=== PATIENT | male | born 1945 | race Caucasian/White ===

== ENCOUNTER 2018-04-09 15:47 | Inpatient (IN) | payer BC, MEDICARE ==
[2018-04-09] MEDS ORDERED: ADENOSINE 3 MG/ML 2 ML VIAL IVP STA ×2 (16:09→16:13)
[2018-04-09] MEDS ORDERED: METOPROLOL TARTRATE 5 MG/5 ML VIAL IVP STA ×2 (16:16→16:24)
[2018-04-09 16:26] LABS: Basophils % (A) 0 %; Eosinophils # (A) 0.1 k/uL (0-0.7); Eosinophils % (A) 1 %; HCT 47.5 % (39.0-53.0); HGB 15.7 gm/dL (13.0-17.5); Lymphocytes % (A) 21 %; MCH 32.1 pg (25.0-35.0); MCHC 33.1 g/dL (31.0-37.0); MCV 96.9 fL (80.0-100.0); Mean Platelet Volume 6.8; Monocytes # (A) 1.2 k/uL (0-1.0); Monocytes % (A) 9 %; Neutrophils # (A) 9.5 k/uL (1.3-7.7); Neutrophils % (A) 68 %; Platelet Count 210 k/uL (150-450); RDW 13.3 % (11.5-15.5); WBC 13.9 k/uL (3.8-10.6)
[2018-04-09 16:38] LABS: ALT 69 U/L (21-72); AST 43 U/L (17-59); Albumin 3.4 g/dL (3.5-5.0); Alkaline Phosphatase 59 U/L (38-126); Anion Gap 9 mmol/L; Blood Urea Nitrogen 21 mg/dL (9-20); Calcium 8.7 mg/dL (8.4-10.2); Carbon Dioxide 26 mmol/L (22-30); Chloride 101 mmol/L (98-107); Glucose 93 mg/dL (74-99); INR 1.2 (<1.2); Magnesium 1.8 mg/dL (1.6-2.3); Potassium 3.2 mmol/L (3.5-5.1); Prothrombin Time 11.2 sec (9.0-12.0); Sodium 136 mmol/L (137-145); Total Bilirubin 0.7 mg/dL (0.2-1.3); Total Protein 6.3 g/dL (6.3-8.2)
[2018-04-09] MEDS ORDERED: MIDAZOLAM 1 MG/ML 5 ML VIAL IV STA (16:39)
--- NOTE | 2018-04-09 16:43 | ED ---
General Adult HPI - General Chief complaint: Chest Pain Stated complaint: chest pain Time Seen by Provider: 04/09/18 15:48 Source: patient, RN notes reviewed, old records reviewed Mode of arrival: wheelchair Limitations: no limitations - History of Present Illness Initial comments: 82-year-old male presenting with chest pain and palpitations. Patient has history of coronary artery disease, history of atrial fibrillation, he has had pacemaker defibrillator which has been changed within the past one year. He has a reduced EF and cardiomyopathy. Patient presenting with substernal chest pain which began 30 minutes prior to arrival. This was exertional. He also reports some dyspnea. Patient is currently on anticoagulation for history of atrial fibrillation. He is on Coreg and digoxin. - Related Data Home Medications Medication Instructions Recorded Confirmed Apixaban [Eliquis] 5 mg PO BID 04/09/18 04/09/18 Aspirin EC [Ecotrin Low Dose] 81 mg PO DAILY 04/09/18 04/09/18 Atorvastatin [Lipitor] 40 mg PO HS 04/09/18 04/09/18 Carvedilol [Coreg] 25 mg PO BID 04/09/18 04/09/18 Digoxin [Lanoxin] 125 mcg PO DAILY 04/09/18 04/09/18 Furosemide [Lasix] 80 mg PO DAILY 04/09/18 04/09/18 Levothyroxine Sodium [Synthroid] 75 mcg PO DAILY 04/09/18 04/09/18 Multivitamins, Thera [Multivitamin 1 tab PO HS 04/09/18 04/09/18 (formulary)] Potassium Chloride ER [K-Dur 20] 40 meq PO DAILY 04/09/18 04/09/18 Ramipril [Altace] 5 mg PO DAILY 04/09/18 04/09/18 Spironolactone [Aldactone] 12.5 mg PO DAILY 04/09/18 04/09/18 Tamsulosin [Flomax] 0.4 mg PO HS 04/09/18 04/09/18 Turmeric Root Extract [Turmeric] 500 mg PO DAILY 04/09/18 04/09/18 Allergies Allergy/AdvReac Type Severity Reaction Status Date / Time Penicillins Allergy Rash/Hives Verified 04/09/18 16:49 Sulfa (Sulfonamide Allergy Rash/Hives Verified 04/09/18 16:49 Antibiotics) Review of Systems ROS Statement: Those systems with pertinent positive or pertinent negative responses have been documented in the HPI. ROS Other: All systems not noted in ROS Statement are negative. Past Medical History Past Medical History: Hypertension, Myocardial Infarction (PR), Pneumonia History of Any Multi-Drug Resistant Organisms: None Reported Past Surgical History: AICD, Coronary Bypass/CABG, Heart Catheterization With Stent, Hernia Repair, Orthopedic Surgery, Pacemaker Additional Past Surgical History / Comment(s): thyroid Past Psychological History: No Psychological Hx Reported Smoking Status: Never smoker Past Alcohol Use History: Occasional Past Drug Use History: None Reported General Exam Limitations: no limitations General appearance: alert, in no apparent distress Head exam: Present: atraumatic, normocephalic Eye exam: Present: normal appearance, PERRL Neck exam: Present: normal inspection. Absent: tenderness, meningismus Respiratory exam: Present: normal lung sounds bilaterally. Absent: respiratory distress, wheezes, rales Cardiovascular Exam: Present: normal rhythm, tachycardia GI/Abdominal exam: Present: soft. Absent: distended, tenderness, guarding Extremities exam: Present: normal inspection, normal capillary refill. Absent: pedal edema Neurological exam: Present: alert, oriented X3 Psychiatric exam: Present: normal affect, normal mood Skin exam: Present: warm, intact, diaphoretic Course Vital Signs 04/09/18 04/09/18 04/09/18 15:48 16:10 16:13 Temperature 97.9 F Pulse Rate 131 H 153 H 162 H Respiratory 18 20 20 Rate Blood Pressure 105/79 127/92 118/81 O2 Sat by Pulse 97 98 98 Oximetry 04/09/18 04/09/18 04/09/18 16:32 16:33 16:34 Temperature Pulse Rate 159 H 159 H 110 H Respiratory 20 16 16 Rate Blood Pressure 110/86 114/84 114/84 O2 Sat by Pulse 99 99 99 Oximetry - Reevaluation(s) Reevaluation #1: 04/09/18 [address] Arguelles given the wide-complex tachycardia. Recommend adenosine and possible cardioversion. EKG Findings - EKG Comments: EKG Findings:: EKG obtained at 1555, white complex tachycardia, right bundle branch block, rate of 164, QRS duration 166, QTC 488, this is likely SVT with aberrant conduction. Repeat EKG after cardioversion, ventricular paced rhythm, rate of 116, QRS duration 198, QTC 594 Medical Decision Making - Medical Decision Making 72-year-old male presenting with chest pain, presenting in wide-complex tachycardia, initial rhythm appears regular, may be SVT with aberrancy. Initial blood pressure is stable. He is given adenosine 6 Followed by 12 mg. There is a small pause but patient remains in wide-complex regular tachycardia. Blood pressure does begin to drop, patient becomes mildly diaphoretic. It is decided that cardioversion is the best course. He receives 50 J cardioversion after 2 mg of Versed in the emergency department. He does convert to paced rhythm status post cardioversion. Patient has no chest pain after cardioversion. He is asymptomatic. EKG does show paced rhythm. Laboratory studies reveal mildly elevated white blood cell count 13.9, hemoglobin 15.7, electrolytes are significant for mild hyponatremia 136, potassium is low at 3.2 this is replaced both with oral potassium and IV potassium. Magnesium 1.8. Troponin is 0.033 this will be trended. Patient is anticoagulated with Eliquis. Patient will be admitted to telemetry, cardiology on consult. - Lab Data Result diagrams: 04/09/18 16:00 04/09/18 16:00 Lab Results 04/09/18 04/09/18 04/09/18 Range/Units 16:00 16:00 16:00 WBC 13.9 H (3.8-10.6) k/uL RBC 4.90 (4.30-5.90) m/uL Hgb 15.7 (13.0-17.5) gm/dL Hct 47.5 (39.0-53.0) % MCV 96.9 (80.0-100.0) fL MCH 32.1 (25.0-35.0) pg MCHC 33.1 (31.0-37.0) g/dL RDW 13.3 (11.5-15.5) % Plt Count 210 (150-450) k/uL Neutrophils % 68 % Lymphocytes % 21 % Monocytes % 9 % Eosinophils % 1 % Basophils % 0 % Neutrophils # 9.5 H (1.3-7.7) k/uL Lymphocytes # 3.0 (1.0-4.8) k/uL Monocytes # 1.2 H (0-1.0) k/uL Eosinophils # 0.1 (0-0.7) k/uL Basophils # 0.0 (0-0.2) k/uL PT (9.0-12.0) sec INR (<1.2) APTT (22.0-30.0) sec Sodium 136 L (137-145) mmol/L Potassium 3.2 L (3.5-5.1) mmol/L Chloride 101 (98-107) mmol/L Carbon Dioxide 26 (22-30) mmol/L Anion Gap 9 mmol/L BUN 21 H (9-20) mg/dL Creatinine 0.88 (0.66-1.25) mg/dL Est GFR (CKD-EPI)AfAm >90 (>60 ml/min/1.73 sqM) Est GFR (CKD-EPI)NonAf 87 (>60 ml/min/1.73 sqM) Glucose 93 (74-99) mg/dL Calcium 8.7 (8.4-10.2) mg/dL Magnesium 1.8 (1.6-2.3) mg/dL Total Bilirubin 0.7 (0.2-1.3) mg/dL AST 43 (17-59) U/L ALT 69 (21-72) U/L Alkaline Phosphatase 59 (38-126) U/L Total Creatine Kinase 30 L (55-170) U/L CK-MB (CK-2) 1.6 (0.0-2.4) ng/mL CK-MB (CK-2) Rel Index 5.3 Troponin I 0.033 (0.000-0.034) ng/mL Total Protein 6.3 (6.3-8.2) g/dL Albumin 3.4 L (3.5-5.0) g/dL Digoxin ng/mL 04/09/18 04/09/18 Range/Units 16:00 16:00 WBC (3.8-10.6) k/uL RBC (4.30-5.90) m/uL Hgb (13.0-17.5) gm/dL Hct (39.0-53.0) % MCV (80.0-100.0) fL MCH (25.0-35.0) pg MCHC (31.0-37.0) g/dL RDW (11.5-15.5) % Plt Count (150-450) k/uL Neutrophils % % Lymphocytes % % Monocytes % % Eosinophils % % Basophils % % Neutrophils # (1.3-7.7) k/uL Lymphocytes # (1.0-4.8) k/uL Monocytes # (0-1.0) k/uL Eosinophils # (0-0.7) k/uL Basophils # (0-0.2) k/uL PT 11.2 (9.0-12.0) sec INR 1.2 H (<1.2) APTT 25.0 (22.0-30.0) sec Sodium (137-145) mmol/L Potassium (3.5-5.1) mmol/L Chloride (98-107) mmol/L Carbon Dioxide (22-30) mmol/L Anion Gap mmol/L BUN (9-20) mg/dL Creatinine (0.66-1.25) mg/dL Est GFR (CKD-EPI)AfAm (>60 ml/min/1.73 sqM) Est GFR (CKD-EPI)NonAf (>60 ml/min/1.73 sqM) Glucose (74-99) mg/dL Calcium (8.4-10.2) mg/dL Magnesium (1.6-2.3) mg/dL Total Bilirubin (0.2-1.3) mg/dL AST (17-59) U/L ALT (21-72) U/L Alkaline Phosphatase (38-126) U/L Total Creatine Kinase (55-170) U/L CK-MB (CK-2) (0.0-2.4) ng/mL CK-MB (CK-2) Rel Index Troponin I (0.000-0.034) ng/mL Total Protein (6.3-8.2) g/dL Albumin (3.5-5.0) g/dL Digoxin <0.4 ng/mL Critical Care Time Critical Care Time: Yes Total Critical Care Time: 35 Disposition Clinical Impression: Chest pain, Cardiomyopathy, SVT (supraventricular tachycardia) Disposition: ADMITTED IP TO THIS [facility] Condition: Stable Is patient prescribed a controlled substance at d/c from ED?: No Referrals: Raúl Martinez MD [Primary Care Provider] - 1-2 days Decision to Admit Reason: Admit from EC Decision Date: 04/09/18 Decision Time: 17:52
[2018-04-09 16:57] LABS: Creatine Kinase MB 1.6 ng/mL (0.0-2.4); Troponin I 0.033 ng/mL (0.000-0.034)
--- NOTE | 2018-04-09 17:18 | XR ---
EXAMINATION: XR chest 1V portable DATE AND TIME: 04/09/2018 5:02 PM CLINICAL INDICATION: Pain TECHNIQUE: AP upright portable COMPARISON: None. FINDINGS: The lungs are clear, other than a few scattered linear shadows consistent with subsegmental atelectas is and/or scarring. No acute pulmonary process. The pleural spaces are negative. Cardiac pacemaker sternal sutures and mediastinal clips are noted, with EKG leads. The cardiac silhou ette is moderately enlarged. The skeletal structures and soft tissues are negative for acute findings. IMPRESSION: NO ACUTE PROCESS.
[2018-04-09] MEDS ORDERED: POTASSIUM CHLORIDE ER 20 MEQ TAB.ER PO STA (17:35)
[2018-04-09] MEDS ORDERED: ACETAMINOPHEN TAB 325 MG TAB PO PRN (17:43)
[2018-04-09] MEDS ORDERED: NALOXONE 0.4 MG/ML 1 ML VIAL IV PRN (17:43)
[2018-04-09] MEDS: POTASSIUM CHLORIDE 20 MEQ in WATER FOR INJECTION 1 100ML.BAG IVPB SCH ×2 (18:23→20:55)
[2018-04-09] MEDS ORDERED: METOPROLOL TARTRATE 25 MG TAB PO STA (19:11)
[2018-04-09] MEDS: CARVEDILOL 12.5 MG TAB PO SCH (19:35)
[2018-04-09] MEDS: APIXABAN 5 MG TAB PO SCH (21:54)
[2018-04-09] MEDS: LEVOTHYROXINE 75 MCG TAB PO SCH (21:54)
[2018-04-09] MEDS: ATORVASTATIN 40 MG TAB PO SCH (21:55)
[2018-04-09 23:32] LABS: Creatine Kinase MB 3.8 ng/mL (0.0-2.4)
[2018-04-09 23:34] LABS: Troponin I 0.833 ng/mL (0.000-0.034)
[2018-04-10 05:17] LABS: Basophils # (A) 0.1 k/uL (0-0.2); Basophils % (A) 1 %; Eosinophils # (A) 0.2 k/uL (0-0.7); Eosinophils % (A) 1 %; HCT 42.1 % (39.0-53.0); HGB 13.6 gm/dL (13.0-17.5); Lymphocytes # (A) 3.2 k/uL (1.0-4.8); Lymphocytes % (A) 28 %; MCH 31.8 pg (25.0-35.0); MCHC 32.2 g/dL (31.0-37.0); MCV 98.8 fL (80.0-100.0); Mean Platelet Volume 6.7; Monocytes # (A) 1.1 k/uL (0-1.0); Monocytes % (A) 9 %; Neutrophils # (A) 6.7 k/uL (1.3-7.7); Neutrophils % (A) 59 %; Platelet Count 175 k/uL (150-450); RBC 4.27 m/uL (4.30-5.90); RDW 13.3 % (11.5-15.5); WBC 11.4 k/uL (3.8-10.6)
[2018-04-10 05:29] LABS: Albumin 2.7 g/dL (3.5-5.0); Calcium 9.1 mg/dL (8.4-10.2); Potassium 3.9 mmol/L (3.5-5.1); Total Bilirubin 0.5 mg/dL (0.2-1.3); Total Protein 5.1 g/dL (6.3-8.2)
[2018-04-10 05:43] LABS: Creatine Kinase MB 3.4 ng/mL (0.0-2.4)
[2018-04-10 05:51] LABS: Troponin I 0.584 ng/mL (0.000-0.034)
[2018-04-10] MEDS: CARVEDILOL 12.5 MG TAB PO SCH ×2 (06:17→17:02)
[2018-04-10] MEDS: APIXABAN 5 MG TAB PO SCH ×2 (08:11→20:42)
[2018-04-10] MEDS: LISINOPRIL 20 MG TAB PO SCH (08:11)
[2018-04-10] MEDS: ASPIRIN 81 MG PO SCH (08:11)
[2018-04-10] MEDS ORDERED: DIGOXIN 125 MCG TAB PO SCH (09:00)
[2018-04-10] MEDS ORDERED: POTASSIUM CHLORIDE ER 20 MEQ TAB.ER PO SCH (09:00)
[2018-04-10] MEDS ORDERED: DEXTROSE 5% IN WATER 100 ML with AMIODARONE 150 MG IV ONE (10:30)
[2018-04-10] MEDS: SPIRONOLACTONE 25 MG TAB PO SCH (11:16)
[2018-04-10] MEDS: AMIODARONE 450 MG in DEXTROSE 5% IN WATER 250 ML IV SCH ×4 (11:16→20:42)
[2018-04-10] MEDS ORDERED: guaiFENesin 600 MG TABLET.ER PO PRN (11:44)
[2018-04-10] MEDS ORDERED: ALBUTEROL NEBULIZED 2.5 MG/3 ML INHALATION PRN (11:47)
--- NOTE | 2018-04-10 12:22 | CONS ---
CONSULTATION This is a 72-year-old gentleman who has moved newly to this area. Apparently he has history of ischemic cardiomyopathy with ejection fraction in the 20% to 25% range. He has undergone 2 aortocoronary bypass surgeries, one in the s and other one in early 1999s. He has had a AICD for some time and about a year ago this AICD was replaced somewhere on the [facility]. He also has other issues with the form of paroxysmal atrial fibrillation in addition to ischemic cardiomyopathy, hypertension, and hyperlipidemia. He came into the hospital with complaints of having discomfort in the chest. He had a 30 incidence of chest discomfort and palpitations and after arrival he was found to be in a wide QRS tachycardia at about 150 beats per minute. The emergency room physician talked to me and initially gave him a trial with adenosine and subsequently a 50 joule shock in a synchronized fashion and he converted to a ventricular paced rhythm. At the time of my evaluation, he is in a paced rhythm, resting comfortably. Denies any chest discomfort. He is more comfortable at this time. His symptoms of chest pressure which brought him to the hospital have resolved. His functional capacity is about class 2 to class 3. However, he has seen Dr. Muro in the [place] area but wishes to follow up here in [facility] since he lives in [place]. He denies any chest pain or shortness of breath at rest while he is talking to me. He has been ambulating in the room without symptoms. PAST MEDICAL HISTORY: 1. History of multiple myocardial infarctions, 2 bypass surgeries and known CAD with ischemic cardiomyopathy and a ICD. The details of ICD are not available. 2. History of paroxysmal/persistent atrial fibrillation. 3. History of benign prostatic hypertrophy. 4. He also has a history of previous orthopedic surgery and some hernia repair. He does have an umbilical hernia as well. MEDICATIONS: Medications at home include Eliquis 5 mg b.i.d., aspirin 81 mg daily, Lipitor 40 mg daily, Coreg 25 mg b.i.d., digoxin 125 mcg daily, Lasix 80 mg daily, levothyroxine 75 mcg daily, potassium supplement, Altace 5 mg daily, Aldactone 12.5 mg daily. ALLERGIES: PENICILLIN and SULFA. REVIEW OF SYSTEMS: Remarkable for exertional shortness of breath, fatigue. He has no hematemesis, melena, genitourinary symptoms, fever with chills or cough with expectoration. PHYSICAL EXAMINATION: On examination, blood pressure today is 100/60, pulse rate is 80 per minute regular. HEENT: Unremarkable. Fundus was not examined by me. Neck is supple. There is JVD of 1 cm. No carotid bruit. Heart exam reveals S1, S2 with a short systolic murmur. Lungs revealed fine rales over both bases. Abdomen is soft. There is evidence of an umbilical hernia. Lower extremities reveal diminished pulses. Central nervous system grossly within normal limits. EKG initially revealed a wide QRS tachycardia of a right bundle branch block type pattern. Chest x-ray on arrival did not reveal any evidence of heart failure. LABORATORY DATA: Suggests that his potassium was low at 3.2 on arrival this morning is 3.9 and he also has a magnesium that is 2.0. Troponin is elevated from 0.03 to 0.58. IMPRESSION: 1. Wide QRS tachycardia, status post DC cardioversion. 2. Ischemic cardiomyopathy with ICD. 3. History of paroxysmal atrial fibrillation. 4. Evidence of previous orthopedic surgery. RECOMMENDATIONS: I am recommending that we discontinue digoxin, initiate him on amiodarone IV drip as per protocol and then eventually oral medication. We will keep him another 24 hours. We will resume Aldactone 25 mg daily and also his beta shabbir will be resumed with carvedilol 25 mg b.i.d. I will resume his Lasix as well and check labs in the form of magnesium and BMP in the morning. We will also have his device checked and check an echocardiogram. I discussed my thoughts in detail with the patient. Thank you very much for the consult. MMODL / IJN: [id number] /
--- NOTE | 2018-04-10 14:25 | ECHOF ---
Referral Reason:SVT/Wide complex tachycardia MEASUREMENTS -------- HEIGHT: 175.3 cm WEIGHT: 80.3 kg BP: 98/67 RVIDd: 4.1 cm (< 3.3) IVSd: 1.1 cm (0.6 - 1.1) LVIDd: 7.0 cm (3.9 - 5.3) LVPWd: 1.3 cm (0.6 - 1.1) IVSs: 1.3 cm LVIDs: 5.7 cm LVPWs: 1.4 cm LAESV Index (A-L): 43.86 ml/m Ao Diam: 3.8 cm (2.0 - 3.7) AV Cusp: 1.7 cm (1.5 - 2.6) LA Diam: 4.9 cm (2.7 - 3.8) MV EXCURSION: 17.985 mm (> 18.000) MV EF SLOPE: 93 mm/s (70 - 150) EPSS: 2.0 cm MV E Blayne: 1.14 m/s MV DecT: 198 ms MV A Blayne: 0.31 m/s MV E/A Ratio: 3.72 AR PHT: 398 ms RAP: 5.00 mmHg RVSP: 49.71 mmHg FINDINGS -------- Paced rhythm. This was a techncally difficult study with suboptimal views, , Lumason utilized for enhancement of im ages. The left ventricle is severely dilated. There is severe global hypokinesis of LV . Overall left v entricular systolic function is severely impaired with, an EF < 20%. Mitral Doppler inflow pattern suggests diastolic filling abnormality 21.92. The right ventricle is moderate to severely enlarged. The left atrium is markedly dilated. LA is severely dilated >40 ml/m2 The right atrial size is normal. 5.0mg OF Lumason UTLIZED: 2 OR MORE WALL SEGMENTS NOT VISUALIZED. There is mild aortic valve sclerosis. There is mild aortic regurgitation. Mild mitral annular calcification present. Mild mitral regurgitation is present. Moderate to severe tricuspid regurgitation present. There is moderate pulmonary hypertension. The right ventricular systolic pressure, as measured by Doppler, is 49.71mmHg. The pulmonic valve was not well visualized. The aortic root size is normal. There is no pericardial effusion. CONCLUSIONS -------- 1. This was a techncally difficult study with suboptimal views, , Lumason utilized for enhancement of images. 2. The left ventricle is severely dilated. 3. There is severe global hypokinesis of LV . 4. Overall left ventricular systolic function is severely impaired with, an EF < 20%. 5. Mitral Doppler inflow pattern suggest diastolic filling abnormality 21.92. 6. The right ventricle is moderate to severely enlarged. 7. The left atrium is markedly dilated. 8. LA is severely dilated >40 ml/m2 9. The right atrial size is normal. 10. 5.0mg OF Lumason UTLIZED: 2 OR MORE WALL SEGMENTS NOT VISUALIZED. 11. There is mild aortic valve sclerosis. 12. There is mild aortic regurgitation. 13. Mild mitral annular calcification present. 14. Mild mitral regurgitation is present. 15. Moderate to severe tricuspid regurgitation present. 16. There is moderate pulmonary hypertension. 17. The right ventricular systolic pressure, as measured by Doppler, is 49.71mmHg. 18. The pulmonic valve was not well visualized. 19. The aortic root size is normal. 20. There is no pericardial effusion. STAFF COMMAND AND CONTROL OFFICER: Radha Leblanc RDCS
[2018-04-10] MEDS: IPRATROPIUM-ALBUTEROL 3 ML NEB INHALATION SCH ×2 (16:40→20:18)
--- NOTE | 2018-04-10 18:55 | HP ---
HISTORY AND PHYSICAL DATE OF ADMISSION: 04/09/18 DATE OF SERVICE: 04/10/18 PRESENT COMPLAINT: Chest pressure. HISTORY OF PRESENTING COMPLAINT: This is a very pleasant 72-year-old patient follows Dr. Martinez. The patient's chronic stable medical conditions include atrial fibrillation, hyperlipidemia, osteoarthritis, prostate disorder, obstructive sleep apnea, hypothyroid, ischemic cardiomyopathy, ejection fraction 20%, and history of non-small cell lung cancer right upper lobe. The patient also got AICD in place. The patient also had a coronary bypass. The patient around 3:00 p.m. after finishing his friends noticed a dull ache in the left part of the chest. The patient at baseline has got short of breath. There is no dizziness. No lightheadedness. The symptoms lasted for a good half an hour. There is no obvious radiation. Took some nitroglycerin with some relief. Decided to come in for unstable angina. The patient found to have wide-complex tachycardia and was put on IV amiodarone. Also had a troponin leak. The patient has also some shortness of breath and wheezing, slight cough. The patient did have a cardioversion done in the ER for the rapid ventricular rate and then went to a paced rhythm. REVIEW OF SYSTEMS: CONSTITUTIONAL: Weak and tired. HEENT: None. RESPIRATORY: As above. CARDIOVASCULAR: As above. GASTROINTESTINAL: None. GENITOURINARY: None. MUSCULOSKELETAL: Arthritic pain in joints. DERMATOLOGICAL, HEMATOLOGIC, LYMPHATIC: None. PSYCHIATRY: None. NEUROLOGICAL: None. PAST MEDICAL HISTORY: Atrial fibrillation, coronary artery disease, hyperlipidemia, osteoarthritis, pneumonia, prostate disorder, sleep apnea, hypothyroid, cardiomyopathy, ejection fraction 20% in 2016, non-small cell lung cancer right upper lobe. PAST SURGICAL HISTORY: AICD, coronary bypass, hernia repair, pacemaker, tonsillectomy, partial thyroidectomy, 2 bypass surgeries one was 5 vessels and the other one was 2 vessels, right inguinal hernia repair, right knee arthroscopy, pacemaker, AICD. Patient states he has had 4 times changed since August 2017, permanent pacemaker, AICD. SOCIAL HISTORY: The patient smoked about a pack and a half for 43 years. Stopped in 2006. The patient drinks about 2 bourbons at night. 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 . Lives with his . FAMILY HISTORY: Coronary artery disease. HOME MEDICATIONS: 1. Turmeric 5 mg p.o. daily. 2. Flomax 0.4 mg p.o. q.h.s. 3. Aldactone 12.5 p.o. daily. 4. Altace 5 mg p.o. daily. 5. Potassium 40 mEq p.o. daily. 6. Multivitamin 1 tablet p.o. q.h.s. 7. Synthroid 75 mcg p.o. daily. 8. Lasix 80 mg p.o. daily. 9. Digoxin 125 mcg p.o. daily. 10.Coreg 25 mg p.o. b.i.d. 11.Lipitor 40 mg q.h.s. 12.Aspirin 81 mg p.o. daily. 13.Eliquis 5 mg b.i.d. ALLERGY: To PENICILLIN, SULFUR. PHYSICAL EXAMINATION: Temperature 97.9, pulse 150, respiration 20, blood pressure 127/92, pulse ox 97 percent on room air. GENERAL APPEARANCE: Average build, lying in bed, tired. EYES: Pupils equal. Conjunctivae normal. HEENT: External appearance of nose and ears normal. Oral cavity normal. NECK: JVD not raised. Mass not palpable. RESPIRATORY: Effort increased. LUNGS: Diminished breath sounds, prolonged expiration and wheezing. CARDIOVASCULAR: Heart sounds irregular. No edema. ABDOMEN: Distended, soft. Ventral hernia, reducible. Liver and spleen not palpable. LYMPHATIC: No lymph node palpable in neck or axillae. PSYCHIATRY: Alert and oriented x3. Mood and affect normal. NEUROLOGICAL: Pupils equal. Cranial nerves grossly intact. Power grossly intact. INVESTIGATIONS: White count 13.9, potassium 3.2, BUN 21, creatinine 0.88. Troponin 0.033, 0.833, 0.584. Chest x-ray film interpreted by me shows what looks like a pacemaker, some cardiomegaly. EKG tracing interpreted by me shows a ventricular paced rhythm and prior to that had a wide-complex tachycardia. ASSESSMENT: 1. Episode of wide-complex tachycardia, symptomatic. 2. Paroxysmal atrial fibrillation currently in sinus rhythm. 3. Coronary artery disease with prior history of coronary artery bypass. 4. Hyperlipidemia. 5. Primary osteoarthritis. 6. Obstructive sleep apnea uses CPAP. 7. Hypothyroid. 8. Ischemic cardiomyopathy, ejection fraction 20%. 9. History of small cell lung cancer right upper lobe, received radiation treatment. 10.Abdominal wall ventral hernia, reducible, asymptomatic. 11.Acute chronic obstructive pulmonary disease exacerbation in an ex-smoker. PLAN: Home medications are resumed. Cardiology was consulted. The patient is put on IV amiodarone. The patient was cardioverted in the ER. The patient will be also put on nebulized bronchodilators, inhaled steroids. Care was discussed in detail. Await further input from Cardiology. MMODL / IJN: [id number] /
[2018-04-10] MEDS: BUDESONIDE 1 MG/2 ML NEBU INHALATION SCH (20:18)
[2018-04-10] MEDS: ATORVASTATIN 40 MG TAB PO SCH (20:42)
[2018-04-10] MEDS ORDERED: TAMSULOSIN 0.4 MG CAP.ER.24H PO SCH (21:00)
[2018-04-10 21:52] VITALS: RESP 16
[2018-04-11] MEDS: AMIODARONE 450 MG in DEXTROSE 5% IN WATER 250 ML IV SCH ×4 (03:23→11:21)
[2018-04-11 05:33] LABS: Anion Gap 5 mmol/L; Blood Urea Nitrogen 16 mg/dL (9-20); Calcium 8.5 mg/dL (8.4-10.2); Carbon Dioxide 24 mmol/L (22-30); Chloride 104 mmol/L (98-107); Glucose 89 mg/dL (74-99); Magnesium 1.9 mg/dL (1.6-2.3); Potassium 3.6 mmol/L (3.5-5.1); Sodium 133 mmol/L (137-145)
[2018-04-11] MEDS: CARVEDILOL 12.5 MG TAB PO SCH (07:09)
[2018-04-11] MEDS: BUDESONIDE 1 MG/2 ML NEBU INHALATION SCH (08:34)
[2018-04-11] MEDS: IPRATROPIUM-ALBUTEROL 3 ML NEB INHALATION SCH ×2 (08:34→12:40)
[2018-04-11] MEDS: SPIRONOLACTONE 25 MG TAB PO SCH (08:40)
[2018-04-11] MEDS: APIXABAN 5 MG TAB PO SCH (08:40)
[2018-04-11] MEDS: LISINOPRIL 20 MG TAB PO SCH (08:40)
[2018-04-11] MEDS: ASPIRIN 81 MG PO SCH (08:40)
[2018-04-11] MEDS: LEVOTHYROXINE 75 MCG TAB PO SCH (08:40)
[2018-04-11] MEDS ORDERED: MAGNESIUM SULFATE-D5W PMX 1 GM in DEXTROSE/WATER 1 100ML.BAG IVPB ONE (10:00)
[2018-04-11] MEDS: POTASSIUM CHLORIDE ER 20 MEQ TAB.ER PO SCH ×3 (11:24→13:42)
[2018-04-11 11:28] VITALS: BP 100/67; TEMP 97.4
[2018-04-11 12:44] VITALS: PULSE 80
--- NOTE | 2018-04-11 18:41 | PN ---
PROGRESS NOTE This is a 72-year-old gentleman with ischemic cardiomyopathy. Echocardiogram revealed ejection fraction of less than 20%. He is in an atrial-sensed ventricular-paced rhythm. He is doing better. We have given him IV amiodarone. We will interrogate his device, continue IV amiodarone, switch it to oral and recheck his magnesium and potassium levels and then discharge him today with the understanding I will see him in the office in one week for an office visit. Vitals are stable. JVD of 1 cm. No carotid bruit. S1, S2 with a short systolic murmur is audible. Lungs are clear. Abdomen and lower extremity exam unchanged. MMODL / IJN: [id number] /
[2018-04-11] MEDS ORDERED: AMIODARONE 200 MG TAB PO SCH (21:00)
--- NOTE | 2018-04-12 00:20 | DS ---
DISCHARGE SUMMARY DATE OF ADMISSION: 04/09/2018. DATE OF DISCHARGE: 04/11/2018. FINAL DIAGNOSES: 1. Wide-complex tachycardia, symptomatic, present on admission. 2. Paroxysmal atrial fibrillation, converted to sinus rhythm. 3. Coronary artery disease, prior history of coronary bypass. 4. Ischemic cardiomyopathy, ejection fraction 20% to 25%, from underlying coronary artery disease. 5. Hyperlipidemia. 6. Primary osteoarthritis. 7. Obstructive sleep apnea, uses CPAP. 8. Hypothyroid. 9. History of small cell lung cancer right upper lobe, received radiation treatment. 10.Abdominal wall ventral hernia, reducible asymptomatic. 11.Acute chronic obstructive pulmonary disease exacerbation in an ex-smoker. 12.Moderate pulmonary hypertension secondary to ischemic cardiomyopathy and chronic obstructive pulmonary disease. 13.Moderate to severe tricuspid regurgitation, non-rheumatic. HOSPITAL COURSE: This is a very pleasant patient with the above problems. Has an AICD in place. Also history of coronary bypass. Presence of a dull ache on the left side. The patient is found to have a wide-complex tachycardia, put on amiodarone. Seen by Dr. Jamal Arguelles from Cardiology. A 2D echo showed an EF of 20% to 25%. The patient also had COPD exacerbation, responded well to bronchodilators. Doing much better today. Up and about. I discussed with Dr. Jamal Arguelles. The patient can be discharged. PHYSICAL EXAMINATION: Temperature 97.4, pulse 54, respirations 16, blood pressure 100/67, pulse ox 98 percent on room air. LUNGS: Minimal wheezing. CARDIOVASCULAR: 1st and 2nd sounds normal. Patient's 2D echocardiogram showed EF 20% and global hypokinesia and moderate to severe tricuspid regurgitation, moderate pulmonary hypertension. DISCHARGE MEDICATIONS: 1. Eliquis 5 mg b.i.d. 2. Aspirin 81 mg a day. 3. Lipitor 40 mg at bedtime. 4. Lasix 80 mg p.o. daily. 5. Synthroid 75 mcg a day. 6. Multivitamin 1 tablet p.o. at bedtime. 7. Potassium 20 mEq p.o. daily. 8. Flomax 0.4 mg at bedtime. 9. Turmeric 5 mg p.o. daily. 10.Ventolin HFA 1 to 2 puffs every 6 hours p.r.n. 11.Cordarone 200 mg p.o. b.i.d. 12.Coreg 25 mg b.i.d. 13.Atrovent 2 puffs q.i.d. 14.Zestril 20 mg p.o. daily. 15.Aldactone 12.5 p.o. daily. FOLLOWUP: 1. Follow up with Dr. Jamal Arguelles in [address] Martinez on 04/18/2018. 3. BMP in 3 days. DISCUSSION AND DISCHARGE PLANNING: More than 35 minutes. MMODL / IJN: [id number] /
== END 2018-04-11 16:27 | disposition home or self-care (01) | DRG 309 ==
LOC: EC 15:47 → 6SEL 17:45
PROVIDERS: ADMIT Hospitalist; ATTEND Hospitalist
PROC: 5A2204Z Restoration of Cardiac Rhythm, Single (ICD-10-PCS; principal; 2018-04-09)
DX: I47.1 Supraventricular tachycardia (principal); E87.1 Hypo-osmolality and hyponatremia; I25.110 Atherosclerotic heart disease of native coronary artery with unstable angina pectoris; J44.1 Chronic obstructive pulmonary disease with (acute) exacerbation; I27.20 Pulmonary hypertension, unspecified; I48.0 Paroxysmal atrial fibrillation; I25.5 Ischemic cardiomyopathy; I36.1 Nonrheumatic tricuspid (valve) insufficiency; I45.10 Unspecified right bundle-branch block; I25.2 Old myocardial infarction; I10 Essential (primary) hypertension; E78.5 Hyperlipidemia, unspecified; G47.33 Obstructive sleep apnea (adult) (pediatric); E89.0 Postprocedural hypothyroidism; K43.9 Ventral hernia without obstruction or gangrene; M19.91 Primary osteoarthritis, unspecified site; N40.0 Benign prostatic hyperplasia without lower urinary tract symptoms; Z79.01 Long term (current) use of anticoagulants; Z79.82 Long term (current) use of aspirin; Z79.890 Hormone replacement therapy; Z79.899 Other long term (current) drug therapy; Z95.1 Presence of aortocoronary bypass graft; Z87.01 Personal history of pneumonia (recurrent); Z95.5 Presence of coronary angioplasty implant and graft; Z85.118 Personal history of other malignant neoplasm of bronchus and lung; Z92.3 Personal history of irradiation; Z95.810 Presence of automatic (implantable) cardiac defibrillator; Z87.891 Personal history of nicotine dependence; Z88.0 Allergy status to penicillin; Z88.2 Allergy status to sulfonamides; Z82.49 Family history of ischemic heart disease and other diseases of the circulatory system
CPT/HCPCS: 36415; 71045; 80048; 80053; 80162; 82550; 82553; 83735; 84484; 85025; 85610; 85730; 93005; 93306; 94640; 96365; 96366; 96375; 99291

== ENCOUNTER → 2018-04-17 | Outpatient (CLI) | payer MEDICARE ==
[2018-04-17 07:33] LABS: Blood Urea Nitrogen 24 mg/dL (9-20)
--- NOTE | 2018-04-17 09:35 | CT ---
EXAMINATION TYPE: CT chest wo/w con DATE OF EXAM: 04/17/2018 COMPARISON: Outside chest CT September 12, 2017 and older outside studies. Outside PET/CT May 15, 2016. Outside reports are not available for correlation. HISTORY: Malignant neoplasm of upper lobe CT DLP: 1074 mGycm. Automated Exposure Control for Dose Reduction was Utilized. TECHNIQUE: CT scan of the thorax is performed following without and with IV Contrast, patient inject ed with 100 ml mL of Isovue 300. FINDINGS: LUNGS: There is persistent mild to moderate biapical pleural/parenchymal scarring. There is persisten t focal linear scarring in the right upper lobe axial image 14 redemonstrated. No new suspicious pare nchymal nodule or mass is present bilaterally. There is patchy bibasilar linear scarring and/or atele ctasis redemonstrated. No pleural effusion or pneumothorax is seen. Tracheobronchial tree is patent. MEDIASTINUM: There are no new greater than 1 cm hilar or mediastinal lymph nodes. No pericardial ef fusion is seen. Post CABG changes with mediastinal clips and sternal wires is redemonstrated. Heart size is stable and mildly enlarged. Surgical clips at level of thyroid gland with nonvisualized thyro id is redemonstrated. No suspicious enhancement is seen. There is mild to moderate plaque in the aort a extending into branch vessels. Ascending aorta measures up to 3.8 cm in diameter on axial image 44. There is stable left-sided pacemaker. OTHER: Bilateral gynecomastia is redemonstrated. Numerous small dependent gallstones are again seen i n gallbladder lumen. No surrounding inflammatory changes present. Decompressed stomach is noted on cu rrent study. There is partial visualization of ventral wall hernia containing fat and tiny mesenteric vessels axial image 107 in the upper abdomen redemonstrated. IMPRESSION: Chronic changes without suspicious new mass or adenopathy. Outside CT and PET CT reports are not available for direct comparison making evaluation slightly suboptimal
== END | disposition home or self-care (01) ==
LOC: RADCTMAIN 06:53
PROVIDERS: ATTEND Radiology Radiation Oncology
DX: C34.11 Malignant neoplasm of upper lobe, right bronchus or lung (principal); R91.8 Other nonspecific abnormal finding of lung field
CPT/HCPCS: 82565; 84520; 71270; 36415; Q9967

== ENCOUNTER → 2018-09-09 | Outpatient (CLI) | payer BC ==
--- NOTE | 2018-09-09 13:53 | US ---
EXAMINATION TYPE: US scrotum with doppler. Grayscale and color Doppler Duplex imaging performed of adrienne case scrotum. DATE OF EXAM: 09/09/2018 COMPARISON: NONE CLINICAL HISTORY: N50.89 TESTICULAR MASS. EXAM MEASUREMENTS: TESTICLES: Right Testicle: 4.2 x 2.3 x 2.9 cm Left Testicle: 3.7 x 1.8 x 2.8 cm EPIDIDYMIS HEAD: Right Epididymis: 1.1 cm Left Epididymis: 0.9 cm Doppler performed to assess for testicular vascularity; good bilateral color flow and waveforms are s een. There is no evidence of testicular torsion. Presence of hydroceles: No Presence of varicoceles: Non-compressible area visualized adjacent to right testicle with no color f low visualized, ? thrombosed varicocele vs other Non-compressible area visualized adjacent to right testicle with no color flow visualized, ? thrombos ed varicocele vs other. Cystic area visualized within the left testicle measuring 0.3 x 0.3 x 0.5 cm . Probable left epididymal cyst measuring 3.3 x 2.3 x 3.3 cm IMPRESSION: 1. Large epididymal cyst left side 2. There may be some thrombosed varicocele present on the right
== END ==
LOC: RADUSWWP 12:37
PROVIDERS: ATTEND Family Medicine
DX: N50.3 Cyst of epididymis (principal)
CPT/HCPCS: 76870; 93975

== ENCOUNTER → 2018-10-09 | Outpatient (CLI) | payer BC ==
[2018-10-09 14:04] LABS: Blood Urea Nitrogen 7 mg/dL (9-20)
--- NOTE | 2018-10-09 15:06 | CT ---
EXAMINATION TYPE: CT chest wo/w con DATE OF EXAM: 10/09/2018 COMPARISON: Prior CT April 17, 2018 and older outside CTs. Outside PET/CT May 15, 2016 HISTORY: Lung cancer follow up. CT DLP: 806.1 mGycm. Automated Exposure Control for Dose Reduction was Utilized. TECHNIQUE: CT scan of the thorax is performed following without and with IV Contrast, patient inject ed with 100 mL of Isovue M300. FINDINGS: LUNGS: There is stable mild biapical pleural/parenchymal scarring. There is persistent right apical s carlike opacity measuring roughly 2.6 x 2.3 cm current study image 11 with slightly more prominent so ft tissue fullness possibly enhancing at this level versus last 2 CTs seen axial image 15 series 7 so ft tissue window and coronal series 14 image 54. Recurrent neoplasm at this level needs to BE conside red. No new nodules or masses are clearly present. No pleural effusion or pneumothorax is noted. MEDIASTINUM: There are no greater than 1 cm hilar or mediastinal lymph nodes. No cardiomegaly or pe ricardial effusion is seen. Post CABG changes with mediastinal clips and sternal wires is redemonstr ated. Multilead pacemaker/AICD is again seen. Ascending aorta measures up to 3.9 cm in diameter on ax ial image 25 series 3. Mild plaque of thoracic aorta is redemonstrated. 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 OTHER: Diverticula in the sigmoid colon near splenic flexure are seen. Bilateral gynecomastia is rede monstrated. Dependent gallstones are again seen. There is ventral wall hernia containing fat attendin g mesenteric vessels axial image 69 redemonstrated. IMPRESSION: Increasing soft tissue nodularity at level of treated neoplasm right upper lung worrisome for local recurrence. Repeat PET CT should be considered.
== END | disposition home or self-care (01) ==
LOC: RADCTMAIN 13:14
PROVIDERS: ATTEND Radiology Radiation Oncology
DX: R91.1 Solitary pulmonary nodule (principal); C34.11 Malignant neoplasm of upper lobe, right bronchus or lung
CPT/HCPCS: 82565; 84520; 71270; 36415; Q9967

== ENCOUNTER → 2018-10-26 | Outpatient (CLI) | payer BC ==
--- NOTE | 2018-10-28 06:19 | PE ---
EXAMINATION TYPE: PET CT fusion skull to thigh DATE OF EXAM: 10/26/2018 COMPARISON: Outside PET/CT May 15, 2016. Most recent chest CT October 09, 2018 and older CTs includ ing outside CTs from March 17, 2016 HISTORY: Right-sided lung cancer diagnosed 2016 with radiation treatment progress study, recent abnor mal CT. TECHNIQUE: Following the intravenous administration of 11.797 mCi of F-18 FDG, whole body images are performed from the skull base to the midthigh. Images are reviewed on the computer in the coronal, axial, and sagittal planes. Reconstructed rotating images are created on independent workstation and reviewed on the computer. A noncontrast CT is performed in conjunction with the PET scan. SCAN: Subsequent Scan FINDINGS: SKULL BASE AND NECK: No suspicious hypermetabolic uptake is present. CHEST, MEDIASTINUM, AND HILAR REGION: There is background mild to moderate underlying emphysematous c hange. There is persistent biapical mild scarring. There is persistent masslike consolidation right u pper lobe axial image 80 measuring 2.5 x 2.4 cm, this area is ametabolic. No areas of suspicious hype rmetabolic uptake identified in the thorax. ABDOMEN AND PELVIS: No suspicious hypermetabolic uptake. No adrenal masses are evident. OSSEOUS STRUCTURES: No suspicious hypermetabolic uptake is seen. OTHER CT: Mild to moderate calcified plaque bilateral carotid bulb level is present. Post CABG changes with mediastinal clips and sternal wires is noted. Bilateral subareolar gynecomasti a is seen. There is cardiomegaly with multi lead pacemaker. Dependent small gallstones are seen in gallbladder. Diverticula in the left and sigmoid colon are pre sent. Moderate calcified plaque of aorta extends into branch vessels. Surgical clips left groin regio n are seen. Facet arthropathy lower lumbar spine is present. Multilevel spurring in the thoracolumbar spine is se en. IMPRESSION: Area of concern increasing soft tissue in scarlike opacity right upper lobe is ametabolic . No areas of hypermetabolic uptake are identified to suggest active recurrent neoplasm.
== END | disposition home or self-care (01) ==
LOC: RADPETMAIN 08:35
PROVIDERS: ATTEND Radiology Radiation Oncology
DX: C34.11 Malignant neoplasm of upper lobe, right bronchus or lung (principal); Z87.891 Personal history of nicotine dependence
CPT/HCPCS: 78815; A9552

== ENCOUNTER → 2019-03-07 | Outpatient (CLI) | payer MEDICARE ==
[2019-03-07 14:08] LABS: African American GFR (CKD) >90 (>60 ml/min/1.73 sqM); Blood Urea Nitrogen 10 mg/dL (9-20)
--- NOTE | 2019-03-07 14:51 | CT ---
EXAMINATION TYPE: CT chest w con DATE OF EXAM: 03/07/2019 COMPARISON: Chest CT October 09, 2018 and older [address]s. PET CT October 26, 2018. HISTORY: f/u lung ca diagnosed and treated 2016. Prior abnormal CT. CT DLP: 336.7 mGycm. Automated Exposure Control for Dose Reduction was Utilized. TECHNIQUE: CT scan of the thorax is performed following with IV Contrast, patient injected with 100 mL of Isovue 370. FINDINGS: LUNGS: Stable right upper lung parenchymal scarring with slight thickening axial image 14 unchanged f rom most recent CT and PET/CT studies. No new nodules or masses. No pleural effusion or pneumothorax. No new infiltrate. MEDIASTINUM: Overlying sternal wires and mediastinal clips are redemonstrated. There is persistent mi ld cardiomegaly with multilead pacemaker/AICD. No pericardial effusion is seen. No new greater than 1 cm adenopathy. OTHER: Bilateral gynecomastia is redemonstrated. Dependent hyperdense small gallstones redemonstrated persistent but wall hernia upper abdomen containing fat axial image 67 and tiny mesenteric vessels. IMPRESSION: Overall stable findings, stable right upper lung scarring without hypermetabolic uptake i n recent PET CT. No new nodules or adenopathy identified.
== END | disposition home or self-care (01) ==
LOC: RADCTMAIN 13:24
PROVIDERS: ATTEND Internal Medicine Critical Care Medicine
DX: Z08 Encounter for follow-up examination after completed treatment for malignant neoplasm (principal); J98.4 Other disorders of lung; Z88.0 Allergy status to penicillin; Z88.2 Allergy status to sulfonamides; Z85.118 Personal history of other malignant neoplasm of bronchus and lung
CPT/HCPCS: 82565; 84520; 71260; 36415; Q9967

== ENCOUNTER 2019-05-22 15:55 | Inpatient (IN) | payer BC, MEDICARE ==
[2019-05-22] MEDS ORDERED: ASPIRIN 81 MG PO STA (16:18)
[2019-05-22] MEDS ORDERED: SODIUM CHLORIDE 0.9% 500 ML 500 ML IV STA (16:18)
--- NOTE | 2019-05-22 16:28 | ED ---
General Adult HPI - General Stated complaint: Chest tightness Time Seen by Provider: 05/22/19 16:09 - History of Present Illness Initial comments: Dictation was produced using [email or web address] software. please excuse any grammatical, word or spelling errors. Chief Complaint: 74-year-old male presents with chief complaint of chest discomfort. History of Present Illness: 74-year-old male who has past medical history of isc hemic cardiomyopathy, pacemaker, atrial fibrillation presents with chief complaint of chest pressure. States the chest pressure substernal. He initially thought was indigestion and tried taking just medications. He also tried taking nitroglycerin. Symptoms did not improve. Denies any radiation of symptoms. No psoas of diaphoresis. He is a patient of Dr. Cortes. Patient had cardiac history for the last several years. Initially his cardiac disease was initially discovered while he was a resident in [place]. Patient moved to the area couple years ago. Patient states he's been having chest discomfort for the last 3-4 hours. Patient also has sensation of palpitations. Patient is similar episode to this approximately 1 year ago. Patient states he has tachycardia dysrhythmia in the past. Chart review shows that 1 year ago patient had a similar issue. At that time he was cardioverted back to paced rhythm. Patient is on anechoic admission therapy. Patient currently takes amiodarone, apixaban, Aldactone, Lasix and beta shabbir. The ROS documented in this emergency department record has been reviewed and confirmed by me. Those systems with pertinent positive or negative responses have been documented in the HPI. All other systems are other negative and/or noncontributory. PHYSICAL EXAM: General Impression: Alert and oriented x3, not in acute distress HEENT: Normocephalic atraumatic, extra-ocular movements intact, pupils equal and reactive to light bilaterally, mucous membranes moist. Cardiovascular: Tachycardic Chest: Lungs clear to auscultation bilaterally, no rhonchi, no wheeze, no rales Abdomen: Bowel sounds present, abdomen soft, non-tender, non-distended, no organomegaly Musculoskeletal: Pulses present and equal in all extremities, no peripheral edema Motor: no focal deficits noted Neurological: CN II-XII grossly intact, no focal motor or sensory deficits noted Skin: Intact with no visualized rashes Psych: Normal affect and mood ED course: 74-year-old male presents with chief complaint of chest discomfort. Onset upon arrival shows tachycardia. Monitor shows wide complex tachycardia dysrhythmia. Blood pressure is stable. Clinical presentation consistent with stable wide-complex tachycardia dysrhythmia. Differential includes ventricular tachycardia versus tachycardia with abberancy. Patient started on amiodarone. He is given 150 mg bolus with plans for amiodarone infusion. Discussed patient case with Dr. Jesus who recommends cardioversion. While we were getting prepared to perform cardioversion patient converted to a paced rhythm. He reports improvement of symptoms. Repeat EKG shows 94 with electronic ventricular paced rhythm, QS 176, QTC 522. We discussed patient case with Dr. Jesus who requests patient be given metoprolol and to check a TSH level. Dr. Jesus was also told that he does have some ST depressions in V1 and V2 concerning for Sgarbossa criteria. He believes that this is from rate dependent ischemia. He reports no immediate cardiac cath indicated at this time. He reports immediate improvement of his chest symptoms. Discussed patient case with Dr. Warner's point except patient's care. Discussed patient case with Dr. Logan who is willing to accept patient care in the intensive care unit.To evaluation obtained. Mild leukocytosis of 12.31 secondary to stress. Coag panel unremarkable. Metabolic panel is grossly unremarkable. Patient's troponin 0.015. Patient understandable agreeable to disposition. Cardiology consulted as well. EKG interpretation: Ventricular rate 150, white QRS tachycardia, Q church 170, QTC 580. - Related Data Home Medications Medication Instructions Recorded Confirmed Apixaban [Eliquis] 5 mg PO BID 04/09/18 04/09/18 Aspirin EC [Ecotrin Low Dose] 81 mg PO DAILY 04/09/18 04/09/18 Atorvastatin [Lipitor] 40 mg PO HS 04/09/18 04/09/18 Furosemide [Lasix] 80 mg PO DAILY 04/09/18 04/09/18 Levothyroxine Sodium [Synthroid] 75 mcg PO DAILY 04/09/18 04/09/18 Multivitamins, Thera [Multivitamin 1 tab PO HS 04/09/18 04/09/18 (formulary)] Potassium Chloride ER [K-Dur 20] 40 meq PO DAILY 04/09/18 04/09/18 Tamsulosin [Flomax] 0.4 mg PO HS 04/09/18 04/09/18 Turmeric Root Extract [Turmeric] 500 mg PO DAILY 04/09/18 04/09/18 Previous Rx's Medication Instructions Recorded Albuterol Inhaler [Ventolin Hfa 1 - 2 puff INHALATION RT-Q6H PRN 04/11/18 Inhaler] #1 inhaler Amiodarone [Cordarone] 200 mg PO BID #60 tab 04/11/18 Carvedilol [Coreg*] 25 mg PO BID-W/MEALS #60 tab 04/11/18 Ipratropium [place] [Atrovent Hfa] 2 puff INHALATION QID #1 inhaler 04/11/18 Lisinopril [Zestril] 20 mg PO DAILY #30 tab 04/11/18 Spironolactone [Aldactone] 12.5 mg PO DAILY #30 tablet 04/11/18 Allergies Allergy/AdvReac Type Severity Reaction Status Date / Time Penicillins Allergy Rash/Hives Verified 05/22/19 16:56 Sulfa (Sulfonamide Allergy Rash/Hives Verified 05/22/19 16:56 Antibiotics) Review of Systems ROS Statement: Those systems with pertinent positive or pertinent negative responses have been documented in the HPI. ROS Other: All systems not noted in ROS Statement are negative. Past Medical History Past Medical History: Atrial Fibrillation, Coronary Artery Disease (CAD), Hyperlipidemia, Myocardial Infarction (SC), Osteoarthritis (OA), Pneumonia, Prostate Disorder, Sleep Apnea/CPAP/BIPAP, Thyroid Disorder Additional Past Medical History / Comment(s): cardiomyopathy. 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 pacemaker/aicd pt stated has had x4 last changed Additional Past Anesthesia/Blood Transfusion Reaction / Comment(s): has had blood transfusion in past-no reaction. Type of Cardiac Device: Permanent Pacemaker, AICD Device Placement Date:: changed last 2-2018 Smoking Status: Former smoker - Past Family History Mother Family Medical History: Chest Pain / Angina, Coronary Artery Disease (CAD) Additional Family Medical History / Comment(s): at age 92 from lung infection Father History Unknown: Yes Course Vital Signs 05/22/19 05/22/19 05/22/19 16:11 16:15 16:30 Temperature Pulse Rate 158 H 158 H 160 H Respiratory 18 18 17 Rate Blood Pressure 118/92 108/87 O2 Sat by Pulse 99 98 99 Oximetry 05/22/19 05/22/19 16:38 16:45 Temperature 97.7 F Pulse Rate 93 89 Respiratory 18 21 Rate Blood Pressure 100/72 104/81 O2 Sat by Pulse 99 99 Oximetry Medical Decision Making - Lab Data Result diagrams: 05/22/19 16:17 05/22/19 16:17 Lab Results 05/22/19 05/22/19 05/22/19 Range/Units 16:17 16:17 16:17 WBC 12.3 H (3.8-10.6) k/uL RBC 4.59 (4.30-5.90) m/uL Hgb 15.8 (13.0-17.5) gm/dL Hct 45.9 (39.0-53.0) % MCV 100.1 H (80.0-100.0) fL MCH 34.5 (25.0-35.0) pg MCHC 34.5 (31.0-37.0) g/dL RDW 12.7 (11.5-15.5) % Plt Count 217 (150-450) k/uL Neutrophils % 55 % Lymphocytes % 31 % Monocytes % 5 % Eosinophils % 4 % Basophils % 2 % Neutrophils # 6.8 (1.3-7.7) k/uL Lymphocytes # 3.8 (1.0-4.8) k/uL Monocytes # 0.6 (0-1.0) k/uL Eosinophils # 0.4 (0-0.7) k/uL Basophils # 0.2 (0-0.2) k/uL PT 10.2 (9.0-12.0) sec INR 0.9 (<1.2) APTT 27.0 (22.0-30.0) sec Sodium 137 (137-145) mmol/L Potassium 4.0 (3.5-5.1) mmol/L Chloride 99 (98-107) mmol/L Carbon Dioxide 30 (22-30) mmol/L Anion Gap 8 mmol/L BUN 13 (9-20) mg/dL Creatinine 0.77 (0.66-1.25) mg/dL Est GFR (CKD-EPI)AfAm >90 (>60 ml/min/1.73 sqM) Est GFR (CKD-EPI)NonAf >90 (>60 ml/min/1.73 sqM) Glucose 117 H (74-99) mg/dL Calcium 8.9 (8.4-10.2) mg/dL Magnesium 1.7 (1.6-2.3) mg/dL Total Bilirubin 1.1 (0.2-1.3) mg/dL AST 28 (17-59) U/L ALT 32 (21-72) U/L Alkaline Phosphatase 70 (38-126) U/L Troponin I (0.000-0.034) ng/mL Total Protein 7.0 (6.3-8.2) g/dL Albumin 3.9 (3.5-5.0) g/dL 05/22/19 Range/Units 16:17 WBC (3.8-10.6) k/uL RBC (4.30-5.90) m/uL Hgb (13.0-17.5) gm/dL Hct (39.0-53.0) % MCV (80.0-100.0) fL MCH (25.0-35.0) pg MCHC (31.0-37.0) g/dL RDW (11.5-15.5) % Plt Count (150-450) k/uL Neutrophils % % Lymphocytes % % Monocytes % % Eosinophils % % Basophils % % Neutrophils # (1.3-7.7) k/uL Lymphocytes # (1.0-4.8) k/uL Monocytes # (0-1.0) k/uL Eosinophils # (0-0.7) k/uL Basophils # (0-0.2) k/uL PT (9.0-12.0) sec INR (<1.2) APTT (22.0-30.0) sec Sodium (137-145) mmol/L Potassium (3.5-5.1) mmol/L Chloride (98-107) mmol/L Carbon Dioxide (22-30) mmol/L Anion Gap mmol/L BUN (9-20) mg/dL Creatinine (0.66-1.25) mg/dL Est GFR (CKD-EPI)AfAm (>60 ml/min/1.73 sqM) Est GFR (CKD-EPI)NonAf (>60 ml/min/1.73 sqM) Glucose (74-99) mg/dL Calcium (8.4-10.2) mg/dL Magnesium (1.6-2.3) mg/dL Total Bilirubin (0.2-1.3) mg/dL AST (17-59) U/L ALT (21-72) U/L Alkaline Phosphatase (38-126) U/L Troponin I 0.015 (0.000-0.034) ng/mL Total Protein (6.3-8.2) g/dL Albumin (3.5-5.0) g/dL Disposition Clinical Impression: Tachyarrhythmia Disposition: ADMITTED IP TO THIS [facility] Condition: Critical Referrals: Raúl Martinez MD [Primary Care Provider] - 1-2 days Decision Time: 17:07
[2019-05-22] MEDS ORDERED: DEXTROSE 5% IN WATER 100 ML with AMIODARONE 150 MG IV ONE (16:30)
[2019-05-22 16:31] LABS: Basophils # (A) 0.2 k/uL (0-0.2); Basophils % (A) 2 %; Eosinophils # (A) 0.4 k/uL (0-0.7); Eosinophils % (A) 4 %; HCT 45.9 % (39.0-53.0); HGB 15.8 gm/dL (13.0-17.5); Lymphocytes # (A) 3.8 k/uL (1.0-4.8); Lymphocytes % (A) 31 %; MCH 34.5 pg (25.0-35.0); MCHC 34.5 g/dL (31.0-37.0); MCV 100.1 fL (80.0-100.0); Mean Platelet Volume 6.1; Monocytes # (A) 0.6 k/uL (0-1.0); Monocytes % (A) 5 %; Neutrophils # (A) 6.8 k/uL (1.3-7.7); Neutrophils % (A) 55 %; Platelet Count 217 k/uL (150-450); RBC 4.59 m/uL (4.30-5.90); RDW 12.7 % (11.5-15.5); WBC 12.3 k/uL (3.8-10.6)
--- NOTE | 2019-05-22 16:35 | XR ---
EXAMINATION TYPE: XR chest 1V portable DATE OF EXAM: 05/22/2019 COMPARISON: Prior chest x-ray dated 04/09/2018 HISTORY: Arrhythmia TECHNIQUE: Single frontal view of the chest is obtained. FINDINGS: There is no focal air space opacity, pleural effusion, or pneumothorax seen. The cardiac silhouette size is enlarged, stable. Intracardiac defibrillator leads are unchanged. Patient is post median sternotomy. There are overlying cardiac leads. Probable scarring at the superolateral right u pper lobe is stable. The osseous structures are intact. IMPRESSION: No acute process.
[2019-05-22 16:36] LABS: ALT 32 U/L (21-72); AST 28 U/L (17-59); African American GFR (CKD) >90 (>60 ml/min/1.73 sqM); Albumin 3.9 g/dL (3.5-5.0); Alkaline Phosphatase 70 U/L (38-126); Anion Gap 8 mmol/L; Blood Urea Nitrogen 13 mg/dL (9-20); Calcium 8.9 mg/dL (8.4-10.2); Carbon Dioxide 30 mmol/L (22-30); Chloride 99 mmol/L (98-107); Glucose 117 mg/dL (74-99); Magnesium 1.7 mg/dL (1.6-2.3); Sodium 137 mmol/L (137-145); Total Bilirubin 1.1 mg/dL (0.2-1.3)
[2019-05-22] MEDS ORDERED: ETOMIDATE 2 MG/ML 10 ML VIAL IVP STA (16:36)
[2019-05-22] MEDS ORDERED: AMIODARONE 360 MG in DEXTROSE 5% IN WATER 200 ML IV ONE ×2 (16:40)
[2019-05-22 16:45] LABS: INR 0.9 (<1.2); Prothrombin Time 10.2 sec (9.0-12.0)
[2019-05-22] MEDS ORDERED: METOPROLOL TARTRATE 25 MG TAB PO STA (16:52)
[2019-05-22] MEDS ORDERED: NALOXONE 0.4 MG/ML 1 ML VIAL IV PRN (17:07)
[2019-05-22] MEDS ORDERED: Magnesium Replacement Protocol 1 EACH MISC MISCELLANE PRN (19:18)
[2019-05-22 19:23] LABS: Glucose,Whole Blood 114 mg/dL (75-99)
[2019-05-22] MEDS: MAGNESIUM SULFATE-D5W PMX 1 GM in DEXTROSE/WATER 1 100ML.BAG IVPB SCH ×2 (20:14→20:59)
[2019-05-22] MEDS: APIXABAN 5 MG TAB PO SCH (20:59)
[2019-05-22] MEDS: ATORVASTATIN 40 MG TAB PO SCH (20:59)
[2019-05-22 21:41] VITALS: BMI 26.6
[2019-05-22] MEDS: AMIODARONE 300 MG in DEXTROSE 5% IN WATER 250 ML IV SCH ×2 (23:40)
[2019-05-23 05:16] LABS: Basophils # (A) 0.1 k/uL (0-0.2); Basophils % (A) 1 %; Eosinophils # (A) 0.5 k/uL (0-0.7); Eosinophils % (A) 4 %; HCT 39.5 % (39.0-53.0); HGB 13.6 gm/dL (13.0-17.5); Lymphocytes % (A) 25 %; MCH 34.7 pg (25.0-35.0); MCHC 34.4 g/dL (31.0-37.0); Mean Platelet Volume 6.3; Monocytes # (A) 0.8 k/uL (0-1.0); Monocytes % (A) 7 %; Neutrophils # (A) 7.1 k/uL (1.3-7.7); Neutrophils % (A) 60 %; Platelet Count 189 k/uL (150-450); RBC 3.91 m/uL (4.30-5.90); RDW 12.8 % (11.5-15.5); WBC 11.8 k/uL (3.8-10.6)
[2019-05-23 05:27] LABS: African American GFR (CKD) >90 (>60 ml/min/1.73 sqM); Anion Gap 5 mmol/L; Blood Urea Nitrogen 11 mg/dL (9-20); Calcium 8.5 mg/dL (8.4-10.2); Carbon Dioxide 29 mmol/L (22-30); Chloride 101 mmol/L (98-107); Digoxin 0.5 ng/mL; Glucose 96 mg/dL (74-99); Sodium 135 mmol/L (137-145)
[2019-05-23] MEDS: LEVOTHYROXINE 75 MCG TAB PO SCH (06:51)
--- NOTE | 2019-05-23 07:17 | XR ---
EXAMINATION TYPE: XR chest 1V DATE OF EXAM: 05/23/2019 CLINICAL HISTORY: Dysrhythmia. TECHNIQUE: Single AP portable upright view of the chest is obtained. COMPARISON: Chest x-ray from one day earlier and older studies. FINDINGS: There is cardiomegaly with multilead pacemaker/AICD. Overlying sternal wires and mediastin al clips are present. There is chronic parenchymal change bilaterally without suspicious focal airspa ce opacity, pleural effusion, or pneumothorax identified. Patchy bibasilar scarring and/or atelectasi s. Osseous structures are intact. IMPRESSION: Overall stable findings, cardiomegaly and chronic parenchymal changes without acute pul monary process
[2019-05-23] MEDS ORDERED: CARVEDILOL 12.5 MG TAB PO SCH (07:30)
[2019-05-23] MEDS: POTASSIUM CHLORIDE ER 20 MEQ TAB.ER PO SCH (08:43)
[2019-05-23] MEDS: ASPIRIN 81 MG PO SCH (08:43)
[2019-05-23] MEDS: MULTIVITAMINS, THERA 1 EACH TAB PO SCH (08:43)
[2019-05-23] MEDS: FUROSEMIDE 80 MG TAB PO SCH (08:43)
[2019-05-23] MEDS: APIXABAN 5 MG TAB PO SCH ×2 (08:43→20:39)
[2019-05-23] MEDS ORDERED: LISINOPRIL 20 MG TAB PO SCH (09:00)
[2019-05-23] MEDS ORDERED: DIGOXIN 125 MCG TAB PO SCH (09:00)
[2019-05-23] MEDS ORDERED: IPRATROPIUM-ALBUTEROL 3 ML NEB INHALATION PRN (09:43)
[2019-05-23] MEDS: IPRATROPIUM-ALBUTEROL 3 ML NEB INHALATION SCH ×3 (09:47→19:23)
[2019-05-23] MEDS: SPIRONOLACTONE 25 MG TAB PO SCH (10:04)
--- NOTE | 2019-05-23 10:34 | P.CNPUL ---
History of Present Illness Consult date: 05/23/19 Requesting physician: Jefe Warner Reason for consult: other Chief complaint: Chest tightness, wide-complex tachycardia History of present illness: This 74-year-old white male patient with history of ischemic cardiomyopathy, with baseline EF of less than 20%, with history of AICD implantation, coronary artery disease with previous bypass grafting in 1995, and then again in 2005, atrial fibrillation on Eliquis, non-small cell lung cancer in the right lung was diagnosed in [place] in 2015, and treated with radiation, and patient had no evidence of distant metastasis. He has been receiving surveillance CAT scans, he follows with Dr. Balderrama in the pulmonary clinic and Dr. Anish Warren from radiation oncology, most recent PET scan from 10/28/2018 showed an area of increasing soft tissue in scarlike opacity in the right upper lobe which did not show hypermetabolic uptake suggesting recurrent neoplasm. Patient has a history of COPD, and outpatient FEV1 was in order of 58% of predicted consistent with moderately severe COPD and patient is maintained on a combination of Spiriva and albuterol nebulized treatments, he is not oxygen dependent. Also has history of obstructive sleep apnea syndrome diagnosed many years back and patient was unable to tolerate the treatment. On 05/02/2019 patient presented to the emergency department with complaints of chest tightness that felt like severe indigestion lasting 3 or 4 hours. Patient tried taking his nitroglycerin with no improvement in symptoms, denied any radiation of his symptoms, no palpitations, no lightheadedness or dizziness, no shortness of breath. In the emergency department he was placed on the monitor and was found to be in wide complex tachycardia, with a stable blood pressure. He was given amiodarone 150 mg bolus followed by drip per standard protocol. Cardiology has been consulted and recommended synchronize cardioversion however patient had converted to a paced rhythm just prior to cardioversion. Immed iately reported improvement in his symptoms. Repeat EKG showed ventricular paced rhythm at a rate of 94 BPM. X-ray was completed showing no acute process. Lab work showed a white blood cell count of 12.3, hemoglobin 15.8, correlation profile was within normal limits, BMP was normal, troponin was negative, TSH was within normal limits, digoxin level was 0.5. She admitted to the intensive care unit for closer monitoring, he is awake and alert, he remains in place rhythm with occasional PVCs, remains on amiodarone drip this morning, hemodynamically stable, denies any specific complaints, no shortness of breath or chest pain. Review of Systems All systems: negative Constitutional: Denies chills, Denies fever Eyes: denies blurred vision, denies pain Ears, nose, mouth and throat: Denies headache, Denies sore throat Cardiovascular: Reports chest pain, Denies shortness of breath Respiratory: Denies cough Gastrointestinal: Denies abdominal pain, Denies diarrhea, Denies nausea, Denies vomiting Musculoskeletal: Denies myalgias Integumentary: Denies pruritus, Denies rash Neurological: Denies numbness, Denies weakness Psychiatric: Denies anxiety, Denies depression Endocrine: Denies fatigue, Denies weight change Past Medical History Past Medical History: Atrial Fibrillation, Coronary Artery Disease (CAD), Hyperlipidemia, Myocardial Infarction ([place]), Osteoarthritis (OA), Pneumonia, Prostate Disorder, Sleep Apnea/CPAP/BIPAP, Thyroid Disorder Additional Past Medical History / Comment(s): cardiomyopathy. dx in 2015 w/non small cell lung cancer rt upper lobe-received radiation tx Last Myocardial Infarction Date:: 1996 History of Any Multi-Drug Resistant Organisms: None Reported Past Surgical History: AICD, Coronary Bypass/CABG, Heart Catheterization, Hernia Repair, Orthopedic Surgery, Pacemaker, Tonsillectomy Additional Past Surgical History / Comment(s): partial thyroidectomy, x2 cabg sx first one 5 vessels done and 2nd one 2 vessles done, rt inguinal hernia repair, rt knee arthroscopy and 2nd sx on the ligaments, colonoscopy-neg. pacemaker/aicd pt stated has had x4 last changed Additional Past Anesthesia/Blood Transfusion Reaction / Comment(s): has had blood transfusion in past-no reaction. Type of Cardiac Device: Permanent Pacemaker, AICD Device Placement Date:: changed last Past Psychological History: No Psychological Hx Reported Additional Psychological History / Comment(s): lives w/. is independant. drives. has a nebulizer Smoking Status: Former smoker Past Alcohol Use History: Daily Additional Past Alcohol Use History / Comment(s): started smoking at age 18(1963 ) and quit age 62(2006). smoked 1.5 ppd. has 2 drinks per day(bourbon). Past Drug Use History: None Reported - Past Family History Mother Family Medical History: Chest Pain / Angina, Coronary Artery Disease (CAD) Additional Family Medical History / Comment(s): at age 92 from lung infection Father History Unknown: Yes Medications and Allergies Home Medications Medication Instructions Recorded Confirmed Type Apixaban [Eliquis] 5 mg PO BID 04/09/18 05/22/19 History Aspirin EC [Ecotrin Low Dose] 81 mg PO DAILY 04/09/18 05/22/19 History Atorvastatin [Lipitor] 40 mg PO HS 04/09/18 05/22/19 History Furosemide [Lasix] 80 mg PO DAILY 04/09/18 05/22/19 History Levothyroxine Sodium [Synthroid] 75 mcg PO DAILY 04/09/18 05/22/19 History Multivitamins, Thera [Multivitamin 1 tab PO HS 04/09/18 05/22/19 History (formulary)] Potassium Chloride ER [K-Dur 20] 40 meq PO DAILY 04/09/18 05/22/19 History Tamsulosin [Flomax] 0.4 mg PO HS 04/09/18 05/22/19 History Turmeric Root Extract [Turmeric] 500 mg PO DAILY 04/09/18 05/22/19 History Lisinopril [Zestril] 20 mg PO DAILY #30 tab 04/11/18 05/22/19 Rx Spironolactone [Aldactone] 12.5 mg PO DAILY #30 tablet 04/11/18 05/22/19 Rx Aclidinium [place] [Tudorza 1 puff INHALATION RT-BID PRN 05/22/19 05/22/19 History Pressair] Albuterol Nebulized [Ventolin 2.5 mg INHALATION RT-DAILY 05/22/19 05/22/19 History Nebulized] Carvedilol [Coreg*] 25 mg PO AC-BID 05/22/19 05/22/19 History Digoxin [Lanoxin] 125 mcg PO DAILY 05/22/19 05/22/19 History Levofloxacin [Levaquin] 500 mg PO DAILY 05/22/19 05/22/19 History Promethazine/Dextromethorphan 5 ml PO Q4H PRN 05/22/19 05/22/19 History [Promethazine-Dm Syrup] Ramipril [Altace] 5 mg PO DAILY 05/22/19 05/22/19 History Allergies Allergy/AdvReac Type Severity Reaction Status Date / Time Penicillins Allergy Rash/Hives Verified 05/22/19 16:56 Sulfa (Sulfonamide Allergy Rash/Hives Verified 05/22/19 16:56 Antibiotics) Physical Exam Vitals: Vital Signs Temp Pulse Resp BP Pulse Ox 05/23/19 10:02 78 05/23/19 09:50 75 05/23/19 09:00 75 16 102/65 96 05/23/19 08:00 98.2 F 70 4 L 103/62 92 L 05/23/19 07:00 78 18 108/73 97 05/23/19 06:00 75 15 127/102 93 L 05/23/19 05:00 85 20 109/77 95 05/23/19 04:00 98 F 77 19 96 05/23/19 03:00 74 19 95/71 94 L 05/23/19 02:00 75 11 L 99/71 92 L 05/23/19 01:00 77 14 95 05/23/19 00:00 98.3 F 76 20 101/81 96 05/22/19 23:00 75 16 120/77 95 05/22/19 22:00 71 12 121/95 97 05/22/19 21:00 81 14 115/84 96 05/22/19 20:00 97.6 F 79 17 109/71 97 05/22/19 19:30 97.6 F 98 26 H 109/71 96 05/22/19 19:09 97.9 F 92 18 97/79 96 05/22/19 16:45 89 21 104/81 99 05/22/19 16:38 97.7 F 93 18 100/72 99 05/22/19 16:30 160 H 17 108/87 99 05/22/19 16:15 158 H 18 118/92 98 05/22/19 16:11 158 H 18 99 Intake and Output 05/22/19 05/23/19 05/23/19 22:59 06:59 14:59 Intake Total 230 380 30 Output Total 200 550 Balance 30 -170 30 Intake: IV 230 80 30 0.9 NS 30 80 30 Magnesium Sulfate-D5w Pmx 200 1 gm In Dextrose/Water 1 100ml.bag @ 100 mls/hr IVPB Q1H [facility] Rx#: [id number] Oral 300 Output: Urine 200 550 Other: Voiding Method Urinal Urinal Weight 79.379 kg 81.1 kg GENERAL EXAM: Alert, pleasant, 74-year-old white male, on room air comfortable in no apparent distress. HEAD: Normocephalic/atraumatic. EYES: Normal reaction of pupils, equal size. Conjunctiva pink, sclera white. NOSE: Clear with pink turbinates. THROAT: No erythema or exudates. NECK: No masses, no JVD, no thyroid enlargement, no adenopathy. CHEST: No chest wall deformity. Symmetrical expansion. LUNGS: Equal air entry with no crackles, wheeze, rhonchi or dullness. CVS: Regular rate and rhythm, normal S1 and S2, no gallops, no murmurs, no rubs ABDOMEN: Soft, nontender. No hepatosplenomegaly, normal bowel sounds, no guarding or rigidity. EXTREMITIES: No clubbing, no edema, no cyanosis, 2+ pulses and upper and lower extremities. MUSCULOSKELETAL: Muscle strength and tone normal. SPINE: No scoliosis or deformity SKIN: No rashes CENTRAL NERVOUS SYSTEM: Alert and oriented -3. No focal deficits, tone is normal in all 4 extremities. PSYCHIATRIC: Alert and oriented -3. Appropriate affect. Intact judgment and insight. Results - Laboratory Findings CBC and BMP: 05/23/19 04:53 05/23/19 04:53 PT/INR, D-dimer PT 10.2 sec (9.0-12.0) 05/22/19 16:17 INR 0.9 (<1.2) 05/22/19 16:17 Abnormal lab findings: Abnormal Labs 05/22/19 05/22/19 05/22/19 16:17 16:17 19:22 WBC 12.3 H RBC MCV 100.1 H Sodium Glucose 117 H POC Glucose (mg/dL) 114 H 05/23/19 05/23/19 04:53 04:53 WBC 11.8 H RBC 3.91 L MCV 101.0 H Sodium 135 L Glucose POC Glucose (mg/dL) - Diagnostic Findings Chest x-ray: report reviewed, image reviewed Additional studies: EKG reviewed Assessment and Plan Plan: Assessment: #1. Wide-complex tachycardia and chest discomfort, converted with amiodarone, patient had negative troponins, chest discomfort has improved with conversion of the white count was tachycardia and rate control #2. Ischemic cardiac myopathy, with EF of less than 20% status post AICD placement #3. Chronic atrial fibrillation on Eliquis #4. Coronary artery disease, with previous history of bypass grafting in 1995 and 2005 #5. 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 She was diagnosed and treated in [place], most recent PET scan in October 2018 showed no metabolic activity, and showed benign scar in the right upper lobe #6. Moderately severe COPD with FEV1 of 50% of predicted, not oxygen dependent at baseline, on a combination of Spiriva and nebulized albuterol #7. Obstructive sleep apnea, intolerant to treatment #8. History of chronic systolic heart failure #9. Hypothyroidism #10. Osteoarthritis #11. Hyperlipidemia #12. Hernia of abdominal wall Plan: Continue current medical treatment, patient is on amiodarone drip per protocol, he has converted on amiodarone 2 paced rhythm with controlled rate, he currently denies any chest discomfort, no shortness of breath, has some mild wheezing on physical exam, but no significant broncho-spasticity or congestion. Cardiology is following, will await their further recommendations, TSH was within normal li mits. Chest x-ray was negative for any acute pulmonary process. Labs have been reviewed, we'll continue close hemodynamic monitoring. Home meds have been reordered. Hemodynamic was stable. I performed a history & physical examination of the patient and discussed their management with my nurse practitioner, Shayy Whyte. I reviewed the nurse practitioner's note and agree with the documented findings and plan of care. Lung sounds are positive for few scattered wheezes. The findings and the impression was discussed with the patient. I attest to the documentation by the nurse practitioner. Time with Patient: Greater than 30
[2019-05-23] MEDS: AMIODARONE 300 MG in DEXTROSE 5% IN WATER 250 ML IV SCH ×2 (10:39)
--- NOTE | 2019-05-23 11:55 | P.CRDCN ---
History of Present Illness History of present illness: This is Emani Montgomery PA-C dictating a consult on this patient The patient was interviewed and examined by me as well as by Dr. Gates Case discussed with Dr. Gates and he agrees with the plan of care IMPRESSION / ASSESSMENT: Symptomatic wide complex tachycardia with right bundle branch block morphology, most likely atrial tachycardia with aberrancy, breaking through on digoxin and high dose beta blockers, converted IV amiodarone Ischemic cardiomyopathy status post ICD implantation, previous echo showing EF less than 20% CAD status post CABG Paroxysmal atrial fibrillation, anticoagulated with eliquis Hypertension Dyslipidemia History of lung cancer PLAN: Stop amiodarone drip Continue home carvedilol, digoxin, and eliquis Lisinopril at noon to avoid hypotension Continue Home doses of Lasix and spironolactone Interrogate and reprogram device Obtain records of A. fib ablation in [place] Consider ablation for atrial tachycardia versus AV node modification HPI Patient is a 74-year-old male with a past medical history of ischemic cardiomyopathy with EF less than 20% status post ICD implantation, CAD status post CABG, paroxysmal atrial fibrillation anticoagulated with eliquis, hypertension, and dyslipidemia and lung cancer who presented with complaints of chest tightness. He is a patient of Dr. Cortes. Patient states he was at home when he experienced a sudden onset of chest tightness in the center of his chest and what he thought was indigestion. Did not radiate to his neck, shoulders, arms, back. No associated palpitations, dizziness or shortness of breath. He states this happened to him last March. He also states that he has been notified by the office that he has had more frequent episodes of atrial fibrillation. he sometimes feels fatigued but denies any palpitations, dizziness, chest tightness or worsening shortness of breath over the last few weeks. he has had an ablation in [place] for atrial fibrillation several years back. Upon presentation EKG revealed a wide complex tachycardia with a right bundle branch block morphology, rate 158 bpm, most likely an atrial tachycardia with aberrancy. He converted on IV amiodarone and his symptoms resolved. He has been on IV amiodarone drip and has been going in and out of atrial fibrillation with bi-ventricular pacing. Patient seen and examined resting in bed. Bedside telemetry reveals biventricular pacing with a right bundle branch block. Denies any chest pressure, chest pain, shortness of breath, palpitations, or dizziness. ROS: No fevers, chills or rigors, Positive for cough, no nausea, vomiting or diarrhea, no hematuria, dysuria, no musculoskeletal complaints, no strokes or seizures, no skin lesions. EXAMINATION: Patient is afebrile, pulse 71, respirations 11, blood pressure 108/75, oxygen saturation 95% on room air Patient seen and examined resting comfortably in bed, in no acute distress Heart is regular, normal S1-S2, no murmurs rubs or gallops noted Lungs are clear to auscultation bilaterally No elevated JVD or lower extremity edema Abdomen soft REVIEW OF LABS, ECG & MEDICAL DATA Previous echo in 2018 showed EF less than 20% WBC 11.8, hemoglobin 13.6, platelets 189, potassium 4.0, BUN 11, creatinine 0.69, magnesium 2.0 Troponin negative 1 TSH within normal limits at 2.78 Digoxin 0.5 Past Medical History Past Medical History: Atrial Fibrillation, Coronary Artery Disease (CAD), Hyperlipidemia, Myocardial Infarction ([place]), Osteoarthritis (OA), Pneumonia, Prostate Disorder, Sleep Apnea/CPAP/BIPAP, Thyroid Disorder Additional Past Medical History / Comment(s): cardiomyopathy. 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 pacemaker/aicd pt stated has had x4 last changed Additional Past Anesthesia/Blood Transfusion Reaction / Comment(s): has had blood transfusion in past-no reaction. Type of Cardiac Device: Permanent Pacemaker, AICD Device Placement Date:: changed last Past Psychological History: No Psychological Hx Reported Additional Psychological History / Comment(s): lives w/. is independant. drives. has a nebulizer Smoking Status: Former smoker Past Alcohol Use History: Daily Additional Past Alcohol Use History / Comment(s): started smoking at age 18(1963) and quit age 62(2006). smoked 1.5 ppd. has 2 drinks per day(bourbon). Past Drug Use History: None Reported - Past Family History Mother Family Medical History: Chest Pain / Angina, Coronary Artery Disease (CAD) Additional Family Medical History / Comment(s): at age 92 from lung infection Father History Unknown: Yes Medications and Allergies Home Medications Medication Instructions Recorded Confirmed Type Apixaban [Eliquis] 5 mg PO BID 04/09/18 05/22/19 History Aspirin EC [Ecotrin Low Dose] 81 mg PO DAILY 04/09/18 05/22/19 History Atorvastatin [Lipitor] 40 mg PO HS 04/09/18 05/22/19 History Furosemide [Lasix] 80 mg PO DAILY 04/09/18 05/22/19 History Levothyroxine Sodium [Synthroid] 75 mcg PO DAILY 04/09/18 05/22/19 History Multivitamins, Thera [Multivitamin 1 tab PO HS 04/09/18 05/22/19 History (formulary)] Potassium Chloride ER [K-Dur 20] 40 meq PO DAILY 04/09/18 05/22/19 History Tamsulosin [Flomax] 0.4 mg PO HS 04/09/18 05/22/19 History Turmeric Root Extract [Turmeric] 500 mg PO DAILY 04/09/18 05/22/19 History Lisinopril [Zestril] 20 mg PO DAILY #30 tab 04/11/18 05/22/19 Rx Spironolactone [Aldactone] 12.5 mg PO DAILY #30 tablet 04/11/18 05/22/19 Rx Aclidinium [place] [Tudorza 1 puff INHALATION RT-BID PRN 05/22/19 05/22/19 History Pressair] Albuterol Nebulized [Ventolin 2.5 mg INHALATION RT-DAILY 05/22/19 05/22/19 History Nebulized] Carvedilol [Coreg*] 25 mg PO AC-BID 05/22/19 05/22/19 History Digoxin [Lanoxin] 125 mcg PO DAILY 05/22/19 05/22/19 History Levofloxacin [Levaquin] 500 mg PO DAILY 05/22/19 05/22/19 History Promethazine/Dextromethorphan 5 ml PO Q4H PRN 05/22/19 05/22/19 History [Promethazine-Dm Syrup] Ramipril [Altace] 5 mg PO DAILY 05/22/19 05/22/19 History Allergies Allergy/AdvReac Type Severity Reaction Status Date / Time Penicillins Allergy Rash/Hives Verified 05/22/19 16:56 Sulfa (Sulfonamide Allergy Rash/Hives Verified 05/22/19 16:56 Antibiotics) Physical Exam Vitals: Vital Signs Temp Pulse Resp BP Pulse Ox 05/23/19 11:00 71 11 L 108/75 95 05/23/19 10:02 78 05/23/19 10:00 70 20 102/65 100 05/23/19 09:50 75 05/23/19 09:00 75 16 102/65 96 05/23/19 08:00 98.2 F 70 4 L 103/62 92 L 05/23/19 07:00 78 18 108/73 97 05/23/19 06:00 75 15 127/102 93 L 05/23/19 05:00 85 20 109/77 95 05/23/19 04:00 98 F 77 19 96 05/23/19 03:00 74 19 95/71 94 L 05/23/19 02:00 75 11 L 99/71 92 L 05/23/19 01:00 77 14 95 05/23/19 00:00 98.3 F 76 20 101/81 96 05/22/19 23:00 75 16 120/77 95 05/22/19 22:00 71 12 121/95 97 05/22/19 21:00 81 14 115/84 96 05/22/19 20:00 97.6 F 79 17 109/71 97 05/22/19 19:30 97.6 F 98 26 H 109/71 96 05/22/19 19:09 97.9 F 92 18 97/79 96 05/22/19 16:45 89 21 104/81 99 05/22/19 16:38 97.7 F 93 18 100/72 99 05/22/19 16:30 160 H 17 108/87 99 05/22/19 16:15 158 H 18 118/92 98 05/22/19 16:11 158 H 18 99 Intake and Output 05/22/19 05/23/19 05/23/19 22:59 06:59 14:59 Intake Total 230 380 300 Output Total 200 550 500 Balance 30 -170 -200 Intake: IV 230 80 50 0.9 NS 30 80 50 Magnesium Sulfate-D5w Pmx 200 1 gm In Dextrose/Water 1 100ml.bag @ 100 mls/hr IVPB Q1H [facility] Rx#: [id number] Intake, IV Titration 250 Amount Amiodarone 300 mg In 250 Dextrose 5% in Water 250 ml @ 0.5 MG/MIN 25 mls/hr IV .Q10H [facility] Rx#: [id number] Oral 300 Output: Urine 200 550 500 Other: Voiding Method Urinal Urinal Weight 79.379 kg 81.1 kg Results 05/23/19 04:53 05/23/19 04:53 Cardiac Enzymes 05/22/19 05/22/19 Range/Units 16:17 16:17 AST 28 (17-59) U/L Troponin I 0.015 (0.000-0.034) ng/mL Coagulation 05/22/19 Range/Units 16:17 PT 10.2 (9.0-12.0) sec APTT 27.0 (22.0-30.0) sec CBC 05/22/19 05/23/19 Range/Units 16:17 04:53 WBC 12.3 H 11.8 H (3.8-10.6) k/uL RBC 4.59 3.91 L (4.30-5.90) m/uL Hgb 15.8 13.6 (13.0-17.5) gm/dL Hct 45.9 39.5 (39.0-53.0) % Plt Count 217 189 (150-450) k/uL Comprehensive Metabolic Panel 05/22/19 05/23/19 Range/Units 16:17 04:53 Sodium 137 135 L (137-145) mmol/L Potassium 4.0 4.0 (3.5-5.1) mmol/L Chloride 99 101 (98-107) mmol/L Carbon Dioxide 30 29 (22-30) mmol/L BUN 13 11 (9-20) mg/dL Creatinine 0.77 0.69 (0.66-1.25) mg/dL Glucose 117 H 96 (74-99) mg/dL Calcium 8.9 8.5 (8.4-10.2) mg/dL AST 28 (17-59) U/L ALT 32 (21-72) U/L Alkaline Phosphatase 70 (38-126) U/L Total Protein 7.0 (6.3-8.2) g/dL Albumin 3.9 (3.5-5.0) g/dL Current Medications Generic Name Dose Route Start Last Admin Trade Name Freq PRN Reason Stop Dose Admin Albuterol/Ipratropium 3 ml 05/23/19 12:00 05/23/19 09:47 Duoneb 0.5 Mg-3 Mg/3 Ml Soln INHALATION 3 ml RT-QID [facility] Administration Albuterol/Ipratropium 3 ml 05/23/19 09:43 Duoneb 0.5 Mg-3 Mg/3 Ml Soln INHALATION RT-Q1H PRN Shortness Of Breath Or Wheezing Apixaban 5 mg 05/22/19 21:00 05/23/19 08:43 Eliquis PO 5 mg BID [facility] Administration Aspirin 81 mg 05/23/19 09:00 05/23/19 08:43 Aspirin PO 81 mg DAILY [facility] Administration Atorvastatin Calcium 40 mg 05/22/19 21:00 05/22/19 20:59 Lipitor PO 40 mg HS [facility] Administration Digoxin 125 mcg 05/24/19 09:00 Lanoxin PO DAILY [facility] Furosemide 80 mg 05/23/19 09:00 05/23/19 08:43 Lasix PO 80 mg DAILY [facility] Administration Levothyroxine Sodium 75 mcg 05/23/19 06:30 05/23/19 06:51 Synthroid PO 75 mcg DAILY@0630 [facility] Administration Lisinopril 20 mg 05/24/19 09:00 Zestril PO DAILY [facility] Miscellaneous Information 1 each 05/22/19 19:18 Magnesium Per Protocol MISCELLANE DAILY PRN Per Protocol Protocol Multivitamins 1 each 05/23/19 09:00 05/23/19 08:43 Theragran PO 1 each DAILY [facility] Administration Naloxone HCl 0.2 mg 05/22/19 17:07 Narcan IV Q2M PRN Opioid Reversal Potassium Chloride 40 meq 05/23/19 09:00 05/23/19 08:43 K-Dur 20 PO 40 meq DAILY [facility] Administration Spironolactone 12.5 mg 05/23/19 09:00 05/23/19 10:04 Aldactone PO 12.5 mg DAILY [facility] Administration Tamsulosin HCl 0.4 mg 05/23/19 21:00 Flomax PO HS [facility] Intake and Output 05/22/19 05/23/19 05/23/19 22:59 06:59 14:59 Intake Total 230 380 300 Output Total 200 550 500 Balance 30 -170 -200 Intake: IV 230 80 50 0.9 NS 30 80 50 Magnesium Sulfate-D5w Pmx 200 1 gm In Dextrose/Water 1 100ml.bag @ 100 mls/hr IVPB Q1H [facility] Rx#: [id number] Intake, IV Titration 250 Amount Amiodarone 300 mg In 250 Dextrose 5% in Water 250 ml @ 0.5 MG/MIN 25 mls/hr IV .Q10H [facility] Rx#: [id number] Oral 300 Output: Urine 200 550 500 Other: Voiding Method Urinal Urinal Weight 79.379 kg 81.1 kg 05/23/19 04:53 05/23/19 04:53
[2019-05-23] MEDS ORDERED: DICLOFENAC SODIUM GEL 100 GM TUBE TOPICAL PRN ×2 (14:51)
--- NOTE | 2019-05-23 15:42 | P.HPIM ---
History of Present Illness H&P Date: 05/23/19 Chief Complaint: Chest pressure History of presenting complaint: This is a 74-year-old patient of Dr. Raúl Martinez. 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 Cortes. Patient presented with 3-4 hours of chest pressure or heart racing. Minimal shortness of breath. No dizziness no lightheadedness. No fever no chills. Patient ER was found to have a arrhythmia with a rapid ventricular rate. It was later determined to be atrial flutter with a rate about 170. Patient was given amiodarone bolus and patient reverted to sinus rhythm. Please had a prior ablation of atrial flutter ablation 2011. Patient has underlying coronary artery disease. Patient also has a pacemaker and AICD. Both environmental studies program director and cardiology was consulted. Review of systems: GEN.: Tired EYES: None HEENT: None NECK: None RESPIRATORY: As above CARDIOVASCULAR: As above GASTROINTESTINAL: None GENITOURINARY: None MUSCULOSKELETAL: Joint pains LYMPHATICS: None HEMATOLOGICAL: None PSYCHIATRY: None NEUROLOGICAL: None Social history: Patient smoked for 44 years stopped in 2006. Smoked pack and half a day. Normally has 2 drinks on bourbon per day. 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 Physical examination: VITAL SIGNS: 97.7, 158, 18, 100/72, [place] percent on 2 L-up on presentation GENERAL: BMI 28, sitting up in bed not in distress. EYES: Pupils equal. Conjunctiva normal. HEENT: External appearance of nose and ears normal, oral cavity grossly normal. NECK: JVD not raised; masses not palpable. HEART: First and second heart sounds are normal; no edema. LUNGS: Respiratory rate normal; decreased breath sounds. ABDOMEN: Soft, nontender, liver spleen not palpable, no masses palpable. PSYCH: Alert and oriented x3; mood and affect normal. NEUROLOGICAL: Cranial nerves grossly intact; no facial asymmetry, power and sensation grossly intact. LYMPHATICS: No lymph nodes palpable in the axilla and neck MUSCULOSKELETAL-evidence of OA in the hands INVESTIGATIONS, reviewed in the clinical context: White count 12.3 hemoglobin 15.8 platelets 217 potassium 4.0 crit 0.77 TSH 2.7 digoxin 2.5 EKG tracing personally reviewed by me-paced rhythm. Wide complex tachycardia Chest x-ray film personally reviewed by me-some cardiomegaly with fullness off the left border Assessment: -Persistent atrial flutter with a rapid ventricular rate, symptomatic. She has a prior history of atrial fibrillation with ablation. Patient's was put on amiodarone drip in the ER and patient reverted to sinus rhythm. -Coronary artery disease prior history of bypass -Hyperlipidemia -Primary osteoarthritis -Hypothyroid -Obstructive sleep apnea uses machine -Chronic congestive heart failure from systolic dysfunction EF less than 20%- (Pacemaker/AICD - Plan: -Patient was initially put on amiodarone drip. Been discontinued. Seen by cardiology. Patient to remain on digoxin. Other home medications are reviewed. Care was discussed with the patient. Patient is also on Coreg and eliquis. Patient is also on diuretics. Patient is being considered for ablation down the road per Dr. Santiago Gates.. Past Medical History Past Medical History: Atrial Fibrillation, Coronary Artery Disease (CAD), Hyperlipidemia, Myocardial Infarction (CT), Osteoarthritis (OA), Pneumonia, Prostate Disorder, Sleep Apnea/CPAP/BIPAP, Thyroid Disorder Additional Past Medical History / Comment(s): cardiomyopathy. dx in 2015 w/non small cell lung cancer rt upper lobe-received radiation tx Last Myocardial Infarction Date:: 1996 History of Any Multi-Drug Resistant Organisms: None Reported Past Surgical History: AICD, Coronary Bypass/CABG, Heart Catheterization, Hernia Repair, Orthopedic Surgery, Pacemaker, Tonsillectomy Additional Past Surgical History / Comment(s): partial thyroidectomy, x2 cabg sx first one 5 vessels done and 2nd one 2 vessles done, rt inguinal hernia repair, rt knee arthroscopy and 2nd sx on the ligaments, colonoscopy-neg. pacemaker/aicd pt stated has had x4 last changed Additional Past Anesthesia/Blood Transfusion Reaction / Comment(s): has had blood transfusion in past-no reaction. Type of Cardiac Device: Permanent Pacemaker, AICD Device Placement Date:: changed last Past Psychological History: No Psychological Hx Reported Additional Psychological History / Comment(s): lives w/. is independant. drives. has a nebulizer Smoking Status: Former smoker Past Alcohol Use History: Daily Additional Past Alcohol Use History / Comment(s): started smoking at age 18(1963) and quit age 62(2006). smoked 1.5 ppd. has 2 drinks per day(bourbon). Past Drug Use History: None Reported - Past Family History Mother Family Medical History: Chest Pain / Angina, Coronary Artery Disease (CAD) Additional Family Medical History / Comment(s): at age 92 from lung infection Father History Unknown: Yes Medications and Allergies Home Medications Medication Instructions Recorded Confirmed Type Apixaban [Eliquis] 5 mg PO BID 04/09/18 05/22/19 History Aspirin EC [Ecotrin Low Dose] 81 mg PO DAILY 04/09/18 05/22/19 History Atorvastatin [Lipitor] 40 mg PO HS 04/09/18 05/22/19 History Furosemide [Lasix] 80 mg PO DAILY 04/09/18 05/22/19 History Levothyroxine Sodium [Synthroid] 75 mcg PO DAILY 04/09/18 05/22/19 History Multivitamins, Thera [Multivitamin 1 tab PO HS 04/09/18 05/22/19 History (formulary)] Potassium Chloride ER [K-Dur 20] 40 meq PO DAILY 04/09/18 05/22/19 History Tamsulosin [Flomax] 0.4 mg PO HS 04/09/18 05/22/19 History Turmeric Root Extract [Turmeric] 500 mg PO DAILY 04/09/18 05/22/19 History Lisinopril [Zestril] 20 mg PO DAILY #30 tab 04/11/18 05/22/19 Rx Spironolactone [Aldactone] 12.5 mg PO DAILY #30 tablet 04/11/18 05/22/19 Rx Aclidinium Luther [Tudorza 1 puff INHALATION RT-BID PRN 05/22/19 05/22/19 History Pressair] Albuterol Nebulized [Ventolin 2.5 mg INHALATION RT-DAILY 05/22/19 05/22/19 History Nebulized] Carvedilol [Coreg*] 25 mg PO AC-BID 05/22/19 05/22/19 History Digoxin [Lanoxin] 125 mcg PO DAILY 05/22/19 05/22/19 History Levofloxacin [Levaquin] 500 mg PO DAILY 05/22/19 05/22/19 History Promethazine/Dextromethorphan 5 ml PO Q4H PRN 05/22/19 05/22/19 History [Promethazine-Dm Syrup] Ramipril [Altace] 5 mg PO DAILY 05/22/19 05/22/19 History Allergies Allergy/AdvReac Type Severity Reaction Status Date / Time Penicillins Allergy Rash/Hives Verified 05/22/19 16:56 Sulfa (Sulfonamide Allergy Rash/Hives Verified 05/22/19 16:56 Antibiotics) Physical Exam Vitals: Vital Signs Temp Pulse Resp BP Pulse Ox 05/23/19 09:00 75 16 102/65 96 05/23/19 08:00 98.2 F 70 4 L 103/62 92 L 05/23/19 07:00 78 18 108/73 97 05/23/19 06:00 75 15 127/102 93 L 05/23/19 05:00 85 20 109/77 95 05/23/19 04:00 98 F 77 19 96 05/23/19 03:00 74 19 95/71 94 L 05/23/19 02:00 75 11 L 99/71 92 L 05/23/19 01:00 77 14 95 05/23/19 00:00 98.3 F 76 20 101/81 96 05/22/19 23:00 75 16 120/77 95 05/22/19 22:00 71 12 121/95 97 05/22/19 21:00 81 14 115/84 96 05/22/19 20:00 97.6 F 79 17 109/71 97 05/22/19 19:30 97.6 F 98 26 H 109/71 96 05/22/19 19:09 97.9 F 92 18 97/79 96 05/22/19 16:45 89 21 104/81 99 05/22/19 16:38 97.7 F 93 18 100/72 99 05/22/19 16:30 160 H 17 108/87 99 05/22/19 16:15 158 H 18 118/92 98 05/22/19 16:11 158 H 18 99 Intake and Output 05/22/19 05/23/19 05/23/19 22:59 06:59 14:59 Intake Total 230 380 30 Output Total 200 550 Balance 30 -170 30 Intake: IV 230 80 30 0.9 NS 30 80 30 Magnesium Sulfate-D5w Pmx 200 1 gm In Dextrose/Water 1 100ml.bag @ 100 mls/hr IVPB Q1H [facility] Rx#: [id number] Oral 300 Output: Urine 200 550 Other: Voiding Method Urinal Urinal Weight 79.379 kg 81.1 kg Results CBC & Chem 7: 05/23/19 04:53 05/23/19 04:53 Labs: Abnormal Lab Results - Last 24 Hours (Table) 05/22/19 05/22/19 05/22/19 Range/Units 16:17 16:17 19:22 WBC 12.3 H (3.8-10.6) k/uL RBC (4.30-5.90) m/uL MCV 100.1 H (80.0-100.0) fL Sodium (137-145) mmol/L Glucose 117 H (74-99) mg/dL POC Glucose (mg/dL) 114 H (75-99) mg/dL 05/23/19 05/23/19 Range/Units 04:53 04:53 WBC 11.8 H (3.8-10.6) k/uL RBC 3.91 L (4.30-5.90) m/uL MCV 101.0 H (80.0-100.0) fL Sodium 135 L (137-145) mmol/L Glucose (74-99) mg/dL POC Glucose (mg/dL) (75-99) mg/dL Thrombosis Risk Factor Assmnt - Choose All That Apply Any of the Below Risk Factors Present?: Yes Each Factor Represents 1 point: Medical pt on bed rest, Obesity (BMI >25) Other Risk Factors: Yes Each Risk Factor Represents 2 Points: Age 61-74 years, Patient confined to bed Thrombosis Risk Factor Assessment Total Risk Factor Score: 6 Thrombosis Risk Factor Assessment Level: High Risk
[2019-05-23] MEDS: ACETAMINOPHEN TAB 500 MG TAB PO PRN (17:31)
[2019-05-23] MEDS: TAMSULOSIN 0.4 MG CAP.ER.24H PO SCH (20:39)
[2019-05-23] MEDS: ATORVASTATIN 40 MG TAB PO SCH (20:39)
[2019-05-23] MEDS ORDERED: METOPROLOL SUCCINATE (ER) 100 MG TAB.ER.24H PO SCH (21:00)
[2019-05-24 05:07] LABS: Basophils # (A) 0.1 k/uL (0-0.2); Basophils % (A) 1 %; Eosinophils # (A) 0.4 k/uL (0-0.7); Eosinophils % (A) 4 %; HCT 38.3 % (39.0-53.0); HGB 12.9 gm/dL (13.0-17.5); Lymphocytes # (A) 2.9 k/uL (1.0-4.8); Lymphocytes % (A) 31 %; MCH 33.9 pg (25.0-35.0); MCHC 33.6 g/dL (31.0-37.0); MCV 100.8 fL (80.0-100.0); Mean Platelet Volume 6.2; Monocytes # (A) 0.7 k/uL (0-1.0); Monocytes % (A) 7 %; Neutrophils # (A) 5.1 k/uL (1.3-7.7); Neutrophils % (A) 54 %; Platelet Count 184 k/uL (150-450); RDW 12.9 % (11.5-15.5); WBC 9.5 k/uL (3.8-10.6)
[2019-05-24 05:26] LABS: ALT 24 U/L (21-72); AST 20 U/L (17-59); African American GFR (CKD) >90 (>60 ml/min/1.73 sqM); Alkaline Phosphatase 59 U/L (38-126); Anion Gap 6 mmol/L; Blood Urea Nitrogen 15 mg/dL (9-20); Calcium 8.5 mg/dL (8.4-10.2); Carbon Dioxide 27 mmol/L (22-30); Chloride 100 mmol/L (98-107); Glucose 104 mg/dL (74-99); Potassium 3.5 mmol/L (3.5-5.1); Sodium 133 mmol/L (137-145); Total Bilirubin 0.8 mg/dL (0.2-1.3); Total Protein 5.6 g/dL (6.3-8.2)
[2019-05-24] MEDS: LEVOTHYROXINE 75 MCG TAB PO SCH (06:34)
[2019-05-24] MEDS: IPRATROPIUM-ALBUTEROL 3 ML NEB INHALATION SCH ×4 (07:33→19:28)
[2019-05-24] MEDS: LISINOPRIL 20 MG TAB PO SCH (08:32)
--- NOTE | 2019-05-24 08:40 | P.PN ---
Subjective Progress Note Date: 05/24/19 This is a 74-year-old gentleman with history of a cardiomyopathy, by IV ICD implantation and also history of atrial fibrillation and atrial tachycardias. Patient apparently had ablation also in the past. He was admitted to the hospital with the wide complex tachycardia with a right bundle branch block mo rphology which is felt to be atrial tachycardia. Patient was given IV amiodarone with conversion sinus rhythm. Patient is currently maintaining sinus rhythm and is feeling well. His blood pressures running low in the range of 90- 98 systolic. His STEVE inhibitor has been held. Attempts are being made to get previous ablative procedures. Dr. Gates is planning to do EP study and possible ablation for tachycardia. Meanwhile we obtain the records from his previous hospital. It appears that patient had an EP study and they were able to induce ventricular tachycardia with a right bundle-branch block morphology. Most probably the current episode is also ventricular tachycardia rather than a trial tachycardia with aberration. We'll discuss with Dr. Gates regarding further management. Objective - Vital Signs Vital signs: Vital Signs Temp 97.9 F 05/24/19 08:00 Pulse 71 05/24/19 08:00 Resp 22 05/24/19 08:00 BP 98/82 05/24/19 08:00 Pulse Ox 96 05/24/19 08:00 Intake & Output 05/23/19 05/24/19 05/24/19 18:59 06:59 18:59 Intake Total 360 600 Output Total 1000 0 Balance -640 600 Weight 80.8 kg Intake: IV 110 0.9 NS 110 Intake, IV Titration 250 Amount Amiodarone 300 mg In 250 Dextrose 5% in Water 250 ml @ 0.5 MG/MIN 25 mls/hr IV .Q10H [facility] Rx#: [id number] Oral 600 Output: Urine 1000 0 Other: Voiding Method Urinal Urinal Urinal # Voids 2 - Exam GENERAL EXAM: Patient is alert and oriented and doesn't appear to be in any acute distress HEENT: Normocephalic. Normal reaction of pupils, equal size, normal range of extraocular motion. No erythema or exudates in the throat. NECK: No masses, no nuchal rigidity. CHEST: No chest wall deformity. LUNGS: Equal air entry with no crackles or wheeze. HEART: S1 and S2 normal with no audible mumurs or gallops. Regular rhythm, femorals equal on both sides.. ABDOMEN: No hepatosplenomegaly, normal bowel sounds, no guarding or rigidity. SKIN: No rashes CENTRAL NERVOUS SYSTEM: No focal deficits. EXTREMITIES: No cyanosis, clubbing or edema. - Labs CBC & Chem 7: 05/24/19 04:37 05/24/19 04:37 Labs: Abnormal Lab Results - Last 24 Hours (Table) 05/24/19 05/24/19 Range/Units 04:37 04:37 RBC 3.80 L (4.30-5.90) m/uL Hgb 12.9 L (13.0-17.5) gm/dL Hct 38.3 L (39.0-53.0) % MCV 100.8 H (80.0-100.0) fL Sodium 133 L (137-145) mmol/L Glucose 104 H (74-99) mg/dL Total Protein 5.6 L (6.3-8.2) g/dL Albumin 3.0 L (3.5-5.0) g/dL Assessment and Plan (1) Wide-complex tachycardia Current Visit: Yes Status: Acute Code(s): I47.2 - VENTRICULAR TACHYCARDIA SNOMED Code(s): 323803544 (2) Chronic systolic (congestive) heart failure Current Visit: Yes Status: Acute Code(s): I50.22 - CHRONIC SYSTOLIC (CONGESTIVE) HEART FAILURE SNOMED Code(s): 173779188 (3) Cardiomyopathy Current Visit: No Status: Acute Code(s): I42.9 - CARDIOMYOPATHY, UNSPECIFIED SNOMED Code(s): 72398999 (4) Biventricular ICD (implantable cardioverter-defibrillator) in place Current Visit: Yes Status: Acute Code(s): Z95.810 - PRESENCE OF AUTOMATIC (IMPLANTABLE) CARDIAC DEFIBRILLATOR SNOMED Code(s): 749261432 Plan: Patient has been stable. He'll be transferred to telemetry unit. Will discuss with Dr. Gates regarding the findings that we got from the previous hospital. Increase activity as tolerated
[2019-05-24] MEDS: FUROSEMIDE 80 MG TAB PO SCH (09:20)
[2019-05-24] MEDS: ASPIRIN 81 MG PO SCH (09:20)
[2019-05-24] MEDS: POTASSIUM CHLORIDE ER 20 MEQ TAB.ER PO SCH (09:20)
[2019-05-24] MEDS: DIGOXIN 125 MCG TAB PO SCH (09:20)
[2019-05-24] MEDS: MULTIVITAMINS, THERA 1 EACH TAB PO SCH (09:20)
[2019-05-24] MEDS: APIXABAN 5 MG TAB PO SCH ×2 (09:20→21:34)
[2019-05-24] MEDS: SPIRONOLACTONE 25 MG TAB PO SCH (10:01)
--- NOTE | 2019-05-24 13:08 | P.PN ---
Subjective Progress Note Date: 05/24/19 Principal diagnosis: New-onset wide-complex tachycardia This 74-year-old white male patient with history of ischemic cardiomyopathy, with baseline EF of less than 20%, with history of AICD implantation, coronary artery disease with previous bypass grafting in 1995, and then again in 2005, atrial fibrillation on Eliquis, non-small cell lung cancer in the right lung was diagnosed in [place] in 2016, and treated with radiation, and patient had no evidence of distant metastasis. He has been receiving surveillance CAT scans, he follows with Dr. Balderrama in the pulmonary clinic and Dr. Anish Warren from radiation oncology, most recent PET scan from 10/28/2018 showed an area of increasing soft tissue in scarlike opacity in the right upper lobe which did not show hypermetabolic uptake suggesting recurrent neoplasm. Patient has a history of COPD, and outpatient FEV1 was in order of 58% of predicted consistent with moderately severe COPD and patient is maintained on a combination of Spiriva and albuterol nebulized treatments, he is not oxygen dependent. Also has history of obstructive sleep apnea syndrome diagnosed many years back and patient was unable to tolerate the treatment. On 05/22/2019 patient presented to the emergency department with complaints of chest tightness that felt like severe indigestion lasting 3 or 4 hours. Patient tried taking his nitroglycerin with no improvement in symptoms, denied any radiation of his symptoms, no palpitations, no lightheadedness or dizziness, no shortness of breath. In the emergency department he was placed on the monitor and was found to be in wide complex tachycardia, with a stable blood pressure. He was given amiodarone 150 mg bolus followed by drip per standard protocol. Cardiology has been consulted and recommended synchronize cardioversion however patient had converted to a paced rhythm just prior to cardioversion. Immediately reported improvement in his symptoms. Repeat EKG showed ventricular paced rhythm at a rate of 94 BPM. X-ray was completed showing no acute process. Lab work showed a white blood cell count of 12.3, hemoglobin 15.8, correlation profile was within normal limits, BMP was normal, troponin was negative, TSH was within normal limits, digoxin level was 0.5. She admitted to the intensive care unit for closer monitoring, he is awake and alert, he remains in place rhythm with occasional PVCs, remains on amiodarone drip this morning, hemodynamically stable, denies any specific complaints, no shortness of breath or chest pain. Patient was reevaluated today on 05/24/2019, patient remains in the ICU, hemodynamically stable, patient was admitted with wide-complex tachycardia and right bundle branch block morphology felt to be atrial tachycardia. He converted with amiodarone, presently is asymptomatic. And cardiology is considering ablation for his tachycardia. In the meantime the patient is doing great, asymptomatic. And hemodynamically stable. CBC is relatively normal electrolytes and renal profile are normal. Objective - Vital Signs Vital signs: Vital Signs Temp 97.9 F 05/24/19 08:00 Pulse 86 05/24/19 11:26 Resp 22 05/24/19 08:00 BP 98/82 05/24/19 08:00 Pulse Ox 96 05/24/19 08:00 Intake & Output 05/23/19 05/24/19 05/24/19 18:59 06:59 18:59 Intake Total 360 600 Output Total 1000 0 Balance -640 600 Weight 80.8 kg Intake: IV 110 0.9 NS 110 Intake, IV Titration 250 Amount Amiodarone 300 mg In 250 Dextrose 5% in Water 250 ml @ 0.5 MG/MIN 25 mls/hr IV .Q10H [facility] Rx#: [id number] Oral 600 Output: Urine 1000 0 Other: Voiding Method Urinal Urinal Urinal # Voids 2 - Exam GENERAL EXAM: Alert, pleasant, 74-year-old white male, on room air comfortable in no apparent distress. Head: Atraumatic normocephalic. HEENT: PERRLA, EOMI, no icterus. Moist mucous membranes. Cardiac: Normal S1 and S2, no S3 gallop. Chest symmetrical chest expansion, clear bilaterally no crackles or rhonchi or wheezes. Abdomen: Soft nontender no megaly no rebound no guarding. EXTREMITIESno clubbing edema or cyanosis, good pulses bilaterally. MUSCULOSKELETAL: Muscle strength and tone normal. SPINE: No scoliosis or deformity SKIN: No rashes CENTRAL NERVOUS SYSTEM: alert oriented 3 focal deficit. psychiatric: Normal mood affect and normal mental status examination. - Labs CBC & Chem 7: 05/24/19 04:37 05/24/19 04:37 Labs: Abnormal Lab Results - Last 24 Hours (Table) 05/24/19 05/24/19 Range/Units 04:37 04:37 RBC 3.80 L (4.30-5.90) m/uL Hgb 12.9 L (13.0-17.5) gm/dL Hct 38.3 L (39.0-53.0) % MCV 100.8 H (80.0-100.0) fL Sodium 133 L (137-145) mmol/L Glucose 104 H (74-99) mg/dL Total Protein 5.6 L (6.3-8.2) g/dL Albumin 3.0 L (3.5-5.0) g/dL Assessment and Plan Assessment: #1. New-onset wide-complex tachycardia with right bundle branch block, this is felt to be atrial tachycardia. #2. Ischemic cardiac myopathy, with EF of less than 20% status post AICD placement #3. Chronic atrial fibrillation on Eliquis #4. Coronary artery disease, with previous history of bypass grafting in 1995 and 2005 #5. 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 She was diagnosed and treated in [place], most recent PET scan in October 2018 showed no metabolic activity, and showed benign scar in the right upper lobe #6. Moderately severe COPD with FEV1 of 50% of predicted, not oxygen dependent at baseline, on a combination of Spiriva and nebulized albuterol #7. Obstructive sleep apnea, intolerant to treatment #8. History of chronic systolic heart failure #9. Hypothyroidism #10. Osteoarthritis #11. Hyperlipidemia #12. Hernia of abdominal wall Recommendation: Continue present supportive care measures, continue cardiac meds as per cardiology, continue updrafts for his underlying COPD, patient is now on digoxin orally, he is also on Zestril, Aldactone, Lasix daily, and on Lipitor. My recommendation is to consider transferring the patient out of the ICU to a monitor bed on selective, and decision will likely be made in the next couple of days whether the patient will benefit from ablation. This is being considered by cardiology. We will continue to follow Time with Patient: Less than 30
--- NOTE | 2019-05-24 14:29 | P.PN ---
Subjective Patient admitted for tachycardia which appears to be atrial tachycardia by complex tachycardia, patient was treated for atrial fibrillation as well patient is presently rate controlled. Patient was on amiodarone which was discontinued patient had history of ischemic cardiac myopathy with EF of 20% and patient has an AICD. EP will evaluate the patient for abalation. Constitutional: Denied any fatigue denied any fever. Cardio vascular: denied any chest pain, palpitations Gastrointestinal denied any nausea vomiting Pulmonary: Denied any shortness of breath cough Neurologic denied any new focal deficits All inpatient medications were reviewed and appropriate changes in these medications as dictated in the interval history and assessment and plan. Objective - Vital Signs Vital signs: Vital Signs Temp 97.9 F 05/24/19 08:00 Pulse 86 05/24/19 11:26 Resp 22 05/24/19 08:00 BP 98/82 05/24/19 08:00 Pulse Ox 96 05/24/19 08:00 Intake & Output 05/23/19 05/24/19 05/24/19 18:59 06:59 18:59 Intake Total 360 600 Output Total 1000 0 Balance -640 600 Weight 80.8 kg Intake: IV 110 0.9 NS 110 Intake, IV Titration 250 Amount Amiodarone 300 mg In 250 Dextrose 5% in Water 250 ml @ 0.5 MG/MIN 25 mls/hr IV .Q10H [facility] Rx#: [id number] Oral 600 Output: Urine 1000 0 Other: Voiding Method Urinal Urinal Urinal # Voids 2 - Exam PHYSICAL EXAMINATION: GENERAL: The patient is alert and oriented x3, not in any acute distress. Well developed, well nourished. HEENT: Pupils are round and equally reacting to light. EOMI. No scleral icterus. No conjunctival pallor. Normocephalic, atraumatic. No pharyngeal erythema. No thyromegaly. CARDIOVASCULAR: S1 and S2 present. No murmurs, rubs, or gallops. PULMONARY: Chest is clear to auscultation, no wheezing or crackles. ABDOMEN: Soft, nontender, nondistended, normoactive bowel sounds. No palpable organomegaly. MUSCULOSKELETAL: No joint swelling or deformity. EXTREMITIES: No cyanosis, clubbing, or pedal edema. NEUROLOGICAL: Gross neurological examination did not reveal any focal deficits. SKIN: No rashes. - Labs CBC & Chem 7: 05/24/19 04:37 05/24/19 04:37 Labs: Abnormal Lab Results - Last 24 Hours (Table) 05/24/19 05/24/19 Range/Units 04:37 04:37 RBC 3.80 L (4.30-5.90) m/uL Hgb 12.9 L (13.0-17.5) gm/dL Hct 38.3 L (39.0-53.0) % MCV 100.8 H (80.0-100.0) fL Sodium 133 L (137-145) mmol/L Glucose 104 H (74-99) mg/dL Total Protein 5.6 L (6.3-8.2) g/dL Albumin 3.0 L (3.5-5.0) g/dL Assessment and Plan Plan: Atrial flutter ablation presently rate controlled and patient is other atrial arrhythmias for which patient is on rate control medications and electro physiology will evaluate the patient patient is off amiodarone drip. She is on anticoagulations delicacy to be continued Line-related ischemic cardiomyopathy ejection fraction doesn't 20% patient has an AICD in place patient is not in acute exacerbation of CHF -Coronary artery disease -History of squamous cell lung cancer which is in remission -COPD without any significant acute exacerbation -Hypothyroidism -Hyperlipidemia
[2019-05-24] MEDS: TAMSULOSIN 0.4 MG CAP.ER.24H PO SCH (21:34)
[2019-05-24] MEDS: ATORVASTATIN 40 MG TAB PO SCH (21:34)
[2019-05-24] MEDS: ACETAMINOPHEN TAB 500 MG TAB PO PRN (23:49)
[2019-05-25 05:15] LABS: African American GFR (CKD) >90 (>60 ml/min/1.73 sqM); Anion Gap 5 mmol/L; Blood Urea Nitrogen 17 mg/dL (9-20); Calcium 8.1 mg/dL (8.4-10.2); Carbon Dioxide 27 mmol/L (22-30); Chloride 102 mmol/L (98-107); Glucose 96 mg/dL (74-99); Potassium 3.8 mmol/L (3.5-5.1); Sodium 134 mmol/L (137-145)
[2019-05-25 05:20] LABS: HCT 36.8 % (39.0-53.0); HGB 12.3 gm/dL (13.0-17.5); MCHC 33.5 g/dL (31.0-37.0); MCV 101.5 fL (80.0-100.0); Macrocytosis Slight; Mean Platelet Volume 6.4; Platelet Count 178 k/uL (150-450); RBC 3.63 m/uL (4.30-5.90); RDW 12.7 % (11.5-15.5); WBC 8.2 k/uL (3.8-10.6)
[2019-05-25 05:49] LABS: Basophils # (M) 0.08 k/uL (0-0.2); Eosinophils # (M) 0.49 k/uL (0-0.7); Monocytes # (M) 1.31 k/uL (0-1.0); Neutrophils % (M) 38 %; Nucleated Red Blood Cells 0 /100 WBC (0-0); Total Cells Counted 100
[2019-05-25] MEDS: LEVOTHYROXINE 75 MCG TAB PO SCH (06:19)
[2019-05-25] MEDS: IPRATROPIUM-ALBUTEROL 3 ML NEB INHALATION SCH ×4 (07:19→19:12)
[2019-05-25] MEDS: ASPIRIN 81 MG PO SCH (09:16)
[2019-05-25] MEDS: POTASSIUM CHLORIDE ER 20 MEQ TAB.ER PO SCH (09:16)
[2019-05-25] MEDS: MULTIVITAMINS, THERA 1 EACH TAB PO SCH (09:16)
[2019-05-25] MEDS: FUROSEMIDE 80 MG TAB PO SCH (09:16)
[2019-05-25] MEDS: APIXABAN 5 MG TAB PO SCH ×2 (09:16→21:16)
[2019-05-25] MEDS: DIGOXIN 125 MCG TAB PO SCH (09:16)
[2019-05-25] MEDS: LISINOPRIL 20 MG TAB PO SCH (09:16)
[2019-05-25] MEDS: SPIRONOLACTONE 25 MG TAB PO SCH (09:17)
[2019-05-25] MEDS ORDERED: MAG HYDROX/AL HYDROX/SIMETH 30 ML CUP PO PRN (09:20)
--- NOTE | 2019-05-25 09:35 | P.PN ---
Subjective Progress Note Date: 05/25/19 This is a 74-year-old gentleman with history of a cardiomyopathy, by IV ICD implantation and also history of atrial fibrillation and atrial tachycardias. Patient apparently had ablation also in the past. He was admitted to the hospital with the wide complex tachycardia with a right bundle branch block mo rphology which is felt to be atrial tachycardia. Patient was given IV amiodarone with conversion sinus rhythm. Patient is currently maintaining sinus rhythm and is feeling well. His blood pressures running low in the range of 90- 98 systolic. His STEVE inhibitor has been held. Attempts are being made to get previous ablative procedures. Dr. Gates is planning to do EP study and possible ablation for tachycardia. Meanwhile we obtain the records from his previous hospital. It appears that patient had an EP study and they were able to induce ventricular tachycardia with a right bundle-branch block morphology. Most probably the current episode is also ventricular tachycardia rather than a trial tachycardia with aberration. We'll discuss with Dr. Gates regarding further management. 05/25/2019. Patient remained in sinus rhythm. Hasn't had any SVT or arrhythmias. Had a bout of chest pain on the right side was is atypical and was relieved with Tylenol. Otherwise patient is clinically stable. Patient is waiting to be evaluated by Dr. Gates for possible ablation. Otherwise patient is stable. We'll continue current medical therapy. Patient and family doesn't want to go on amiodarone Objective - Vital Signs Vital signs: Vital Signs Temp 98.5 F 05/25/19 00:00 Pulse 78 05/25/19 04:00 Resp 17 05/25/19 04:00 BP 86/60 05/25/19 04:00 Pulse Ox 93 L 05/25/19 04:00 Intake & Output 05/24/19 05/25/19 05/25/19 18:59 06:59 18:59 Intake Total 900 350 Output Total 1 Balance 900 349 Weight 81.5 kg Intake: Oral 900 350 Output: Stool 1 Other: Voiding Method Urinal Toilet # Voids 1 2 - Exam GENERAL EXAM: Patient is alert and oriented and doesn't appear to be in any acute distress HEENT: Normocephalic. Normal reaction of pupils, equal size, normal range of extraocular motion. No erythema or exudates in the throat. NECK: No masses, no nuchal rigidity. CHEST: No chest wall deformity. LUNGS: Equal air entry with no crackles or wheeze. HEART: S1 and S2 normal with no audible mumurs or gallops. Regular rhythm, femorals equal on both sides.. ABDOMEN: No hepatosplenomegaly, normal bowel sounds, no guarding or rigidity. SKIN: No rashes CENTRAL NERVOUS SYSTEM: No focal deficits. EXTREMITIES: No cyanosis, clubbing or edema. - Labs CBC & Chem 7: 05/25/19 04:48 05/25/19 04:48 Labs: Abnormal Lab Results - Last 24 Hours (Table) 05/25/19 05/25/19 Range/Units 04:48 04:48 RBC 3.63 L (4.30-5.90) m/uL Hgb 12.3 L (13.0-17.5) gm/dL Hct 36.8 L (39.0-53.0) % MCV 101.5 H (80.0-100.0) fL Monocytes # (Manual) 1.31 H (0-1.0) k/uL Sodium 134 L (137-145) mmol/L Calcium 8.1 L (8.4-10.2) mg/dL Assessment and Plan (1) Wide-complex tachycardia Current Visit: Yes Status: Acute Code(s): I47.2 - VENTRICULAR TACHYCARDIA SNOMED Code(s): 761801675 (2) Chronic systolic (congestive) heart failure Current Visit: Yes Status: Acute Code(s): I50.22 - CHRONIC SYSTOLIC (CONGESTIVE) HEART FAILURE SNOMED Code(s): 089902787 (3) Cardiomyopathy Current Visit: No Status: Acute Code(s): I42.9 - CARDIOMYOPATHY, UNSPECIFIED SNOMED Code(s): 96693816 (4) Biventricular ICD (implantable cardioverter-defibrillator) in place Current Visit: Yes Status: Acute Code(s): Z95.810 - PRESENCE OF AUTOMATIC (IMPLANTABLE) CARDIAC DEFIBRILLATOR SNOMED Code(s): 174337043 Plan: Patient has been stable. He'll be transferred to telemetry unit. Will discuss with Dr. Gates regarding the findings that we got from the previous hospital. Increase activity as tolerated. Patient is clinically stable. He had a bout of atypical chest pain but stable since then. Waiting for Dr. Gates to evaluate him for possible repeat ablation
--- NOTE | 2019-05-25 11:08 | P.PN ---
Subjective Progress Note Date: 05/25/19 Principal diagnosis: New-onset wide-complex tachycardia This 74-year-old white male patient with history of ischemic cardiomyopathy, with baseline EF of less than 20%, with history of AICD implantation, coronary artery disease with previous bypass grafting in 1995, and then again in 2005, atrial fibrillation on Eliquis, non-small cell lung cancer in the right lung was diagnosed in [place] in 2016, and treated with radiation, and patient had no evidence of distant metastasis. He has been receiving surveillance CAT scans, he follows with Dr. Balderrama in the pulmonary clinic and Dr. Anish Warren from radiation oncology, most recent PET scan from 10/28/2018 showed an area of increasing soft tissue in scarlike opacity in the right upper lobe which did not show hypermetabolic uptake suggesting recurrent neoplasm. Patient has a history of COPD, and outpatient FEV1 was in order of 58% of predicted consistent with moderately severe COPD and patient is maintained on a combination of Spiriva and albuterol nebulized treatments, he is not oxygen dependent. Also has history of obstructive sleep apnea syndrome diagnosed many years back and patient was unable to tolerate the treatment. On 05/22/2019 patient presented to the emergency department with complaints of chest tightness that felt like severe indigestion lasting 3 or 4 hours. Patient tried taking his nitroglycerin with no improvement in symptoms, denied any radiation of his symptoms, no palpitations, no lightheadedness or dizziness, no shortness of breath. In the emergency department he was placed on the monitor and was found to be in wide complex tachycardia, with a stable blood pressure. He was given amiodarone 150 mg bolus followed by drip per standard protocol. Cardiology has been consulted and recommended synchronize cardioversion however patient had converted to a paced rhythm just prior to cardioversion. Immediately reported improvement in his symptoms. Repeat EKG showed ventricular paced rhythm at a rate of 94 BPM. X-ray was completed showing no acute process. Lab work showed a white blood cell count of 12.3, hemoglobin 15.8, correlation profile was within normal limits, BMP was normal, troponin was negative, TSH was within normal limits, digoxin level was 0.5. She admitted to the intensive care unit for closer monitoring, he is awake and alert, he remains in place rhythm with occasional PVCs, remains on amiodarone drip this morning, hemodynamically stable, denies any specific complaints, no shortness of breath or chest pain. Patient was reevaluated today on 05/24/2019, patient remains in the ICU, hemodynamically stable, patient was admitted with wide-complex tachycardia and right bundle branch block morphology felt to be atrial tachycardia. He converted with amiodarone, presently is asymptomatic. And cardiology is considering ablation for his tachycardia. In the meantime the patient is doing great, asymptomatic. And hemodynamically stable. CBC is relatively normal electrolytes and renal profile are normal. Patient was reevaluated today on 05/25/2019, remains in the ICU, he is an overflow patient, he is in sinus rhythm, no episodes of SVT or arrhythmia. No chest pain, no shortness of breath no cough no wheezing. Patient is being considered for possible ablation, however that has not been decided as of now. The decision for ablation will be made by cardiology. Objective - Vital Signs Vital signs: Vital Signs Temp 98.5 F 05/25/19 00:00 Pulse 78 05/25/19 04:00 Resp 17 05/25/19 04:00 BP 86/60 05/25/19 04:00 Pulse Ox 93 L 05/25/19 04:00 Intake & Output 05/24/19 05/25/19 05/25/19 18:59 06:59 18:59 Intake Total 900 350 Output Total 1 Balance 900 349 Weight 81.5 kg Intake: Oral 900 350 Output: Stool 1 Other: Voiding Method Urinal Toilet # Voids 1 2 - Exam GENERAL EXAM: Alert, pleasant, 74-year-old white male, asymptomatic, in no distress Head: Atraumatic normocephalic. HEENT: PERRLA, EOMI, no icterus. Moist mucous membranes. Cardiac: Normal S1 and S2, no S3 gallop. Chest symmetrical chest expansion, clear bilaterally no crackles or rhonchi or wheezes. Abdomen: Soft nontender no megaly no rebound no guarding. EXTREMITIESno clubbing edema or cyanosis, good pulses bilaterally. MUSCULOSKELETAL: Muscle strength and tone normal. SPINE: No scoliosis or deformity SKIN: No rashes CENTRAL NERVOUS SYSTEM: alert oriented 3 focal deficit. psychiatric: Normal mood affect and normal mental status examination. - Labs CBC & Chem 7: 05/25/19 04:48 05/25/19 04:48 Labs: Abnormal Lab Results - Last 24 Hours (Table) 05/25/19 05/25/19 Range/Units 04:48 04:48 RBC 3.63 L (4.30-5.90) m/uL Hgb 12.3 L (13.0-17.5) gm/dL Hct 36.8 L (39.0-53.0) % MCV 101.5 H (80.0-100.0) fL Monocytes # (Manual) 1.31 H (0-1.0) k/uL Sodium 134 L (137-145) mmol/L Calcium 8.1 L (8.4-10.2) mg/dL Assessment and Plan Assessment: #1. New-onset wide-complex tachycardia with right bundle branch block, this is felt to be atrial tachycardia. #2. Ischemic cardiac myopathy, with EF of less than 20% status post AICD placem ent #3. Chronic atrial fibrillation on Eliquis #4. Coronary artery disease, with previous history of bypass grafting in 1995 and 2005 #5. 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 She was diagnosed and treated in [place], most recent PET scan in October 2018 showed no metabolic activity, and showed benign scar in the right upper lobe #6. Moderately severe COPD with FEV1 of 50% of predicted, not oxygen dependent at baseline, on a combination of Spiriva and nebulized albuterol #7. Obstructive sleep apnea, intolerant to treatment #8. History of chronic systolic heart failure #9. Hypothyroidism #10. Osteoarthritis #11. Hyperlipidemia #12. Hernia of abdominal wall Recommendation: Continue treatment plan as per cardiology, continue bronchodilators for his underlying COPD. Continue on his cardiac meds, transfer patient out of the ICU once a bed is available on [facility]. And decision will be made hopefully tomorrow regarding ablation. We will sign off and see the patient on when necessary basis. Time with Patient: Less than 30
--- NOTE | 2019-05-25 12:20 | P.PN ---
Subjective Electrophysiology assessment Patient interview today. Detailed discussion with patient and his He was admitted with supraventricular tachycardia at 150 beats a minute Interrogation of the device revealed atrial fibrillation/very rapid atrial tachycardia He was initially treated with IV amiodarone and then this was discontinued He is biventricular paced mostly with PVCs He has severe ischemic cardiomyopathy From a heart failure standpoint his states that he can barely walk to the mailbox. The patient states he gets short of breath even changing a light bulb On examination his blood pressure runs between 100-110 mmHg pulse rate in the 70s and 80s respirations 16-18 Oxygen saturation 93% on room air He's been ambulating in the room and does not have any dizziness or lightheadedness I reviewed his data from [place] In 2001 he had an EP study which showed inducible ventricular tachycardia, monomorphic in sustained ventricular extra stimuli. Cycle length of 340 ms right bundle branch block morphology rightward axis associated with hypotension and terminated with burst pacing to sinus rhythm At that time a biventricular ICD was implanted DF testing was successful at at 10 J I don't have any record of ablation being performed for A. fib but the patient and his state that there was an ablation performed in 2011. He did have a procedure in 2012 but it's not in A. fib ablation I had a very detailed discussion with the patient and his regarding the options We discussed the option of switching from carvedilol to metoprolol for rate control of atrial fibrillation, long acting metoprolol We discussed AV node ablation,. The advantages being complete rate control of atrial fibrillation and maximizing Bi V pacing in the process, the simplicity of the approach with minimal anesthesia risk We discussed A. fib ablation with isolation of the pulmonary veins as well as linear ablation and lower success rates of less than 60-70% in the long run, need for multiple ablations and longer general anesthesia times in the face of at least class III heart failure symptoms Patient is quite agreeable to switching to metoprolol succinate If this fails AV node modification I'm starting Toprol-XL 50 g by mouth daily today, reducing the dose of lisinopril to 5 g daily and stagger it, take in the evening We will gradually maximize Toprol-XL 200 mg by mouth daily This gentleman was able to tolerate carvedilol 25 mg twice daily with blood pressures the Remeron 100 mmHg and so I anticipate that he should be up to tolerate at least 100 mg of Toprol-XL Objective - Vital Signs Vital signs: Vital Signs Temp 98.5 F 05/25/19 00:00 Pulse 98 05/25/19 11:19 Resp 17 05/25/19 04:00 BP 86/60 05/25/19 04:00 Pulse Ox 93 L 05/25/19 04:00 Intake & Output 05/24/19 05/25/19 05/25/19 18:59 06:59 18:59 Intake Total 900 350 Output Total 1 Balance 900 349 Weight 81.5 kg Intake: Oral 900 350 Output: Stool 1 Other: Voiding Method Urinal Toilet # Voids 1 2 - Labs CBC & Chem 7: 05/25/19 04:48 05/25/19 04:48 Labs: Abnormal Lab Results - Last 24 Hours (Table) 05/25/19 05/25/19 Range/Units 04:48 04:48 RBC 3.63 L (4.30-5.90) m/uL Hgb 12.3 L (13.0-17.5) gm/dL Hct 36.8 L (39.0-53.0) % MCV 101.5 H (80.0-100.0) fL Monocytes # (Manual) 1.31 H (0-1.0) k/uL Sodium 134 L (137-145) mmol/L Calcium 8.1 L (8.4-10.2) mg/dL
--- NOTE | 2019-05-25 12:27 | P.PCN ---
Date of Procedure: 05/23/19 Preoperative Diagnosis: Patient is a [employer] ICD, jesse serial number [id number] This is a biventricular ICD We have documented atrial fibrillation with a very short cycle length ranging from 160-250 beats a minute with a rapid ventricular response cycle length of 380 ms, paroxysmal The device was programmed to a single zone only and therefore reprogramming was performed VF zone 214 beats a minute, VT zone 176 beats a minute monitor zone 150 beats a minute appropriate detection intervals for VT and VF and appropriate antitachycardia pacing cardioversion defibrillations programmed Plan Obtain records from [facility] regarding the EP study and reevaluate patient regarding future options which could include medical treatment, AV node ablation, A. fib ablation I will reevaluate the patient after this information is available
[2019-05-25] MEDS ORDERED: METOPROLOL SUCCINATE (ER) 50 MG TAB.ER.24H PO ONE (14:00)
--- NOTE | 2019-05-25 14:20 | P.PN ---
Subjective Patient admitted for tachycardia which appears to be atrial tachycardia by complex tachycardia, patient was treated for atrial fibrillation as well patient is presently rate controlled. Patient was on amiodarone which was discontinued patient had history of ischemic cardiac myopathy with EF of 20% and patient has an AICD. EP will evaluate the patient for abalation. 05/25/2019 Patient that was a valid by EP physician please refer to his documentation for further details Constitutional: Denied any fatigue denied any fever. Cardio vascular: denied any chest pain, palpitations Gastrointestinal denied any nausea vomiting Pulmonary: Denied any shortness of breath cough Neurologic denied any new focal deficits All inpatient medications were reviewed and appropriate changes in these medications as dictated in the interval history and assessment and plan. Objective - Vital Signs Vital signs: Vital Signs Temp 98.4 F 05/25/19 12:00 Pulse 97 05/25/19 12:00 Resp 13 05/25/19 12:00 BP 102/89 05/25/19 12:00 Pulse Ox 100 05/25/19 12:00 Intake & Output 05/24/19 05/25/19 05/25/19 18:59 06:59 18:59 Intake Total 900 350 Output Total 1 Balance 900 349 Weight 81.5 kg Intake: Oral 900 350 Output: Stool 1 Other: Voiding Method Urinal Toilet # Voids 1 2 0 - Exam PHYSICAL EXAMINATION: GENERAL: The patient is alert and oriented x3, not in any acute distress. Well d eveloped, well nourished. HEENT: Pupils are round and equally reacting to light. EOMI. No scleral icterus. No conjunctival pallor. Normocephalic, atraumatic. No pharyngeal erythema. No thyromegaly. CARDIOVASCULAR: S1 and S2 present. No murmurs, rubs, or gallops. PULMONARY: Chest is clear to auscultation, no wheezing or crackles. ABDOMEN: Soft, nontender, nondistended, normoactive bowel sounds. No palpable organomegaly. MUSCULOSKELETAL: No joint swelling or deformity. EXTREMITIES: No cyanosis, clubbing, or pedal edema. NEUROLOGICAL: Gross neurological examination did not reveal any focal deficits. SKIN: No rashes. - Labs CBC & Chem 7: 05/25/19 04:48 05/25/19 04:48 Labs: Abnormal Lab Results - Last 24 Hours (Table) 05/25/19 05/25/19 Range/Units 04:48 04:48 RBC 3.63 L (4.30-5.90) m/uL Hgb 12.3 L (13.0-17.5) gm/dL Hct 36.8 L (39.0-53.0) % MCV 101.5 H (80.0-100.0) fL Monocytes # (Manual) 1.31 H (0-1.0) k/uL Sodium 134 L (137-145) mmol/L Calcium 8.1 L (8.4-10.2) mg/dL Assessment and Plan Plan: Atrial flutter ablation presently rate controlled and patient is other atrial arrhythmias for which patient is on rate control medications and electro physiology will evaluate the patient patient is off amiodarone drip. She is on anticoagulations delicacy to be continued Line-related ischemic cardiomyopathy ejection fraction 20% patient has an AICD in place patient is not in acute exacerbation of CHF -Coronary artery disease -History of squamous cell lung cancer which is in remission -COPD without any significant acute exacerbation -Hypothyroidism -Hyperlipidemia
[2019-05-25] MEDS: NICOTINE POLACRILEX 2 MG GUM BUCCAL PRN (16:30)
[2019-05-25 20:03] VITALS: TEMP 98.1
[2019-05-25] MEDS: ATORVASTATIN 40 MG TAB PO SCH (21:16)
[2019-05-25] MEDS: ACETAMINOPHEN TAB 500 MG TAB PO PRN (21:16)
[2019-05-25] MEDS: TAMSULOSIN 0.4 MG CAP.ER.24H PO SCH (21:16)
[2019-05-26 05:49] LABS: African American GFR (CKD) >90 (>60 ml/min/1.73 sqM); Anion Gap 3 mmol/L; Blood Urea Nitrogen 17 mg/dL (9-20); Calcium 8.1 mg/dL (8.4-10.2); Carbon Dioxide 29 mmol/L (22-30); Chloride 102 mmol/L (98-107); Glucose 98 mg/dL (74-99); Potassium 4.3 mmol/L (3.5-5.1); Sodium 134 mmol/L (137-145)
[2019-05-26 05:51] LABS: Basophils # (A) 0.2 k/uL (0-0.2); Basophils % (A) 3 %; Eosinophils # (A) 0.4 k/uL (0-0.7); Eosinophils % (A) 6 %; HCT 35.7 % (39.0-53.0); Lymphocytes # (A) 2.4 k/uL (1.0-4.8); Lymphocytes % (A) 34 %; MCH 34.2 pg (25.0-35.0); MCHC 33.6 g/dL (31.0-37.0); MCV 101.7 fL (80.0-100.0); Macrocytosis Slight; Mean Platelet Volume 7.3; Monocytes # (A) 0.6 k/uL (0-1.0); Monocytes % (A) 8 %; Neutrophils # (A) 3.2 k/uL (1.3-7.7); Neutrophils % (A) 45 %; Platelet Count 167 k/uL (150-450); RBC 3.51 m/uL (4.30-5.90); RDW 12.7 % (11.5-15.5); WBC 7.1 k/uL (3.8-10.6)
[2019-05-26] MEDS: LEVOTHYROXINE 75 MCG TAB PO SCH (06:19)
[2019-05-26] MEDS: METOPROLOL SUCCINATE (ER) 50 MG TAB.ER.24H PO SCH ×2 (06:20→08:36)
[2019-05-26] MEDS: NICOTINE POLACRILEX 2 MG GUM BUCCAL PRN (06:22)
[2019-05-26] MEDS: IPRATROPIUM-ALBUTEROL 3 ML NEB INHALATION SCH ×2 (07:04→11:23)
[2019-05-26] MEDS: FUROSEMIDE 80 MG TAB PO SCH (08:26)
[2019-05-26] MEDS: DIGOXIN 125 MCG TAB PO SCH (08:26)
[2019-05-26] MEDS: APIXABAN 5 MG TAB PO SCH (08:26)
[2019-05-26] MEDS: ASPIRIN 81 MG PO SCH (08:26)
[2019-05-26] MEDS: MULTIVITAMINS, THERA 1 EACH TAB PO SCH (08:28)
[2019-05-26] MEDS: POTASSIUM CHLORIDE ER 20 MEQ TAB.ER PO SCH (08:28)
[2019-05-26] MEDS: SPIRONOLACTONE 25 MG TAB PO SCH (08:28)
--- NOTE | 2019-05-26 09:03 | P.PN ---
Progress Note - Text Progress Note Date: 05/26/19 74-year-old gentleman with history of cardiomyopathy status post AICD paroxysmal atrial fibrillation prior episodes of A. fib prior ablation came to hospital with an episode of wide-complex tachycardia this was thought to be an episode of atrial tachycardia. He was treated with IV amiodarone following which she converted to sinus rhythm and stayed in sinus rhythm he has had somewhat of a low blood pressure. He has been evaluated by freelance art director and the patient was given the option of A. fib ablation AV karly ablation and also radical therapy. At the moment patient is on medical therapy he had been started on Toprol-XL 50 mg daily and if he tolerates this well and does not have further episodes of tach tachyarrhythmias we will consider discharging home and follow-up with his primary technical consultant and the freelance art director. Patient's blood pressure is in the 90s this morning however he does not have any cardiac symptoms. He denies chest pain or difficulty in breathing. I will ambulate him and if he is feeling well I will discharge him home. I reviewed his outpatient records. We still don't have any records on the A. fib ablation and it is unclear if he had an A. fib ablation are not. We can try and get hold of these records in the outpatient setting. Patient is currently and dig ox and 0.125 mg daily aspirin 5 mg twice a day Lipitor 40 mg daily Lasix Toprol-XL Zestril and Synthroid and Aldactone along with kdur On exam today he is comfortable at rest heart rate is 69 bpm blood pressures 100/50 respirators 14 O2 sat is 99% on room air. There is a jugular venous distention carotid upstroke is normal there is no bruit chest exam reveals good air entry bilaterally. Heart exam reveals first and second heart sounds no gallop no murmur no rub abdomen is soft nontender exams extremities did not reveal any edema peripheral pulses are felt DIRECTOR OF ANESTHESIA SERVICES exam did not reveal focal neurological deficits. Labs from today reveal a hemoglobin of 12 platelet count of 167 potassium is 4.3 creatinine is 0.7 Assessment and plan: cardiomyopathy Ventricular tachycardia status post AICD Paroxysmal atrial tachycardia/fibrillation Patient will continue with current medical therapy including Toprol-XL 50 mg daily. If he tolerates this well we will discharge him home later this afternoon I do not believe we will be able to increase the dose as his pressures are already on the low end. We will consider AV karly ablation or A. fib ablation in the outpatient setting.
[2019-05-26 12:44] VITALS: BP 109/73; PULSE 76; RESP 22
--- NOTE | 2019-05-26 14:22 | P.DS ---
Providers Date of admission: 05/22/19 17:07 Attending physician: Jefe Warner Consults: 05/22/19 17:07 Consult Physician Routine Consulting Provider: Duglas Logan Consult Reason/Comments: icui patient Do you want consulting provider notified?: Already Contacted Consult Physician Stat Consulting Provider: Daren Gates Consult Reason/Comments: dysrhythmia Do you want consulting provider notified?: Already Contacted Primary care physician: Raúl Marie [facility] Hospital Course: Patient admitted for tachycardia which appears to be atrial tachycardia by complex tachycardia, patient was treated for atrial fibrillation as well patient is presently rate controlled. Patient was on amiodarone which was discontinued patient had history of ischemic cardiac myopathy with EF of 20% and patient has an AICD. EP will evaluate the patient for abalation. 05/25/2019 Patient that was a valid by EP physician please refer to his documentation for further details 05/26/2019 Patient was a valid by electrophysiology, recommending metoprolol sustained allegiance to Coreg. Patient will be discharged today. PHYSICAL EXAMINATION: GENERAL: The patient is alert and oriented x3, not in any acute distress. Well developed, well nourished. HEENT: Pupils are round and equally reacting to light. EOMI. No scleral icterus. No conjunctival pallor. Normocephalic, atraumatic. No pharyngeal erythema. No thyromegaly. CARDIOVASCULAR: S1 and S2 present. No murmurs, rubs, or gallops. PULMONARY: Chest is clear to auscultation, no wheezing or crackles. ABDOMEN: Soft, nontender, nondistended, normoactive bowel sounds. No palpable organomegaly. MUSCULOSKELETAL: No joint swelling or deformity. EXTREMITIES: No cyanosis, clubbing, or pedal edema. NEUROLOGICAL: Gross neurological examination did not reveal any focal deficits. SKIN: No rashes. Assessment and Plan Plan: Atrial flutter ablation presently rate controlled and patient is other atrial arrhythmias patient is presently sinus rhythm and rate controlled - ischemic cardiomyopathy ejection fraction 20% patient has an AICD in place patient is not in acute exacerbation of CHF -Coronary artery disease -History of squamous cell lung cancer which is in remission -COPD without any significant acute exacerbation -Hypothyroidism -Hyperlipidemia Patient Condition at Discharge: Critical Plan - Discharge Summary Discharge Rx Participant: Yes New Discharge Prescriptions: New Metoprolol Succinate (ER) [Toprol XL] 50 mg PO DAILY #30 tab.er.24h Lisinopril [Zestril] 5 mg PO DAILY #30 tab Continue Apixaban [Eliquis] 5 mg PO BID Tamsulosin [Flomax] 0.4 mg PO HS Multivitamins, Thera [Multivitamin (formulary)] 1 tab PO HS Atorvastatin [Lipitor] 40 mg PO HS Levothyroxine Sodium [Synthroid] 75 mcg PO DAILY Potassium Chloride ER [K-Dur 20] 40 meq PO DAILY Furosemide [Lasix] 80 mg PO DAILY Aspirin EC [Ecotrin Low Dose] 81 mg PO DAILY Turmeric Root Extract [Turmeric] 500 mg PO DAILY Spironolactone [Aldactone] 12.5 mg PO DAILY #30 tablet Albuterol Nebulized [Ventolin Nebulized] 2.5 mg INHALATION RT-DAILY Aclidinium Maceo [Tudorza Pressair] 1 puff INHALATION RT-BID PRN PRN Reason: Shortness Of Breath Promethazine/Dextromethorphan [Promethazine-Dm Syrup] 5 ml PO Q4H PRN PRN Reason: Cough Digoxin [Lanoxin] 125 mcg PO DAILY Discontinued Lisinopril [Zestril] 20 mg PO DAILY #30 tab Ramipril [Altace] 5 mg PO DAILY Levofloxacin [Levaquin] 500 mg PO DAILY Carvedilol [Coreg*] 25 mg PO AC-BID Discharge Medication List Apixaban [Eliquis] 5 mg PO BID 04/09/18 [History] Aspirin EC [Ecotrin Low Dose] 81 mg PO DAILY 04/09/18 [History] Atorvastatin [Lipitor] 40 mg PO HS 04/09/18 [History] Furosemide [Lasix] 80 mg PO DAILY 04/09/18 [History] Levothyroxine Sodium [Synthroid] 75 mcg PO DAILY 04/09/18 [History] Multivitamins, Thera [Multivitamin (formulary)] 1 tab PO HS 04/09/18 [History] Potassium Chloride ER [K-Dur 20] 40 meq PO DAILY 04/09/18 [History] Tamsulosin [Flomax] 0.4 mg PO HS 04/09/18 [History] Turmeric Root Extract [Turmeric] 500 mg PO DAILY 04/09/18 [History] Spironolactone [Aldactone] 12.5 mg PO DAILY #30 tablet 04/11/18 [Rx] Aclidinium Maceo [Tudorza Pressair] 1 puff INHALATION RT-BID PRN 05/22/19 [History] Albuterol Nebulized [Ventolin Nebulized] 2.5 mg INHALATION RT-DAILY 05/22/19 [History] Digoxin [Lanoxin] 125 mcg PO DAILY 05/22/19 [History] Promethazine/Dextromethorphan [Promethazine-Dm Syrup] 5 ml PO Q4H PRN 05/22/19 [History] Lisinopril [Zestril] 5 mg PO DAILY #30 tab 05/26/19 [Rx] Metoprolol Succinate (ER) [Toprol XL] 50 mg PO DAILY #30 tab.er.24h 05/26/19 [Rx] Follow up Appointment(s)/Referral(s): Smooth Cortes MD [STAFF PHYSICIAN] - 05/27/19 4:00 pm Raúl Martinez MD [Primary Care Provider] - 3 Days Discharge Disposition: HOME SELF-CARE
[2019-05-26] MEDS ORDERED: LISINOPRIL 5 MG TAB PO SCH (18:00)
== END 2019-05-26 14:20 | disposition home or self-care (01) | DRG 309 ==
LOC: EC 15:55 → 2SICU 17:07
PROVIDERS: ADMIT Hospitalist; ATTEND Hospitalist
DX: I47.1 Supraventricular tachycardia (principal); I50.22 Chronic systolic (congestive) heart failure; I49.3 Ventricular premature depolarization; I47.2 Ventricular tachycardia; J44.9 Chronic obstructive pulmonary disease, unspecified; I11.0 Hypertensive heart disease with heart failure; I25.5 Ischemic cardiomyopathy; I45.10 Unspecified right bundle-branch block; I48.0 Paroxysmal atrial fibrillation; D72.829 Elevated white blood cell count, unspecified; E89.0 Postprocedural hypothyroidism; E78.5 Hyperlipidemia, unspecified; G47.33 Obstructive sleep apnea (adult) (pediatric); I25.10 Atherosclerotic heart disease of native coronary artery without angina pectoris; I25.2 Old myocardial infarction; K43.9 Ventral hernia without obstruction or gangrene; M19.91 Primary osteoarthritis, unspecified site; R07.89 Other chest pain; N42.9 Disorder of prostate, unspecified; Z79.01 Long term (current) use of anticoagulants; Z79.82 Long term (current) use of aspirin; Z79.890 Hormone replacement therapy; Z79.899 Other long term (current) drug therapy; Z85.118 Personal history of other malignant neoplasm of bronchus and lung; Z87.891 Personal history of nicotine dependence; Z92.3 Personal history of irradiation; Z95.1 Presence of aortocoronary bypass graft; Z95.810 Presence of automatic (implantable) cardiac defibrillator; Z87.01 Personal history of pneumonia (recurrent); Z88.0 Allergy status to penicillin; Z88.2 Allergy status to sulfonamides
CPT/HCPCS: 36415; 71045; 80048; 80053; 80162; 83735; 84443; 84484; 85025; 85610; 85730; 94640; 96365; 96366; 96376; 99285

== ENCOUNTER → 2019-07-08 | Outpatient (CLI) | payer MEDICARE ==
[2019-07-08 19:08] LABS: African American GFR (CKD) 98.5 (60.0-200.0); Albumin 4.1 g/dL (3.80-4.90); Albumin/Globulin Ratio 1.95 (1.60-3.17); Anion Gap 10.1 mmol/L (4.00-12.00); BUN/Creat Ratio 11.11 Ratio (12.00-20.00); Calcium 8.6 mg/dL (8.7-10.3); Carbon Dioxide 28.9 mmol/L (21.6-31.8); Chol/HDL Ratio 2.08; Globulin 2.1 g/dL (1.6-3.3); LDL Cholesterol,Calculated 57.4 mg/dL (0.0-131.0); Potassium 4.7 mmol/L (3.5-5.5); Total Bilirubin 0.9 mg/dL (0.3-1.2); Total Protein 6.2 g/dL (6.2-8.2); VLDL Calculation 13.6 mg/dL (5.00-40.00)
== END | disposition home or self-care (01) ==
LOC: LABWHC1 14:29
PROVIDERS: ATTEND Nurse Practitioner Adult Health
DX: I25.5 Ischemic cardiomyopathy (principal); I48.0 Paroxysmal atrial fibrillation; R78.2 Finding of cocaine in blood
CPT/HCPCS: 36415; 80053; 80061; 84443

== ENCOUNTER 2019-07-10 06:15 | Day surgery (SDC) | payer MEDICARE ==
[2019-07-08 11:59] VITALS: BMI 26.6
[2019-07-10 07:18] VITALS: RESP 16
[2019-07-10] MEDS: BENZOCAINE SPRAY 1 CAN MUCOUS MEM ONE ×2 (07:35→07:38)
[2019-07-10] MEDS ORDERED: LIDOCAINE 1% INJ 10MG/ML (20 ML MDV) ONE (07:36)
[2019-07-10] MEDS ORDERED: PROPOFOL 10 MG/ML 20 ML VIAL IV ONE (07:36)
[2019-07-10] MEDS: SODIUM CHLORIDE 0.9% 1,000 ML IV SCH ×2 (07:38→07:51)
[2019-07-10] MEDS ORDERED: IBUPROFEN 400 MG TAB PO PRN (07:55)
[2019-07-10] MEDS ORDERED: ACLIDINIUM BROMIDE INHALATION PRN (07:55)
[2019-07-10] MEDS ORDERED: SODIUM CHLORIDE 0.9% 1,000 ML IV SCH (08:00)
[2019-07-10] MEDS ORDERED: ALBUTEROL NEBULIZED 2.5 MG/3 ML INHALATION SCH (08:00)
[2019-07-10 08:08] VITALS: TEMP 97.8
--- NOTE | 2019-07-10 08:23 | CE ---
CARDIAC ELECTROPHYSIOLOGY REPORT CARDIOVERSION PROCEDURE NOTE. INDICATION: Atrial fibrillation. PROCEDURE: After explaining the procedure to the patient with risks and the complications, his blood pressure, heart rate, O2 saturation was monitored. After obtaining sedated state and performing transesophageal echocardiogram, a synchronized biphasic cardioversion using 200 joules was performed with presybeterian of normal sinus rhythm. There was no immediate complication. TESSA / CANELO: [id number] /
--- NOTE | 2019-07-10 08:45 | ECHOT ---
TRANSESOPHAGEAL ECHOCARDIOGRAM INDICATION: Evaluation left atrial appendage. PROCEDURE: After explaining the procedure to the patient, its risks and complications, his blood pressure, heart rate, O2 saturation was monitored. The throat was sprayed with Cetacaine. He received sedation per Anesthesia Department. The probe was introduced esophagus without difficulty. Images were obtained. Following that, the probe was removed. There was no immediate complication. FINDINGS: Biatrial enlargement was noted. Left atrial appendage normal. Left ventricular size is dilated with severe impairment of left ventricular systolic function, ejection fraction 20% to 25% The anterior, anteroapical, anteroseptal and anterolateral wall are akinetic. The inferior wall is hypokinetic. The aortic valve revealed fibrocalcific change with aortic cusp with preserved opening. Mitral annuloplasty was noted. Tricuspid valve is normal. Descending thoracic aorta revealed no evidence of significant atherosclerotic changes. No pericardial effusion was noted. Contrast bubble study revealed [id number] shunting through a patent [place] ovale. Doppler pulse wave and color Doppler obtained and revealed a moderate mitral with severe tricuspid regurgitation. There was no shunting by color Doppler study. Mild aortic regurgitation was noted. CONCLUSION: 1. Biatrial enlargement with normal appearance left atrial appendage 2 . Dilated left ventricle with severely impaired left ventricular systolic function with Segmental wall motion abnormality. 2. Evidence of mitral valve annuloplasty with moderate mitral regurgitation. 3. Severe tricuspid regurgitation. 4. Mild sclerosis of the aortic valve with mild aortic regurgitation. 5. Patent foramen ovale with [id number] shunting with contrast bubble study revealed\. 6. No pericardial effusion. MMODL / IJN: [id number] / [facility]
[2019-07-10] MEDS ORDERED: LEVOTHYROXINE 75 MCG TAB PO SCH (09:00)
[2019-07-10] MEDS ORDERED: LISINOPRIL 5 MG TAB PO SCH (09:00)
[2019-07-10] MEDS ORDERED: SPIRONOLACTONE 25 MG TAB PO SCH (09:00)
[2019-07-10] MEDS ORDERED: POTASSIUM CHLORIDE ER 20 MEQ TAB.ER PO SCH (09:00)
[2019-07-10] MEDS ORDERED: AMIODARONE 50 MG TAB PO SCH (09:00)
[2019-07-10] MEDS ORDERED: FUROSEMIDE 80 MG TAB PO SCH (09:00)
[2019-07-10] MEDS ORDERED: METOPROLOL SUCCINATE (ER) 50 MG TAB.ER.24H PO SCH (09:00)
[2019-07-10] MEDS ORDERED: NON FORMULARY DRUG (Aspirin Ec 81 MG) PO SCH (09:00)
[2019-07-10] MEDS ORDERED: APIXABAN 5 MG TAB PO SCH (09:00)
[2019-07-10 09:28] VITALS: BP 104/72; PULSE 68
[2019-07-10] MEDS ORDERED: TAMSULOSIN 0.4 MG CAP.ER.24H PO SCH (21:00)
[2019-07-10] MEDS ORDERED: MULTIVITAMINS, THERA 1 EACH TAB PO SCH (21:00)
[2019-07-10] MEDS ORDERED: ATORVASTATIN 40 MG TAB PO SCH (21:00)
== END 2019-07-10 09:28 | disposition home or self-care (01) ==
LOC: CATHCVL 06:15
PROVIDERS: ATTEND Internal Medicine Interventional Cardiology
DX: I08.8 Other rheumatic multiple valve diseases (principal); Q21.1 Atrial septal defect; I48.0 Paroxysmal atrial fibrillation; I25.5 Ischemic cardiomyopathy; I25.10 Atherosclerotic heart disease of native coronary artery without angina pectoris; E78.2 Mixed hyperlipidemia; R60.0 Localized edema; F17.210 Nicotine dependence, cigarettes, uncomplicated; Z79.82 Long term (current) use of aspirin; Z79.01 Long term (current) use of anticoagulants; Z79.899 Other long term (current) drug therapy; Z79.890 Hormone replacement therapy; Z95.810 Presence of automatic (implantable) cardiac defibrillator; Z95.1 Presence of aortocoronary bypass graft; Z82.49 Family history of ischemic heart disease and other diseases of the circulatory system; Z88.0 Allergy status to penicillin; Z88.2 Allergy status to sulfonamides; Z98.890 Other specified postprocedural states
CPT/HCPCS: 93312; 93320; 93325; 92960; J2001; J2704

== ENCOUNTER → 2019-08-04 | Outpatient (CLI) | payer BC ==
[2019-08-04 14:02] LABS: African American GFR (CKD) >90 (>60 ml/min/1.73 sqM); Blood Urea Nitrogen 10 mg/dL (9-20); Non-African American GFR(CKD) >90 (>60 ml/min/1.73 sqM)
--- NOTE | 2019-08-04 15:06 | CT ---
EXAMINATION TYPE: CT chest wo/w con DATE OF EXAM: 08/04/2019 COMPARISON: 03/07/2019 HISTORY: 74-year-old male Follow up lung CA TECHNIQUE: Contiguous axial scanning of the chest after the administration of 100 mL of Isovue 300. Coronal/sagittal reconstructions performed. CT DLP: 619.5mGycm. Automatic exposure control utilized for a dose reduction. FINDINGS: Median sternotomy wires are present with post-CABG clips in the mediastinum. Left anterior chest wall ICD generator with right atrial, right ventricular, and coronary sinus leads. Heart is borderline enlarged without pericardial effusion. Ascending aorta ectatic at 3.8 cm. Conventional arch vessel branching anatomy. Mildly enlarged caliber to the main right and left pulmonary arteries at 2.7 and 2.6 cm, respectively , suggesting underlying pulmonary arterial hypertension. There is a 1.1 cm area of mural-based nodularity along the posterior wall of the right mainstem bronc hus not seen previously. Refer to axial image 27. Focal thickened opacity right upper lobe measures 3.7 cm, unchanged. No increasing nodularity in this region. Mild centrilobular emphysema with some scattered chronic interstitial changes. No consolidation or ef fusion. Stable nonenlarged 6 mm precarinal lymph node. No thoracic lymphadenopathy by CT size criteria. Mild bilateral gynecomastia. There is prominent reflux of contrast into the hepatic veins. Generalized colonic diverticulosis and cholelithiasis. There is a ventral midline epigastric omental fat-containing hernia measuring 5.7 cm wide with the ab dominal wall defect measuring 2.0 cm wide. This finding was present on the prior exam. There is some mild mass effect onto the underlying abdominal wall that could reflect incarceration. Bones: No osseous destructive process. IMPRESSION: 1. COPD with mild emphysema and stable focal 3.7 cm right upper lobe scar at the site of treated dise ase. 2. A new 1.1 cm area of mural-based nodularity posterior wall of the right mainstem bronchus, probabl y retained mucoid secretions rather than a lesion. Short interval follow-up as indicated. 3. Correlate for elevated cardiac pressures given prominent reflux of contrast into the hepatic veins and pulmonary arterial hypertension. 4. Epigastric ventral midline omental fat-containing hernia measuring 5.7 cm wide. Given mild mass ef fect onto the abdominal wall, correlate for possible fat incarceration. 5. Colonic diverticulosis and cholelithiasis.
== END | disposition home or self-care (01) ==
LOC: RADCTMAIN 13:22
PROVIDERS: ATTEND Radiology Radiation Oncology
DX: J43.2 Centrilobular emphysema (principal); J98.4 Other disorders of lung; K57.30 Diverticulosis of large intestine without perforation or abscess without bleeding; K80.20 Calculus of gallbladder without cholecystitis without obstruction; C34.11 Malignant neoplasm of upper lobe, right bronchus or lung; Z87.891 Personal history of nicotine dependence
CPT/HCPCS: 36415; 71270; 82565; 84520

== ENCOUNTER → 2019-09-03 | Outpatient (CLI) | payer BC, MEDICARE ==
[2019-09-03 14:05] LABS: HCT 44.7 % (39.0-53.0); HGB 14.5 gm/dL (13.0-17.5); MCH 32.7 pg (25.0-35.0); MCHC 32.5 g/dL (31.0-37.0); MCV 100.4 fL (80.0-100.0); Macrocytosis Slight; Mean Platelet Volume 8.2; Platelet Count 192 k/uL (150-450); RBC 4.45 m/uL (4.30-5.90); RDW 13.4 % (11.5-15.5); WBC 9.4 k/uL (3.8-10.6)
[2019-09-03 14:16] LABS: African American GFR (CKD) >90 (>60 ml/min/1.73 sqM); Anion Gap 8 mmol/L; Blood Urea Nitrogen 13 mg/dL (9-20); Carbon Dioxide 27 mmol/L (22-30); Chloride 103 mmol/L (98-107); Glucose 97 mg/dL (74-99); Non-African American GFR(CKD) >90 (>60 ml/min/1.73 sqM); Potassium 4.8 mmol/L (3.5-5.1); Sodium 138 mmol/L (137-145)
== END | disposition home or self-care (01) ==
LOC: LABPAT 13:13
PROVIDERS: ATTEND Internal Medicine Clinical Cardiac Electrophysiology
DX: Z01.812 Encounter for preprocedural laboratory examination (principal); I25.5 Ischemic cardiomyopathy; I48.19 Other persistent atrial fibrillation
CPT/HCPCS: 36415; 80051; 82565; 82947; 84520; 85027

== ENCOUNTER 2019-09-11 10:54 | Day surgery (SDC) | payer BC, MEDICARE ==
[2019-09-09 15:08] VITALS: BMI 25.8
[2019-09-11] MEDS ORDERED: CLINDAMYCIN 900 MG in DEXTROSE 5% IN WATER 50 ML IVPB STA ×2 (11:14)
[2019-09-11] MEDS ORDERED: PROPOFOL 10 MG/ML 20 ML VIAL IV ONE (12:49)
[2019-09-11] MEDS ORDERED: MIDAZOLAM 2 MG/2 ML VIAL ONE (12:49)
[2019-09-11] MEDS ORDERED: fentaNYL (PF) 50 MCG/ML 2 ML AMP ONE (12:49)
[2019-09-11] MEDS ORDERED: SUCCINYLCHOLINE CHLORIDE 100 MG/5 ML SYR IV ONE (12:49)
[2019-09-11] MEDS ORDERED: ATROPINE SULFATE 0.1 MG/ML 10ML SYRINGE ONE (12:49)
[2019-09-11] MEDS ORDERED: IV FLUID CONTINUATION 950 ML IV ONE (13:00)
[2019-09-11] MEDS ORDERED: LIDOCAINE 1% INJ 10MG/ML (20 ML MDV) ONE (13:11)
[2019-09-11] MEDS ORDERED: LIDOCAINE 1% INJ 10MG/ML (20 ML MDV) SQ ONE (13:25)
[2019-09-11] MEDS ORDERED: HEPARIN SODIUM (1,000 UNIT/ML) 1,000 UNIT in SODIUM CHLORIDE 0.9% 1,000 ML IRRIGATION ONE (14:00)
--- NOTE | 2019-09-11 14:44 | P.HPCAR ---
History of Present Illness This is Dr. Gates dictating an h/p on this patient The patient was interviewed and examined by me IMPRESSION / ASSESSMENT: Atrial fibrillation with RVR spite maximum medical therapy including Toprol-XL 100 mg by mouth daily Severe cardio myopathy with class 2-3 CHF Status post IV ICD Bi V pacing percentage 59% Congestive heart failure shortness of breath with minimal exertion tiredness and fatigue Failed electrical cardioversion for atrial fibrillation Stable from a cardiovascular and medical standpoint to proceed with conscious sedation and ablation PLAN: Proceed with AV node ablation Reprogramming of biventricular ICD. Postprocedure HPI Patient presenting with shortness of breath with minimal exertion tiredness and fatigue A. fib with RVR Known ischemic cardio myopathy with severe LV dysfunction on maximal medical treatment Denies any fever chills cough expectoration chest pain ROS: No fever chills or rigors, no cough, phlegm or expectoration, no nausea, vomiting or diarrhea, no hematuria, dysuria, no musculoskeletal complaints, no strokes or seizures, no skin lesions. EXAMINATION: 99/62 mmHg, pulse rate in the 90s, respirations 16 Breath sounds are reduced bilaterally Heart sounds are irregular Abdomen soft REVIEW OF LABS, ECG & MEDICAL DATA Telemetry shows A. fib with RVR Physical Exam Vitals: Vital Signs Pulse Resp BP Pulse Ox 09/11/19 11:24 98 16 99/62 98 Intake and Output 09/10/19 09/11/19 09/11/19 22:59 06:59 14:59 Intake Total 165 Balance 165 Intake: IV 165 Other: Weight 75.8 kg Past Medical History Past Medical History: Atrial Fibrillation, Coronary Artery Disease (CAD), Cancer, COPD, Hyperlipidemia, Hypertension, Myocardial Infarction (NC), Osteoarthritis (OA), Pneumonia, Prostate Disorder, Sleep Apnea/CPAP/BIPAP, Thyroid Disorder Additional Past Medical History / Comment(s): cardiomyopathy. dx in 2016 w/non small cell lung cancer rt upper lobe-received radiation tx, has cpap machine Last Myocardial Infarction Date:: 1996 History of Any Multi-Drug Resistant Organisms: None Reported Past Surgical History: AICD, Coronary Bypass/CABG, Heart Catheterization, Hernia Repair, Orthopedic Surgery, Pacemaker, Tonsillectomy Additional Past Surgical History / Comment(s): partial thyroidectomy, x2 cabg sx first one 5 vessels done and 2nd one 2 vessels done, rt inguinal hernia repair, rt knee arthroscopy and 2nd sx on the ligaments, colonoscopy-neg. pacemaker/aicd pt stated has had x4 last changed Past Anesthesia/Blood Transfusion Reactions: No Reported Reaction Additional Past Anesthesia/Blood Transfusion Reaction / Comment(s): has had blood transfusion in past-no reaction. Type of Cardiac Device: Permanent Pacemaker, AICD Device Placement Date:: changed last Smoking Status: Former smoker - Past Family History Mother Family Medical History: Chest Pain / Angina, Coronary Artery Disease (CAD) Additional Family Medical History / Comment(s): at age 92 from lung infection Father History Unknown: Yes Physical Examination Vital Signs Pulse Resp BP Pulse Ox 09/11/19 11:24 98 16 99/62 98 Intake and Output 09/10/19 09/11/19 09/11/19 22:59 06:59 14:59 Intake Total 165 Balance 165 Intake: IV 165 Other: Weight 75.8 kg Results Current Medications Generic Name Dose Route Start Last Admin Trade Name Freq PRN Reason Stop Dose Admin Sodium Chloride 1,000 mls @ 20 mls/hr 09/11/19 06:26 Saline 0.9% IV .Q24H BONY Intake and Output 09/10/19 09/11/19 09/11/19 22:59 06:59 14:59 Intake Total 165 Balance 165 Intake: IV 165 Other: Weight 75.8 kg Patient Weight 09/12/19 06:59 Weight 75.8 kg
--- NOTE | 2019-09-11 14:46 | P.PRLE ---
RE: Fito Rosas Dear Raúl Rosas underwent AV node ablation for management of atrial fibrillation with RVR and low Bi V pacing percentage We will continue his cardio myopathy medications as before and he will continue to follow with you and Dr. Cortes No changes in his medications Thank you for entrusting me with the care of the patient Warm regards Sincerely Daren Gates
[2019-09-11] MEDS ORDERED: ACETAMINOPHEN IV (For NPO) 1,000 MG in EMPTY BAG 1 BAG IVPB ONE (14:49)
[2019-09-11] MEDS ORDERED: ACETAMINOPHEN TAB 325 MG TAB PO PRN (14:49)
--- NOTE | 2019-09-11 14:49 | P.PCN ---
Preoperative Diagnosis: Diagnosis: Persistent atrial fibrillation with RVR despite high-dose beta blockers, status post biventricular ICD, biV pacing percentage around 50% Procedure: Device interrogation with reprogramming prior to the procedure AV Node Ablation/modification. Device interrogation with reprogramming postprocedure Operators: Dr. Gates and Emani Montgomery PA-C Patient was brought to the EP lab in a fasting state. Written, informed consent was obtained prior to the procedure. Access was obtained, sheath placed in right femoral vein. 1. Preprocedure device interrogation and reprogramming Device interrogation with reprogramming performed. Rate responsiveness was turned off and the pacing rate was reprogrammed to a backup mode prior to ablation. Tachycardia detections turned off. Lead impedance is documented, sensing and pacing thresholds performed prior to the procedure Backup pacing, VVI 40 bpm 2. AV node ablation A Mapping/Ablation catheter was placed and right-sided AV node radiofrequency ablation/modification was performed. Complete heart block was achieved with occasional junctional escape rhythm above 40 bpm 3. Device programming postprocedure Post ablation, device reprogramming was performed. LV threshold was 1.25 at 1 ms RV threshold was 0.75 at 0.4 ms Pacing impedances were stable, RV pacing impedance was 342 ohms, LV pacing impedance was 551 ohms Base Pacing rate was programmed to 90 bpm. the device was programmed to VVIR 90 to 130 Tachycardia detections were turned back on an programmed to VT 176 and VF at 214 bpm Vascular sheaths were removed at the end of the procedure, hemostasis was assured, the patient was then transferred to recovery room/telemetry in stable condition. Conclusions: Successful ablation of the AV node. Plan: Pacing at 90 bpm for at least 2 weeks. Telemetry monitoring for 24 hours. Continue anticoagulation. Patient tolerated the procedure well without any acute complications.
[2019-09-11] MEDS: SODIUM CHLORIDE 0.9% 1,000 ML IV SCH ×2 (15:45→20:24)
[2019-09-11 19:37] VITALS: RESP 18
[2019-09-11] MEDS: APIXABAN 5 MG TAB PO SCH (20:10)
[2019-09-11] MEDS ORDERED: ATORVASTATIN 40 MG TAB PO SCH (21:00)
[2019-09-11] MEDS ORDERED: TAMSULOSIN 0.4 MG CAP.ER.24H PO SCH (21:00)
[2019-09-12 04:28] VITALS: TEMP 97.7
[2019-09-12] MEDS ORDERED: LEVOTHYROXINE 75 MCG TAB PO SCH (06:30)
[2019-09-12 06:35] VITALS: BP 111/80
--- NOTE | 2019-09-12 07:48 | P.DS ---
Providers Attending physician: Daren Gates Primary care physician: [facility] Hospital Course: Patient is doing well. He had a minor nosebleed but his stable now his nose is not bleeding anymore He denies any chest discomfort dizziness lightheadedness line is lying comfortably in bed no orthopnea PND On examination no JVD Systolic murmur over the precordium Breath sounds are clear no rhonchi no crackles Abdomen soft Extremity is warm Blood pressure 11 over 80 mmHg afebrile pulse rate in the 90s Impression A. fib with RVR with a low Bi V pacing percentage of 56% Status post AV node ablation Related ECG today shows a biventricular paced rhythm with underlying atrial fibrillation Current myopathy, ischemic Congestive heart failure class III Plan Discharge home The device has been programmed to base rate of 90 beats a minute for the next 2 weeks and we'll see him in the device clinic in 2 weeks and reprogramming to 60- 1:30 bpm at that time Follow-up with Dr. Dr. Cortes as previously scheduled Plan - Discharge Summary Discharge Rx Participant: No New Discharge Prescriptions: No Action Apixaban [Eliquis] 5 mg PO BID Tamsulosin [Flomax] 0.4 mg PO HS Multivitamins, Thera [Multivitamin (formulary)] 1 tab PO HS Atorvastatin [Lipitor] 40 mg PO HS Levothyroxine Sodium [Synthroid] 75 mcg PO DAILY Potassium Chloride ER [K-Dur 20] 40 meq PO DAILY Furosemide [Lasix] 80 mg PO DAILY Aspirin EC [Ecotrin Low Dose] 81 mg PO DAILY Turmeric Root Extract [Turmeric] 500 mg PO DAILY Spironolactone [Aldactone] 12.5 mg PO DAILY #30 tablet Albuterol Nebulized [Ventolin Nebulized] 2.5 mg INHALATION RT-DAILY Metoprolol Succinate (ER) [Toprol XL] 50 mg PO DAILY #30 tab.er.24h Lisinopril [Zestril] 5 mg PO DAILY #30 tab Ibuprofen 400 mg PO Q8HR PRN PRN Reason: Mild To Moderate Pain Discharge Medication List Apixaban [Eliquis] 5 mg PO BID 04/09/18 [History] Aspirin EC [Ecotrin Low Dose] 81 mg PO DAILY 04/09/18 [History] Atorvastatin [Lipitor] 40 mg PO HS 04/09/18 [History] Furosemide [Lasix] 80 mg PO DAILY 04/09/18 [History] Levothyroxine Sodium [Synthroid] 75 mcg PO DAILY 04/09/18 [History] Multivitamins, Thera [Multivitamin (formulary)] 1 tab PO HS 04/09/18 [History] Potassium Chloride ER [K-Dur 20] 40 meq PO DAILY 04/09/18 [History] Tamsulosin [Flomax] 0.4 mg PO HS 04/09/18 [History] Turmeric Root Extract [Turmeric] 500 mg PO DAILY 04/09/18 [History] Spironolactone [Aldactone] 12.5 mg PO DAILY #30 tablet 04/11/18 [Rx] Albuterol Nebulized [Ventolin Nebulized] 2.5 mg INHALATION RT-DAILY 05/22/19 [History] Lisinopril [Zestril] 5 mg PO DAILY #30 tab 05/26/19 [Rx] Metoprolol Succinate (ER) [Toprol XL] 50 mg PO DAILY #30 tab.er.24h 05/26/19 [Rx] Ibuprofen 400 mg PO Q8HR PRN 07/10/19 [History]
[2019-09-12 07:58] VITALS: PULSE 90
[2019-09-12] MEDS ORDERED: ALBUTEROL NEBULIZED 2.5 MG/3 ML INHALATION SCH (08:00)
[2019-09-12] MEDS: APIXABAN 5 MG TAB PO SCH (08:17)
[2019-09-12] MEDS: FUROSEMIDE 80 MG TAB PO SCH ×2 (08:17→08:22)
[2019-09-12] MEDS ORDERED: POTASSIUM CHLORIDE ER 20 MEQ TAB.ER PO SCH (09:00)
[2019-09-12] MEDS ORDERED: LISINOPRIL 5 MG TAB PO SCH (09:00)
[2019-09-12] MEDS ORDERED: METOPROLOL SUCCINATE (ER) 50 MG TAB.ER.24H PO SCH (09:00)
[2019-09-12] MEDS ORDERED: ASPIRIN 81 MG PO SCH (09:00)
[2019-09-12] MEDS ORDERED: SPIRONOLACTONE 25 MG TAB PO SCH (09:00)
== END 2019-09-12 11:25 | disposition home or self-care (01) ==
LOC: CATHEP 10:54 → 1SOBS 14:45 → CATHEP 09-12 11:25
PROVIDERS: ATTEND Internal Medicine Clinical Cardiac Electrophysiology
DX: I48.19 Other persistent atrial fibrillation (principal); Z45.02 Encounter for adjustment and management of automatic implantable cardiac defibrillator; I25.5 Ischemic cardiomyopathy; I25.10 Atherosclerotic heart disease of native coronary artery without angina pectoris; J44.9 Chronic obstructive pulmonary disease, unspecified; E78.5 Hyperlipidemia, unspecified; I10 Essential (primary) hypertension; I25.2 Old myocardial infarction; N42.9 Disorder of prostate, unspecified; G47.30 Sleep apnea, unspecified; Z99.89 Dependence on other enabling machines and devices; E07.9 Disorder of thyroid, unspecified; R00.0 Tachycardia, unspecified; Z92.3 Personal history of irradiation; Z95.1 Presence of aortocoronary bypass graft; Z95.0 Presence of cardiac pacemaker; E89.0 Postprocedural hypothyroidism; Z87.891 Personal history of nicotine dependence; Z79.1 Long term (current) use of non-steroidal anti-inflammatories (NSAID); Z79.82 Long term (current) use of aspirin; Z79.01 Long term (current) use of anticoagulants; Z79.3 Long term (current) use of hormonal contraceptives; Z79.899 Other long term (current) drug therapy; Z88.0 Allergy status to penicillin; Z88.2 Allergy status to sulfonamides
CPT/HCPCS: 94640; 93650; C1894; C1769; C1893; C1732; J2250; J2001; J0461; J3010; J1644; J0330; J2704

== ENCOUNTER → 2020-01-22 | Outpatient (CLI) | payer MEDICARE ==
[2020-01-22 09:06] LABS: African American GFR (CKD) >90 (>60 ml/min/1.73 sqM); Blood Urea Nitrogen 15 mg/dL (9-20); Non-African American GFR(CKD) >90 (>60 ml/min/1.73 sqM)
--- NOTE | 2020-01-22 10:42 | CT ---
EXAMINATION TYPE: CT chest wo/w con DATE OF EXAM: 01/22/2020 COMPARISON: Prior chest CT August 04, 2019 and older CTs. Prior PET/CT 2018 and outside study 2016 HISTORY: Lung cancer, personal history of tobacco use. CT DLP: 546 mGycm. Automated Exposure Control for Dose Reduction was Utilized. TECHNIQUE: CT scan of the thorax is performed following without and with IV Contrast, patient inject ed with 100 mL of Isovue M300. FINDINGS: LUNGS: Persistent mild to moderate biapical parenchymal scarring. Accounting for technical difference s fairly stable 2.8 x 1.6 cm nonenhancing scar or scarlike opacity right upper lobe posteriorly axial image 15. Mild bibasilar linear scarring and/or atelectasis. No new nodules or masses. Faint area of groundglass opacity posterior superior aspect left lower lobe axial image 34 is unchanged from prior . There is no pleural effusion or pneumothorax seen. Stable mild central peribronchial wall thicken ing. Interval clearance of dependent mucus right mainstem bronchus noted. MEDIASTINUM: There are no greater than 1 cm hilar or mediastinal lymph nodes. No pericardial effusi on is seen. Post-CABG changes with mediastinal clips and sternal wires redemonstrated. Cardiomegaly redemonstrated. Persistent multi lead pacemaker. Surgical clips from thyroidectomy near thoracic inle t are redemonstrated. Persistent reflux of contrast into intrahepatic IVC and hepatic veins suggestin g degree of right heart failure. OTHER: Persistent bilateral subareolar nodular gynecomastia. Dependent small stones in gallbladder re demonstrated. Persistent narrow neck ventral wall hernia upper abdomen containing omental fat and tin y mesenteric vessels axial image 64 extending inferiorly. IMPRESSION: Overall stable findings, treated right upper lobe neoplasm without new enhancement or nod ule to suggest new active malignancy.
== END | disposition home or self-care (01) ==
LOC: RADCTMAIN 08:25
PROVIDERS: ATTEND Radiology Radiation Oncology
DX: C34.11 Malignant neoplasm of upper lobe, right bronchus or lung (principal); Z87.891 Personal history of nicotine dependence
CPT/HCPCS: 82565; 84520; 71270; 36415; Q9967

== ENCOUNTER → 2020-08-02 | Outpatient (CLI) | payer MEDICARE ==
[2020-08-02 13:38] LABS: African American GFR (CKD) >90 (>60 ml/min/1.73 sqM); Blood Urea Nitrogen 10 mg/dL (9-20); Non-African American GFR(CKD) >90 (>60 ml/min/1.73 sqM)
--- NOTE | 2020-08-02 14:22 | CT ---
EXAMINATION TYPE: CT chest wo/w con DATE OF EXAM: 08/02/2020 COMPARISON: Chest CT January 22, 2020 and older CTs HISTORY: Lung CA CT DLP: 630.8 mGycm. Automated Exposure Control for Dose Reduction was Utilized. TECHNIQUE: CT scan of the thorax is performed following without and with IV Contrast, patient inject ed with 100 mL of Isovue 300. FINDINGS: LUNGS: Persistent mild to moderate biapical parenchymal scarring. Accounting for technical difference s fairly stable 3.2 x 2.0 cm cm nonenhancing scar or scarlike opacity right upper lobe posteriorly ax ial image 12 series 4 current study. Mild bibasilar linear scarring and/or atelectasis is redemonstra alexandra. No new nodules or masses. Faint area of groundglass opacity posterior superior aspect left lower lobe axial image 32 shows broad-based 10 x 6 mm nodule or nodular consolidation on current study. Th ere is new small left pleural effusion noted. No new nodules or masses. MEDIASTINUM: There are no new greater than 1 cm hilar or mediastinal lymph nodes. Post-CABG changes w ith mediastinal clips and sternal wires is redemonstrated. Persistent cardiomegaly with multilead pac emaker/defibrillator. Surgical clips from thyroidectomy redemonstrated. Persistent moderate to severe biatrial dilatation and moderate to severe left ventricular dilatation. Persistent reflux of contras t into prominent IVC and hepatic veins and system with degree of right heart failure. OTHER: Persistent bilateral subareolar nodular gynecomastia. Dependent small stones in gallbladder r edemonstrated. Persistent narrow neck ventral wall hernia upper abdomen containing omental fat and ti ny mesenteric vessels axial image 64 extending inferiorly. IMPRESSION: Stable treated right upper lung neoplasm. New small left pleural effusion otherwise no si gnificant interval change from most recent CT.
== END | disposition home or self-care (01) ==
LOC: RADCTMAIN 13:05
PROVIDERS: ATTEND Radiology Radiation Oncology
DX: C34.11 Malignant neoplasm of upper lobe, right bronchus or lung (principal); J90 Pleural effusion, not elsewhere classified; Z87.891 Personal history of nicotine dependence
CPT/HCPCS: 82565; 84520; 71270; 36415; Q9967

== ENCOUNTER → 2020-08-04 | Outpatient (CLI) | payer MEDICARE ==
[2020-08-04 20:20] LABS: African American GFR (CKD) 108.5 (60.0-200.0); Non-African American GFR(CKD) 93.6 (60.0-200.0)
== END | disposition home or self-care (01) ==
LOC: LABWHC1 12:25
PROVIDERS: ATTEND Radiology Radiation Oncology
DX: C34.11 Malignant neoplasm of upper lobe, right bronchus or lung (principal); Z87.891 Personal history of nicotine dependence
CPT/HCPCS: 36415; 82565; 84520

== ENCOUNTER → 2020-08-27 | Outpatient (CLI) | payer MEDICARE ==
--- NOTE | 2020-08-27 12:34 | XR ---
EXAMINATION TYPE: XR chest 2V DATE OF EXAM: 08/27/2020 COMPARISON: 05/23/2019 HISTORY: Shortness of breath TECHNIQUE: Frontal and lateral views of the chest are obtained. FINDINGS: Scattered senescent parenchymal changes noted. Hyperinflation compatible with COPD. Left basilar pleural-parenchymal density is noted. Underlying infiltrate not excluded. Heart size is stable. Mediastinal structures are stable and grossly unremarkable. No evidence for hilar prominence. Degenerative changes dorsal spine. IMPRESSION: 1. Left basilar pleural-parenchymal density is noted. Underlying infiltrate not excluded.
== END | disposition home or self-care (01) ==
LOC: RADXRMAIN 11:30
PROVIDERS: ATTEND Internal Medicine Interventional Cardiology
DX: I50.9 Heart failure, unspecified (principal); R91.8 Other nonspecific abnormal finding of lung field; Z88.0 Allergy status to penicillin; Z88.2 Allergy status to sulfonamides
CPT/HCPCS: 71046

== ENCOUNTER → 2020-08-27 | Outpatient (CLI) | payer MEDICARE ==
[2020-08-27 14:17] LABS: Basophils # (A) 0.2 k/uL (0-0.2); Basophils % (A) 2 %; Eosinophils # (A) 0.6 k/uL (0-0.7); Eosinophils % (A) 7 %; HCT 40.9 % (39.0-53.0); HGB 13.6 gm/dL (13.0-17.5); Lymphocytes # (A) 1.8 k/uL (1.0-4.8); Lymphocytes % (A) 22 %; MCHC 33.3 g/dL (31.0-37.0); Macrocytosis Slight; Mean Platelet Volume 7.5; Monocytes # (A) 0.9 k/uL (0-1.0); Monocytes % (A) 11 %; Neutrophils # (A) 4.7 k/uL (1.3-7.7); Neutrophils % (A) 56 %; Platelet Count 231 k/uL (150-450); RBC 4.01 m/uL (4.30-5.90); RDW 12.7 % (11.5-15.5); WBC 8.5 k/uL (3.8-10.6)
[2020-08-27 21:46] LABS: African American GFR (CKD) 115.6 (60.0-200.0); Albumin/Globulin Ratio 1.67 (1.60-3.17); Anion Gap 8.3 mmol/L (4.00-12.00); BUN/Creat Ratio 26.67 Ratio (12.00-20.00); Calcium 9.2 mg/dL (8.7-10.3); Carbon Dioxide 26.7 mmol/L (21.6-31.8); Globulin 2.4 g/dL (1.6-3.3); Non-African American GFR(CKD) 99.7 (60.0-200.0); Total Bilirubin 0.8 mg/dL (0.3-1.2); Total Protein 6.4 g/dL (6.2-8.2)
== END | disposition home or self-care (01) ==
LOC: LABWHC1 12:21
PROVIDERS: ATTEND Nurse Practitioner Adult Health
DX: I25.5 Ischemic cardiomyopathy (principal); I48.0 Paroxysmal atrial fibrillation; R06.02 Shortness of breath
CPT/HCPCS: 36415; 80053; 83880; 84443; 85025

== ENCOUNTER → 2021-02-07 | Outpatient (CLI) | payer MEDICARE ==
[2021-02-07 10:03] LABS: African American GFR (CKD) >90 (>60 ml/min/1.73 sqM); Blood Urea Nitrogen 13 mg/dL (9-20); Non-African American GFR(CKD) >90 (>60 ml/min/1.73 sqM)
--- NOTE | 2021-02-07 11:12 | CT ---
EXAMINATION TYPE: CT chest wo/w con DATE OF EXAM: 02/07/2021 COMPARISON: 08/02/2020 HISTORY: Malignant neoplasm of upper lobe, right CT DLP: 568.6 mGycm Automated exposure control for dose reduction was used. CONTRAST: CT scan of the chest is performed without and with IV Contrast, patient injected with 100 mL of Isovu e 300. FINDINGS: LUNGS: Stable biapical parenchymal scarring. Nonenhancing scar right upper lobe is unchanged and boris ures approximately 3 x 2 cm. There is slight increase in left-sided pleural effusion with pleural-bas ed nodularity which has increased and currently measures 1.7 cm and 1.4 cm respectively. Small area o f infiltrate right lower lobe is nonspecific. MEDIASTINUM: There are no greater than 1 cm hilar or mediastinal lymph nodes. No pericardial effusi on is seen. Thoracic aorta is of normal caliber. The heart moderately enlarged. UPPER ABDOMEN: OTHER: No additional significant abnormality is seen. IMPRESSION: 1. Stable treated right upper lung neoplasm. 2. Mild enlargement left lower lobe pleural effusion with pleural-based nodularity.
== END | disposition home or self-care (01) ==
LOC: RADCTMAIN 09:27
PROVIDERS: ATTEND Radiology Radiation Oncology
DX: C34.11 Malignant neoplasm of upper lobe, right bronchus or lung (principal); J90 Pleural effusion, not elsewhere classified
CPT/HCPCS: 82565; 84520; 71270; 36415; Q9967

== ENCOUNTER → 2021-08-11 | Outpatient (CLI) | payer MEDICARE ==
[2021-08-11 11:39] LABS: African American GFR (CKD) >90 (>60 ml/min/1.73 sqM); Blood Urea Nitrogen 17 mg/dL (9-20); Non-African American GFR(CKD) >90 (>60 ml/min/1.73 sqM)
--- NOTE | 2021-08-11 12:37 | CT ---
EXAMINATION TYPE: CT chest wo/w con DATE OF EXAM: 08/11/2021 COMPARISON: Most recent CT February 07, 2021 and older studies HISTORY: Lung CA originally diagnosed right lung 2016 CT DLP: 1180 mGycm. Automated Exposure Control for Dose Reduction was Utilized. TECHNIQUE: CT scan of the thorax is performed following without and with IV Contrast, patient inject ed with 100 mL of Isovue 300. FINDINGS: LUNGS: Persistent mild to moderate biapical parenchymal scarring. Accounting for technical difference s fairly stable 3.1 x 1.8 cm nonenhancing scar or scarlike opacity right upper lobe posteriorly axial image 16 series 10 current study. Mild left greater than right bibasilar linear scarring and/or atel ectasis is redemonstrated. No new nodules or masses. Small left basilar pleural fluid collection with overlying focus of groundglass nodule or true nodule measuring 8 mm axial limits 34 series 9. Both f indings slightly improved from most recent CT. Some left-sided volume loss redemonstrated. MEDIASTINUM: There are no new greater than 1 cm hilar or mediastinal lymph nodes. Post-CABG changes w ith mediastinal clips and sternal wires is redemonstrated. Persistent cardiomegaly with multilead pac emaker/defibrillator. Surgical clips from thyroidectomy redemonstrated. Persistent moderate to severe biatrial dilatation and moderate to severe left ventricular dilatation. OTHER: Persistent bilateral subareolar flame-shaped gynecomastia. Dependent small stones in gallblad amado redemonstrated. Persistent ventral wall wall hernia upper abdomen containing omental fat and tiny mesenteric vessels axial image 65 series 9 extending inferiorly. Some diverticula in the visualized colon noted. IMPRESSION: Small left pleural effusion slightly improved from most recent CT. Overlying nodular cons olidation or nodularity shows improvement from most recent CT. Stable treated right upper lung neopla sm. No new mass or adenopathy otherwise seen.
== END | disposition home or self-care (01) ==
LOC: RADCTMAIN 10:57
PROVIDERS: ATTEND Radiology Radiation Oncology
DX: C34.11 Malignant neoplasm of upper lobe, right bronchus or lung (principal); J90 Pleural effusion, not elsewhere classified
CPT/HCPCS: 82565; 84520; 71270; 36415; Q9967

== ENCOUNTER → 2021-08-11 | Outpatient (CLI) | payer MEDICARE ==
[2021-08-11 19:29] LABS: ALT 19 U/L (10-49); AST 25 U/L (14-35); African American GFR (CKD) 102.4 (60.0-200.0); Albumin/Globulin Ratio 1.31 (1.60-3.17); Alkaline Phosphatase 88 U/L (41-126); BUN/Creat Ratio 17.05 Ratio (12.00-20.00); Blood Urea Nitrogen 13.5 mg/dL (9.0-27.0); Calcium 9.2 mg/dL (8.7-10.3); Carbon Dioxide 27.3 mmol/L (20.0-27.5); Chloride 98 mmol/L (96-109); Chol/HDL Ratio 1.76 Ratio; Globulin 3.1 g/dL (1.6-3.3); Glucose 110 mg/dL (70-110); LDL Cholesterol,Calculated 55.1 mg/dL (0.0-131.0); Non-African American GFR(CKD) 88.4 (60.0-200.0); Potassium 5.3 mmol/L (3.5-5.5); Sodium 138 mmol/L (135-145); VLDL Calculation 12.16 mg/dL (5.00-40.00)
== END | disposition home or self-care (01) ==
LOC: LABWHC1 12:05
PROVIDERS: ATTEND Nurse Practitioner Adult Health
DX: I25.5 Ischemic cardiomyopathy (principal); E78.2 Mixed hyperlipidemia; E03.9 Hypothyroidism, unspecified
CPT/HCPCS: 36415; 80053; 80061; 84439; 84443

== ENCOUNTER 2021-10-20 15:41 | Inpatient (IN) | payer MEDICARE ==
[2021-10-20] MEDS ORDERED: SODIUM CHLORIDE 0.9% 500 ML 500 ML IV STA (18:26)
[2021-10-20] MEDS ORDERED: SODIUM CHLORIDE 0.9% 1,000 ML IV STA (18:26)
[2021-10-20] MEDS ORDERED: cefTRIAXone IN SWFI 1,000 MG/10 ML SYRINGE IVP STA (18:27)
[2021-10-20 18:49] LABS: Basophils # (A) 0.2 k/uL (0-0.2); Basophils % (A) 1 %; Eosinophils % (A) 0 %; HCT 37.4 % (39.0-53.0); HGB 12.7 gm/dL (13.0-17.5); Lymphocytes # (A) 0.3 k/uL (1.0-4.8); Lymphocytes % (A) 1 %; MCH 33.2 pg (25.0-35.0); MCHC 34.1 g/dL (31.0-37.0); MCV 97.4 fL (80.0-100.0); Mean Platelet Volume 6.9; Monocytes # (A) 0.9 k/uL (0-1.0); Monocytes % (A) 3 %; Neutrophils # (A) 28.6 k/uL (1.3-7.7); Neutrophils % (A) 95 %; Platelet Count 347 k/uL (150-450); RBC 3.84 m/uL (4.30-5.90); RDW 13.5 % (11.5-15.5); WBC 30.3 k/uL (3.8-10.6)
[2021-10-20 18:52] LABS: Bacteria,Urine Many /hpf; RBC,Urine 155 /hpf (0-5); WBC,Urine >182 /hpf (0-5)
[2021-10-20 18:54] LABS: ALT 56 U/L (4-49); AST 87 U/L (17-59); African American GFR (CKD) >90 (>60 ml/min/1.73 sqM); Albumin 2.6 g/dL (3.5-5.0); Alkaline Phosphatase 168 U/L (38-126); Anion Gap 10 mmol/L; Appearance,Urine Turbid (Clear); Blood Urea Nitrogen 17 mg/dL (9-20); Calcium 7.8 mg/dL (8.4-10.2); Carbon Dioxide 21 mmol/L (22-30); Chloride 83 mmol/L (98-107); Color,Urine Orange; Glucose 111 mg/dL (74-99); Non-African American GFR(CKD) 87 (>60 ml/min/1.73 sqM); Potassium 5.1 mmol/L (3.5-5.1); Total Bilirubin 1.5 mg/dL (0.2-1.3); Total Protein 5.7 g/dL (6.3-8.2)
[2021-10-20 18:56] LABS: INR 1.3 (<1.2); Partial Thromboplastin Time 35.2 sec (22.0-30.0); Prothrombin Time 13.4 sec (9.0-12.0)
[2021-10-20 18:58] LABS: Sodium 114 mmol/L (137-145)
--- NOTE | 2021-10-20 19:09 | XR ---
EXAMINATION TYPE: XR chest 2V DATE OF EXAM: 10/20/2021 COMPARISON: 08/27/20 HISTORY: weakness; pain TECHNIQUE: Frontal and lateral views of the chest are obtained. FINDINGS: Pacemaker and sternal sutures/mediastinal clips redemonstrated. There is no definite acute focal air space opacity, pleural effusion, or pneumothorax seen. Chronic left pleuroparenchymal changes appear improved since the prior, with current small left pleural effus ion noted. The cardiac silhouette size is mildly enlarged; unchanged. The osseous structures are intact. IMPRESSION: No definite acute radiographic process.
[2021-10-20] MEDS ORDERED: NALOXONE 0.4 MG/ML 1 ML VIAL IV PRN (19:26)
[2021-10-20] MEDS ORDERED: LEVOFLOXACIN 500MG-D5W PMX 500 MG in DEXTROSE/WATER 1 100ML.BAG IVPB STA (19:42)
--- NOTE | 2021-10-20 19:46 | ED ---
General Adult HPI - General Chief complaint: Weakness Stated complaint: Trouble urinating Time Seen by Provider: 10/20/21 18:09 Source: patient, family, RN notes reviewed, old records reviewed Mode of arrival: wheelchair Limitations: no limitations - History of Present Illness Initial comments: 76-year-old male presenting for evaluation of dysuria. He's been treated as an outpatient for UTI with an unknown oral antibiotic. Patient has had increased fatigue and generalized weakness. He does not report a measured fever. No significant vomiting but very poor oral intake over the past several days. No pain complaints. - Related Data Home Medications Medication Instructions Recorded Confirmed Apixaban [Eliquis] 5 mg PO BID 04/09/18 09/11/19 Aspirin EC [Ecotrin Low Dose] 81 mg PO DAILY 04/09/18 09/11/19 Atorvastatin [Lipitor] 40 mg PO HS 04/09/18 09/11/19 Furosemide [Lasix] 80 mg PO DAILY 04/09/18 09/11/19 Levothyroxine Sodium [Synthroid] 75 mcg PO DAILY 04/09/18 09/11/19 Multivitamins, Thera [Multivitamin 1 tab PO HS 04/09/18 09/11/19 (formulary)] Potassium Chloride ER [K-Dur 20] 40 meq PO DAILY 04/09/18 09/11/19 Tamsulosin [Flomax] 0.4 mg PO HS 04/09/18 09/11/19 Turmeric Root Extract [Turmeric] 500 mg PO DAILY 04/09/18 09/11/19 Albuterol Nebulized [Ventolin 2.5 mg INHALATION RT-DAILY 05/22/19 09/11/19 Nebulized] Ibuprofen 400 mg PO Q8HR PRN 07/10/19 09/11/19 Previous Rx's Medication Instructions Recorded Spironolactone [Aldactone] 12.5 mg PO DAILY #30 tablet 04/11/18 Metoprolol Succinate (ER) [Toprol 50 mg PO DAILY #30 tab.er.24h 05/26/19 XL] lisinopriL [Zestril] 5 mg PO DAILY #30 tab 05/26/19 Allergies Allergy/AdvReac Type Severity Reaction Status Date / Time Penicillins Allergy Rash/Hives Verified 10/20/21 17:45 Sulfa (Sulfonamide Allergy Rash/Hives Verified 10/20/21 17:45 Antibiotics) Review of Systems ROS Statement: Those systems with pertinent positive or pertinent negative responses have been documented in the HPI. ROS Other: All systems not noted in ROS Statement are negative. Past Medical History Past Medical History: Atrial Fibrillation, Coronary Artery Disease (CAD), Cancer, COPD, Hyperlipidemia, Hypertension, Myocardial Infarction (VT), Osteoar thritis (OA), Pneumonia, Prostate Disorder, Sleep Apnea/CPAP/BIPAP, Thyroid Disorder Additional Past Medical History / Comment(s): cardiomyopathy. 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 pacemaker/aicd pt stated has had x4 last changed Past Anesthesia/Blood Transfusion Reactions: No Reported Reaction Additional Past Anesthesia/Blood Transfusion Reaction / Comment(s): has had blood transfusion in past-no reaction. Type of Cardiac Device: Permanent Pacemaker, AICD Device Placement Date:: changed last Past Psychological History: No Psychological Hx Reported Smoking Status: Former smoker Past Alcohol Use History: Daily Past Drug Use History: None Reported - Past Family History Mother Family Medical History: Chest Pain / Angina, Coronary Artery Disease (CAD) Additional Family Medical History / Comment(s): at age 92 from lung infection Father History Unknown: Yes General Exam Limitations: no limitations General appearance: alert, in no apparent distress Head exam: Present: atraumatic, normocephalic Eye exam: Present: normal appearance, PERRL ENT exam: Present: normal exam Neck exam: Present: normal inspection. Absent: tenderness, meningismus Respiratory exam: Present: rhonchi. Absent: respiratory distress Cardiovascular Exam: Present: regular rate, normal rhythm GI/Abdominal exam: Present: soft. Absent: distended, tenderness, guarding Extremities exam: Present: pedal edema Neurological exam: Present: alert, oriented X3, CN II-XII intact. Absent: motor sensory deficit Psychiatric exam: Present: normal affect, normal mood Skin exam: Present: warm, dry, intact. Absent: cyanosis, diaphoretic Course Vital Signs 10/20/21 10/20/21 10/20/21 17:45 18:51 19:39 Temperature 96.9 F L Pulse Rate 69 60 60 Respiratory 20 18 18 Rate Blood Pressure 81/50 90/51 92/55 O2 Sat by Pulse 97 99 99 Oximetry 10/20/21 10/20/21 20:11 20:30 Temperature Pulse Rate 60 60 Respiratory 18 18 Rate Blood Pressure 92/58 100/62 O2 Sat by Pulse 95 100 Oximetry EKG Findings - EKG Comments: EKG Findings:: EKG: Paced rhythm rate of 60, QRS duration 195, QTC 511 Procedures - Central Line Placement Right Femoral Consent Obtained: verbal consent Patient Placed on Monitor/Pulse Ox: Yes MD Prep: mask, gown, gloves Central Line Prep: Chlorhexidine scrub Local Anesthesia Used: Lidocaine 1% Amount of Anesthesia Used (mls): 5 Ultrasound Used for Placement: Yes Central Line Lumen Inserted: triple Bloods Obtained for Lab: Yes Central Line Position: good blood return, all ports aspirated, flushed, capped, sutured in place with nylon Dressing Applied: Tegaderm Patient Tolerated Procedure: well Complications: none - Sepsis Sepsis Focused Exam #1 Time Sepsis Criteria Met: 18:30 Sepsis Focused Exam Complete: Yes Vital Signs & RN Notes Reviewed: Yes Capillary Refill: < 2 Seconds: Fingers, Toes Peripheral Pulses: Normal: Radial (R), Radial (L) Skin Color: Normal for Patient Respiratory Exam: rhonchi Cardiovascular Exam: regular rate, normal rhythm Medical Decision Making - Medical Decision Making 76-year-old male history of CHF CAD presenting with generalized weakness, and outpatient UTI failed outpatient treatment. Patient is initially hypotensive with a blood pressure in the 80s. He has an elevated white blood cell count of 30.3. He has a lactic of 3.5. He does have an elevated BNP and an L and a low albumin at 2.6. BNP of 3500. His urinalysis is consistent with UTI. I suspect this is a UTI with sepsis. His blood pressure does respond to 500 mL bolus. He is placed on maintenance at 75 mL an hour. I do not want to fluid overload this patient with CHF. I did discuss case with Dr. Chand and Dr. Logan. The patient will be admitted to the ICU. Ultrasound of the bladder and kidneys is pending. Central line is placed in the right femoral vein in case this patient was to require hypertonic saline or vasodepressive agents. - Lab Data Result diagrams: 10/20/21 18:28 10/20/21 18:28 Lab Results 10/20/21 10/20/21 10/20/21 Range/Units 18:28 18:28 18:28 WBC 30.3 H (3.8-10.6) k/uL RBC 3.84 L (4.30-5.90) m/uL Hgb 12.7 L (13.0-17.5) gm/dL Hct 37.4 L (39.0-53.0) % MCV 97.4 (80.0-100.0) fL MCH 33.2 (25.0-35.0) pg MCHC 34.1 (31.0-37.0) g/dL RDW 13.5 (11.5-15.5) % Plt Count 347 (150-450) k/uL MPV 6.9 Neutrophils % 95 % Lymphocytes % 1 % Monocytes % 3 % Eosinophils % 0 % Basophils % 1 % Neutrophils # 28.6 H (1.3-7.7) k/uL Lymphocytes # 0.3 L (1.0-4.8) k/uL Monocytes # 0.9 (0-1.0) k/uL Eosinophils # 0.0 (0-0.7) k/uL Basophils # 0.2 (0-0.2) k/uL PT 13.4 H (9.0-12.0) sec INR 1.3 H (<1.2) APTT 35.2 H (22.0-30.0) sec Sodium (137-145) mmol/L Potassium (3.5-5.1) mmol/L Chloride (98-107) mmol/L Carbon Dioxide (22-30) mmol/L Anion Gap mmol/L BUN (9-20) mg/dL Creatinine (0.66-1.25) mg/dL Est GFR (CKD-EPI)AfAm (>60 ml/min/1.73 sqM) Est GFR (CKD-EPI)NonAf (>60 ml/min/1.73 sqM) Glucose (74-99) mg/dL Plasma Lactic Acid Oscar (0.7-2.0) mmol/L Calcium (8.4-10.2) mg/dL Total Bilirubin (0.2-1.3) mg/dL AST (17-59) U/L ALT (4-49) U/L Alkaline Phosphatase (38-126) U/L NT-Pro-B Natriuret Pep pg/mL Total Protein (6.3-8.2) g/dL Albumin (3.5-5.0) g/dL Urine Color [place] Urine Appearance Turbid (Clear) Ur Specific [place] 1.020 (1.001-1.035) Urine RBC 155 H (0-5) /hpf Urine WBC >182 H (0-5) /hpf Urine WBC Clumps Many H (None) /hpf Urine Bacteria Many H (None) /hpf 10/20/21 10/20/21 10/20/21 Range/Units 18:28 18:28 18:28 WBC (3.8-10.6) k/uL RBC (4.30-5.90) m/uL Hgb (13.0-17.5) gm/dL Hct (39.0-53.0) % MCV (80.0-100.0) fL MCH (25.0-35.0) pg MCHC (31.0-37.0) g/dL RDW (11.5-15.5) % Plt Count (150-450) k/uL MPV Neutrophils % % Lymphocytes % % Monocytes % % Eosinophils % % Basophils % % Neutrophils # (1.3-7.7) k/uL Lymphocytes # (1.0-4.8) k/uL Monocytes # (0-1.0) k/uL Eosinophils # (0-0.7) k/uL Basophils # (0-0.2) k/uL PT (9.0-12.0) sec INR (<1.2) APTT (22.0-30.0) sec Sodium 114 L* (137-145) mmol/L Potassium 5.1 (3.5-5.1) mmol/L Chloride 83 L (98-107) mmol/L Carbon Dioxide 21 L (22-30) mmol/L Anion Gap 10 mmol/L BUN 17 (9-20) mg/dL Creatinine 0.82 (0.66-1.25) mg/dL Est GFR (CKD-EPI)AfAm >90 (>60 ml/min/1.73 sqM) Est GFR (CKD-EPI)NonAf 87 (>60 ml/min/1.73 sqM) Glucose 111 H (74-99) mg/dL Plasma Lactic Acid Oscar 3.5 H* (0.7-2.0) mmol/L Calcium 7.8 L (8.4-10.2) mg/dL Total Bilirubin 1.5 H (0.2-1.3) mg/dL AST 87 H (17-59) U/L ALT 56 H (4-49) U/L Alkaline Phosphatase 168 H (38-126) U/L NT-Pro-B Natriuret Pep 3570 pg/mL Total Protein 5.7 L (6.3-8.2) g/dL Albumin 2.6 L (3.5-5.0) g/dL Urine Color Urine Appearance (Clear) Ur Specific [place] (1.001-1.035) Urine RBC (0-5) /hpf Urine WBC (0-5) /hpf Urine WBC Clumps (None) /hpf Urine Bacteria (None) /hpf Critical Care Time Critical Care Time: Yes Total Critical Care Time: 35 Disposition Clinical Impression: Sepsis secondary to UTI, Hyponatremia Disposition: ADMITTED IP TO THIS HOSP Condition: Serious Is patient prescribed a controlled substance at d/c from ED?: No Referrals: Raúl Martinez MD [Primary Care Provider] - 1-2 days Decision to Admit Reason: Admit from EC Decision Date: 10/20/21 Decision Time: 19:46
[2021-10-20] MEDS ORDERED: KETOROLAC 15 MG/ML 1 ML VIAL IVP STA (20:12)
[2021-10-20] MEDS ORDERED: SODIUM CHLORIDE 3%(HYPERTONIC) 100 ML IV SCH ×2 (22:00→22:30)
--- NOTE | 2021-10-20 22:02 | US ---
EXAMINATION TYPE: US renals and bladder DATE OF EXAM: 10/20/2021 COMPARISON: NONE CLINICAL HISTORY: Pyelonephritis. UTI EXAM MEASUREMENTS: Right Kidney: 10.7 x 5.4 x 5.7 cm Left Kidney: 11.0 x 5.8 x 5.4 cm Incidental finding: hydropic gallbladder with multiple stones Right Kidney: Limited visualization due to patient movement restrictions Left Kidney: No hydronephrosis or masses seen Bladder: Debris noted Bilateral Jets seen: There is no evidence for hydronephrosis at this point in time. No nephrolithiasis is seen. No timothy s are identified. The urinary bladder is predominantly anechoic. Bilateral ureteral jets are seen. IMPRESSION: 1. NO OBSTRUCTIVE UROPATHY. 2. Incidental cholelithiasis.
[2021-10-20 22:04] LABS: Glucose,Whole Blood 115 mg/dL (75-99)
--- NOTE | 2021-10-20 22:37 | P.HPIM ---
History of Present Illness H&P Date: 10/20/21 Chief Complaint: dysuria 76-year-old male with history of congestive heart failure LVEF 20%, status post AICD, COPD not on home oxygen Patient comes in with a diagnosis of urinary tract infection he's been having symptoms for about 1 week he describes bilateral flank pain colicky in nature nonradiating no associated fevers or chills no nausea or vomiting but he is reporting severe difficulty with urination and dysuria no hematuria no specific foul smell or any penile discharge, he did see his doctor a few days ago and was started on some antibiotics that he doesn't recall the name. He took 1 or 2 doses so far however he was not noticing any improvement he was getting progressively fatigued and weak for which she decided to come into the hospital for evaluation. Patient denies any history of recurrent UTI he denies any diarrhea he denies any trouble breathing or chest pain denies any headache vision changes or any focal neuro deficits. He denies any GI bleeding. He does have history of congestive heart failure status post AICD which was thought to be secondary to his chemotherapy for lung cancer, he is on eliquis for A. fib. He has COPD not on home oxygen ED workup and evaluation showed that the patient is in severe sepsis from urinary tract infection, has lactic acidosis and severe hyponatremia (he does not look hypervolemic and he is on multiple diuretics) patient was given normal saline in the ED as he was hypotensive upon repeating his sodium dropped even further. ED doc inserted right femoral central venous catheter patient blood pressure remains borderline he might be started on some pressors. Patient will be initiated on hypertonic saline. And admitted to the ICU Renal ultrasound was performed in the ED showed no obstructive uropathy, incidental finding of cholelithiasis. Review of Systems Pertinent positives as noted in HPI. All other systems were reviewed and are negative Past Medical History Past Medical History: Atrial Fibrillation, Coronary Artery Disease (CAD), Cancer, COPD, Hyperlipidemia, Hypertension, Myocardial Infarction ([place]), Osteoar thritis (OA), Pneumonia, Prostate Disorder, Sleep Apnea/CPAP/BIPAP, Thyroid Disorder Additional Past Medical History / Comment(s): cardiomyopathy. 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 pacemaker/aicd pt stated has had x4 last changed Past Anesthesia/Blood Transfusion Reactions: No Reported Reaction Additional Past Anesthesia/Blood Transfusion Reaction / Comment(s): has had blood transfusion in past-no reaction. Type of Cardiac Device: Permanent Pacemaker, AICD Device Placement Date:: changed last Past Psychological History: No Psychological Hx Reported Smoking Status: Former smoker Past Alcohol Use History: Daily Past Drug Use History: None Reported - Past Family History Mother Family Medical History: Chest Pain / Angina, Coronary Artery Disease (CAD) Additional Family Medical History / Comment(s): at age 92 from lung infection Father History Unknown: Yes Medications and Allergies Home Medications Medication Instructions Recorded Confirmed Type Apixaban [Eliquis] 5 mg PO BID 04/09/18 10/20/21 History Aspirin EC [Ecotrin Low Dose] 81 mg PO DAILY 04/09/18 10/20/21 History Furosemide [Lasix] 80 mg PO DAILY 04/09/18 10/20/21 History Levothyroxine Sodium [Synthroid] 75 mcg PO DAILY 04/09/18 10/20/21 History Potassium Chloride ER [K-Dur 20] 20 meq PO DAILY 04/09/18 10/20/21 History Tamsulosin [Flomax] 0.4 mg PO DAILY 04/09/18 10/20/21 History Turmeric Root Extract [Turmeric] 500 mg PO DAILY 04/09/18 10/20/21 History Metoprolol Succinate (ER) [Toprol 50 mg PO DAILY #30 tab.er.24h 05/26/19 10/20/21 Rx XL] Atorvastatin Calcium [Lipitor] 80 mg PO DAILY 10/20/21 10/20/21 History Ramipril [Altace] 5 mg PO DAILY 10/20/21 10/20/21 History Spironolactone [Aldactone] 25 mg PO DAILY 10/20/21 10/20/21 History Tiotropium [place] [Spiriva] 1 cap INHALATION RT-DAILY 10/20/21 10/20/21 History Allergies Allergy/AdvReac Type Severity Reaction Status Date / Time Penicillins Allergy Rash/Hives Verified 10/20/21 21:09 Sulfa (Sulfonamide Allergy Rash/Hives Verified 10/20/21 21:09 Antibiotics) Physical Exam Vitals: Vital Signs Temp Pulse Resp BP Pulse Ox 10/20/21 21:16 61 18 96/54 95 10/20/21 20:30 60 18 100/62 100 10/20/21 20:11 60 18 92/58 95 10/20/21 19:39 60 18 92/55 99 10/20/21 18:51 60 18 90/51 99 10/20/21 17:45 96.9 F L 69 20 81/50 97 Intake and Output 10/20/21 10/20/21 10/20/21 06:59 14:59 22:59 Other: Weight 77.111 kg Constitutional: No acute distress, conversant, pleasant Eyes: Anicteric sclerae, moist conjunctiva, Pupils equal round reactive to light ENMT: NC/AT Oropharynx clear, no erythema, or exudates Neck: Supple, FROM, no masses, or JVD No carotid bruits No thyromegaly Lungs: Clear to auscultation Clear to percussion Normal respiratory effort, no accessory muscle use Cardiovascular: Heart regular in rate and rhythm, No murmurs, gallops, or rubs Trace bilateral peripheral edema Abdominal: Soft Nontender, no guarding, rebound or rigidity Abdomen moving with respiration Normoactive bowel sounds No hepatomegaly, No splenomegaly No palpable mass No abdominal wall hernia noted Right femoral central venous catheter in place Skin: Cold extremities, cyanotic toes, Extremities: No clubbing Pedal pulses palpable and equal bilaterally Radial pulses intact and symmetrical No calf tenderness Psychiatric: Alert and oriented to person, place and time Patient feeling extremely weak and tired Neuro Muscles Strength -4/5 in all 4 extremities Sensation to light touch grossly present throughout Cranial nerves II-XII grossly intact No focal sensory deficits Lymphatics: no palpable cervical or supraclavicular , or inguinal lymph nodes Results CBC & Chem 7: 10/20/21 18:28 10/20/21 20:51 Labs: Abnormal Lab Results - Last 24 Hours (Table) 10/20/21 10/20/21 10/20/21 Range/Units 18:28 18:28 18:28 WBC 30.3 H (3.8-10.6) k/uL RBC 3.84 L (4.30-5.90) m/uL Hgb 12.7 L (13.0-17.5) gm/dL Hct 37.4 L (39.0-53.0) % Neutrophils # 28.6 H (1.3-7.7) k/uL Lymphocytes # 0.3 L (1.0-4.8) k/uL PT 13.4 H (9.0-12.0) sec INR 1.3 H (<1.2) APTT 35.2 H (22.0-30.0) sec Sodium (137-145) mmol/L Chloride (98-107) mmol/L Carbon Dioxide (22-30) mmol/L Glucose (74-99) mg/dL POC Glucose (mg/dL) (75-99) mg/dL Plasma Lactic Acid Oscar (0.7-2.0) mmol/L Calcium (8.4-10.2) mg/dL Total Bilirubin (0.2-1.3) mg/dL AST (17-59) U/L ALT (4-49) U/L Alkaline Phosphatase (38-126) U/L Total Protein (6.3-8.2) g/dL Albumin (3.5-5.0) g/dL Urine RBC 155 H (0-5) /hpf Urine WBC >182 H (0-5) /hpf Urine WBC Clumps Many H (None) /hpf Urine Bacteria Many H (None) /hpf 10/20/21 10/20/21 10/20/21 Range/Units 18:28 18:28 20:51 WBC (3.8-10.6) k/uL RBC (4.30-5.90) m/uL Hgb (13.0-17.5) gm/dL Hct (39.0-53.0) % Neutrophils # (1.3-7.7) k/uL Lymphocytes # (1.0-4.8) k/uL PT (9.0-12.0) sec INR (<1.2) APTT (22.0-30.0) sec Sodium 114 L* 112 L* (137-145) mmol/L Chloride 83 L (98-107) mmol/L Carbon Dioxide 21 L (22-30) mmol/L Glucose 111 H (74-99) mg/dL POC Glucose (mg/dL) (75-99) mg/dL Plasma Lactic Acid Oscar 3.5 H* (0.7-2.0) mmol/L Calcium 7.8 L (8.4-10.2) mg/dL Total Bilirubin 1.5 H (0.2-1.3) mg/dL AST 87 H (17-59) U/L ALT 56 H (4-49) U/L Alkaline Phosphatase 168 H (38-126) U/L Total Protein 5.7 L (6.3-8.2) g/dL Albumin 2.6 L (3.5-5.0) g/dL Urine RBC (0-5) /hpf Urine WBC (0-5) /hpf Urine WBC Clumps (None) /hpf Urine Bacteria (None) /hpf 10/20/21 Range/Units 22:02 WBC (3.8-10.6) k/uL RBC (4.30-5.90) m/uL Hgb (13.0-17.5) gm/dL Hct (39.0-53.0) % Neutrophils # (1.3-7.7) k/uL Lymphocytes # (1.0-4.8) k/uL PT (9.0-12.0) sec INR (<1.2) APTT (22.0-30.0) sec Sodium (137-145) mmol/L Chloride (98-107) mmol/L Carbon Dioxide (22-30) mmol/L Glucose (74-99) mg/dL POC Glucose (mg/dL) 115 H (75-99) mg/dL Plasma Lactic Acid [place] (0.7-2.0) mmol/L Calcium (8.4-10.2) mg/dL Total Bilirubin (0.2-1.3) mg/dL AST (17-59) U/L ALT (4-49) U/L Alkaline Phosphatase (38-126) U/L Total Protein (6.3-8.2) g/dL Albumin (3.5-5.0) g/dL Urine RBC (0-5) /hpf Urine WBC (0-5) /hpf Urine WBC Clumps (None) /hpf Urine Bacteria (None) /hpf Assessment and Plan Assessment: Severe septic shock with lactic acidosis secondary to urinary tract infection failure for outpatient therapy Severe hyponatremia, moderately symptomatic with generalized weakness and fatigue Mild anemia denies GI bleeding. Plan Patient did not improve much with normal saline bolus resuscitation, hyponatremia worsened Blood pressure remains borderline, close monitoring possibly initiation of levo fed Follow-up cultures Empiric antibiotics with Rocephin Monitor sodium every 2 hours, initiate 3% hypertonic saline goals to increase sodium level by 6 mEq, patient will be given a bolus of 100 mL over 10 minutes with possible repeat to reach goal. DC IV fluid normal saline. Consider nephro consult Renal ultrasounds showed no evidence of obstructive uropathy, incidental finding of cholelithiasis asymptomatic Lactic acidosis resolved No acute pathology Mild elevation of liver enzymes, possibly component of passive hepatic congestion from CHF Monitor vital signs Fall precautions Neurochecks ICU care Chronic conditions A. 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 Due to hyponatremia discontinue diuretics Hypertension currently hypotensive secondary to sepsis, discontinue Baltazar inhibitors and Norvasc. Continue with metoprolol for now Patient is no code DVT prophylaxis patient is on eliquis for A. fib Anticipated length of stay more than 2 midnights
[2021-10-20] MEDS: APIXABAN 5 MG TAB PO SCH (22:57)
[2021-10-21] MEDS: PANTOPRAZOLE 40 MG TABLET PO SCH (01:52)
[2021-10-21] MEDS: HYDROcodone/APAP 5-325MG 1 EACH TAB PO PRN ×5 (01:52→23:02)
[2021-10-21 03:07] LABS: Basophils # (A) 0.1 k/uL (0-0.2); Basophils % (A) 0 %; Eosinophils # (A) 0.1 k/uL (0-0.7); Eosinophils % (A) 0 %; HCT 34.2 % (39.0-53.0); HGB 11.7 gm/dL (13.0-17.5); Lymphocytes # (A) 0.5 k/uL (1.0-4.8); Lymphocytes % (A) 2 %; MCH 33.5 pg (25.0-35.0); MCHC 34.3 g/dL (31.0-37.0); MCV 97.7 fL (80.0-100.0); Mean Platelet Volume 7.2; Monocytes # (A) 2.3 k/uL (0-1.0); Monocytes % (A) 8 %; Neutrophils % (A) 90 %; Platelet Count 283 k/uL (150-450); WBC 29.1 k/uL (3.8-10.6)
[2021-10-21 03:09] LABS: ALT 48 U/L (4-49); AST 70 U/L (17-59); African American GFR (CKD) >90 (>60 ml/min/1.73 sqM); Alkaline Phosphatase 153 U/L (38-126); Anion Gap 7 mmol/L; Blood Urea Nitrogen 16 mg/dL (9-20); Calcium 7.1 mg/dL (8.4-10.2); Carbon Dioxide 20 mmol/L (22-30); Chloride 86 mmol/L (98-107); Glucose 104 mg/dL (74-99); Non-African American GFR(CKD) >90 (>60 ml/min/1.73 sqM); Potassium 4.7 mmol/L (3.5-5.1); Total Protein 4.6 g/dL (6.3-8.2)
[2021-10-21 03:10] LABS: Sodium 113 mmol/L (137-145)
[2021-10-21] MEDS ORDERED: SODIUM CHLORIDE 3%(HYPERTONIC) 100 ML IV SCH (03:30)
[2021-10-21] MEDS: LEVOTHYROXINE 75 MCG TAB PO SCH (06:24)
[2021-10-21] MEDS: IPRATROPIUM 0.5 MG/2.5 ML NEBU INHALATION SCH ×4 (07:45→17:20)
[2021-10-21] MEDS: APIXABAN 5 MG TAB PO SCH ×2 (08:46→20:15)
[2021-10-21] MEDS: ASPIRIN 81 MG PO SCH (08:47)
[2021-10-21] MEDS: ATORVASTATIN 80 MG TAB PO SCH (08:47)
[2021-10-21] MEDS: TAMSULOSIN 0.4 MG CAP.ER.24H PO SCH (08:47)
[2021-10-21] MEDS ORDERED: METOPROLOL SUCCINATE (ER) 50 MG TAB.ER.24H PO SCH (09:00)
[2021-10-21] MEDS ORDERED: SODIUM CHLORIDE 3%(HYPERTONIC) 500 ML IV SCH (09:30)
--- NOTE | 2021-10-21 10:20 | P.CNPUL ---
History of Present Illness Consult date: 10/21/21 Requesting physician: Elvis Rios Reason for consult: other (Urosepsis) Chief complaint: Difficult urination and abnormal urine appearance History of present illness: This is a 76-year-old white male with history of multiple medical problems including chronic atrial fibrillation, severe ischemic cardiomyopathy and LV dysfunction, ejection fraction is 20%, patient had a previous AICD placement. previous CABG 2, history of hypertension, previous NH, degenerative joint disease, hypothyroidism, and previous history of non-small cell lung cancer which was diagnosed initially in 2016 in [place], patient underwent radiation treatment, did not have any evidence of distant metastasis, continues to follow- up with Dr. Balderrama and with Dr. Anish Warren on a regular basis patient is also known to have history of COPD, FEV1 of 58%. Normally maintained on updrafts, and on Spiriva. Patient has history of obstructive sleep apnea syndrome. Patient normally follows up with Dr. Martinez, apparently he has been complaining of difficulty urinating, and abnormal urine color, he had a urine c ulture done on outpatient basis, and when he saw Dr. Martinez yesterday, he recommended that he goes to the hospital for admission because of his urinary tract infection and possible urosepsis. Patient has been describing bilateral flank pain, colicky in nature, nonradiating, no fever no chills, no nausea no vomiting, he has been complaining of dysuria, and no hematuria. Patient did take antibiotics on outpatient basis for about 2 days, and there was no improvement as far as his urinary symptoms are consistent. Patient presented to the ER upon the recommendation of his primary care physician, and he was found to have mild lactic acidosis, hyponatremia, leukocytosis, borderline blood pressure, patient did receive some fluid boluses in the form of normal saline. And his sodium went down further from 114 initially down to 110 after his fluid boluses. Patient was given 100 mL of 3% saline admitted to the ICU, and this consult was initiated. For his UTI/urosepsis, patient received 2 g of Rocephin. Cultures from the urine are pending. Patient did not require any pressors. I saw him this morning and I recommended placing the patient on 25 mL of 3% saline hourly, and close monitoring of the sodium as per protocol. Considering the patient's LV dysfunction, we'll not recommend any fluid boluses at this point. Patient has been receiving diuretics in the form of Lasix 80 mg by mouth daily for his underlying history of congestive heart failure. Chest x-ray on this admission showed no evidence of congestive heart failure. Recent CT of the chest showed 3.11.8 cm nonenhancing scar or scarlike opacity in the right upper lobe basically unchanged compared to a CT of the chest dated February 07 2021. This is his initial site of his bronchogenic carcinoma/non-small cell lung cancer that was treated with radiation back in 2016 Review of Systems Constitutional: Denies chills, Denies fever Eyes: denies blurred vision, denies pain Ears, nose, mouth and throat: Denies headache, Denies sore throat Cardiovascular: Reports chest pain, Denies shortness of breath Respiratory: Denies cough, no shortness of breath, no chest pain. Genitourinary: As noted in HPI Gastrointestinal: Denies abdominal pain, Denies diarrhea, Denies nausea, Denies vomiting Musculoskeletal: Denies myalgias Integumentary: Denies pruritus, Denies rash Neurological: Denies numbness, Denies weakness Psychiatric: Denies anxiety, Denies depression Endocrine: Denies fatigue, Denies weight change Past Medical History Past Medical History: Atrial Fibrillation, Coronary Artery Disease (CAD), Cancer, COPD, Hyperlipidemia, Hypertension, Myocardial Infarction ([place]), Osteoarthritis (OA), Pneumonia, Prostate Disorder, Sleep Apnea/CPAP/BIPAP, Thyroid Disorder Additional Past Medical History / Comment(s): cardiomyopathy. 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 pacemaker/aicd pt stated has had x4 last changed Past Anesthesia/Blood Transfusion Reactions: No Reported Reaction Additional Past Anesthesia/Blood Transfusion Reaction / Comment(s): has had blood transfusion in past-no reaction. Type of Cardiac Device: Permanent Pacemaker, AICD Device Placement Date:: changed last Past Psychological History: No Psychological Hx Reported Smoking Status: Former smoker Past Alcohol Use History: Daily Past Drug Use History: None Reported - Past Family History Mother Family Medical History: Chest Pain / Angina, Coronary Artery Disease (CAD) Additional Family Medical History / Comment(s): at age 92 from lung infection Father History Unknown: Yes Medications and Allergies Home Medications Medication Instructions Recorded Confirmed Type Apixaban [Eliquis] 5 mg PO BID 04/09/18 10/20/21 History Aspirin EC [Ecotrin Low Dose] 81 mg PO DAILY 04/09/18 10/20/21 History Furosemide [Lasix] 80 mg PO DAILY 04/09/18 10/20/21 History Levothyroxine Sodium [Synthroid] 75 mcg PO DAILY 04/09/18 10/20/21 History Potassium Chloride ER [K-Dur 20] 20 meq PO DAILY 04/09/18 10/20/21 History Tamsulosin [Flomax] 0.4 mg PO DAILY 04/09/18 10/20/21 History Turmeric Root Extract [Turmeric] 500 mg PO DAILY 04/09/18 10/20/21 History Metoprolol Succinate (ER) [Toprol 50 mg PO DAILY #30 tab.er.24h 05/26/19 10/20/21 Rx XL] Atorvastatin Calcium [Lipitor] 80 mg PO DAILY 10/20/21 10/20/21 History Ramipril [Altace] 5 mg PO DAILY 10/20/21 10/20/21 History Spironolactone [Aldactone] 25 mg PO DAILY 10/20/21 10/20/21 History Tiotropium [place] [Spiriva] 1 cap INHALATION RT-DAILY 10/20/21 10/20/21 History Albuterol Nebulized [Ventolin 2.5 mg INHALATION Q6H PRN 10/21/21 10/21/21 History Nebulized] Allergies Allergy/AdvReac Type Severity Reaction Status Date / Time Penicillins Allergy Rash/Hives Verified 10/20/21 21:09 Sulfa (Sulfonamide Allergy Rash/Hives Verified 10/20/21 21:09 Antibiotics) Physical Exam Vitals: Vital Signs Temp Pulse Resp BP Pulse Ox 10/21/21 09:00 79 19 106/60 97 10/21/21 08:00 97.5 F L 83 18 94/66 96 10/21/21 07:00 79 15 90/62 96 10/21/21 06:00 79 16 94/74 95 10/21/21 05:00 81 18 86/67 95 10/21/21 04:00 97.4 F L 84 23 88/60 95 10/21/21 03:00 82 22 103/61 94 L 10/21/21 02:00 80 20 107/59 94 L 10/21/21 01:00 62 18 86/55 92 L 10/21/21 00:00 68 19 93/50 92 L 10/20/21 23:00 60 18 99/49 97 10/20/21 22:11 61 18 112/75 95 10/20/21 22:03 98.7 F 63 20 99/49 100 10/20/21 21:16 61 18 96/54 95 10/20/21 20:30 60 18 100/62 100 10/20/21 20:11 60 18 92/58 95 10/20/21 19:39 60 18 92/55 99 10/20/21 18:51 60 18 90/51 99 10/20/21 17:45 96.9 F L 69 20 81/50 97 Intake and Output 10/20/21 10/21/21 10/21/21 22:59 06:59 14:59 Intake Total 0 680 Output Total 0 600 100 Balance 0 80 -100 Intake: IV 0 200 Sodium Chloride 3%( 0 200 Hypertonic) 100 ml @ 10 mls/min IV .Q10M [facility] Rx#: [id number] Oral 480 Output: Urine 0 600 100 Other: Voiding Method Urinal Urinal # Voids 0 3 Weight 77.111 kg 78.5 kg GENERAL EXAM: Revealed a 76-year-old white male in no distress. On room air. HEAD: Normocephalic/atraumatic. HEENT: PERRLA, EOMI, nonicteric, chronic masses no JVD. CHEST: No chest wall deformity. Symmetrical expansion. LUNGS: Clear throughout no crackles or rhonchi or wheezes CVS: Patient has a regular paced rhythm, distant S1 and S2, no S3 gallop. ABDOMEN: Soft, nontender. No hepatosplenomegaly, normal bowel sounds, no guarding or rigidity. EXTREMITIES: No clubbing, no edema, no cyanosis, 2+ pulses and upper and lower extremities. MUSCULOSKELETAL: Good muscle tone, no deformities. No limitation in range of motion. SPINE: No scoliosis or deformity CENTRAL NERVOUS SYSTEM: No gross focal neurologic deficits. PSYCHIATRIC: Normal mood, affect and normal mental status examination. Results - Laboratory Findings CBC and BMP: 10/21/21 02:54 10/21/21 06:35 PT/INR, D-dimer PT 13.4 sec (9.0-12.0) H 10/20/21 18:28 INR 1.3 (<1.2) H 10/20/21 18:28 Abnormal lab findings: Abnormal Labs 10/20/21 10/20/21 10/20/21 18:28 18:28 18:28 WBC 30.3 H RBC 3.84 L Hgb 12.7 L Hct 37.4 L Neutrophils # 28.6 H Lymphocytes # 0.3 L Monocytes # PT 13.4 H INR 1.3 H APTT 35.2 H Sodium Chloride Carbon Dioxide Glucose POC Glucose (mg/dL) Plasma Lactic Acid Oscar Calcium Total Bilirubin AST ALT Alkaline Phosphatase Total Protein Albumin Urine RBC 155 H Urine WBC >182 H Urine WBC Clumps Many H Urine Bacteria Many H 10/20/21 10/20/21 10/20/21 18:28 18:28 20:51 WBC RBC Hgb Hct Neutrophils # Lymphocytes # Monocytes # PT INR APTT Sodium 114 L* 112 L* Chloride 83 L Carbon Dioxide 21 L Glucose 111 H POC Glucose (mg/dL) Plasma Lactic Acid Oscar 3.5 H* Calcium 7.8 L Total Bilirubin 1.5 H AST 87 H ALT 56 H Alkaline Phosphatase 168 H Total Protein 5.7 L Albumin 2.6 L Urine RBC Urine WBC Urine WBC Clumps Urine Bacteria 10/20/21 10/20/21 10/21/21 22:02 22:39 00:47 WBC RBC Hgb Hct Neutrophils # Lymphocytes # Monocytes # PT INR APTT Sodium 110 L* 111 L* Chloride Carbon Dioxide Glucose POC Glucose (mg/dL) 115 H Plasma Lactic Acid Oscar Calcium Total Bilirubin AST ALT Alkaline Phosphatase Total Protein Albumin Urine RBC Urine WBC Urine WBC Clumps Urine Bacteria 10/21/21 10/21/21 10/21/21 02:54 02:54 06:35 WBC 29.1 H RBC 3.50 L Hgb 11.7 L Hct 34.2 L Neutrophils # 26.0 H Lymphocytes # 0.5 L Monocytes # 2.3 H PT INR APTT Sodium 113 L* 115 L* Chloride 86 L Carbon Dioxide 20 L Glucose 104 H POC Glucose (mg/dL) Plasma Lactic Acid Oscar Calcium 7.1 L Total Bilirubin AST 70 H ALT Alkaline Phosphatase 153 H Total Protein 4.6 L Albumin 2.0 L Urine RBC Urine WBC Urine WBC Clumps Urine Bacteria - Diagnostic Findings Chest x-ray: image reviewed (As noted in HPI.) Assessment and Plan Assessment: Impression: Acute urosepsis secondary to urinary tract infection Severe hyponatremia, etiology is not clear, however I believe most likely secondary to diuretics as the patient was noted to be hypovolemic on his initial presentation to the ER. Chronic atrial fibrillation, on eliquis. History of severe cardiomyopathy and LV dysfunction but no clear-cut evidence of CHF on this admission. History of coronary artery disease and previous CABG 2 History of AICD placement for severe LV dysfunction, ejection fraction of 20-25% Leukocytosis secondary to UTI and urosepsis history of COPD History of non-small cell lung cancer, status post radiation treatment, no evidence of recurrence since 2015. History of obstructive sleep apnea syndrome. History of pacemaker implantation Recommendation: Continue to monitor the patient in the ICU Continue 3% saline at low rate with slow correction of his hyponatremia until we get a sodium of 121 then transition 3% saline to 0.9 normal saline. Continue to hold diuretics for now possibly restart in a.m. Continue antibiotics/Rocephin, awaiting urine cultures and blood cultures, adjust antibiotics accordingly at that point. Close monitoring of sodium as per protocol while on 3% saline. Resume home meds including eliquis. However hold blood pressure medications as long as the blood pressure remains marginal We will continue to follow. Reviewed the renal ultrasound, unremarkable. We'll continue to follow. Time with Patient: Greater than 30
[2021-10-21] MEDS: ALBUTEROL NEBULIZED 2.5 MG/3 ML INHALATION PRN (10:48)
[2021-10-21 11:13] LABS: Sodium 115 mmol/L (137-145)
--- NOTE | 2021-10-21 11:19 | P.CRDCN ---
History of Present Illness Consult date: 10/21/21 History of present illness: History of Present Illness: The patient is a 76-year-old male who presented for treatment of urosepsis. He has a known history of severe ischemic cardiomyopathy, status post CABG in 2000 and in 1996. In 2000 he received saphenous vein graft to OM and PDA was mitral valve repair. In 1996 is received saphenous vein graft to the LAD diagonal OM1 and PDA. He also has a history of chronic persistent atrial fibrillation status post AV karly ablation and biventricular ICD device. For the last week he has been complaining of discomfort urinating, frequency. He was treated with outpatient antibiotics without significant improvement and was admitted to the hospital for further evaluation. On presentation he was noted to have severe hyponatremia. He has chronic dyspnea on exertion unchanged, he denies any peripheral edema, PND or orthopnea. He has no chest discomfort. He has a history of non-small cell CA diagnosed in 2016 status post radiation treatment without distant metastasis. He received hypertonic saline on admission. His diuretics were held yesterday although the dose has not been changed in the recent past. He has been as an outpatient on furosemide 80 mg daily. He has no recent history of ICD discharge and he has frequent PVCs on his device interrogation. He had attempted cardioversion in the past and subsequent AV karly ablation. His last echocardiogram in August 2020 showed an ejection fraction of 20% with moderate to severe tricuspid regurgitation and evidence of mitral valve repair. His last MPI in 2004 showed a fixed defect involving the LAD and RCA distribution with no ischemia. His coronary risk factors are positive for hyperlipidemia. His medication at home included atorvastatin 80 mg daily, Lasix 80 mg daily, metoprolol succinate 50 mg daily, ramipril 5 mg daily, spironolactone 12-1/2 mg daily, Flomax, aspirin 81 mg daily in addition to Eliquis 5 mg twice a day. Review of Systems: Respiratory: He has chronic dyspnea on exertion and history of COPD as well as lung cancer. His breathing has been stable. GI: No nausea or vomiting no recent GI bleeding : He has been complaining of symptoms of UTI and flank discomfort Nervous System: No stroke or seizure. Physical Examination: 76-year-old male alert oriented no apparent distress, blood pressure 105/85 with a heart rate in the 80s Head: Normocephalic. Eyes: Sclerae nonicteric. Neck: Good carotid upstroke, no bruit, no jugular venous distention. Lungs: Decreased breath sounds bilaterally with no wheezes Heart: Regular rate and rhythm with extrasystole, S1-S2, no S3, no rub. Holosystolic murmur at the apex. Abdomen: Soft nontender, positive bowel sounds no organomegaly. Extremities: No edema, intact distal pulses. Labs: White blood cells 30.3, hemoglobin 12.7, sodium on admission 114, down to 110 and up to 115 today. BUN and creatinine 16 and 0.67. His total bilirubin was 1.5 down to 1.0. AST 70, ALT 48. On admission NT proBNP of 3570. His LFTs were more elevated on presentation. EKG shows atrial fibrillation with 100% ventricular pacing. Chest x-ray shows no acute infiltrate Impression: 1. Urinary tract infection with urosepsis. 2. Severe hyponatremia of unclear etiology. His diuretic dose has not been changed and his sodium has been normal in the past. Raising the possibility for other etiology for the hyponatremia, could be related to SIADH secondary to his lung cancer 3. History of CABG 2 with mitral valve repair 4. Chronic persistent atrial ablation, anticoagulated, post AV karly ablation 5. Status post ICD implantation with biventricular pacing 6. Severe ischemic cardiomyopathy with class 2-3 [employer], appears to be euvolemic at this time 6. History of non-small cell CA Plan: 1. Treatment of his urinary tract infection and urosepsis 2. Patient is receiving hypertonic saline, follow sodium 3. If stable resume diuresis tomorrow 4. Change metoprolol to 25 twice a day 5. Continue anticoagulation 6. Depending on his progress further recommendations will be made. Thank you for this consult we will follow with you. Past Medical History Past Medical History: Atrial Fibrillation, Coronary Artery Disease (CAD), Cancer, COPD, Hyperlipidemia, Hypertension, Myocardial Infarction ([place]), Osteoarthritis (OA), Pneumonia, Prostate Disorder, Sleep Apnea/CPAP/BIPAP, Thyroid Disorder Additional Past Medical History / Comment(s): cardiomyopathy. 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 pace maker/aicd pt stated has had x4 last changed Past Anesthesia/Blood Transfusion Reactions: No Reported Reaction Additional Past Anesthesia/Blood Transfusion Reaction / Comment(s): has had blood transfusion in past-no reaction. Type of Cardiac Device: Permanent Pacemaker, AICD Device Placement Date:: changed last Past Psychological History: No Psychological Hx Reported Smoking Status: Former smoker Past Alcohol Use History: Daily Past Drug Use History: None Reported - Past Family History Mother Family Medical History: Chest Pain / Angina, Coronary Artery Disease (CAD) Additional Family Medical History / Comment(s): at age 92 from lung infection Father History Unknown: Yes Medications and Allergies Home Medications Medication Instructions Recorded Confirmed Type Apixaban [Eliquis] 5 mg PO BID 04/09/18 10/20/21 History Aspirin EC [Ecotrin Low Dose] 81 mg PO DAILY 04/09/18 10/20/21 History Furosemide [Lasix] 80 mg PO DAILY 04/09/18 10/20/21 History Levothyroxine Sodium [Synthroid] 75 mcg PO DAILY 04/09/18 10/20/21 History Potassium Chloride ER [K-Dur 20] 20 meq PO DAILY 04/09/18 10/20/21 History Tamsulosin [Flomax] 0.4 mg PO DAILY 04/09/18 10/20/21 History Turmeric Root Extract [Turmeric] 500 mg PO DAILY 04/09/18 10/20/21 History Metoprolol Succinate (ER) [Toprol 50 mg PO DAILY #30 tab.er.24h 05/26/19 10/20/21 Rx XL] Atorvastatin Calcium [Lipitor] 80 mg PO DAILY 10/20/21 10/20/21 History Ramipril [Altace] 5 mg PO DAILY 10/20/21 10/20/21 History Spironolactone [Aldactone] 25 mg PO DAILY 10/20/21 10/20/21 History Tiotropium [place] [Spiriva] 1 cap INHALATION RT-DAILY 10/20/21 10/20/21 History Albuterol Nebulized [Ventolin 2.5 mg INHALATION Q6H PRN 10/21/21 10/21/21 H istory Nebulized] Allergies Allergy/AdvReac Type Severity Reaction Status Date / Time Penicillins Allergy Rash/Hives Verified 10/20/21 21:09 Sulfa (Sulfonamide Allergy Rash/Hives Verified 10/20/21 21:09 Antibiotics) Physical Exam Vitals: Vital Signs Temp Pulse Resp BP Pulse Ox 10/21/21 10:59 88 10/21/21 10:48 88 10/21/21 10:00 80 20 105/85 96 10/21/21 09:00 79 19 106/60 97 10/21/21 08:00 97.5 F L 83 18 94/66 96 10/21/21 07:00 79 15 90/62 96 10/21/21 06:00 79 16 94/74 95 10/21/21 05:00 81 18 86/67 95 10/21/21 04:00 97.4 F L 84 23 88/60 95 10/21/21 03:00 82 22 103/61 94 L 10/21/21 02:00 80 20 107/59 94 L 10/21/21 01:00 62 18 86/55 92 L 10/21/21 00:00 68 19 93/50 92 L 10/20/21 23:00 60 18 99/49 97 10/20/21 22:11 61 18 112/75 95 10/20/21 22:03 98.7 F 63 20 99/49 100 10/20/21 21:16 61 18 96/54 95 10/20/21 20:30 60 18 100/62 100 10/20/21 20:11 60 18 92/58 95 10/20/21 19:39 60 18 92/55 99 10/20/21 18:51 60 18 90/51 99 10/20/21 17:45 96.9 F L 69 20 81/50 97 Intake and Output 10/20/21 10/21/21 10/21/21 22:59 06:59 14:59 Intake Total 0 680 0 Output Total 0 600 100 Balance 0 80 -100 Intake: IV 0 200 0 Sodium Chloride 3%( 0 200 Hypertonic) 100 ml @ 10 mls/min IV .Q10M [facility] Rx#: [id number] Sodium Chloride 3%( 0 Hypertonic) 500 ml @ 25 mls/hr IV .Q20H [facility] Rx#: [id number] Oral 480 Output: Urine 0 600 100 Other: Voiding Method Urinal Urinal # Voids 0 3 Weight 77.111 kg 78.5 kg Results 10/21/21 02:54 10/21/21 06:35 Cardiac Enzymes 10/20/21 10/21/21 Range/Units 18:28 02:54 AST 87 H 70 H (17-59) U/L Coagulation 10/20/21 Range/Units 18:28 PT 13.4 H (9.0-12.0) sec APTT 35.2 H (22.0-30.0) sec CBC 10/20/21 10/21/21 Range/Units 18:28 02:54 WBC 30.3 H 29.1 H (3.8-10.6) k/uL RBC 3.84 L 3.50 L (4.30-5.90) m/uL Hgb 12.7 L 11.7 L (13.0-17.5) gm/dL Hct 37.4 L 34.2 L (39.0-53.0) % Plt Count 347 283 (150-450) k/uL Comprehensive Metabolic Panel 10/20/21 10/20/21 10/20/21 Range/Units 18:28 20:51 22:39 Sodium 114 L* 112 L* 110 L* (137-145) mmol/L Potassium 5.1 (3.5-5.1) mmol/L Chloride 83 L (98-107) mmol/L Carbon Dioxide 21 L (22-30) mmol/L BUN 17 (9-20) mg/dL Creatinine 0.82 (0.66-1.25) mg/dL Glucose 111 H (74-99) mg/dL Calcium 7.8 L (8.4-10.2) mg/dL AST 87 H (17-59) U/L ALT 56 H (4-49) U/L Alkaline Phosphatase 168 H (38-126) U/L Total Protein 5.7 L (6.3-8.2) g/dL Albumin 2.6 L (3.5-5.0) g/dL 10/21/21 10/21/21 10/21/21 Range/Units 00:47 02:54 06:35 Sodium 111 L* 113 L* 115 L* (137-145) mmol/L Potassium 4.7 (3.5-5.1) mmol/L Chloride 86 L (98-107) mmol/L Carbon Dioxide 20 L (22-30) mmol/L BUN 16 (9-20) mg/dL Creatinine 0.67 (0.66-1.25) mg/dL Glucose 104 H (74-99) mg/dL Calcium 7.1 L (8.4-10.2) mg/dL AST 70 H (17-59) U/L ALT 48 (4-49) U/L Alkaline Phosphatase 153 H (38-126) U/L Total Protein 4.6 L (6.3-8.2) g/dL Albumin 2.0 L (3.5-5.0) g/dL Current Medications Generic Name Dose Route Start Last Admin Trade Name Freq PRN Reason Stop Dose Admin Hydrocodone Bitart/Acetaminophen 1 each 10/21/21 01:34 10/21/21 10:35 Hydrocodone/Apap 5-325mg 1 Each Tab PO 1 each Q4HR PRN Administration Pain Albuterol Sulfate 2.5 mg 10/21/21 09:30 10/21/21 10:48 Albuterol Nebulized 2.5 Mg/3 Ml INHALATION 2.5 mg Q6H PRN Administration Shortness Of Breath Or Wheezing Apixaban 5 mg 10/20/21 22:15 10/21/21 08:46 Apixaban 5 Mg Tab PO 5 mg BID [facility] Administration Protocol Aspirin 81 mg 10/21/21 09:00 10/21/21 08:47 Aspirin 81 Mg PO 81 mg DAILY [facility] Administration Atorvastatin Calcium 80 mg 10/21/21 09:00 10/21/21 08:47 Atorvastatin 80 Mg Tab PO 80 mg DAILY [facility] Administration Sodium Chloride (Hypertonic) 500 mls @ 25 mls/hr 10/21/21 09:30 10/21/21 09:43 Saline 3% (Hypertonic) IV 10/21/21 19:31 25 mls/hr .Q20H [facility] Administration Protocol Ceftriaxone Sodium 2 gm/ 50 mls @ 100 mls/hr 10/21/21 18:00 Sodium Chloride IVPB Q24H [facility] Protocol Ipratropium [place] 0.5 mg 10/21/21 08:00 10/21/21 10:48 Ipratropium 0.5 Mg/2.5 Ml Nebu INHALATION Not Given RT-QID [facility] Levothyroxine Sodium 75 mcg 10/21/21 06:30 10/21/21 06:24 Levothyroxine 75 Mcg Tab PO 75 mcg DAILY@0630 [facility] Administration Metoprolol Succinate 25 mg 10/21/21 11:15 Metoprolol Succinate (Er) 25 Mg Tab.Er.24h PO BID [facility] Naloxone HCl 0.2 mg 10/20/21 19:26 Naloxone 0.4 Mg/Ml 1 Ml Vial IV Q2M PRN Opioid Reversal Pantoprazole Sodium 40 mg 10/21/21 07:30 10/21/21 01:52 Pantoprazole 40 Mg Tablet PO 40 mg [id number] [facility] Administration Tamsulosin HCl 0.4 mg 10/21/21 09:00 10/21/21 08:47 Tamsulosin 0.4 Mg Cap.Er.24h PO 0.4 mg DAILY [facility] Administration Intake and Output 10/20/21 10/21/21 10/21/21 22:59 06:59 14:59 Intake Total 0 680 0 Output Total 0 600 100 Balance 0 80 -100 Intake: IV 0 200 0 Sodium Chloride 3%( 0 200 Hypertonic) 100 ml @ 10 mls/min IV .Q10M [facility] Rx#: [id number] Sodium Chloride 3%( 0 Hypertonic) 500 ml @ 25 mls/hr IV .Q20H [facility] Rx#: [id number] Oral 480 Output: Urine 0 600 100 Other: Voiding Method Urinal Urinal # Voids 0 3 Weight 77.111 kg 78.5 kg 10/21/21 02:54 10/21/21 06:35
[2021-10-21] MEDS: METOPROLOL SUCCINATE (ER) 25 MG TAB.ER.24H PO SCH ×2 (11:28→20:15)
--- NOTE | 2021-10-21 13:41 | P.NPCON ---
History of Present Illness - Reason for Consult hyponatremia - History of Present Illness Patient is a 76-year-old male with history of CAD, CHF, ejection fraction 20%, COPD, non-small cell lung cancer in 2016 status post radiation therapy. Patient is admitted to the hospital with complaints of back pain and upper abdominal pain with difficulty in passing urine.. Patient was being treated for urinary tract infection as outpatient however he became increasingly weak and came into the hospital. Patient was found to be hypotensive with systolic blood pressure in the 80s. He was also noted to have a serum sodium of 114 mg/L. Initially patient was given normal saline but his serum sodium dropped to 110 and he was therefore started on 3% saline and transferred to the ICU. Overall patient states he is feeling slightly better. Denies any diarrhea nausea or vomiting. Patient is maintained on Lasix at home. No new medications started recently CT of the chest is unchanged as compared to CT in January 2021. Urine osmolality 364. Review of Systems As per HPI Past Medical History Past Medical History: Atrial Fibrillation, Coronary Artery Disease (CAD), Cancer, COPD, Hyperlipidemia, Hypertension, Myocardial Infarction ([place]), Osteoa rthritis (OA), Pneumonia, Prostate Disorder, Sleep Apnea/CPAP/BIPAP, Thyroid Disorder Additional Past Medical History / Comment(s): cardiomyopathy. 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 pacemaker/aicd pt stated has had x4 last changed Past Anesthesia/Blood Transfusion Reactions: No Reported Reaction Additional Past Anesthesia/Blood Transfusion Reaction / Comment(s): has had blood transfusion in past-no reaction. Type of Cardiac Device: Permanent Pacemaker, AICD Device Placement Date:: changed last Past Psychological History: No Psychological Hx Reported Smoking Status: Former smoker Past Alcohol Use History: Daily Past Drug Use History: None Reported - Past Family History Mother Family Medical History: Chest Pain / Angina, Coronary Artery Disease (CAD) Additional Family Medical History / Comment(s): at age 92 from lung infection Father History Unknown: Yes Medications and Allergies Home Medications Medication Instructions Recorded Confirmed Type Apixaban [Eliquis] 5 mg PO BID 04/09/18 10/20/21 History Aspirin EC [Ecotrin Low Dose] 81 mg PO DAILY 04/09/18 10/20/21 History Furosemide [Lasix] 80 mg PO DAILY 04/09/18 10/20/21 History Levothyroxine Sodium [Synthroid] 75 mcg PO DAILY 04/09/18 10/20/21 History Potassium Chloride ER [K-Dur 20] 20 meq PO DAILY 04/09/18 10/20/21 History Tamsulosin [Flomax] 0.4 mg PO DAILY 04/09/18 10/20/21 History Turmeric Root Extract [Turmeric] 500 mg PO DAILY 04/09/18 10/20/21 History Metoprolol Succinate (ER) [Toprol 50 mg PO DAILY #30 tab.er.24h 05/26/19 10/20/21 Rx XL] Atorvastatin Calcium [Lipitor] 80 mg PO DAILY 10/20/21 10/20/21 History Ramipril [Altace] 5 mg PO DAILY 10/20/21 10/20/21 History Spironolactone [Aldactone] 25 mg PO DAILY 10/20/21 10/20/21 History Tiotropium [place] [Spiriva] 1 cap INHALATION RT-DAILY 10/20/21 10/20/21 History Albuterol Nebulized [Ventolin 2.5 mg INHALATION Q6H PRN 10/21/21 10/21/21 History Nebulized] Allergies Allergy/AdvReac Type Severity Reaction Status Date / Time Penicillins Allergy Rash/Hives Verified 10/20/21 21:09 Sulfa (Sulfonamide Allergy Rash/Hives Verified 10/20/21 21:09 Antibiotics) Physical Exam Vitals: Vital Signs Temp Pulse Resp BP Pulse Ox 10/21/21 13:00 85 27 H 101/55 96 10/21/21 12:00 60 17 88/69 99 10/21/21 11:00 83 10 L 95/48 96 10/21/21 10:59 88 10/21/21 10:48 88 10/21/21 10:00 80 20 105/85 96 10/21/21 09:00 79 19 106/60 97 10/21/21 08:00 97.5 F L 83 18 94/66 96 10/21/21 07:00 79 15 90/62 96 10/21/21 06:00 79 16 94/74 95 10/21/21 05:00 81 18 86/67 95 10/21/21 04:00 97.4 F L 84 23 88/60 95 10/21/21 03:00 82 22 103/61 94 L 10/21/21 02:00 80 20 107/59 94 L 10/21/21 01:00 62 18 86/55 92 L 10/21/21 00:00 68 19 93/50 92 L 10/20/21 23:00 60 18 99/49 97 10/20/21 22:11 61 18 112/75 95 10/20/21 22:03 98.7 F 63 20 99/49 100 10/20/21 21:16 61 18 96/54 95 10/20/21 20:30 60 18 100/62 100 10/20/21 20:11 60 18 92/58 95 10/20/21 19:39 60 18 92/55 99 10/20/21 18:51 60 18 90/51 99 10/20/21 17:45 96.9 F L 69 20 81/50 97 Intake and Output 10/20/21 10/21/21 10/21/21 22:59 06:59 14:59 Intake Total 0 680 325 Output Total 0 600 220 Balance 0 80 105 Intake: IV 0 200 75 Sodium Chloride 3%( 0 200 Hypertonic) 100 ml @ 10 mls/min IV .Q10M [facility] Rx#: [id number] Sodium Chloride 3%( 75 Hypertonic) 500 ml @ 25 mls/hr IV .Q20H [facility] Rx#: [id number] Oral 480 250 Output: Urine 0 600 220 Other: Voiding Method Urinal Urinal # Voids 0 3 Weight 77.111 kg 78.5 kg Patient is awake, comfortable, not in any acute distress Examination of the heart S1 and S2 Examination lungs bilateral breath sounds are heard Abdomen is soft nontender Examination lower extremities shows no evidence of edema 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 Hyponatremia with hypotension, initially worsened with normal saline. Currently maintained on 3% saline. Urine osmolality at 364 prior to 3% saline. TSH not elevated. The fact that the sodium worsened with saline administration increases suspicion for SIADH. Patient was hypotensive most likely from underlying sepsis. 2. UTI with sepsis urine culture is pending, maintained on ceftriaxone 3. Hypothyroidism 4. History of non-small cell lung cancer in 2016 status post radiation therapy, CT of the chest in July 2021 unchanged from December 2020. 5. Chronic A. fib maintained on a liquid 6. Coronary artery disease status post coronary artery bypass surgery 7. Severe ischemic cardiomyopathy with ejection fraction 20-25% 8. Hypotension from sepsis Plan: Continue with 3% saline with every 4 hours serum sodium levels Check random cortisol level Increase oral intake particularly protein Monitor for volume overload as patient has underlying severe cardiomyopathy with EF of less than 25%. Thank you for the consultation we'll continue to follow the patient with you during his hospitalization
--- NOTE | 2021-10-21 14:34 | P.PN ---
Subjective Progress Note Date: 10/21/21 No new complaints today. Sodium is improving. 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 Nephrology consulted. Ongoing IV antibiotics. Gen: awake, alert HEENT: normocephalic, atraumatic, good hearing acuity, moist mucous membranes Resp: good air exchange, breathing comfortably with no accessory muscle use CVS: good distal perfusion x 4, GI: soft, NTTP, ND : Positive SPT, no CVAT, domingo catheter is present MSK: no pitting edema, no clubbing Neuro: non-focal, moving all extremities Psych: cooperative, euthymic mood Assessment/plan: Severe septic shock with lactic acidosis secondary to urinary tract infection Severe Acute hyponatremia, moderately symptomatic with generalized weakness and fatigue Mild anemia denies GI bleeding. Patient did not improve much with normal saline bolus resuscitation, hyponatremia worsened Blood pressure remains borderline, close monitoring possibly initiation of levo fed Follow-up cultures Empiric antibiotics with Rocephin Monitor sodium every 4 hours, continue 3% hypertonic saline goals to increase sodium level by 6 mEq Nephro consulted Renal ultrasounds showed no evidence of obstructive uropathy, incidental finding of cholelithiasis asymptomatic Fall precautions Neurochecks ICU care A. 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 Due to hyponatremia discontinue diuretics Hypertension currently hypotensive secondary to sepsis, discontinue Baltazar inhibitors and Norvasc. Continue with metoprolol for now Patient is no code DVT prophylaxis patient is on eliquis for A. fib Anticipated length of stay more than 2 midnights Objective - Vital Signs Vital signs: Vital Signs Temp 97.5 F L 10/21/21 12:00 Pulse 85 10/21/21 13:00 Resp 27 H 10/21/21 13:00 BP 101/55 10/21/21 13:00 Pulse Ox 96 10/21/21 13:00 Intake & Output 10/20/21 10/21/21 10/21/21 18:59 06:59 18:59 Intake Total 680 325 Output Total 600 220 Balance 80 105 Weight 77.111 kg 78.5 kg Intake: IV 200 75 Sodium Chloride 3%( 200 Hypertonic) 100 ml @ 10 mls/min IV .Q10M [facility] Rx#: [id number] Sodium Chloride 3%( 75 Hypertonic) 500 ml @ 25 mls/hr IV .Q20H [facility] Rx#: [id number] Oral 480 250 Output: Urine 600 220 Other: Voiding Method Urinal Urinal # Voids 3 - Labs CBC & Chem 7: 10/21/21 02:54 10/21/21 10:22 Labs: Abnormal Lab Results - Last 24 Hours (Table) 10/20/21 10/20/21 10/20/21 Range/Units 18:28 18:28 18:28 WBC 30.3 H (3.8-10.6) k/uL RBC 3.84 L (4.30-5.90) m/uL Hgb 12.7 L (13.0-17.5) gm/dL Hct 37.4 L (39.0-53.0) % Neutrophils # 28.6 H (1.3-7.7) k/uL Lymphocytes # 0.3 L (1.0-4.8) k/uL Monocytes # (0-1.0) k/uL PT 13.4 H (9.0-12.0) sec INR 1.3 H (<1.2) APTT 35.2 H (22.0-30.0) sec Sodium (137-145) mmol/L Chloride (98-107) mmol/L Carbon Dioxide (22-30) mmol/L Glucose (74-99) mg/dL POC Glucose (mg/dL) (75-99) mg/dL Plasma Lactic Acid Oscar (0.7-2.0) mmol/L Calcium (8.4-10.2) mg/dL Total Bilirubin (0.2-1.3) mg/dL AST (17-59) U/L ALT (4-49) U/L Alkaline Phosphatase (38-126) U/L Total Protein (6.3-8.2) g/dL Albumin (3.5-5.0) g/dL Urine RBC 155 H (0-5) /hpf Urine WBC >182 H (0-5) /hpf Urine WBC Clumps Many H (None) /hpf Urine Bacteria Many H (None) /hpf 10/20/21 10/20/21 10/20/21 Range/Units 18:28 18:28 20:51 WBC (3.8-10.6) k/uL RBC (4.30-5.90) m/uL Hgb (13.0-17.5) gm/dL Hct (39.0-53.0) % Neutrophils # (1.3-7.7) k/uL Lymphocytes # (1.0-4.8) k/uL Monocytes # (0-1.0) k/uL PT (9.0-12.0) sec INR (<1.2) APTT (22.0-30.0) sec Sodium 114 L* 112 L* (137-145) mmol/L Chloride 83 L (98-107) mmol/L Carbon Dioxide 21 L (22-30) mmol/L Glucose 111 H (74-99) mg/dL POC Glucose (mg/dL) (75-99) mg/dL Plasma Lactic Acid Oscar 3.5 H* (0.7-2.0) mmol/L Calcium 7.8 L (8.4-10.2) mg/dL Total Bilirubin 1.5 H (0.2-1.3) mg/dL AST 87 H (17-59) U/L ALT 56 H (4-49) U/L Alkaline Phosphatase 168 H (38-126) U/L Total Protein 5.7 L (6.3-8.2) g/dL Albumin 2.6 L (3.5-5.0) g/dL Urine RBC (0-5) /hpf Urine WBC (0-5) /hpf Urine WBC Clumps (None) /hpf Urine Bacteria (None) /hpf 10/20/21 10/20/21 10/21/21 Range/Units 22:02 22:39 00:47 WBC (3.8-10.6) k/uL RBC (4.30-5.90) m/uL Hgb (13.0-17.5) gm/dL Hct (39.0-53.0) % Neutrophils # (1.3-7.7) k/uL Lymphocytes # (1.0-4.8) k/uL Monocytes # (0-1.0) k/uL PT (9.0-12.0) sec INR (<1.2) APTT (22.0-30.0) sec Sodium 110 L* 111 L* (137-145) mmol/L Chloride (98-107) mmol/L Carbon Dioxide (22-30) mmol/L Glucose (74-99) mg/dL POC Glucose (mg/dL) 115 H (75-99) mg/dL Plasma Lactic Acid Oscar (0.7-2.0) mmol/L Calcium (8.4-10.2) mg/dL Total Bilirubin (0.2-1.3) mg/dL AST (17-59) U/L ALT (4-49) U/L Alkaline Phosphatase (38-126) U/L Total Protein (6.3-8.2) g/dL Albumin (3.5-5.0) g/dL Urine RBC (0-5) /hpf Urine WBC (0-5) /hpf Urine WBC Clumps (None) /hpf Urine Bacteria (None) /hpf 10/21/21 10/21/21 10/21/21 Range/Units 02:54 02:54 06:35 WBC 29.1 H (3.8-10.6) k/uL RBC 3.50 L (4.30-5.90) m/uL Hgb 11.7 L (13.0-17.5) gm/dL Hct 34.2 L (39.0-53.0) % Neutrophils # 26.0 H (1.3-7.7) k/uL Lymphocytes # 0.5 L (1.0-4.8) k/uL Monocytes # 2.3 H (0-1.0) k/uL PT (9.0-12.0) sec INR (<1.2) APTT (22.0-30.0) sec Sodium 113 L* 115 L* (137-145) mmol/L Chloride 86 L (98-107) mmol/L Carbon Dioxide 20 L (22-30) mmol/L Glucose 104 H (74-99) mg/dL POC Glucose (mg/dL) (75-99) mg/dL Plasma Lactic Acid Oscar (0.7-2.0) mmol/L Calcium 7.1 L (8.4-10.2) mg/dL Total Bilirubin (0.2-1.3) mg/dL AST 70 H (17-59) U/L ALT (4-49) U/L Alkaline Phosphatase 153 H (38-126) U/L Total Protein 4.6 L (6.3-8.2) g/dL Albumin 2.0 L (3.5-5.0) g/dL Urine RBC (0-5) /hpf Urine WBC (0-5) /hpf Urine WBC Clumps (None) /hpf Urine Bacteria (None) /hpf 10/21/21 Range/Units 10:22 WBC (3.8-10.6) k/uL RBC (4.30-5.90) m/uL Hgb (13.0-17.5) gm/dL Hct (39.0-53.0) % Neutrophils # (1.3-7.7) k/uL Lymphocytes # (1.0-4.8) k/uL Monocytes # (0-1.0) k/uL PT (9.0-12.0) sec INR (<1.2) APTT (22.0-30.0) sec Sodium 115 L* (137-145) mmol/L Chloride (98-107) mmol/L Carbon Dioxide (22-30) mmol/L Glucose (74-99) mg/dL POC Glucose (mg/dL) (75-99) mg/dL Plasma Lactic Acid Oscar (0.7-2.0) mmol/L Calcium (8.4-10.2) mg/dL Total Bilirubin (0.2-1.3) mg/dL AST (17-59) U/L ALT (4-49) U/L Alkaline Phosphatase (38-126) U/L Total Protein (6.3-8.2) g/dL Albumin (3.5-5.0) g/dL Urine RBC (0-5) /hpf Urine WBC (0-5) /hpf Urine WBC Clumps (None) /hpf Urine Bacteria (None) /hpf Microbiology - Last 24 Hours (Table) 10/20/21 18:28 Urine Culture - Preliminary Urine,Clean Catch
[2021-10-21] MEDS: CALCIUM CARBONATE 500 MG CHEWABLE PO PRN ×2 (18:11→20:58)
[2021-10-21] MEDS: SODIUM CHLORIDE 3%(HYPERTONIC) 500 ML IV SCH (20:30)
[2021-10-21 21:54] LABS: Uric Acid 3.7 mg/dL (3.5-8.5)
[2021-10-22 04:22] LABS: Basophils # (A) 0.1 k/uL (0-0.2); Basophils % (A) 0 %; Eosinophils # (A) 0.1 k/uL (0-0.7); Eosinophils % (A) 0 %; HCT 35.6 % (39.0-53.0); HGB 11.8 gm/dL (13.0-17.5); Lymphocytes # (A) 1.2 k/uL (1.0-4.8); Lymphocytes % (A) 5 %; MCH 32.5 pg (25.0-35.0); MCHC 33.1 g/dL (31.0-37.0); MCV 98.1 fL (80.0-100.0); Monocytes # (A) 1.2 k/uL (0-1.0); Monocytes % (A) 5 %; Neutrophils # (A) 22.8 k/uL (1.3-7.7); Neutrophils % (A) 89 %; Platelet Count 313 k/uL (150-450); RBC 3.63 m/uL (4.30-5.90); WBC 25.7 k/uL (3.8-10.6)
[2021-10-22] MEDS: PANTOPRAZOLE 40 MG TABLET PO SCH (04:33)
[2021-10-22 04:35] LABS: African American GFR (CKD) >90 (>60 ml/min/1.73 sqM); Anion Gap 6 mmol/L; Blood Urea Nitrogen 12 mg/dL (9-20); Calcium 7.4 mg/dL (8.4-10.2); Carbon Dioxide 20 mmol/L (22-30); Chloride 91 mmol/L (98-107); Glucose 90 mg/dL (74-99); Non-African American GFR(CKD) >90 (>60 ml/min/1.73 sqM); Potassium 4.7 mmol/L (3.5-5.1)
[2021-10-22 04:49] LABS: Sodium 117 mmol/L (137-145)
[2021-10-22] MEDS: LEVOTHYROXINE 75 MCG TAB PO SCH (05:49)
[2021-10-22] MEDS: CALCIUM CARBONATE 500 MG CHEWABLE PO PRN ×2 (07:02→08:19)
[2021-10-22] MEDS: IPRATROPIUM 0.5 MG/2.5 ML NEBU INHALATION SCH ×4 (07:19→19:57)
[2021-10-22] MEDS: ALBUTEROL NEBULIZED 2.5 MG/3 ML INHALATION PRN (07:20)
[2021-10-22] MEDS: METOPROLOL SUCCINATE (ER) 25 MG TAB.ER.24H PO SCH ×2 (08:19→20:10)
[2021-10-22] MEDS: APIXABAN 5 MG TAB PO SCH ×2 (08:19→20:09)
[2021-10-22] MEDS: ASPIRIN 81 MG PO SCH (08:19)
[2021-10-22] MEDS: TAMSULOSIN 0.4 MG CAP.ER.24H PO SCH (08:19)
[2021-10-22] MEDS: HYDROcodone/APAP 5-325MG 1 EACH TAB PO PRN ×2 (08:19→17:07)
[2021-10-22] MEDS: ATORVASTATIN 80 MG TAB PO SCH (08:19)
--- NOTE | 2021-10-22 09:28 | P.PN ---
Subjective Progress Note Date: 10/22/21 Principal diagnosis: This is a 76-year-old male seen in consultation because of SIADH, on 3% saline with a slow improvement in his sodium. Last night had increases 3% from 30 mL to 40 mL because the sodium was not moving up. He was admitted with back pain and upper abdominal pain with difficulty in passing urine. Is known with remote lung cancer supposedly in remission since 2016. He has a ejection fraction of 20% known with coronary artery disease atrial fibrillation and sleep apnea but does not use CPAP at home Currently his asymptomatic denies any headache dizziness nausea vomiting appetite is improving today. Objective - Vital Signs Vital signs: Vital Signs Temp 98.0 F 10/22/21 08:00 Pulse 69 10/22/21 08:00 Resp 23 10/22/21 08:00 BP 111/74 10/22/21 08:00 Pulse Ox 94 L 10/22/21 08:00 Intake & Output 10/21/21 10/22/21 10/22/21 18:59 06:59 18:59 Intake Total 460 550 40 Output Total 345 350 150 Balance 115 200 -110 Weight 80.1 kg Intake: IV 210 500 40 Sodium Chloride 3%( 210 500 40 Hypertonic) 500 ml @ 30 mls/hr IV .[id number] [facility] Rx #:[id number] Intake, IV Titration 50 Amount cefTRIAXone 2 gm In 50 Sodium Chloride 0.9% 50 ml @ 100 mls/hr IVPB Q24H [facility] Rx#:[id number] Oral 250 Output: Urine 345 350 150 Other: Voiding Method Urinal Urinal Urinal # Voids 0 Exam general awake alert oriented comfortable A chin exam no JVP neck is supple no facial asymmetry Lungs are significant for bilateral coarse crackles good air entry currently on room air. Heart sounds unremarkable except atrial fibrillation Abdomen soft nontender Extremity exam was no edema Neurologically awake alert oriented no asterixis - Labs CBC & Chem 7: 10/22/21 04:05 10/22/21 04:05 Labs: Abnormal Lab Results - Last 24 Hours (Table) 10/21/21 10/21/21 10/21/21 Range/Units 10:22 15:06 19:56 WBC (3.8-10.6) k/uL RBC (4.30-5.90) m/uL Hgb (13.0-17.5) gm/dL Hct (39.0-53.0) % Neutrophils # (1.3-7.7) k/uL Monocytes # (0-1.0) k/uL Sodium 115 L* 114 L* 114 L* (137-145) mmol/L Chloride (98-107) mmol/L Carbon Dioxide (22-30) mmol/L Calcium (8.4-10.2) mg/dL 10/21/21 10/22/21 10/22/21 Range/Units 23:40 04:05 04:05 WBC 25.7 H (3.8-10.6) k/uL RBC 3.63 L (4.30-5.90) m/uL Hgb 11.8 L (13.0-17.5) gm/dL Hct 35.6 L (39.0-53.0) % Neutrophils # 22.8 H (1.3-7.7) k/uL Monocytes # 1.2 H (0-1.0) k/uL Sodium 115 L* 117 L* (137-145) mmol/L Chloride 91 L (98-107) mmol/L Carbon Dioxide 20 L (22-30) mmol/L Calcium 7.4 L (8.4-10.2) mg/dL Microbiology - Last 24 Hours (Table) 10/20/21 18:51 Blood Culture - Preliminary Blood No Growth after 24 hours 10/20/21 18:28 Blood Culture - Preliminary Blood No Growth after 24 hours 10/20/21 18:28 Urine Culture - Preliminary Urine,Clean Catch Gram Neg Bacilli Assessment and Plan Assessment: Impression 1. 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 Workup has included a TSH normal at 4.4 free cortisol 21 normal. Chest x-ray did not show CHF. Urine osmolality is 364 urine sodium not available 2. Urinary tract infection with gram-negative bacilli, identification and sensitivity pending, on ceftriaxone ultrasound the kidney unremarkable 3. Remote lungs CTA supposedly in remission 4. Cardiomyopathy ejection fraction 20%, coronary artery disease 5. Atrial fibrillation with controlled ventricular response 6. History of sleep apnea 7. Hypotension Recommendation 1. Continue 40 mL of 3% saline with 2. Based on labs be done within the next few minutes for follow-up sodium further management will follow 3. Maintain frequent monitoring of sodium every 6 hours 4. Maintain strict I's and O's
--- NOTE | 2021-10-22 09:54 | P.PN ---
Subjective Progress Note Date: 10/22/21 No new complaints today. Sodium is very slowly, but required increased rate of 3% NS last night. Ongoing IV antibiotics, WBC improving.. Gen: awake, alert HEENT: normocephalic, atraumatic, good hearing acuity, moist mucous membranes Resp: good air exchange, breathing comfortably with no accessory muscle use CVS: good distal perfusion x 4, GI: soft, NTTP, ND : Positive SPT, no CVAT, domingo catheter is present MSK: no pitting edema, no clubbing Neuro: non-focal, moving all extremities Psych: cooperative, euthymic mood Assessment/plan: Severe septic shock with lactic acidosis secondary to urinary tract infection Severe Acute hyponatremia, moderately symptomatic with generalized weakness and fatigue Mild anemia denies GI bleeding. Patient is improving with 3% NS, nephrology following Blood pressure remains borderline, close monitoring possibly initiation of levo fed Follow-up cultures; GNB on UCx, pending speciation/sensitivities Empiric antibiotics with Rocephin Monitor sodium every 4 hours, continue 3% hypertonic saline Renal ultrasounds showed no evidence of obstructive uropathy, incidental finding of cholelithiasis asymptomatic Fall precautions Neurochecks ICU care A. 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 Due to hyponatremia discontinue diuretics Hypertension currently hypotensive secondary to sepsis, discontinue Baltazar inhibitors and Norvasc. Continue with metoprolol for now Patient is no code DVT prophylaxis patient is on eliquis for A. fib Anticipated length of stay more than 2 midnights Objective - Vital Signs Vital signs: Vital Signs Temp 98.0 F 10/22/21 08:00 Pulse 70 10/22/21 09:00 Resp 24 10/22/21 09:00 BP 113/69 10/22/21 09:00 Pulse Ox 95 10/22/21 09:00 Intake & Output 10/21/21 10/22/21 10/22/21 18:59 06:59 18:59 Intake Total 460 550 80 Output Total 345 350 150 Balance 115 200 -70 Weight 80.1 kg Intake: IV 210 500 80 Sodium Chloride 3%( 210 500 80 Hypertonic) 500 ml @ 30 mls/hr IV .[id number] [facility] Rx #:[id number] Intake, IV Titration 50 Amount cefTRIAXone 2 gm In 50 Sodium Chloride 0.9% 50 ml @ 100 mls/hr IVPB Q24H [facility] Rx#:[id number] Oral 250 Output: Urine 345 350 150 Other: Voiding Method Urinal Urinal Urinal # Voids 0 - Labs CBC & Chem 7: 10/22/21 04:05 10/22/21 04:05 Labs: Abnormal Lab Results - Last 24 Hours (Table) 10/21/21 10/21/21 10/21/21 Range/Units 10:22 15:06 19:56 WBC (3.8-10.6) k/uL RBC (4.30-5.90) m/uL Hgb (13.0-17.5) gm/dL Hct (39.0-53.0) % Neutrophils # (1.3-7.7) k/uL Monocytes # (0-1.0) k/uL Sodium 115 L* 114 L* 114 L* (137-145) mmol/L Chloride (98-107) mmol/L Carbon Dioxide (22-30) mmol/L Calcium (8.4-10.2) mg/dL 10/21/21 10/22/21 10/22/21 Range/Units 23:40 04:05 04:05 WBC 25.7 H (3.8-10.6) k/uL RBC 3.63 L (4.30-5.90) m/uL Hgb 11.8 L (13.0-17.5) gm/dL Hct 35.6 L (39.0-53.0) % Neutrophils # 22.8 H (1.3-7.7) k/uL Monocytes # 1.2 H (0-1.0) k/uL Sodium 115 L* 117 L* (137-145) mmol/L Chloride 91 L (98-107) mmol/L Carbon Dioxide 20 L (22-30) mmol/L Calcium 7.4 L (8.4-10.2) mg/dL Microbiology - Last 24 Hours (Table) 10/20/21 18:51 Blood Culture - Preliminary Blood No Growth after 24 hours 10/20/21 18:28 Blood Culture - Preliminary Blood No Growth after 24 hours 10/20/21 18:28 Urine Culture - Preliminary Urine,Clean Catch Gram Neg Bacilli
--- NOTE | 2021-10-22 10:23 | P.PN ---
Subjective Progress Note Date: 10/22/21 PROGRESS NOTE The patient is a 76-year-old male with a known history of severe cardiomyopathy, status post ICD implantation. History of atrial fibrillation status post AV karly ablation and history of CABG who presented with urinary tract infection and sepsis. He was noted to have severe hyponatremia. His diuretic dose have not been changed recently. He has a history of lung cancer this pain reported to be stable in the past. He is receiving hypertonic saline. He denies any chest discomfort or change in his breathing. He continues to have lower back discomfort and frequency. He is afebrile. He continues to be on Eliquis 5 mg twice a day, aspirin once a day, Lipitor 80 mg daily, metoprolol 25 mg twice a day and Flomax. PHYSICAL EXAMINATION: Blood pressure 113/69 heart rate 70 LUNGS: [Clear to auscultation] HEART: [Regular rate and rhythm, S1, S2. No S3. systolic murmur at the base] ABDOMEN: [Soft, nontender, no organomegaly] EXTREMETIES: [No edema] LAB: Sodium 117, BUN and creatinine 12 and 0.66, white blood cell 25.7, hemoglobin 11.8 IMPRESSION: 1. Urosepsis 2. 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 Severe ischemic cardiomyopathy with no acute evidence of fluid overload at this point 4. Chronic persistent atrial fibrillation, anticoagulated, status post AV karly ablation 5. Status post CABG 6. Hyperlipidemia 7. History of lung cancer PLAN: 1. Treatment of hyponatremia per nephrology, workup in progress 2. Restart STEVE inhibitor 3. Close monitoring of fluid status to reinitiate diuretics 4. Continue beta shabbir and anticoagulation. Objective - Vital Signs Vital signs: Vital Signs Temp 98.0 F 10/22/21 08:00 Pulse 70 10/22/21 09:00 Resp 24 10/22/21 09:00 BP 113/69 10/22/21 09:00 Pulse Ox 95 10/22/21 09:00 Intake & Output 10/21/21 10/22/21 10/22/21 18:59 06:59 18:59 Intake Total 460 550 80 Output Total 345 350 150 Balance 115 200 -70 Weight 80.1 kg Intake: IV 210 500 80 Sodium Chloride 3%( 210 500 80 Hypertonic) 500 ml @ 30 mls/hr IV .[id number] [facility] Rx #:[id number] Intake, IV Titration 50 Amount cefTRIAXone 2 gm In 50 Sodium Chloride 0.9% 50 ml @ 100 mls/hr IVPB Q24H [facility] Rx#:[id number] Oral 250 Output: Urine 345 350 150 Other: Voiding Method Urinal Urinal Urinal # Voids 0 - Labs CBC & Chem 7: 10/22/21 04:05 10/22/21 04:05 Labs: Abnormal Lab Results - Last 24 Hours (Table) 10/21/21 10/21/21 10/21/21 Range/Units 10:22 15:06 19:56 WBC (3.8-10.6) k/uL RBC (4.30-5.90) m/uL Hgb (13.0-17.5) gm/dL Hct (39.0-53.0) % Neutrophils # (1.3-7.7) k/uL Monocytes # (0-1.0) k/uL Sodium 115 L* 114 L* 114 L* (137-145) mmol/L Chloride (98-107) mmol/L Carbon Dioxide (22-30) mmol/L Calcium (8.4-10.2) mg/dL 10/21/21 10/22/21 10/22/21 Range/Units 23:40 04:05 04:05 WBC 25.7 H (3.8-10.6) k/uL RBC 3.63 L (4.30-5.90) m/uL Hgb 11.8 L (13.0-17.5) gm/dL Hct 35.6 L (39.0-53.0) % Neutrophils # 22.8 H (1.3-7.7) k/uL Monocytes # 1.2 H (0-1.0) k/uL Sodium 115 L* 117 L* (137-145) mmol/L Chloride 91 L (98-107) mmol/L Carbon Dioxide 20 L (22-30) mmol/L Calcium 7.4 L (8.4-10.2) mg/dL Microbiology - Last 24 Hours (Table) 10/20/21 18:51 Blood Culture - Preliminary Blood No Growth after 24 hours 10/20/21 18:28 Blood Culture - Preliminary Blood No Growth after 24 hours 10/20/21 18:28 Urine Culture - Preliminary Urine,Clean Catch Gram Neg Bacilli
[2021-10-22] MEDS ORDERED: FUROSEMIDE 10 MG/ML 2 ML VIAL IV ONE ×2 (12:15→18:08)
[2021-10-22] MEDS: SODIUM CHLORIDE 3%(HYPERTONIC) 500 ML IV SCH (12:22)
--- NOTE | 2021-10-22 12:30 | P.PN ---
Subjective Progress Note Date: 10/22/21 Principal diagnosis: Urosepsis and hyponatremia This is a 76-year-old white male with history of multiple medical problems including chronic atrial fibrillation, severe ischemic cardiomyopathy and LV dysfunction, ejection fraction is 20%, patient had a previous AICD placement. previous CABG 2, history of hypertension, previous [place], degenerative joint disease, hypothyroidism, and previous history of non-small cell lung cancer which was diagnosed initially in 2016 in [place], patient underwent radiation treatment, did not have any evidence of distant metastasis, continues to follow- up with Dr. Balderrama and with Dr. Anish Warren on a regular basis patient is also known to have history of COPD, FEV1 of 58%. Normally maintained on updrafts, and on Spiriva. Patient has history of obstructive sleep apnea syndrome. Patient normally follows up with Dr. Martinez, apparently he has been complaining of difficulty urinating, and abnormal urine color, he had a urine culture done on outpatient basis, and when he saw Dr. Martinez yesterday, he recommended that he goes to the hospital for admission because of his urinary tract infection and possible urosepsis. Patient has been describing bilateral flank pain, colicky in nature, nonradiating, no fever no chills, no nausea no vomiting, he has been complaining of dysuria, and no hematuria. Patient did take antibiotics on outpatient basis for about 2 days, and there was no improvement as far as his urinary symptoms are consistent. Patient presented to the ER upon the recommendation of his primary care physician, and he was found to have mild lactic acidosis, hyponatremia, leukocytosis, borderline blood pressure, patient did receive some fluid boluses in the form of normal saline. And his sodium went down further from 114 initially down to 110 after his fluid boluses. Patient was given 100 mL of 3% saline admitted to the ICU, and this consult was initiated. For his UTI/urosepsis, patient received 2 g of Rocephin. Cultures from the urine are pending. Patient did not require any pressors. I saw him this morning and I recommended placing the patient on 25 mL of 3% saline hourly, and close monitoring of the sodium as per protocol. Considering the patient's LV dysfunction, we'll not recommend any fluid boluses at this point. Patient has been receiving diuretics in the form of Lasix 80 mg by mouth daily for his underlying history of congestive heart failure. Chest x-ray on this admission showed no evidence of congestive heart failure. Recent CT of the chest showed 3.11.8 cm nonenhancing scar or scarlike opacity in the right upper lobe basically unchanged compared to a CT of the chest dated February 07 2021. This is his initial site of his bronchogenic carcinoma/non-small cell lung cancer that was treated with radiation back in 2015 Patient was reevaluated today on 10/22/2021, patient is basically about the same. Clinically he feels better, however his sodium remains low, he is now on 3% s kaitlyn infusion at 40 mL per hour. Seen by nephrology, and stating the possibility of SIADH although the patient had no evidence of active non-small cell lung cancer for quite some time. His initial diagnosis was made in 2015, and since then multiple follow-ups including scans of the chest, and PET scan, have shown no significant reactivation. Obviously the patient has been in remission. Patient is receiving Rocephin for his presumptive urinary tract infection/urosepsis, the urine is positive for gram-negative bacilli, final report is pending sodium today is 118. His urine osmolality was 364 however no urine sodium is available. Objective - Vital Signs Vital signs: Vital Signs Temp 98.2 F 10/22/21 12:00 Pulse 82 10/22/21 12:00 Resp 17 10/22/21 12:00 BP 98/81 10/22/21 12:00 Pulse Ox 94 L 10/22/21 12:00 Intake & Output 10/21/21 10/22/21 10/22/21 18:59 06:59 18:59 Intake Total 460 550 200 Output Total 345 350 280 Balance 115 200 -80 Weight 80.1 kg Intake: IV 210 500 200 Sodium Chloride 3%( 210 500 200 Hypertonic) 500 ml @ 30 mls/hr IV .[id number] [facility] Rx #:[id number] Intake, IV Titration 50 Amount cefTRIAXone 2 gm In 50 Sodium Chloride 0.9% 50 ml @ 100 mls/hr IVPB Q24H [facility] Rx#:[id number] Oral 250 Output: Urine 345 350 280 Other: Voiding Method Urinal Urinal Urinal # Voids 0 - Exam GENERAL EXAM: Revealed a 76-year-old white male in no distress. On room air. HEAD: Normocephalic/atraumatic. HEENT: PERRLA, EOMI, nonicteric, chronic masses no JVD. CHEST: No chest wall deformity. Symmetrical expansion. LUNGS: Clear throughout no crackles or rhonchi or wheezes CVS: Patient has a regular paced rhythm, distant S1 and S2, no S3 gallop. ABDOMEN: Soft, nontender. No hepatosplenomegaly, normal bowel sounds, no guarding or rigidity. EXTREMITIES: No clubbing, no edema, no cyanosis, 2+ pulses and upper and lower extremities. MUSCULOSKELETAL: Good muscle tone, no deformities. No limitation in range of motion. SPINE: No scoliosis or deformity CENTRAL NERVOUS SYSTEM: No gross focal neurologic deficits. PSYCHIATRIC: Normal mood, affect and normal mental status examination. - Labs CBC & Chem 7: 10/22/21 04:05 10/22/21 10:30 Labs: Abnormal Lab Results - Last 24 Hours (Table) 10/21/21 10/21/21 10/21/21 Range/Units 15:06 19:56 23:40 WBC (3.8-10.6) k/uL RBC (4.30-5.90) m/uL Hgb (13.0-17.5) gm/dL Hct (39.0-53.0) % Neutrophils # (1.3-7.7) k/uL Monocytes # (0-1.0) k/uL Sodium 114 L* 114 L* 115 L* (137-145) mmol/L Chloride (98-107) mmol/L Carbon Dioxide (22-30) mmol/L Calcium (8.4-10.2) mg/dL 10/22/21 10/22/21 10/22/21 Range/Units 04:05 04:05 10:30 WBC 25.7 H (3.8-10.6) k/uL RBC 3.63 L (4.30-5.90) m/uL Hgb 11.8 L (13.0-17.5) gm/dL Hct 35.6 L (39.0-53.0) % Neutrophils # 22.8 H (1.3-7.7) k/uL Monocytes # 1.2 H (0-1.0) k/uL Sodium 117 L* 118 L* (137-145) mmol/L Chloride 91 L (98-107) mmol/L Carbon Dioxide 20 L (22-30) mmol/L Calcium 7.4 L (8.4-10.2) mg/dL Microbiology - Last 24 Hours (Table) 10/20/21 18:51 Blood Culture - Preliminary Blood No Growth after 24 hours 10/20/21 18:28 Blood Culture - Preliminary Blood No Growth after 24 hours 10/20/21 18:28 Urine Culture - Preliminary Urine,Clean Catch Gram Neg Bacilli Assessment and Plan Assessment: Impression: Acute urosepsis secondary to urinary tract infection, cultures are pending however the initial report is showing gram-negative bacilli, patient is on Rocephin. Severe hyponatremia, being addressed accordingly. Patient is in the meantime on 3% saline. Chronic atrial fibrillation, on eliquis. History of severe cardiomyopathy and LV dysfunction but no clear-cut evidence of CHF on this admission. History of coronary artery disease and previous CABG 2 History of AICD placement for severe LV dysfunction, ejection fraction of 20-25% Leukocytosis secondary to UTI and urosepsis history of COPD History of non-small cell lung cancer, status post radiation treatment, in remission since 2016. History of obstructive sleep apnea syndrome. History of pacemaker implantation Recommendation: Continue to monitor the patient in the ICU Continue 3% saline at low rate Continue to hold diuretics for now Continue antibiotics/Rocephin, consider changing antibiotics based on the final culture from the urine. Close monitoring of sodium as per protocol while on 3% saline. Resume eliquis. We will continue to follow. Discussed his condition with all other consultants on the case. Cardiology Time with Patient: Less than 30
[2021-10-23] MEDS ORDERED: TOLVAPTAN 15 MG 1/2 TABLET PO ONE ×2 (00:30→12:45)
[2021-10-23 04:31] LABS: Basophils % (A) 0 %; Eosinophils # (A) 0.1 k/uL (0-0.7); Eosinophils % (A) 0 %; HCT 33.5 % (39.0-53.0); Lymphocytes # (A) 0.7 k/uL (1.0-4.8); Lymphocytes % (A) 4 %; MCH 32.7 pg (25.0-35.0); MCHC 32.9 g/dL (31.0-37.0); MCV 99.5 fL (80.0-100.0); Mean Platelet Volume 7.1; Monocytes # (A) 1.3 k/uL (0-1.0); Monocytes % (A) 7 %; Neutrophils # (A) 17.9 k/uL (1.3-7.7); Neutrophils % (A) 88 %; Platelet Count 265 k/uL (150-450); RBC 3.36 m/uL (4.30-5.90); RDW 14.1 % (11.5-15.5); WBC 20.4 k/uL (3.8-10.6)
[2021-10-23 04:43] LABS: African American GFR (CKD) >90 (>60 ml/min/1.73 sqM); Anion Gap 4 mmol/L; Blood Urea Nitrogen 10 mg/dL (9-20); Calcium 7.1 mg/dL (8.4-10.2); Carbon Dioxide 21 mmol/L (22-30); Chloride 95 mmol/L (98-107); Glucose 91 mg/dL (74-99); Magnesium 1.9 mg/dL (1.6-2.3); Non-African American GFR(CKD) >90 (>60 ml/min/1.73 sqM); Sodium 120 mmol/L (137-145)
[2021-10-23] MEDS ORDERED: Magnesium Replacement Protocol 1 EACH MISC MISCELLANE PRN (05:05)
[2021-10-23] MEDS: MAGNESIUM SULFATE-D5W PMX 1 GM in DEXTROSE/WATER 1 100ML.BAG IVPB SCH ×2 (05:35→09:31)
[2021-10-23] MEDS: LEVOTHYROXINE 75 MCG TAB PO SCH (05:36)
[2021-10-23] MEDS: PANTOPRAZOLE 40 MG TABLET PO SCH (05:36)
[2021-10-23] MEDS: IPRATROPIUM 0.5 MG/2.5 ML NEBU INHALATION SCH ×4 (07:32→19:33)
[2021-10-23] MEDS: ALBUTEROL NEBULIZED 2.5 MG/3 ML INHALATION PRN (07:35)
[2021-10-23] MEDS: TAMSULOSIN 0.4 MG CAP.ER.24H PO SCH (09:31)
[2021-10-23] MEDS: HYDROcodone/APAP 5-325MG 1 EACH TAB PO PRN ×3 (09:31→23:49)
[2021-10-23] MEDS: METOPROLOL SUCCINATE (ER) 25 MG TAB.ER.24H PO SCH ×2 (09:32→20:29)
[2021-10-23] MEDS: ASPIRIN 81 MG PO SCH (09:32)
[2021-10-23] MEDS: APIXABAN 5 MG TAB PO SCH ×2 (09:32→20:29)
[2021-10-23] MEDS: ATORVASTATIN 80 MG TAB PO SCH (09:32)
--- NOTE | 2021-10-23 09:36 | P.PN ---
Subjective Progress Note Date: 10/23/21 PROGRESS NOTE The patient is a 76-year-old male with a known history of severe cardiomyopathy, status post ICD implantation. History of atrial fibrillation status post AV karly ablation and history of CABG who presented with urinary tract infection and sepsis. He was noted to have severe hyponatremia. His diuretic dose have not been changed recently. He has a history of lung cancer this pain reported to be stable in the past. He is receiving hypertonic saline. He denies any chest discomfort or change in his breathing. He continues to have lower back discomfort and frequency. He is afebrile. He continues to be on Eliquis 5 mg twice a day, aspirin once a day, Lipitor 80 mg daily, metoprolol 25 mg twice a day and Flomax. October 23: He is feeling well this morning, denies any chest discomfort or dizziness. His abdominal discomfort is better. He continues to be in an atrial fibrillation with paced rhythm and occasional PVCs. His sodium is up to 120. He feels that his breathing is unchanged. He has no nausea or vomiting. He continues to be on aspirin once a day, Lipitor 80 mg daily, Zestril 2.5 milligrams twice a day, Toprol 25 mg twice a day, Eliquis 5 mg twice a day PHYSICAL EXAMINATION: Blood pressure 108/53 heart rate 71 LUNGS: [Clear to auscultation] HEART: [Regular rate and rhythm, S1, S2. No S3. systolic murmur at the base] ABDOMEN: [Soft, nontender, no organomegaly] EXTREMETIES: Trace LAB: Sodium 120, BUN and creatinine 10 and 0.56, white blood cell 20.4, hemoglobin 11 IMPRESSION: 1. Urosepsis 2. 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 Severe ischemic cardiomyopathy with no acute evidence of fluid overload at this point 4. Chronic persistent atrial fibrillation, anticoagulated, status post AV karly ablation 5. Status post CABG 6. Hyperlipidemia 7. History of lung cancer PLAN: 1. Treatment of hyponatremia per nephrology, workup in progress 2. Restart STEVE inhibitor 3. Restart diuretics 4. Follow up renal functions and sodium 5. Increase physical activity Objective - Vital Signs Vital signs: Vital Signs Temp 97.6 F 10/23/21 04:00 Pulse 71 10/23/21 07:45 Resp 18 10/23/21 07:45 BP 108/53 10/23/21 07:00 Pulse Ox 94 L 10/23/21 07:00 Intake & Output 10/22/21 10/23/21 10/23/21 18:59 06:59 18:59 Intake Total 440 860 Output Total 680 450 Balance -240 410 Weight 84.8 kg Intake: IV 440 380 Magnesium Sulfate-D5w Pmx 100 1 gm In Dextrose/Water 1 100ml.bag @ 100 mls/hr IVPB Q1H [facility] Rx#: [id number] Sodium Chloride 3%( 440 280 Hypertonic) 500 ml @ 30 mls/hr IV .[id number] [facility] Rx #:[id number] Oral 480 Output: Urine 680 450 Other: Voiding Method Urinal Urinal Urinal # Voids 0 - Labs CBC & Chem 7: 10/23/21 04:05 10/23/21 04:05 Labs: Abnormal Lab Results - Last 24 Hours (Table) 10/22/21 10/22/21 10/22/21 Range/Units 10:30 17:00 22:05 WBC (3.8-10.6) k/uL RBC (4.30-5.90) m/uL Hgb (13.0-17.5) gm/dL Hct (39.0-53.0) % Neutrophils # (1.3-7.7) k/uL Lymphocytes # (1.0-4.8) k/uL Monocytes # (0-1.0) k/uL Sodium 118 L* 119 L* 119 L* (137-145) mmol/L Chloride (98-107) mmol/L Carbon Dioxide (22-30) mmol/L Creatinine (0.66-1.25) mg/dL Calcium (8.4-10.2) mg/dL 10/23/21 10/23/21 Range/Units 04:05 04:05 WBC 20.4 H (3.8-10.6) k/uL RBC 3.36 L (4.30-5.90) m/uL Hgb 11.0 L (13.0-17.5) gm/dL Hct 33.5 L (39.0-53.0) % Neutrophils # 17.9 H (1.3-7.7) k/uL Lymphocytes # 0.7 L (1.0-4.8) k/uL Monocytes # 1.3 H (0-1.0) k/uL Sodium 120 L (137-145) mmol/L Chloride 95 L (98-107) mmol/L Carbon Dioxide 21 L (22-30) mmol/L Creatinine 0.56 L (0.66-1.25) mg/dL Calcium 7.1 L (8.4-10.2) mg/dL Microbiology - Last 24 Hours (Table) 10/20/21 18:51 Blood Culture - Preliminary Blood No Growth after 48 hours 10/20/21 18:28 Blood Culture - Preliminary Blood No Growth after 48 hours 10/20/21 18:28 Urine Culture - Final Urine,Clean Catch Escherichia coli
--- NOTE | 2021-10-23 11:33 | P.PN ---
Subjective Progress Note Date: 10/23/21 Principal diagnosis: Urosepsis and hyponatremia This is a 76-year-old white male with history of multiple medical problems including chronic atrial fibrillation, severe ischemic cardiomyopathy and LV dysfunction, ejection fraction is 20%, patient had a previous AICD placement. previous CABG 2, history of hypertension, previous [place], degenerative joint disease, hypothyroidism, and previous history of non-small cell lung cancer which was diagnosed initially in 2016 in [place], patient underwent radiation treatment, did not have any evidence of distant metastasis, continues to follow- up with Dr. Balderrama and with Dr. Anish Warren on a regular basis patient is also known to have history of COPD, FEV1 of 58%. Normally maintained on updrafts, and on Spiriva. Patient has history of obstructive sleep apnea syndrome. Patient normally follows up with Dr. Martinez, apparently he has been complaining of difficulty urinating, and abnormal urine color, he had a urine culture done on outpatient basis, and when he saw Dr. Martinez yesterday, he recommended that he goes to the hospital for admission because of his urinary tract infection and possible urosepsis. Patient has been describing bilateral flank pain, colicky in nature, nonradiating, no fever no chills, no nausea no vomiting, he has been complaining of dysuria, and no hematuria. Patient did take antibiotics on outpatient basis for about 2 days, and there was no improvement as far as his urinary symptoms are consistent. Patient presented to the ER upon the recommendation of his primary care physician, and he was found to have mild lactic acidosis, hyponatremia, leukocytosis, borderline blood pressure, patient did receive some fluid boluses in the form of normal saline. And his sodium went down further from 114 initially down to 110 after his fluid boluses. Patient was given 100 mL of 3% saline admitted to the ICU, and this consult was initiated. For his UTI/urosepsis, patient received 2 g of Rocephin. Cultures from the urine are pending. Patient did not require any pressors. I saw him this morning and I recommended placing the patient on 25 mL of 3% saline hourly, and close monitoring of the sodium as per protocol. Considering the patient's LV dysfunction, we'll not recommend any fluid boluses at this point. Patient has been receiving diuretics in the form of Lasix 80 mg by mouth daily for his underlying history of congestive heart failure. Chest x-ray on this admission showed no evidence of congestive heart failure. Recent CT of the chest showed 3.11.8 cm nonenhancing scar or scarlike opacity in the right upper lobe basically unchanged compared to a CT of the chest dated February 07 2021. This is his initial site of his bronchogenic carcinoma/non-small cell lung cancer that was treated with radiation back in 2015 Patient was reevaluated today on 10/22/2021, patient is basically about the same. Clinically he feels better, however his sodium remains low, he is now on 3% s kaitlyn infusion at 40 mL per hour. Seen by nephrology, and stating the possibility of SIADH although the patient had no evidence of active non-small cell lung cancer for quite some time. His initial diagnosis was made in 2015, and since then multiple follow-ups including scans of the chest, and PET scan, have shown no significant reactivation. Obviously the patient has been in remission. Patient is receiving Rocephin for his presumptive urinary tract infection/urosepsis, the urine is positive for gram-negative bacilli, final report is pending sodium today is 118. His urine osmolality was 364 however no urine sodium is available. Reevaluated today on 10/23/2021, patient is feeling better today, denies any shortness of breath or cough or wheezing. Denies any chest discomfort. Remains on antibiotics for his urosepsis. Urine cultures are positive for E. coli, sensitive to Rocephin which has been started initially on presentation. Cultures are negative so far. Sodium is improving. His sodium today is 120 patient is off 3% saline infusion, his WBC count is coming down to 20.4. Renal profile is normal. Electrolytes are normal other than low sodium. Patient is going to be on fluid restrictions and we may be dealing with SIADH. Patient is being followed by nephrology for his hyponatremia. Objective - Vital Signs Vital signs: Vital Signs Temp 97.6 F 10/23/21 04:00 Pulse 89 10/23/21 09:00 Resp 19 10/23/21 08:00 BP 111/63 10/23/21 10:00 Pulse Ox 94 L 10/23/21 07:00 Intake & Output 10/22/21 10/23/21 10/23/21 18:59 06:59 18:59 Intake Total 440 860 100 Output Total 680 450 150 Balance -240 410 -50 Weight 84.8 kg Intake: IV 440 380 100 Magnesium Sulfate-D5w Pmx 100 100 1 gm In Dextrose/Water 1 100ml.bag @ 100 mls/hr IVPB Q1H [facility] Rx#: [id number] Sodium Chloride 3%( 440 280 Hypertonic) 500 ml @ 30 mls/hr IV .[id number] [facility] Rx #:[id number] Oral 480 Output: Urine 680 450 150 Other: Voiding Method Urinal Urinal Urinal # Voids 0 - Exam GENERAL EXAM: Revealed a 76-year-old white male in no distress. On room air. HEAD: Normocephalic/atraumatic. HEENT: PERRLA, EOMI, nonicteric, chronic masses no JVD. CHEST: No chest wall deformity. Symmetrical expansion. LUNGS: Clear throughout no crackles or rhonchi or wheezes CVS: Patient has a regular paced rhythm, distant S1 and S2, no S3 gallop. ABDOMEN: Soft, nontender. No hepatosplenomegaly, normal bowel sounds, no guarding or rigidity. EXTREMITIES: No clubbing, trace of bipedal edema, no cyanosis, 2+ pulses and upper and lower extremities. MUSCULOSKELETAL: Good muscle tone, no deformities. No limitation in range of motion. SPINE: No scoliosis or deformity CENTRAL NERVOUS SYSTEM: No gross focal neurologic deficits. PSYCHIATRIC: Normal mood, affect and normal mental status examination. - Labs CBC & Chem 7: 10/23/21 04:05 10/23/21 04:05 Labs: Abnormal Lab Results - Last 24 Hours (Table) 10/22/21 10/22/21 10/22/21 Range/Units 10:30 17:00 22:05 WBC (3.8-10.6) k/uL RBC (4.30-5.90) m/uL Hgb (13.0-17.5) gm/dL Hct (39.0-53.0) % Neutrophils # (1.3-7.7) k/uL Lymphocytes # (1.0-4.8) k/uL Monocytes # (0-1.0) k/uL Sodium 118 L* 119 L* 119 L* (137-145) mmol/L Chloride (98-107) mmol/L Carbon Dioxide (22-30) mmol/L Creatinine (0.66-1.25) mg/dL Calcium (8.4-10.2) mg/dL 10/23/21 10/23/21 Range/Units 04:05 04:05 WBC 20.4 H (3.8-10.6) k/uL RBC 3.36 L (4.30-5.90) m/uL Hgb 11.0 L (13.0-17.5) gm/dL Hct 33.5 L (39.0-53.0) % Neutrophils # 17.9 H (1.3-7.7) k/uL Lymphocytes # 0.7 L (1.0-4.8) k/uL Monocytes # 1.3 H (0-1.0) k/uL Sodium 120 L (137-145) mmol/L Chloride 95 L (98-107) mmol/L Carbon Dioxide 21 L (22-30) mmol/L Creatinine 0.56 L (0.66-1.25) mg/dL Calcium 7.1 L (8.4-10.2) mg/dL Microbiology - Last 24 Hours (Table) 10/20/21 18:51 Blood Culture - Preliminary Blood No Growth after 48 hours 10/20/21 18:28 Blood Culture - Preliminary Blood No Growth after 48 hours 10/20/21 18:28 Urine Culture - Final Urine,Clean Catch Escherichia coli Assessment and Plan Assessment: Impression: Acute urosepsis secondary to urinary tract infection, secondary to E. coli, sensitive to Rocephin. Severe hyponatremia, possible SIADH, improving, patient is now on fluid restrictions. And he received 3% saline initially for low sodium as low as 111 Chronic atrial fibrillation, on eliquis. History of severe cardiomyopathy and LV dysfunction but no clear-cut evidence of CHF on this admission. History of coronary artery disease and previous CABG 2 History of AICD placement for severe LV dysfunction, ejection fraction of 20-25% Leukocytosis secondary to UTI and urosepsis history of COPD History of non-small cell lung cancer, status post radiation treatment, in remission since 2016. History of obstructive sleep apnea syndrome. History of pacemaker implantation Recommendation: Discontinue 3% saline Transfer out of the ICU to a monitor bed Continue fluid restrictions May continue to hold diuretics for now Continue Rocephin Resume eliquis. We will continue to follow. Time with Patient: Less than 30
--- NOTE | 2021-10-23 11:55 | P.PN ---
Subjective Progress Note Date: 10/23/21 No new complaints today. Sodium improved to 120, 3% NS has been d/c'd. Pt is on a fluid restriction. Gen: awake, alert HEENT: normocephalic, atraumatic, good hearing acuity, moist mucous membranes Resp: good air exchange, breathing comfortably with no accessory muscle use CVS: good distal perfusion x 4, GI: soft, NTTP, ND : Positive SPT, no CVAT, domingo catheter is present MSK: no pitting edema, no clubbing Neuro: non-focal, moving all extremities Psych: cooperative, euthymic mood Assessment/plan: Severe septic shock with lactic acidosis secondary to urinary tract infection Severe Acute hyponatremia, moderately symptomatic with generalized weakness and fatigue Mild anemia denies GI bleeding. On fluid restriction, nephrology is following Follow-up cultures; E coli on UCx, mostly sensitive, resistant to cipro Empiric antibiotics with Rocephin Monitor sodium every 4 hours, continue 3% hypertonic saline Renal ultrasounds showed no evidence of obstructive uropathy, incidental finding of cholelithiasis asymptomatic Fall precautions Neurochecks ICU care A. 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 Due to hyponatremia discontinue diuretics Hypertension currently hypotensive secondary to sepsis, discontinue Baltazar inhibitors and Norvasc. Continue with metoprolol for now Patient is no code DVT prophylaxis patient is on eliquis for A. fib Anticipated length of stay more than 2 midnights Objective - Vital Signs Vital signs: Vital Signs Temp 97.6 F 10/23/21 04:00 Pulse 89 10/23/21 09:00 Resp 19 10/23/21 08:00 BP 111/63 10/23/21 10:00 Pulse Ox 94 L 10/23/21 07:00 Intake & Output 10/22/21 10/23/21 10/23/21 18:59 06:59 18:59 Intake Total 440 860 100 Output Total 680 450 150 Balance -240 410 -50 Weight 84.8 kg Intake: IV 440 380 100 Magnesium Sulfate-D5w Pmx 100 100 1 gm In Dextrose/Water 1 100ml.bag @ 100 mls/hr IVPB Q1H [facility] Rx#: [id number] Sodium Chloride 3%( 440 280 Hypertonic) 500 ml @ 30 mls/hr IV .[id number] [facility] Rx #:[id number] Oral 480 Output: Urine 680 450 150 Other: Voiding Method Urinal Urinal Urinal # Voids 0 - Labs CBC & Chem 7: 10/23/21 04:05 10/23/21 04:05 Labs: Abnormal Lab Results - Last 24 Hours (Table) 10/22/21 10/22/21 10/23/21 Range/Units 17:00 22:05 04:05 WBC (3.8-10.6) k/uL RBC (4.30-5.90) m/uL Hgb (13.0-17.5) gm/dL Hct (39.0-53.0) % Neutrophils # (1.3-7.7) k/uL Lymphocytes # (1.0-4.8) k/uL Monocytes # (0-1.0) k/uL Sodium 119 L* 119 L* 120 L (137-145) mmol/L Chloride 95 L (98-107) mmol/L Carbon Dioxide 21 L (22-30) mmol/L Creatinine 0.56 L (0.66-1.25) mg/dL Calcium 7.1 L (8.4-10.2) mg/dL 10/23/21 Range/Units 04:05 WBC 20.4 H (3.8-10.6) k/uL RBC 3.36 L (4.30-5.90) m/uL Hgb 11.0 L (13.0-17.5) gm/dL Hct 33.5 L (39.0-53.0) % Neutrophils # 17.9 H (1.3-7.7) k/uL Lymphocytes # 0.7 L (1.0-4.8) k/uL Monocytes # 1.3 H (0-1.0) k/uL Sodium (137-145) mmol/L Chloride (98-107) mmol/L Carbon Dioxide (22-30) mmol/L Creatinine (0.66-1.25) mg/dL Calcium (8.4-10.2) mg/dL Microbiology - Last 24 Hours (Table) 10/20/21 18:51 Blood Culture - Preliminary Blood No Growth after 48 hours 10/20/21 18:28 Blood Culture - Preliminary Blood No Growth after 48 hours 10/20/21 18:28 Urine Culture - Final Urine,Clean Catch Escherichia coli
--- NOTE | 2021-10-23 12:42 | P.PN ---
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 He was additionally given Samsca 7.5 mg as his sodium was not correcting as expected His 3% saline was discontinued He was admitted with back pain and upper abdominal pain with difficulty in passing urine. He is starting to develop edema and some shortness of breath Is known with remote lung cancer supposedly in remission since 2016. He has a ejection fraction of 20% known with coronary artery disease atrial fibrillation and sleep apnea but does not use CPAP at home Currently his asymptomatic denies any headache dizziness nausea vomiting appetite is improving Objective - Vital Signs Vital signs: Vital Signs Temp 97.6 F 10/23/21 04:00 Pulse 89 10/23/21 09:00 Resp 19 10/23/21 08:00 BP 111/63 10/23/21 10:00 Pulse Ox 94 L 10/23/21 07:00 Intake & Output 10/22/21 10/23/21 10/23/21 18:59 06:59 18:59 Intake Total 440 860 100 Output Total 680 450 150 Balance -240 410 -50 Weight 84.8 kg Intake: IV 440 380 100 Magnesium Sulfate-D5w Pmx 100 100 1 gm In Dextrose/Water 1 100ml.bag @ 100 mls/hr IVPB Q1H [facility] Rx#: [id number] Sodium Chloride 3%( 440 280 Hypertonic) 500 ml @ 30 mls/hr IV .[id number] [facility] Rx #:[id number] Oral 480 Output: Urine 680 450 150 Other: Voiding Method Urinal Urinal Urinal # Voids 0 Examination is awake alert oriented comfortable HEENT exam no JVP Lungs are clear to auscultation good air entry bilaterally Heart sounds unremarkable for any murmur rub gallop Abdomen soft nontender Extremity exam was trace edema Neurologically awake alert oriented - Labs CBC & Chem 7: 10/23/21 04:05 10/23/21 04:05 Labs: Abnormal Lab Results - Last 24 Hours (Table) 10/22/21 10/22/21 10/23/21 Range/Units 17:00 22:05 04:05 WBC (3.8-10.6) k/uL RBC (4.30-5.90) m/uL Hgb (13.0-17.5) gm/dL Hct (39.0-53.0) % Neutrophils # (1.3-7.7) k/uL Lymphocytes # (1.0-4.8) k/uL Monocytes # (0-1.0) k/uL Sodium 119 L* 119 L* 120 L (137-145) mmol/L Chloride 95 L (98-107) mmol/L Carbon Dioxide 21 L (22-30) mmol/L Creatinine 0.56 L (0.66-1.25) mg/dL Calcium 7.1 L (8.4-10.2) mg/dL 10/23/21 Range/Units 04:05 WBC 20.4 H (3.8-10.6) k/uL RBC 3.36 L (4.30-5.90) m/uL Hgb 11.0 L (13.0-17.5) gm/dL Hct 33.5 L (39.0-53.0) % Neutrophils # 17.9 H (1.3-7.7) k/uL Lymphocytes # 0.7 L (1.0-4.8) k/uL Monocytes # 1.3 H (0-1.0) k/uL Sodium (137-145) mmol/L Chloride (98-107) mmol/L Carbon Dioxide (22-30) mmol/L Creatinine (0.66-1.25) mg/dL Calcium (8.4-10.2) mg/dL Microbiology - Last 24 Hours (Table) 10/20/21 18:51 Blood Culture - Preliminary Blood No Growth after 48 hours 10/20/21 18:28 Blood Culture - Preliminary Blood No Growth after 48 hours 10/20/21 18:28 Urine Culture - Final Urine,Clean Catch Escherichia coli Assessment and Plan Assessment: Impression 1. 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 Workup has included a TSH normal at 4.4 free cortisol 21 normal. Chest x-ray did not show CHF. Urine osmolality is 364 urine sodium not available. Was on 3% saline with very slow correction of sodium. Therefore Needed Samsca 7.5 mg yesterday and 3% saline was discontinued. Sodium currently is 120 2. Urinary tract infection with gram-negative bacilli, identification and sensitivity pending, on ceftriaxone ultrasound the kidney unremarkable 3. Remote lungs CTA supposedly in remission 4. Cardiomyopathy ejection fraction 20%, coronary artery disease 5. Atrial fibrillation with controlled ventricular response 6. History of sleep apnea 7. Hypotension Recommendation 1. Will give 15 mg of Samsca today, repeat sodium today 2. Start Lasix tomorrow and closely monitor sodium.
[2021-10-24] MEDS: LEVOTHYROXINE 75 MCG TAB PO SCH (05:36)
[2021-10-24 06:18] LABS: African American GFR (CKD) >90 (>60 ml/min/1.73 sqM); Anion Gap 5 mmol/L; Blood Urea Nitrogen 13 mg/dL (9-20); Calcium 7.3 mg/dL (8.4-10.2); Carbon Dioxide 23 mmol/L (22-30); Chloride 93 mmol/L (98-107); Glucose 106 mg/dL (74-99); Non-African American GFR(CKD) >90 (>60 ml/min/1.73 sqM); Potassium 4.7 mmol/L (3.5-5.1); Sodium 121 mmol/L (137-145)
[2021-10-24] MEDS: ALBUTEROL NEBULIZED 2.5 MG/3 ML INHALATION PRN ×2 (07:45→15:15)
[2021-10-24] MEDS: IPRATROPIUM 0.5 MG/2.5 ML NEBU INHALATION SCH ×5 (07:45→19:23)
[2021-10-24] MEDS ORDERED: FUROSEMIDE 40 MG TAB PO SCH (09:00)
--- NOTE | 2021-10-24 09:02 | P.PN ---
Subjective Patient is seen in follow-up for hyponatremia. Received Samsca yesterday. Sodium level 121 today. Has been voiding. On room air. Denies chest pain or shortness of breath. Oral intake fair. Vital signs are stable. General: The patient appeared well nourished and normally developed. HEENT: Head exam is unremarkable. LUNGS: Breath sounds decreased. HEART: Rate and Rhythm are regular. ABDOMEN: Soft, no tenderness. EXTREMITITES: 2+ edema. Objective - Vital Signs Vital signs: Vital Signs Temp 97.7 F 10/24/21 05:00 Pulse 88 10/24/21 07:58 Resp 16 10/24/21 05:00 BP 96/60 10/24/21 05:00 Pulse Ox 95 10/24/21 05:00 Intake & Output 10/23/21 10/24/21 10/24/21 18:59 06:59 18:59 Intake Total 340 120 Output Total 150 600 Balance 190 -480 Intake: IV 100 Magnesium Sulfate-D5w Pmx 100 1 gm In Dextrose/Water 1 100ml.bag @ 100 mls/hr IVPB Q1H [facility] Rx#: [id number] Oral 240 120 Output: Urine 150 600 Other: Voiding Method Urinal Urinal # Voids 2 3 - Labs CBC & Chem 7: 10/23/21 04:05 10/24/21 05:15 Labs: Abnormal Lab Results - Last 24 Hours (Table) 10/24/21 Range/Units 05:15 Sodium 121 L (137-145) mmol/L Chloride 93 L (98-107) mmol/L Creatinine 0.64 L (0.66-1.25) mg/dL Glucose 106 H (74-99) mg/dL Calcium 7.3 L (8.4-10.2) mg/dL Microbiology - Last 24 Hours (Table) 10/20/21 18:51 Blood Culture - Preliminary Blood No Growth after 72 hours 10/20/21 18:28 Blood Culture - Preliminary Blood No Growth after 72 hours Assessment and Plan Plan: Assessment: 1. Hypervolemic hyponatremia. Status post Amsco this admission. Sodium level 121 this morning. Urine osmolality 364 dated 10/20/2021. TSH and cortisol normal. 2. Volume overload. 3. Acute on chronic systolic CHF with ejection fraction of 20%. 4. E. coli UTI on antibiotics. Plan: Maintain fluid restriction. Encouraged oral intake. Low-salt diet. Add IV Lasix 40 mg twice daily. Repeat sodium level this afternoon. Bladder scan to rule out urinary retention.
--- NOTE | 2021-10-24 09:33 | P.PN ---
Subjective This is a 76-year-old male with a known history of severe ischemic cardiomyopathy, status post ICD implantation, persistent atrial fibrillation status post AV karly ablation, coronary artery disease with history of CABG, hyperlipidemia, history of lung cancer s/p radiation. Patient presented with urinary tract infection and sepsis. He follows with Dr. Cortes. We have been consulted for cardiomyopathy. Patient presented to the hospital with complaints of back pain, upper abdominal pain, difficulty passing urine. He has been treated for urinary tract infection. Found to be hyponatric with a Na 110. 10/24/2021 He is feeling well this morning, denies any chest discomfort or dizziness. He has no shortness of breath, breathing well, no complaints. His abdominal discomfort is better. He continues to be in an atrial fibrillation with paced r hythm and occasional PVCs. His sodium is up to 121. He feels that his breathing is unchanged. He has no nausea or vomiting. He continues to be on aspirin once a day, Lipitor 80 mg daily, Lisinopril 2.5mg twice a day, Toprol 25 mg twice a day, Eliquis 5 mg twice a day PHYSICAL EXAMINATION: Vitals 96/60, heart rate 84, afebrile, oxygen saturations 95% on room air GENERAL: Well-appearing, well-nourished and in no acute distress. NECK: Supple without JVD or thyromegaly. LUNGS: Breath sounds clear to auscultation bilaterally. Respiration equal and unlabored. No wheezes, rales or rhonchi. HEART: Regular rate and rhythm without rubs or gallops. S1 and S2 heard. Systolic ejection murmur at based noted. EXTREMITIES: Normal range of motion, no edema. No clubbing or cyanosis. Peripheral pulses intact. LAB: Sodium 121, potassium 4.7, BUN 13, serum creatinine 0.6 ASSESSMENT Urosepsis Hypernatremia probable SIADH Severe ischemic cardiomyopathy with no acute evidence of fluid overload at this point Persistent atrial fibrillation, anticoagulated, status post AV karly ablation Coronary artery disease status post prior CABG Hyperlipidemia History of lung cancer PLAN: Treatment of hyponatremia per nephrology, improving Continue STEVE inhibitor and PO diuretics Increase physical activity as tolerated From a cardiology perspective, patient is stable. We will follow the patient as needed. Follow up outpatient with Dr. Cortes. Nurse practitioner note has been reviewed by physician. Signing provider agrees with the documented findings, assessment, and plan of care. Objective - Vital Signs Vital signs: Vital Signs Temp 97.7 F 10/24/21 05:00 Pulse 88 10/24/21 07:58 Resp 16 10/24/21 05:00 BP 96/60 10/24/21 05:00 Pulse Ox 95 10/24/21 05:00 Intake & Output 10/23/21 10/24/21 10/24/21 18:59 06:59 18:59 Intake Total 340 120 Output Total 150 600 Balance 190 -480 Intake: IV 100 Magnesium Sulfate-D5w Pmx 100 1 gm In Dextrose/Water 1 100ml.bag @ 100 mls/hr IVPB Q1H [facility] Rx#: [id number] Oral 240 120 Output: Urine 150 600 Other: Voiding Method Urinal Urinal # Voids 2 3 - Labs CBC & Chem 7: 10/23/21 04:05 10/24/21 05:15 Labs: Abnormal Lab Results - Last 24 Hours (Table) 10/24/21 Range/Units 05:15 Sodium 121 L (137-145) mmol/L Chloride 93 L (98-107) mmol/L Creatinine 0.64 L (0.66-1.25) mg/dL Glucose 106 H (74-99) mg/dL Calcium 7.3 L (8.4-10.2) mg/dL Microbiology - Last 24 Hours (Table) 10/20/21 18:51 Blood Culture - Preliminary Blood No Growth after 72 hours 10/20/21 18:28 Blood Culture - Preliminary Blood No Growth after 72 hours
[2021-10-24] MEDS: ASPIRIN 81 MG PO SCH (10:13)
[2021-10-24] MEDS: PANTOPRAZOLE 40 MG TABLET PO SCH (10:13)
[2021-10-24] MEDS: METOPROLOL SUCCINATE (ER) 25 MG TAB.ER.24H PO SCH ×3 (10:13→21:04)
[2021-10-24] MEDS: HYDROcodone/APAP 5-325MG 1 EACH TAB PO PRN (10:13)
[2021-10-24] MEDS: TAMSULOSIN 0.4 MG CAP.ER.24H PO SCH (10:13)
[2021-10-24] MEDS: ATORVASTATIN 80 MG TAB PO SCH (10:13)
[2021-10-24] MEDS: APIXABAN 5 MG TAB PO SCH ×2 (10:13→21:04)
--- NOTE | 2021-10-24 10:53 | P.PN ---
Subjective Progress Note Date: 10/24/21 Patient's sodium has improved to 121, received tolvaptan yesterday. Today complains of low urine output, back pain last night, fullness in his abdomen, low energy, left leg weakness. Gen: awake, alert HEENT: normocephalic, atraumatic, good hearing acuity, moist mucous membranes Resp: good air exchange, breathing comfortably with no accessory muscle use CVS: good distal perfusion x 4, GI: soft, NTTP, ND : Positive SPT, no CVAT, domingo catheter is present MSK: no pitting edema, no clubbing Neuro: non-focal, moving all extremities Psych: cooperative, euthymic mood Assessment/plan: Severe septic shock with lactic acidosis secondary to urinary tract infection Severe Acute hyponatremia, moderately symptomatic with generalized weakness and fatigue Mild anemia denies GI bleeding. On fluid restriction, nephrology is following Follow-up cultures; E coli on UCx, mostly sensitive, resistant to cipro Empiric antibiotics with Rocephin Monitor sodium twice a day, BMP daily Renal ultrasounds showed no evidence of obstructive uropathy, incidental finding of cholelithiasis asymptomatic Fall precautions Neurochecks ICU care Repeat bladder scan 10/24, if retaining, place Domingo catheter, and will need lumbar imaging A. 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 Hypertension currently hypotensive secondary to sepsis, lisinopril resumed, amlodipine still on hold. Continue with metoprolol for now Patient is no code DVT prophylaxis patient is on eliquis for A. fib Anticipated length of stay more than 2 midnights Objective - Vital Signs Vital signs: Vital Signs Temp 97.7 F 10/24/21 05:00 Pulse 60 10/24/21 10:15 Resp 16 10/24/21 05:00 BP 100/66 10/24/21 10:15 Pulse Ox 95 10/24/21 05:00 Intake & Output 10/23/21 10/24/21 10/24/21 18:59 06:59 18:59 Intake Total 340 120 Output Total 150 600 125 Balance 190 -480 -125 Intake: IV 100 Magnesium Sulfate-D5w Pmx 100 1 gm In Dextrose/Water 1 100ml.bag @ 100 mls/hr IVPB Q1H [facility] Rx#: [id number] Oral 240 120 Output: Urine 150 600 125 Other: Voiding Method Urinal Urinal # Voids 2 3 - Labs CBC & Chem 7: 10/23/21 04:05 10/24/21 05:15 Labs: Abnormal Lab Results - Last 24 Hours (Table) 10/24/21 Range/Units 05:15 Sodium 121 L (137-145) mmol/L Chloride 93 L (98-107) mmol/L Creatinine 0.64 L (0.66-1.25) mg/dL Glucose 106 H (74-99) mg/dL Calcium 7.3 L (8.4-10.2) mg/dL Microbiology - Last 24 Hours (Table) 10/20/21 18:51 Blood Culture - Preliminary Blood No Growth after 72 hours 10/20/21 18:28 Blood Culture - Preliminary Blood No Growth after 72 hours
--- NOTE | 2021-10-24 11:10 | P.PN ---
Subjective Progress Note Date: 10/24/21 Principal diagnosis: Hyponatremia This is a 76-year-old white male with history of multiple medical problems including chronic atrial fibrillation, severe ischemic cardiomyopathy and LV dysfunction, ejection fraction is 20%, patient had a previous AICD placement. previous CABG 2, history of hypertension, previous AR, degenerative joint disease, hypothyroidism, and previous history of non-small cell lung cancer which was diagnosed initially in 2016 in [place], patient underwent radiation treatment, did not have any evidence of distant metastasis, continues to follow- up with Dr. Balderrama and with Dr. Anish Warren on a regular basis patient is also known to have history of COPD, FEV1 of 58%. Normally maintained on updrafts, and on Spiriva. Patient has history of obstructive sleep apnea syndrome. Patient normally follows up with Dr. Martinez, apparently he has been complaining of difficulty urinating, and abnormal urine color, he had a urine culture done on outpatient basis, and when he saw Dr. Martinez yesterday, he recommended that he goes to the hospital for admission because of his urinary tract infection and possible urosepsis. Patient has been describing bilateral flank pain, colicky in nature, nonradiating, no fever no chills, no nausea no vomiting, he has been complaining of dysuria, and no hematuria. Patient did take antibiotics on outpatient basis for about 2 days, and there was no improvement as far as his urinary symptoms are consistent. Patient presented to the ER upon the recommendation of his primary care physician, and he was found to have mild lactic acidosis, hyponatremia, leukocytosis, borderline blood pressure, patient did receive some fluid boluses in the form of normal saline. And his sodium went down further from 114 initially down to 110 after his fluid boluses. Patient was given 100 mL of 3% saline admitted to the ICU, and this consult was initiated. For his UTI/urosepsis, patient received 2 g of Rocephin. Cultures from the urine are pending. Patient did not require any pressors. I saw him this morning and I recommended placing the patient on 25 mL of 3% saline hourly, and close monitoring of the sodium as per protocol. Considering the patient's LV dysfunction, we'll not recommend any fluid boluses at this point. Patient has been receiving diuretics in the form of Lasix 80 mg by mouth daily for his underlying history of congestive heart failure. Chest x-ray on this admission showed no evidence of congestive heart failure. Recent CT of the chest showed 3.11.8 cm nonenhancing scar or scarlike opacity in the right upper lobe basically unchanged compared to a CT of the chest dated February 07 2021. This is his initial site of his bronchogenic carcinoma/non-small cell lung cancer that was treated with radiation back in 2015 Patient was reevaluated today on 10/22/2021, patient is basically about the same. Clinically he feels better, however his sodium remains low, he is now on 3% saline infusion at 40 mL per hour. Seen by nephrology, and stating the possibility of SIADH although the patient had no evidence of active non-small cell lung cancer for quite some time. His initial diagnosis was made in 2015, and since then multiple follow-ups including scans of the chest, and PET scan, have shown no significant reactivation. Obviously the patient has been in remission. Patient is receiving Rocephin for his presumptive urinary tract infection/urosepsis, the urine is positive for gram-negative bacilli, final report is pending sodium today is 118. His urine osmolality was 364 however no urine sodium is available. Reevaluated today on 10/23/2021, patient is feeling better today, denies any shortness of breath or cough or wheezing. Denies any chest discomfort. Remains on antibiotics for his urosepsis. Urine cultures are positive for E. coli, sensitive to Rocephin which has been started initially on presentation. Cultures are negative so far. Sodium is improving. His sodium today is 120 patient is off 3% saline infusion, his WBC count is coming down to 20.4. Renal profile is normal. Electrolytes are normal other than low sodium. Patient is going to be on fluid restrictions and we may be dealing with SIADH. Patient is being followed by nephrology for his hyponatremia. The patient is seen today 10/24/2021 in follow-up on the regular medical floor. He is sitting up in a chair at the bedside. Awake and alert in no acute distress. Maintaining O2 saturations in the 90s on room air. He's been afebrile. Hemodynamically stable. Urine culture was positive for E. coli. Blood cultures revealed no growth. Sodium 121. Potassium 4.7. Bicarb 23. BUN 13. Creatinine 0.64. He is continued on ceftriaxone, bronchodilators, anticoagulated with Eliquis. He remains on Lasix 40 mg IV every 12 hours. Currently in a -300 ML balance. Objective - Vital Signs Vital signs: Vital Signs Temp 97.7 F 10/24/21 05:00 Pulse 60 10/24/21 10:15 Resp 16 10/24/21 05:00 BP 100/66 10/24/21 10:15 Pulse Ox 95 10/24/21 05:00 Intake & Output 10/23/21 10/24/21 10/24/21 18:59 06:59 18:59 Intake Total 340 120 Output Total 150 600 125 Balance 190 -480 -125 Intake: IV 100 Magnesium Sulfate-D5w Pmx 100 1 gm In Dextrose/Water 1 100ml.bag @ 100 mls/hr IVPB Q1H [facility] Rx#: [id number] Oral 240 120 Output: Urine 150 600 125 Other: Voiding Method Urinal Urinal # Voids 2 3 - Exam GENERAL EXAM: Alert, pleasant 76-year-old male patient, on room air, comfortable in no apparent distress. HEAD: Normocephalic. EYES: Normal reaction of pupils, equal size. NOSE: Clear with pink turbinates. THROAT: No erythema or exudates. NECK: No masses, no JVD. CHEST: No chest wall deformity. LUNGS: Equal air entry with no crackles, wheeze, rhonchi or dullness. CVS: S1 and S2 normal with no audible murmur, regular rhythm. ABDOMEN: No hepatosplenomegaly, normal bowel sounds, no guarding or rigidity. SPINE: No scoliosis or deformity SKIN: No rashes CENTRAL NERVOUS SYSTEM: No focal deficits, tone is normal in all 4 extremities. EXTREMITIES: There is no peripheral edema. No clubbing, no cyanosis. Peripheral pulses are intact. - Labs CBC & Chem 7: 10/23/21 04:05 10/24/21 05:15 Labs: Abnormal Lab Results - Last 24 Hours (Table) 10/24/21 Range/Units 05:15 Sodium 121 L (137-145) mmol/L Chloride 93 L (98-107) mmol/L Creatinine 0.64 L (0.66-1.25) mg/dL Glucose 106 H (74-99) mg/dL Calcium 7.3 L (8.4-10.2) mg/dL Microbiology - Last 24 Hours (Table) 10/20/21 18:51 Blood Culture - Preliminary Blood No Growth after 72 hours 10/20/21 18:28 Blood Culture - Preliminary Blood No Growth after 72 hours Assessment and Plan Assessment: 1 Acute urosepsis secondary to urinary tract infection, secondary to E. coli, sensitive to Rocephin. 2 Severe hyponatremia, possible SIADH, improving, patient is now on fluid restrictions. Off 3% saline and the current sodium 121 3 Chronic atrial fibrillation, on eliquis. 4 History of severe cardiomyopathy and LV dysfunction but no clear-cut evidence of CHF on this admission. 5 History of coronary artery disease and previous CABG 2 6 History of AICD placement for severe LV dysfunction, ejection fraction of 20- 25% 7 Leukocytosis secondary to UTI and urosepsis 8 History of COPD 9 History of non-small cell lung cancer, status post radiation treatment, in remission since 2016. 10 History of obstructive sleep apnea syndrome. 11 History of pacemaker implantation Plan: The patient was seen and evaluated Stable from the pulmonary and critical care standpoint Received Samsca yesterday Sodium up to 121 Nephrology is on the case I have personally seen and examined the patient, performed the documentation and the assessment and plan as written. Number of minutes spent on the visit: 10.
[2021-10-24] MEDS ORDERED: SODIUM CHLORIDE 0.9% 500 ML 500 ML IV ONE (12:23)
[2021-10-24] MEDS ORDERED: NALOXONE 0.4 MG/ML 1 ML VIAL IVP ONE (12:24)
[2021-10-24] MEDS: FUROSEMIDE 10 MG/ML 4 ML VIAL IV SCH ×2 (12:26→21:04)
[2021-10-24 13:20] LABS: HCT 34.2 % (39.0-53.0); HGB 10.7 gm/dL (13.0-17.5); MCH 32.1 pg (25.0-35.0); MCHC 31.4 g/dL (31.0-37.0); MCV 102.1 fL (80.0-100.0); Macrocytosis Slight; Mean Platelet Volume 7.5; Platelet Count 220 k/uL (150-450); RBC 3.35 m/uL (4.30-5.90); RDW 13.6 % (11.5-15.5); WBC 27.3 k/uL (3.8-10.6)
[2021-10-24 13:46] LABS: African American GFR (CKD) >90 (>60 ml/min/1.73 sqM); Anion Gap 5 mmol/L; Blood Urea Nitrogen 14 mg/dL (9-20); Carbon Dioxide 17 mmol/L (22-30); Chloride 96 mmol/L (98-107); Glucose 121 mg/dL (74-99); Magnesium 2.3 mg/dL (1.6-2.3); Non-African American GFR(CKD) >90 (>60 ml/min/1.73 sqM); Potassium 4.6 mmol/L (3.5-5.1)
[2021-10-24 14:02] LABS: Sodium 118 mmol/L (137-145)
[2021-10-24] MEDS ORDERED: TOLVAPTAN 15 MG 1/2 TABLET PO STA (14:14)
[2021-10-24] MEDS: MIDODRINE 5 MG TAB PO SCH ×2 (14:35→17:34)
[2021-10-24 16:03] LABS: Band Neutrophils % 3 %; Crenated RBC Present; Lymphocytes # (M) 0.55 k/uL (1.0-4.8); Monocytes # (M) 0.82 k/uL (0-1.0); Neutrophils % (M) 92 %; Nucleated Red Blood Cells 0 /100 WBC (0-0); Total Cells Counted 100
[2021-10-24] MEDS: DOBUTamine DRIP 500 MG in DEXTROSE/WATER 1 250ML.BAG IV SCH (17:33)
[2021-10-25 05:12] LABS: Basophils # (A) 0.4 k/uL (0-0.2); Basophils % (A) 1 %; Eosinophils # (A) 0.1 k/uL (0-0.7); Eosinophils % (A) 0 %; HCT 35.5 % (39.0-53.0); HGB 11.5 gm/dL (13.0-17.5); Lymphocytes # (A) 0.4 k/uL (1.0-4.8); Lymphocytes % (A) 1 %; MCH 33.2 pg (25.0-35.0); MCHC 32.4 g/dL (31.0-37.0); MCV 102.5 fL (80.0-100.0); Macrocytosis Slight; Mean Platelet Volume 7.9; Monocytes # (A) 3.2 k/uL (0-1.0); Monocytes % (A) 11 %; Neutrophils # (A) 25.9 k/uL (1.3-7.7); Neutrophils % (A) 85 %; Platelet Count 234 k/uL (150-450); RBC 3.46 m/uL (4.30-5.90); RDW 13.6 % (11.5-15.5); WBC 30.3 k/uL (3.8-10.6)
[2021-10-25 05:28] LABS: African American GFR (CKD) >90 (>60 ml/min/1.73 sqM); Anion Gap 6 mmol/L; Blood Urea Nitrogen 13 mg/dL (9-20); Calcium 7.4 mg/dL (8.4-10.2); Carbon Dioxide 21 mmol/L (22-30); Chloride 94 mmol/L (98-107); Glucose 93 mg/dL (74-99); Magnesium 2.2 mg/dL (1.6-2.3); Non-African American GFR(CKD) >90 (>60 ml/min/1.73 sqM); Potassium 4.2 mmol/L (3.5-5.1); Sodium 121 mmol/L (137-145)
[2021-10-25 05:59] LABS: Crenated RBC Present
[2021-10-25] MEDS: PANTOPRAZOLE 40 MG TABLET PO SCH (07:01)
[2021-10-25] MEDS: MIDODRINE 5 MG TAB PO SCH ×3 (07:01→17:26)
[2021-10-25] MEDS: LEVOTHYROXINE 75 MCG TAB PO SCH (07:01)
[2021-10-25] MEDS ORDERED: TOLVAPTAN 15 MG 1/2 TABLET PO ONE (07:30)
--- NOTE | 2021-10-25 08:47 | P.PN ---
Subjective Patient is seen in follow-up for hyponatremia. Received Samsca yesterday. Sodium level 121 this morning. Has been voiding. On room air. Denies chest pain or shortness of breath. Oral intake fair. Started on dobutamine as well as midodrine yesterday. Vital signs are stable. General: The patient appeared well nourished and normally developed. HEENT: Head exam is unremarkable. LUNGS: Breath sounds decreased. HEART: Rate and Rhythm are regular. ABDOMEN: Soft, no tenderness. EXTREMITITES: 1+ edema. Objective - Vital Signs Vital signs: Vital Signs Temp 98.2 F 10/25/21 04:00 Pulse 81 10/25/21 04:00 Resp 18 10/25/21 04:00 BP 103/59 10/25/21 04:00 Pulse Ox 95 10/25/21 04:00 Intake & Output 10/24/21 10/25/21 10/25/21 18:59 06:59 18:59 Intake Total 118 0 Output Total 425 200 200 Balance -307 -200 -200 Intake: Oral 118 0 Output: Urine 425 200 200 Other: Voiding Method Urinal External Catheter - Labs CBC & Chem 7: 10/25/21 04:33 10/25/21 04:33 Labs: Abnormal Lab Results - Last 24 Hours (Table) 10/24/21 10/24/21 10/24/21 Range/Units 12:52 12:52 12:52 WBC 27.3 H (3.8-10.6) k/uL RBC 3.35 L (4.30-5.90) m/uL Hgb 10.7 L (13.0-17.5) gm/dL Hct 34.2 L (39.0-53.0) % MCV 102.1 H (80.0-100.0) fL Neutrophils # (1.3-7.7) k/uL Neutrophils # (Manual) 25.90 H (1.3-7.7) k/uL Lymphocytes # (1.0-4.8) k/uL Lymphocytes # (Manual) 0.55 L (1.0-4.8) k/uL Monocytes # (0-1.0) k/uL Basophils # (0-0.2) k/uL Sodium 118 L* (137-145) mmol/L Chloride 96 L (98-107) mmol/L Carbon Dioxide 17 L (22-30) mmol/L Creatinine 0.59 L (0.66-1.25) mg/dL Glucose 121 H (74-99) mg/dL Plasma Lactic Acid Oscar 2.4 H* (0.7-2.0) mmol/L Calcium 7.0 L (8.4-10.2) mg/dL 10/24/21 10/24/21 10/24/21 Range/Units 16:48 22:12 22:12 WBC (3.8-10.6) k/uL RBC (4.30-5.90) m/uL Hgb (13.0-17.5) gm/dL Hct (39.0-53.0) % MCV (80.0-100.0) fL Neutrophils # (1.3-7.7) k/uL Neutrophils # (Manual) (1.3-7.7) k/uL Lymphocytes # (1.0-4.8) k/uL Lymphocytes # (Manual) (1.0-4.8) k/uL Monocytes # (0-1.0) k/uL Basophils # (0-0.2) k/uL Sodium 121 L (137-145) mmol/L Chloride (98-107) mmol/L Carbon Dioxide (22-30) mmol/L Creatinine (0.66-1.25) mg/dL Glucose (74-99) mg/dL Plasma Lactic Acid Oscar 3.1 H* 3.4 H* (0.7-2.0) mmol/L Calcium (8.4-10.2) mg/dL 10/25/21 10/25/21 Range/Units 04:33 04:33 WBC 30.3 H (3.8-10.6) k/uL RBC 3.46 L (4.30-5.90) m/uL Hgb 11.5 L (13.0-17.5) gm/dL Hct 35.5 L (39.0-53.0) % MCV 102.5 H (80.0-100.0) fL Neutrophils # 25.9 H (1.3-7.7) k/uL Neutrophils # (Manual) (1.3-7.7) k/uL Lymphocytes # 0.4 L (1.0-4.8) k/uL Lymphocytes # (Manual) (1.0-4.8) k/uL Monocytes # 3.2 H (0-1.0) k/uL Basophils # 0.4 H (0-0.2) k/uL Sodium 121 L (137-145) mmol/L Chloride 94 L (98-107) mmol/L Carbon Dioxide 21 L (22-30) mmol/L Creatinine 0.59 L (0.66-1.25) mg/dL Glucose (74-99) mg/dL Plasma Lactic Acid Oscar (0.7-2.0) mmol/L Calcium 7.4 L (8.4-10.2) mg/dL Microbiology - Last 24 Hours (Table) 10/20/21 18:51 Blood Culture - Preliminary Blood No Growth after 96 hours 10/20/21 18:28 Blood Culture - Preliminary Blood No Growth after 96 hours Assessment and Plan Plan: Assessment: 1. Hypervolemic hyponatremia. Sodium level 121 this morning. Urine osmolality 364 dated 10/20/2021. TSH and cortisol normal. Currently on IV Lasix. Has also received Samsca. 2. Volume overload. 3. Acute on chronic systolic CHF with ejection fraction of 20%. 4. E. coli UTI on antibiotics. Plan: Maintain fluid restriction. Encouraged oral intake. Low-salt diet. Maintain dobutamine. Cardiology following. Maintain IV Lasix 40 mg twice daily. Repeat Samsca 15 mg once today. 25 g IV albumin once today. Repeat sodium level this afternoon. Serial bladder scans to make sure no urinary retention. Maintain midodrine. Blood pressure stable as morning. Will increase dose if blood pressure staying persistently less than 100/60. Lisinopril on hold.
[2021-10-25] MEDS: IPRATROPIUM 0.5 MG/2.5 ML NEBU INHALATION SCH ×4 (08:54→20:38)
--- NOTE | 2021-10-25 09:23 | P.PN ---
Subjective Progress Note Date: 10/25/21 Patient's sodium has improved to 121 after dipping to 118 again yesterday, received tolvaptan again yesterday. Has had low UOP and on 10/24 PM, was found to be hypotensive to 70s/40s. LA went from 2.2 to 3.0. Transferred to and started on midodrine, and later dobutamine gtt when pressures remained soft without pressor. Today also c/o diarrhea, WBC increased to 30. Gen: awake, alert HEENT: normocephalic, atraumatic, good hearing acuity, moist mucous membranes Resp: good air exchange, breathing comfortably with no accessory muscle use CVS: good distal perfusion x 4, GI: soft, NTTP, ND : Positive SPT, no CVAT, domingo catheter is present MSK: no pitting edema, no clubbing Neuro: non-focal, moving all extremities Psych: cooperative, euthymic mood Assessment/plan: Severe septic shock with lactic acidosis secondary to urinary tract infection, improving Mild anemia denies GI bleeding. On fluid restriction, nephrology is following Follow-up cultures; E coli on UCx, mostly sensitive, resistant to cipro Continue Rocephin Severe Acute Hypervolemic hyponatremia Cardiogenic Shock requiring pressors Acute on Chronic Systolic Heart Failure, EF 20% with AICD Transfer to on 10/24 for midodrine and dobutamine gtt Continue lasix 40mg IV BID Nephrology/cardiology following Continue holding amlodipine, lisinopril Holding metoprolol Monitor sodium twice a day, BMP daily Rec'd multiple doses of tolvaptan, last 10/24 Renal ultrasounds showed no evidence of obstructive uropathy, incidental finding of cholelithiasis asymptomatic Diarrhea Antibiotic induced vs C diff C diff PCR pending Patient is no code DVT prophylaxis patient is on eliquis for A. fib Anticipated length of stay more than 2 midnights Objective - Vital Signs Vital signs: Vital Signs Temp 97.9 F 10/25/21 08:00 Pulse 80 10/25/21 08:00 Resp 19 10/25/21 08:00 BP 99/61 10/25/21 08:00 Pulse Ox 95 10/25/21 08:00 Intake & Output 10/24/21 10/25/21 10/25/21 18:59 06:59 18:59 Intake Total 118 0 Output Total 425 200 200 Balance -307 -200 -200 Intake: Oral 118 0 Output: Urine 425 200 200 Other: Voiding Method Urinal External Catheter - Labs CBC & Chem 7: 10/25/21 04:33 10/25/21 04:33 Labs: Abnormal Lab Results - Last 24 Hours (Table) 10/24/21 10/24/21 10/24/21 Range/Units 12:52 12:52 12:52 WBC 27.3 H (3.8-10.6) k/uL RBC 3.35 L (4.30-5.90) m/uL Hgb 10.7 L (13.0-17.5) gm/dL Hct 34.2 L (39.0-53.0) % MCV 102.1 H (80.0-100.0) fL Neutrophils # (1.3-7.7) k/uL Neutrophils # (Manual) 25.90 H (1.3-7.7) k/uL Lymphocytes # (1.0-4.8) k/uL Lymphocytes # (Manual) 0.55 L (1.0-4.8) k/uL Monocytes # (0-1.0) k/uL Basophils # (0-0.2) k/uL Sodium 118 L* (137-145) mmol/L Chloride 96 L (98-107) mmol/L Carbon Dioxide 17 L (22-30) mmol/L Creatinine 0.59 L (0.66-1.25) mg/dL Glucose 121 H (74-99) mg/dL Plasma Lactic Acid Oscar 2.4 H* (0.7-2.0) mmol/L Calcium 7.0 L (8.4-10.2) mg/dL 10/24/21 10/24/21 10/24/21 Range/Units 16:48 22:12 22:12 WBC (3.8-10.6) k/uL RBC (4.30-5.90) m/uL Hgb (13.0-17.5) gm/dL Hct (39.0-53.0) % MCV (80.0-100.0) fL Neutrophils # (1.3-7.7) k/uL Neutrophils # (Manual) (1.3-7.7) k/uL Lymphocytes # (1.0-4.8) k/uL Lymphocytes # (Manual) (1.0-4.8) k/uL Monocytes # (0-1.0) k/uL Basophils # (0-0.2) k/uL Sodium 121 L (137-145) mmol/L Chloride (98-107) mmol/L Carbon Dioxide (22-30) mmol/L Creatinine (0.66-1.25) mg/dL Glucose (74-99) mg/dL Plasma Lactic Acid Oscar 3.1 H* 3.4 H* (0.7-2.0) mmol/L Calcium (8.4-10.2) mg/dL 10/25/21 10/25/21 Range/Units 04:33 04:33 WBC 30.3 H (3.8-10.6) k/uL RBC 3.46 L (4.30-5.90) m/uL Hgb 11.5 L (13.0-17.5) gm/dL Hct 35.5 L (39.0-53.0) % MCV 102.5 H (80.0-100.0) fL Neutrophils # 25.9 H (1.3-7.7) k/uL Neutrophils # (Manual) (1.3-7.7) k/uL Lymphocytes # 0.4 L (1.0-4.8) k/uL Lymphocytes # (Manual) (1.0-4.8) k/uL Monocytes # 3.2 H (0-1.0) k/uL Basophils # 0.4 H (0-0.2) k/uL Sodium 121 L (137-145) mmol/L Chloride 94 L (98-107) mmol/L Carbon Dioxide 21 L (22-30) mmol/L Creatinine 0.59 L (0.66-1.25) mg/dL Glucose (74-99) mg/dL Plasma Lactic Acid Oscar (0.7-2.0) mmol/L Calcium 7.4 L (8.4-10.2) mg/dL Microbiology - Last 24 Hours (Table) 10/20/21 18:51 Blood Culture - Preliminary Blood No Growth after 96 hours 10/20/21 18:28 Blood Culture - Preliminary Blood No Growth after 96 hours
[2021-10-25] MEDS: ALBUMIN HUMAN 25% 50 ML in EMPTY BAG 1 BAG IVPB SCH ×2 (10:01→13:37)
[2021-10-25] MEDS: ASPIRIN 81 MG PO SCH (10:03)
[2021-10-25] MEDS: APIXABAN 5 MG TAB PO SCH ×2 (10:03→20:14)
[2021-10-25] MEDS: ATORVASTATIN 80 MG TAB PO SCH (10:04)
[2021-10-25] MEDS: FUROSEMIDE 10 MG/ML 4 ML VIAL IV SCH ×2 (10:04→20:14)
[2021-10-25] MEDS: HYDROcodone/APAP 5-325MG 1 EACH TAB PO PRN (10:13)
[2021-10-25] MEDS: METOPROLOL SUCCINATE (ER) 25 MG TAB.ER.24H PO SCH (10:31)
--- NOTE | 2021-10-25 10:52 | P.PN ---
Subjective Progress Note Date: 10/25/21 Principal diagnosis: Hyponatremia, urinary tract infection. Patient was reevaluated today on 10/22/2021, patient is basically about the same. Clinically he feels better, however his sodium remains low, he is now on 3% saline infusion at 40 mL per hour. Seen by nephrology, and stating the possibility of SIADH although the patient had no evidence of active non-small cell lung cancer for quite some time. His initial diagnosis was made in 2016, and since then multiple follow-ups including scans of the chest, and PET scan, have shown no significant reactivation. Obviously the patient has been in remission. Patient is receiving Rocephin for his presumptive urinary tract in fection/urosepsis, the urine is positive for gram-negative bacilli, final report is pending sodium today is 118. His urine osmolality was 364 however no urine sodium is available. Reevaluated today on 10/23/2021, patient is feeling better today, denies any shortness of breath or cough or wheezing. Denies any chest discomfort. Remains on antibiotics for his urosepsis. Urine cultures are positive for E. coli, sensitive to Rocephin which has been started initially on presentation. Cultures are negative so far. Sodium is improving. His sodium today is 120 patient is off 3% saline infusion, his WBC count is coming down to 20.4. Renal profile is normal. Electrolytes are normal other than low sodium. Patient is going to be on fluid restrictions and we may be dealing with SIADH. Patient is being followed by nephrology for his hyponatremia. The patient is seen today 10/24/2021 in follow-up on the regular medical floor. He is sitting up in a chair at the bedside. Awake and alert in no acute distress. Maintaining O2 saturations in the 90s on room air. He's been afebrile. Hemodynamically stable. Urine culture was positive for E. coli. Blood cultures revealed no growth. Sodium 121. Potassium 4.7. Bicarb 23. BUN 13. Creatinine 0.64. He is continued on ceftriaxone, bronchodilators, anticoagulated with Eliquis. He remains on Lasix 40 mg IV every 12 hours. Currently in a -300 ML balance. Progress note dated 10/25/2021. The patient is a 76-year-old male, seen in room 362. He was initially evaluated for urinary tract infection. He has an Escherichia coli UTI, sensitive to Rocephin, which is what he is on. In addition, he was admitted with hyponatremia. His current sodium level is 121. His initial sodium was 113. The patient was previously on 3% saline. The patient was transferred from the [facility] to the [facility], because currently he is on dobutamine at 2.5 mcg/kg/m. He is not on any supplemental oxygen. Current laboratory data includes a white count of 30.3, hemoglobin 0.5, hematocrit 35.5, and a platelet count 234,000. Sodium 121, potassium 4.2, chlorides 94, CO2 21, anion gap 6, BUN 13, and creatinine 0.59. Objective - Vital Signs Vital signs: Vital Signs Temp 97.9 F 10/25/21 08:00 Pulse 80 10/25/21 08:00 Resp 19 10/25/21 08:00 BP 99/61 10/25/21 08:00 Pulse Ox 95 10/25/21 08:00 Intake & Output 10/24/21 10/25/21 10/25/21 18:59 06:59 18:59 Intake Total 118 0 Output Total 425 200 200 Balance -307 -200 -200 Intake: Oral 118 0 Output: Urine 425 200 200 Other: Voiding Method Urinal External Catheter - Exam No acute distress, oriented 3. Not on any supplemental oxygen. HEENT examination is grossly unremarkable. Neck supple. Full range of motion. No adenopathy thyromegaly or neck vein distention. Cardiovascular examination reveals regular rhythm rate. S1-S2 normal. No S3 or S4. No discernible murmur noted. Heart sounds are distant. Heart rate 80 bpm. Lungs reveal clear breath sounds. Breath sounds are equal bilaterally. No adventitious lung sounds including wheezes rhonchi or crackles. Abdomen soft bowel sounds are heard. No masses or tenderness. Extremities are intact. No cyanosis clubbing or edema. Skin is without rash or lesion. Neurologic examination is brief but nonfocal. - Labs CBC & Chem 7: 10/25/21 04:33 10/25/21 04:33 Labs: Abnormal Lab Results - Last 24 Hours (Table) 10/24/21 10/24/21 10/24/21 Range/Units 12:52 12:52 12:52 WBC 27.3 H (3.8-10.6) k/uL RBC 3.35 L (4.30-5.90) m/uL Hgb 10.7 L (13.0-17.5) gm/dL Hct 34.2 L (39.0-53.0) % MCV 102.1 H (80.0-100.0) fL Neutrophils # (1.3-7.7) k/uL Neutrophils # (Manual) 25.90 H (1.3-7.7) k/uL Lymphocytes # (1.0-4.8) k/uL Lymphocytes # (Manual) 0.55 L (1.0-4.8) k/uL Monocytes # (0-1.0) k/uL Basophils # (0-0.2) k/uL Sodium 118 L* (137-145) mmol/L Chloride 96 L (98-107) mmol/L Carbon Dioxide 17 L (22-30) mmol/L Creatinine 0.59 L (0.66-1.25) mg/dL Glucose 121 H (74-99) mg/dL Plasma Lactic Acid Oscar 2.4 H* (0.7-2.0) mmol/L Calcium 7.0 L (8.4-10.2) mg/dL 10/24/21 10/24/21 10/24/21 Range/Units 16:48 22:12 22:12 WBC (3.8-10.6) k/uL RBC (4.30-5.90) m/uL Hgb (13.0-17.5) gm/dL Hct (39.0-53.0) % MCV (80.0-100.0) fL Neutrophils # (1.3-7.7) k/uL Neutrophils # (Manual) (1.3-7.7) k/uL Lymphocytes # (1.0-4.8) k/uL Lymphocytes # (Manual) (1.0-4.8) k/uL Monocytes # (0-1.0) k/uL Basophils # (0-0.2) k/uL Sodium 121 L (137-145) mmol/L Chloride (98-107) mmol/L Carbon Dioxide (22-30) mmol/L Creatinine (0.66-1.25) mg/dL Glucose (74-99) mg/dL Plasma Lactic Acid Oscar 3.1 H* 3.4 H* (0.7-2.0) mmol/L Calcium (8.4-10.2) mg/dL 10/25/21 10/25/21 Range/Units 04:33 04:33 WBC 30.3 H (3.8-10.6) k/uL RBC 3.46 L (4.30-5.90) m/uL Hgb 11.5 L (13.0-17.5) gm/dL Hct 35.5 L (39.0-53.0) % MCV 102.5 H (80.0-100.0) fL Neutrophils # 25.9 H (1.3-7.7) k/uL Neutrophils # (Manual) (1.3-7.7) k/uL Lymphocytes # 0.4 L (1.0-4.8) k/uL Lymphocytes # (Manual) (1.0-4.8) k/uL Monocytes # 3.2 H (0-1.0) k/uL Basophils # 0.4 H (0-0.2) k/uL Sodium 121 L (137-145) mmol/L Chloride 94 L (98-107) mmol/L Carbon Dioxide 21 L (22-30) mmol/L Creatinine 0.59 L (0.66-1.25) mg/dL Glucose (74-99) mg/dL Plasma Lactic Acid Oscar (0.7-2.0) mmol/L Calcium 7.4 L (8.4-10.2) mg/dL Microbiology - Last 24 Hours (Table) 10/20/21 18:51 Blood Culture - Preliminary Blood No Growth after 96 hours 10/20/21 18:28 Blood Culture - Preliminary Blood No Growth after 96 hours Assessment and Plan Assessment: Acute urosepsis, secondary to Escherichia coli, the patient is currently on Rocephin. Severe hyponatremia, improved, with a sodium today of 121. History of chronic atrial fibrillation. History of severe cardiomyopathy, and LV dysfunction. History of CAD, status post 2 vessel bypass grafting. Status post AICD placement, for severe LV dysfunction, and an ejection fraction of 20-25%. History of COPD. History of non-small cell lung cancer, status post radiation treatment, currently in remission since 2016. History of obstructive sleep apnea syndrome. History of pacemaker implantation. Plan: Plan dated 10/25/2021. The patient's sodium is up to 121. The patient currently is on dobutamine at 2.5 mcg/kg/m. The patient was transferred from the [facility] to the [facility] so he could receive dobutamine. The patient's currently on no supplemental oxygen. Room air saturations are 95-96%. The patient appears relatively comfortable. We will continue to follow and make recommendations where appropriate. Prognosis is guarded. Time with Patient: Less than 30
[2021-10-25] MEDS: ALBUTEROL NEBULIZED 2.5 MG/3 ML INHALATION PRN (12:22)
[2021-10-25 17:29] LABS: African American GFR (CKD) >90 (>60 ml/min/1.73 sqM); Anion Gap 11 mmol/L; Blood Urea Nitrogen 14 mg/dL (9-20); Calcium 7.8 mg/dL (8.4-10.2); Carbon Dioxide 19 mmol/L (22-30); Chloride 99 mmol/L (98-107); Glucose 137 mg/dL (74-99); Non-African American GFR(CKD) >90 (>60 ml/min/1.73 sqM); Potassium 4.2 mmol/L (3.5-5.1); Sodium 129 mmol/L (137-145)
[2021-10-26] MEDS: HYDROcodone/APAP 5-325MG 1 EACH TAB PO PRN ×4 (00:48→21:09)
[2021-10-26 01:00] LABS: African American GFR (CKD) >90 (>60 ml/min/1.73 sqM); Anion Gap 7 mmol/L; Blood Urea Nitrogen 11 mg/dL (9-20); Calcium 7.6 mg/dL (8.4-10.2); Carbon Dioxide 25 mmol/L (22-30); Chloride 95 mmol/L (98-107); Glucose 131 mg/dL (74-99); Non-African American GFR(CKD) >90 (>60 ml/min/1.73 sqM); Potassium 3.4 mmol/L (3.5-5.1); Sodium 127 mmol/L (137-145)
[2021-10-26] MEDS ORDERED: POTASSIUM CHLORIDE ER 20 MEQ TAB.ER PO STA (02:05)
[2021-10-26] MEDS: DOBUTamine DRIP 500 MG in DEXTROSE/WATER 1 250ML.BAG IV SCH (04:02)
[2021-10-26] MEDS: LEVOTHYROXINE 75 MCG TAB PO SCH (06:27)
[2021-10-26] MEDS: MIDODRINE 5 MG TAB PO SCH ×3 (06:27→17:06)
[2021-10-26] MEDS: PANTOPRAZOLE 40 MG TABLET PO SCH (06:27)
[2021-10-26] MEDS: APIXABAN 5 MG TAB PO SCH (08:53)
[2021-10-26] MEDS: ASPIRIN 81 MG PO SCH (08:53)
[2021-10-26] MEDS: FUROSEMIDE 10 MG/ML 4 ML VIAL IV SCH ×2 (08:53→21:09)
[2021-10-26] MEDS: ATORVASTATIN 80 MG TAB PO SCH (08:53)
[2021-10-26] MEDS ORDERED: TOLVAPTAN 15 MG 1/2 TABLET PO ONE (09:00)
[2021-10-26] MEDS: ALBUTEROL NEBULIZED 2.5 MG/3 ML INHALATION PRN (09:03)
[2021-10-26] MEDS: IPRATROPIUM 0.5 MG/2.5 ML NEBU INHALATION SCH ×4 (09:03→19:30)
[2021-10-26] MEDS ORDERED: LOPERAMIDE 2 MG CAP PO PRN (10:10)
--- NOTE | 2021-10-26 10:10 | P.PN ---
Subjective Progress Note Date: 10/26/21 Patient's sodium has improved to 127. Good UOP of 3.1L overnight. C Diff was negative. Gen: awake, alert HEENT: normocephalic, atraumatic, good hearing acuity, moist mucous membranes Resp: good air exchange, breathing comfortably with no accessory muscle use CVS: good distal perfusion x 4, GI: soft, NTTP, ND : Positive SPT, no CVAT, domingo catheter is present MSK: no pitting edema, no clubbing Neuro: non-focal, moving all extremities Psych: cooperative, euthymic mood Assessment/plan: Severe septic shock with lactic acidosis secondary to urinary tract infection, improving Mild anemia denies GI bleeding. On fluid restriction, nephrology is following Follow-up cultures; E coli on UCx, mostly sensitive, resistant to cipro Continue Rocephin Severe Acute Hypervolemic hyponatremia Cardiogenic Shock requiring pressors, improving Acute on Chronic Systolic Heart Failure, EF 20% with AICD Transfer to on 10/24 for midodrine and dobutamine gtt Continue lasix 40mg IV BID Nephrology/cardiology following Continue holding amlodipine, lisinopril Holding metoprolol Monitor sodium twice a day, BMP daily Rec'd multiple doses of tolvaptan, last 10/24 Renal ultrasounds showed no evidence of obstructive uropathy, incidental finding of cholelithiasis asymptomatic Diarrhea Antibiotic induced, likely C diff EIA negative Add loperamide Patient is no code DVT prophylaxis patient is on eliquis for A. fib Anticipated length of stay more than 2 midnights Objective - Vital Signs Vital signs: Vital Signs Temp 97.9 F 10/26/21 08:00 Pulse 86 10/26/21 09:16 Resp 18 10/26/21 08:00 BP 119/57 10/26/21 08:00 Pulse Ox 98 10/26/21 08:00 Intake & Output 10/25/21 10/26/21 10/26/21 18:59 06:59 18:59 Intake Total 240 456.314 Output Total 1350 1825 Balance -1110 -1368.686 Weight 82.5 kg Intake: Intake, IV Titration 219.314 Amount DOBUTamine DRIP 500 mg In 219.314 Dextrose/Water 1 250ml. bag @ 2.5 MCG/KG/MIN 6.36 mls/hr IV .Q24H [facility] Rx#: [id number] Oral 240 237 Output: Urine 1350 1825 Other: Voiding Method External Catheter # Voids 800 # Bowel Movements 2 - Labs CBC & Chem 7: 10/25/21 04:33 10/26/21 00:18 Labs: Abnormal Lab Results - Last 24 Hours (Table) 10/25/21 10/26/21 Range/Units 15:27 00:18 Sodium 129 L 127 L (137-145) mmol/L Potassium 3.4 L (3.5-5.1) mmol/L Chloride 95 L (98-107) mmol/L Carbon Dioxide 19 L (22-30) mmol/L Creatinine 0.58 L 0.55 L (0.66-1.25) mg/dL Glucose 137 H 131 H (74-99) mg/dL Calcium 7.8 L 7.6 L (8.4-10.2) mg/dL Microbiology - Last 24 Hours (Table) 10/20/21 18:51 Blood Culture - Preliminary Blood No Growth after 120 hours 10/20/21 18:28 Blood Culture - Preliminary Blood No Growth after 120 hours
[2021-10-26] MEDS ORDERED: SIMETHICONE 80 MG CHEWABLE PO PRN (11:01)
[2021-10-26 11:21] VITALS: BMI 26.9
--- NOTE | 2021-10-26 11:28 | P.PN ---
Subjective Progress Note Date: 10/26/21 Principal diagnosis: Hyponatremia, urinary tract infection. Patient was reevaluated today on 10/22/2021, patient is basically about the same. Clinically he feels better, however his sodium remains low, he is now on 3% saline infusion at 40 mL per hour. Seen by nephrology, and stating the possibility of SIADH although the patient had no evidence of active non-small cell lung cancer for quite some time. His initial diagnosis was made in 2016, and since then multiple follow-ups including scans of the chest, and PET scan, have shown no significant reactivation. Obviously the patient has been in remission. Patient is receiving Rocephin for his presumptive urinary tract in fection/urosepsis, the urine is positive for gram-negative bacilli, final report is pending sodium today is 118. His urine osmolality was 364 however no urine sodium is available. Reevaluated today on 10/23/2021, patient is feeling better today, denies any shortness of breath or cough or wheezing. Denies any chest discomfort. Remains on antibiotics for his urosepsis. Urine cultures are positive for E. coli, sensitive to Rocephin which has been started initially on presentation. Cultures are negative so far. Sodium is improving. His sodium today is 120 patient is off 3% saline infusion, his WBC count is coming down to 20.4. Renal profile is normal. Electrolytes are normal other than low sodium. Patient is going to be on fluid restrictions and we may be dealing with SIADH. Patient is being followed by nephrology for his hyponatremia. The patient is seen today 10/24/2021 in follow-up on the regular medical floor. He is sitting up in a chair at the bedside. Awake and alert in no acute distress. Maintaining O2 saturations in the 90s on room air. He's been afebrile. Hemodynamically stable. Urine culture was positive for E. coli. Blood cultures revealed no growth. Sodium 121. Potassium 4.7. Bicarb 23. BUN 13. Creatinine 0.64. He is continued on ceftriaxone, bronchodilators, anticoagulated with Eliquis. He remains on Lasix 40 mg IV every 12 hours. Currently in a -300 ML balance. Progress note dated 10/25/2021. The patient is a 76-year-old male, seen in room 362. He was initially evaluated for urinary tract infection. He has an Escherichia coli UTI, sensitive to Rocephin, which is what he is on. In addition, he was admitted with hyponatremia. His current sodium level is 121. His initial sodium was 113. The patient was previously on 3% saline. The patient was transferred from the [facility] to the [facility], because currently he is on dobutamine at 2.5 mcg/kg/m. He is not on any supplemental oxygen. Current laboratory data includes a white count of 30.3, hemoglobin 0.5, hematocrit 35.5, and a platelet count 234,000. Sodium 121, potassium 4.2, chlorides 94, CO2 21, anion gap 6, BUN 13, and creatinine 0.59. Progress note dated 10/26/2021. 76-year-old male seen in room 362. He was admitted with a diagnosis of urinary tract infection, secondary to Escherichia coli. Patient remains on Rocephin. In addition, he was found to be hyponatremic. His most recent sodium level is 127. His initial sodium was 113. He is on room air. Yesterday, he was on dobutamine at 2.5 mcg/kg/m. That, has been discontinued. Laboratory data today includes a sodium 127, potassium 3.4, chlorides 95, CO2 25, anion gap 7, BUN 11, creatinine 0.55. Calcium is 7.6. Objective - Vital Signs Vital signs: Vital Signs Temp 97.9 F 10/26/21 08:00 Pulse 86 10/26/21 09:16 Resp 18 10/26/21 08:00 BP 119/57 10/26/21 08:00 Pulse Ox 98 10/26/21 08:00 Intake & Output 10/25/21 10/26/21 10/26/21 18:59 06:59 18:59 Intake Total 240 456.314 Output Total 1350 1825 Balance -1110 1368.686 Weight 82.5 kg 82.5 kg Intake: Intake, IV Titration 219.314 Amount DOBUTamine DRIP 500 mg In 219.314 Dextrose/Water 1 250ml. bag @ 2.5 MCG/KG/MIN 6.36 mls/hr IV .Q24H [facility] Rx#: [id number] Oral 240 237 Output: Urine 1350 1825 Other: Voiding Method External Catheter External Catheter # Voids 800 # Bowel Movements 2 - Exam No acute distress, oriented 3. Not on any supplemental oxygen. Room air saturation 98%. HEENT examination is grossly unremarkable. Neck supple. Full range of motion. No adenopathy thyromegaly or neck vein distention. Cardiovascular examination reveals regular rhythm rate. S1-S2 normal. No S3 or S4. No discernible murmur noted. Heart sounds are distant. Heart rate 86 bpm. Lungs reveal clear breath sounds. Breath sounds are equal bilaterally. No adventitious lung sounds including wheezes rhonchi or crackles. Abdomen soft bowel sounds are heard. No masses or tenderness. Extremities are intact. No cyanosis clubbing or edema. Skin is without rash or lesion. Neurologic examination is brief but nonfocal. - Labs CBC & Chem 7: 10/25/21 04:33 10/26/21 00:18 Labs: Abnormal Lab Results - Last 24 Hours (Table) 10/25/21 10/26/21 Range/Units 15:27 00:18 Sodium 129 L 127 L (137-145) mmol/L Potassium 3.4 L (3.5-5.1) mmol/L Chloride 95 L (98-107) mmol/L Carbon Dioxide 19 L (22-30) mmol/L Creatinine 0.58 L 0.55 L (0.66-1.25) mg/dL Glucose 137 H 131 H (74-99) mg/dL Calcium 7.8 L 7.6 L (8.4-10.2) mg/dL Microbiology - Last 24 Hours (Table) 10/20/21 18:51 Blood Culture - Preliminary Blood No Growth after 120 hours 10/20/21 18:28 Blood Culture - Preliminary Blood No Growth after 120 hours Assessment and Plan Assessment: Acute urosepsis, secondary to Escherichia coli, the patient is currently on Rocephin. Severe hyponatremia, improved, with a sodium today of 127. History of chronic atrial fibrillation. History of severe cardiomyopathy, and LV dysfunction. History of CAD, status post 2 vessel bypass grafting. Status post AICD placement, for severe LV dysfunction, and an ejection fraction of 20-25%. History of COPD. History of non-small cell lung cancer, status post radiation treatment, currently in remission since 2016. History of obstructive sleep apnea syndrome. History of pacemaker implantation. Plan: Plan dated 10/25/2021. The patient's sodium is up to 121. The patient currently is on dobutamine at 2.5 mcg/kg/m. The patient was transferred from the [facility] to the [facility] so he could receive dobutamine. The patient's currently on no supplemental oxygen. Room air saturations are 95-96%. The patient appears relatively comfortable. We will continue to follow and make recommendations where appropriate. Prognosis is guarded. Plan dated 10/26/2021. The patient's sodium is up to 127. The dobutamine has been discontinued. The patient remains on room air. Room air saturations are 98%. Clinically, the patient is stable. No active pulmonary issues to be concerned about at this time. The patient's labs, x-rays, and medications are reviewed. Moving forward, we will see the patient only as needed. Prognosis is guarded. Time with Patient: Less than 30
[2021-10-26 11:33] LABS: Basophils # (A) 0.1 k/uL (0-0.2); Basophils % (A) 0 %; Eosinophils # (A) 0.1 k/uL (0-0.7); Eosinophils % (A) 0 %; HCT 33.5 % (39.0-53.0); HGB 10.9 gm/dL (13.0-17.5); Lymphocytes # (A) 0.9 k/uL (1.0-4.8); Lymphocytes % (A) 4 %; MCHC 32.5 g/dL (31.0-37.0); MCV 101.4 fL (80.0-100.0); Macrocytosis Slight; Mean Platelet Volume 7.3; Monocytes # (A) 0.9 k/uL (0-1.0); Monocytes % (A) 4 %; Neutrophils # (A) 21.7 k/uL (1.3-7.7); Neutrophils % (A) 90 %; Platelet Count 319 k/uL (150-450); RDW 14.3 % (11.5-15.5); WBC 24.1 k/uL (3.8-10.6)
[2021-10-26 11:38] LABS: African American GFR (CKD) >90 (>60 ml/min/1.73 sqM); Anion Gap 12 mmol/L; Blood Urea Nitrogen 11 mg/dL (9-20); Calcium 7.8 mg/dL (8.4-10.2); Carbon Dioxide 23 mmol/L (22-30); Chloride 95 mmol/L (98-107); Glucose 122 mg/dL (74-99); Non-African American GFR(CKD) >90 (>60 ml/min/1.73 sqM); Potassium 4.1 mmol/L (3.5-5.1); Sodium 130 mmol/L (137-145)
--- NOTE | 2021-10-26 12:48 | P.PN ---
Subjective Patient is seen for follow-up for hypervolemic hyponatremia. Patient has underlying systolic CHF. Currently maintained on dobutamine and receiving IV Lasix. Patient has also been getting Samsca. Sodium was up to 129 yesterday, 127 early this morning around 1 AM. Overall patient states he is feeling better, although still short of breath 24 hour urine output documented at 3.1 L. Objective - Vital Signs Vital signs: Vital Signs Temp 97.9 F 10/26/21 08:00 Pulse 86 10/26/21 11:40 Resp 18 10/26/21 11:40 BP 84/50 10/26/21 11:42 Pulse Ox 95 10/26/21 11:40 Intake & Output 10/25/21 10/26/21 10/26/21 18:59 06:59 18:59 Intake Total 240 456.314 Output Total 1350 1825 Balance -1110 -1368.686 Weight 82.5 kg 82.5 kg Intake: Intake, IV Titration 219.314 Amount DOBUTamine DRIP 500 mg In 219.314 Dextrose/Water 1 250ml. bag @ 2.5 MCG/KG/MIN 6.36 mls/hr IV .Q24H [facility] Rx#: [id number] Oral 240 237 Output: Urine 1350 1825 Other: Voiding Method External Catheter External Catheter # Voids 800 # Bowel Movements 2 - Exam Awake, comfortable Mildly short of breath Examination of the heart S1 and S2 Examination lungs decreased breath sounds at the bases with basilar crackles Abdomen is soft nontender Examination lower extremity shows edema 2+ bilaterally DIABETES NURSE exam grossly intact - Labs CBC & Chem 7: 10/26/21 10:42 10/26/21 10:42 Labs: Abnormal Lab Results - Last 24 Hours (Table) 10/25/21 10/26/21 10/26/21 Range/Units 15:27 00:18 10:42 WBC (3.8-10.6) k/uL RBC (4.30-5.90) m/uL Hgb (13.0-17.5) gm/dL Hct (39.0-53.0) % MCV (80.0-100.0) fL Neutrophils # (1.3-7.7) k/uL Lymphocytes # (1.0-4.8) k/uL Sodium 129 L 127 L 130 L (137-145) mmol/L Potassium 3.4 L (3.5-5.1) mmol/L Chloride 95 L 95 L (98-107) mmol/L Carbon Dioxide 19 L (22-30) mmol/L Creatinine 0.58 L 0.55 L 0.59 L (0.66-1.25) mg/dL Glucose 137 H 131 H 122 H (74-99) mg/dL Calcium 7.8 L 7.6 L 7.8 L (8.4-10.2) mg/dL 10/26/21 Range/Units 10:42 WBC 24.1 H (3.8-10.6) k/uL RBC 3.30 L (4.30-5.90) m/uL Hgb 10.9 L (13.0-17.5) gm/dL Hct 33.5 L (39.0-53.0) % MCV 101.4 H (80.0-100.0) fL Neutrophils # 21.7 H (1.3-7.7) k/uL Lymphocytes # 0.9 L (1.0-4.8) k/uL Sodium (137-145) mmol/L Potassium (3.5-5.1) mmol/L Chloride (98-107) mmol/L Carbon Dioxide (22-30) mmol/L Creatinine (0.66-1.25) mg/dL Glucose (74-99) mg/dL Calcium (8.4-10.2) mg/dL Microbiology - Last 24 Hours (Table) 10/20/21 18:51 Blood Culture - Preliminary Blood No Growth after 120 hours 10/20/21 18:28 Blood Culture - Preliminary Blood No Growth after 120 hours Assessment and Plan Assessment: 1. Hypervolemic hyponatremia maintained on IV Lasix and receiving Samsca almost on a daily basis 2. UTI with sepsis urine culture grew E. coli, maintained on ceftriaxone 3. Hypothyroidism 4. History of non-small cell lung cancer in 2016 status post radiation therapy, CT of the chest in July 2021 unchanged from December 2020. 5. Chronic A. fib maintained on eliquis 6. Coronary artery disease status post coronary artery bypass surgery 7. Severe ischemic cardiomyopathy with ejection fraction 20-25% 8. Acute on chronic systolic CHF Plan: Continue with IV Lasix Repeat Samsca Repeat labs in a.m.
--- NOTE | 2021-10-26 17:43 | CT ---
EXAMINATION TYPE: CT lower leg LT w con DATE OF EXAM: 10/26/2021 COMPARISON: None HISTORY: Leg weakness, pain. CT DLP: mGycm Automated exposure control for dose reduction was used. CONTRAST: Performed with IV Contrast, patient injected with mL of Isovue 300. Images obtained from the level of the left iliac crest to the proximal tibia with IV contrast. The co ntrast was Isovue 100 mL. FINDINGS: The left iliac bone is intact. Sacroiliac joint is intact. Left hip joint space is fairly normal. The re is subcutaneous edema around the left thigh. The femur is intact. Knee joint appears intact. There is calcification of the menisci at the knee. No evidence of hip fracture. There is complex fluid collection involving the proximal medial upper thigh with air bubbles. This me asures approximately 9 x 18 cm. There are septations. Complex collection extends to the obturator ext ernus muscle. There is continuity with the pelvis and complex fluid and air bubbles seen on the left lateral pelvic sidewall. This is consistent with large extensive abscess. There is peritoneal air-flu id level in the anterior lower abdomen anterior to the sigmoid colon. There is wall thickening of the sigmoid colon. There is complex mass with air-fluid levels that appears to be extraluminal in the mi d pelvis near the midline and posterior to the sigmoid colon. This measures approximately 7 cm in ton meter. Pelvic side wall complex fluid measures 3 cm in thickness and extends posteriorly into the pre sacral region. IMPRESSION: Large complex mass in the proximal thigh extending into the left side pelvis consistent with a large abscess multiple loculations. There is also air-fluid levels in complex fluid seen in the peritoneal cavity in the pelvis anterior to the urinary bladder and posterior to the sigmoid colon consistent wi th multiple abscesses. No focal bone destruction. No fracture seen. Subcutaneous edema around the left thigh.
--- NOTE | 2021-10-26 17:59 | CT ---
EXAMINATION TYPE: CT lumbar spine w con DATE OF EXAM: 10/26/2021 COMPARISON: None HISTORY: Leg weakness, pain. CT DLP: 1713.2 mGycm Automated exposure control for dose reduction was used. CONTRAST: Performed with IV Contrast, patient injected with 100 mL of Isovue 300. Images obtained from the level of T11 to the S3 vertebra with IV contrast Isovue 100 mL. FINDINGS: Lumbar vertebrae have fairly normal alignment. There is degenerative moderate disc space narrowing at L2-3 and L4-5 with vacuum disc and spur formation. No compression fracture. There is large epidural density at L3-4 on the right side consistent with large lateral disc herniation impinging on the late ral recess and neural foramen. This measures 17 x 7 mm. There is no lumbar paraspinal mass. Posterior elements are intact. Sacroiliac joints are intact. There is presacral complex fluid with air bubbles. There is also complex fluid in the left lateral pe lvis with air bubbles consistent with multifocal abscess. There is also 7 cm complex mass in the mid pelvis anterior to the upper sacrum consistent with additional abscess. There is wall thickening of t he sigmoid colon and consistent with colitis and diverticulitis. IMPRESSION: Multilevel spondylotic changes. Large lateral right side L3-4 lumbar disc herniation. Extruded disc f ragment seen along the posterior right lateral aspect of the L3 vertebral body. No evidence of osteom yelitis. No fracture. Complex fluid in the pelvis consistent with multiloculated abscess. Large left pleural effusion and small right pleural effusion are noted.
[2021-10-26] MEDS ORDERED: VANCOMYCIN IV PER PHARMACY 1 EACH MISC MISCELLANE PRN (18:01)
--- NOTE | 2021-10-26 18:27 | CT ---
EXAMINATION TYPE: CT lower extremity RT w con DATE OF EXAM: 10/26/2021 COMPARISON: None HISTORY: Right lower extremity cellulitis, rule out abscess. CT DLP: 155.4 mGycm Automated exposure control for dose reduction was used. CONTRAST: Performed with IV Contrast, patient injected with mL of Isovue 300. Images obtained from the distal tibia to the bottom of the foot with IV contrast. The metatarsals are intact. The toes appear intact. I see no focal bone destruction. There is some sp urring at the first MP joint. Subtalar joint is intact. I see no focal bone destruction. No pathologi c fluid collection. There is mild subcutaneous edema of the forefoot on the dorsum of the foot. IMPRESSION: There is some mild subcutaneous edema. No evidence of an abscess. No fracture. No sign of osteomyelit is.
[2021-10-26] MEDS ORDERED: VANCOMYCIN 1,500 MG in SODIUM CHLORIDE 0.9% 250 ML IVPB ONE (18:30)
[2021-10-26] MEDS ORDERED: MEROPENEM 500 MG in SODIUM CHLORIDE 0.9% 100 ML IVPB SCH (20:00)
[2021-10-26] MEDS: CEFEPIME 1 GM in SODIUM CHLORIDE 0.9% 50 ML IVPB SCH (21:40)
[2021-10-27] MEDS: HYDROcodone/APAP 5-325MG 1 EACH TAB PO PRN ×3 (00:59→21:04)
[2021-10-27 06:09] LABS: Glucose,Whole Blood 105 mg/dL (75-99)
[2021-10-27] MEDS: VANCOMYCIN 1,500 MG in SODIUM CHLORIDE 0.9% 250 ML IVPB SCH ×2 (06:14→17:26)
[2021-10-27] MEDS: PANTOPRAZOLE 40 MG TABLET PO SCH (06:14)
[2021-10-27] MEDS: MIDODRINE 5 MG TAB PO SCH ×3 (06:14→17:26)
[2021-10-27] MEDS: LEVOTHYROXINE 75 MCG TAB PO SCH (06:14)
[2021-10-27] MEDS: IPRATROPIUM 0.5 MG/2.5 ML NEBU INHALATION SCH ×4 (07:44→21:33)
[2021-10-27] MEDS: FUROSEMIDE 10 MG/ML 4 ML VIAL IV SCH ×2 (08:44→19:58)
[2021-10-27 09:01] LABS: Basophils # (A) 0.2 k/uL (0-0.2); Basophils % (A) 1 %; Eosinophils # (A) 0.1 k/uL (0-0.7); Eosinophils % (A) 0 %; HCT 35.6 % (39.0-53.0); HGB 11.2 gm/dL (13.0-17.5); Lymphocytes # (A) 0.9 k/uL (1.0-4.8); Lymphocytes % (A) 3 %; MCHC 31.6 g/dL (31.0-37.0); MCV 101.4 fL (80.0-100.0); Macrocytosis Slight; Mean Platelet Volume 7.5; Monocytes # (A) 1.8 k/uL (0-1.0); Monocytes % (A) 7 %; Neutrophils # (A) 23.4 k/uL (1.3-7.7); Neutrophils % (A) 88 %; Platelet Count 327 k/uL (150-450); RBC 3.51 m/uL (4.30-5.90); RDW 13.9 % (11.5-15.5); WBC 26.7 k/uL (3.8-10.6)
[2021-10-27 09:19] LABS: African American GFR (CKD) >90 (>60 ml/min/1.73 sqM); Anion Gap 7 mmol/L; Blood Urea Nitrogen 11 mg/dL (9-20); Calcium 7.2 mg/dL (8.4-10.2); Carbon Dioxide 25 mmol/L (22-30); Chloride 98 mmol/L (98-107); Glucose 86 mg/dL (74-99); Non-African American GFR(CKD) >90 (>60 ml/min/1.73 sqM); Potassium 3.7 mmol/L (3.5-5.1); Sodium 130 mmol/L (137-145)
[2021-10-27] MEDS: ASPIRIN 81 MG PO SCH (09:28)
[2021-10-27] MEDS: ATORVASTATIN 80 MG TAB PO SCH (09:28)
[2021-10-27] MEDS: CEFEPIME 1 GM in SODIUM CHLORIDE 0.9% 50 ML IVPB SCH ×2 (09:28→19:58)
--- NOTE | 2021-10-27 10:32 | P.PN ---
Subjective Progress Note Date: 10/27/21 Patient's sodium has improved to 130. Good UOP of 2.5L overnight. Patient underwent CT of the lumbar spine and bilateral lower extremities, which demonstrated multiple abscesses in the left lower extremity as well as the pelvic area. Surgery, infectious disease were consulted. Blood cultures redrawn. Antibiotics broadened to vancomycin, cefepime Gen: awake, alert HEENT: normocephalic, atraumatic, good hearing acuity, moist mucous membranes Resp: good air exchange, breathing comfortably with no accessory muscle use CVS: good distal perfusion x 4, GI: soft, NTTP, ND : Positive SPT, no CVAT, domingo catheter is present MSK: no pitting edema, no clubbing Neuro: non-focal, moving all extremities Psych: cooperative, euthymic mood Assessment/plan: Severe septic shock Complicated urinary tract infection, improving Multiple pelvic and lower extremity abscesses Diverticulitis and sigmoid colitis Mild anemia denies GI bleeding. On fluid restriction, nephrology is following Follow-up cultures; E coli on UCx, mostly sensitive, resistant to cipro Follow-up blood cultures Vancomycin, cefepime Infectious disease consult Surgery consult Severe Acute Hypervolemic hyponatremia Cardiogenic Shock requiring pressors, improving Acute on Chronic Systolic Heart Failure, EF 20% with AICD Transfer to on 10/24 for midodrine Continue lasix 40mg IV BID Nephrology/cardiology following Continue holding amlodipine, lisinopril Holding metoprolol Monitor sodium twice a day, BMP daily Rec'd multiple doses of tolvaptan, last 10/24 Renal ultrasounds showed no evidence of obstructive uropathy, incidental finding of cholelithiasis asymptomatic Diarrhea Antibiotic induced, likely C diff EIA negative Add loperamide Patient is no code DVT prophylaxis patient is on eliquis for A. fib Anticipated length of stay more than 2 midnights Objective - Vital Signs Vital signs: Vital Signs Temp 97.3 F L 10/27/21 08:00 Pulse 103 H 10/27/21 08:00 Resp 20 10/27/21 08:00 BP 105/60 10/27/21 08:00 Pulse Ox 96 10/27/21 08:00 Intake & Output 10/26/21 10/27/21 10/27/21 18:59 06:59 18:59 Intake Total 118 Output Total 1325 1330 550 Balance -1207 -1330 -550 Weight 82.5 kg 82.5 kg Intake: Oral 118 Output: Urine 9862 7150 550 Other: Voiding Method External Catheter Urinal - Labs CBC & Chem 7: 10/27/21 08:28 10/27/21 08:28 Labs: Abnormal Lab Results - Last 24 Hours (Table) 10/26/21 10/26/21 10/27/21 Range/Units 10:42 10:42 06:08 WBC 24.1 H (3.8-10.6) k/uL RBC 3.30 L (4.30-5.90) m/uL Hgb 10.9 L (13.0-17.5) gm/dL Hct 33.5 L (39.0-53.0) % MCV 101.4 H (80.0-100.0) fL Neutrophils # 21.7 H (1.3-7.7) k/uL Lymphocytes # 0.9 L (1.0-4.8) k/uL Monocytes # (0-1.0) k/uL Sodium 130 L (137-145) mmol/L Chloride 95 L (98-107) mmol/L Creatinine 0.59 L (0.66-1.25) mg/dL Glucose 122 H (74-99) mg/dL POC Glucose (mg/dL) 105 H (75-99) mg/dL Calcium 7.8 L (8.4-10.2) mg/dL 10/27/21 10/27/21 Range/Units 08:28 08:28 WBC 26.7 H (3.8-10.6) k/uL RBC 3.51 L (4.30-5.90) m/uL Hgb 11.2 L (13.0-17.5) gm/dL Hct 35.6 L (39.0-53.0) % MCV 101.4 H (80.0-100.0) fL Neutrophils # 23.4 H (1.3-7.7) k/uL Lymphocytes # 0.9 L (1.0-4.8) k/uL Monocytes # 1.8 H (0-1.0) k/uL Sodium 130 L (137-145) mmol/L Chloride (98-107) mmol/L Creatinine 0.55 L (0.66-1.25) mg/dL Glucose (74-99) mg/dL POC Glucose (mg/dL) (75-99) mg/dL Calcium 7.2 L (8.4-10.2) mg/dL Microbiology - Last 24 Hours (Table) 10/20/21 18:51 Blood Culture - Final Blood No Growth after 144 hours 10/20/21 18:28 Blood Culture - Final Blood No Growth after 144 hours
[2021-10-27] MEDS ORDERED: TOLVAPTAN 15 MG 1/2 TABLET PO ONE (12:18)
--- NOTE | 2021-10-27 12:18 | P.PN ---
Subjective Patient is seen for follow-up for hypervolemic hyponatremia. Patient has underlying systolic CHF. Currently maintained on dobutamine and receiving IV Lasix. Patient has also been getting Samsca. Sodium is staying around 1:30 Overall patient states he is feeling better, although still short of breath 24 hour urine output documented at 2.6 L. Objective - Vital Signs Vital signs: Vital Signs Temp 97.5 F L 10/27/21 11:48 Pulse 100 10/27/21 11:48 Resp 20 10/27/21 11:48 BP 106/62 10/27/21 11:48 Pulse Ox 97 10/27/21 11:48 Intake & Output 10/26/21 10/27/21 10/27/21 18:59 06:59 18:59 Intake Total 118 Output Total 1325 1330 550 Balance -1207 -1330 -550 Weight 82.5 kg 82.5 kg Intake: Oral 118 Output: Urine 1325 1330 550 Other: Voiding Method External Catheter Urinal Urinal - Exam Awake, comfortable Mildly short of breath Examination of the heart S1 and S2 Examination lungs decreased breath sounds at the bases with basilar crackles Abdomen is soft nontender Examination lower extremity shows edema 2+ bilaterally 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 - Labs CBC & Chem 7: 10/27/21 08:28 10/27/21 08:28 Labs: Abnormal Lab Results - Last 24 Hours (Table) 10/27/21 10/27/21 10/27/21 Range/Units 06:08 08:28 08:28 WBC 26.7 H (3.8-10.6) k/uL RBC 3.51 L (4.30-5.90) m/uL Hgb 11.2 L (13.0-17.5) gm/dL Hct 35.6 L (39.0-53.0) % MCV 101.4 H (80.0-100.0) fL Neutrophils # 23.4 H (1.3-7.7) k/uL Lymphocytes # 0.9 L (1.0-4.8) k/uL Monocytes # 1.8 H (0-1.0) k/uL Sodium 130 L (137-145) mmol/L Creatinine 0.55 L (0.66-1.25) mg/dL POC Glucose (mg/dL) 105 H (75-99) mg/dL Calcium 7.2 L (8.4-10.2) mg/dL Microbiology - Last 24 Hours (Table) 10/20/21 18:51 Blood Culture - Final Blood No Growth after 144 hours 10/20/21 18:28 Blood Culture - Final Blood No Growth after 144 hours Assessment and Plan Assessment: 1. Hypervolemic hyponatremia maintained on IV Lasix and receiving Samsca almost on a daily basis 2. UTI with sepsis urine culture grew E. coli, maintained on ceftriaxone 3. Hypothyroidism 4. History of non-small cell lung cancer in 2016 status post radiation therapy, CT of the chest in July 2021 unchanged from December 2020. 5. Chronic A. fib maintained on eliquis 6. Coronary artery disease status post coronary artery bypass surgery 7. Severe ischemic cardiomyopathy with ejection fraction 20-25% 8. Acute on chronic systolic CHF Plan: Continue with IV Lasix Repeat Samsca
--- NOTE | 2021-10-27 12:50 | P.GSCN ---
History of Present Illness Consult date: 10/27/21 History of present illness: CHIEF COMPLAINT: Weakness with urinary symptoms HISTORY OF PRESENT ILLNESS: This is a 76-year-old male who presented with dysuria and weakness. He was found to have UTI with sepsis. He has been on antibiotics. Patient reports over the last 3 days he has had increased pain in his left thigh. Also had noted firmness to the area and warmth. Computed tomography scan of the left lower leg had shown a large complex mass in the proximal thigh extending into the left side of the pelvis consistent with a large abscess and multiple loculations. There is also air fluid levels and complex fluid seen in the peritoneal cavity in the pelvis anterior to the urinary bladder and posterior to the sigmoid colon consistent with multiple abscesses. Patient reports having difficulty with ambulating. He has had elevated white count. Patient denies any fever chills or sweats. Denies having any prior history of abscess. There is no drainage noted from the leg. Patient denies abdominal pain. Patient denies any injury to the left leg. He has been having loose bowel movements. Stool for C. diff was negative. He is tolerating diet. Patient does have a medical history of atrial fibrillation anticoagulated with Eliquis and this is on hold. Last dose of Eliquis was 10/27/2019 2 in the AM. Prior history of lung cancer status post radiation treatment and history of CABG, heart myopathy with an EF of 20-25% and AICD placement. PAST MEDICAL HISTORY: See list. PAST SURGICAL HISTORY: See list. MEDICATIONS: See list. ALLERGIES: See list. SOCIAL HISTORY: No illicit drug use. REVIEW OF SYSTEMS: CONSTITUTIONAL: Denies fever or chills. HEENT: Denies blurred vision, vision changes, or eye pain. Denies hemoptysis ENDOCRINE: Denies heat or cold intolerance. CARDIOVASCULAR: Denies chest pain or pressure. RESPIRATORY: No shortness of breath. GASTROINTESTINAL: Denies abdominal pain. Denies nausea or vomiting. NEURO: Denies history of seizures. PSYCH: No depression or suicidal ideation HEMATOLOGIC: Denies bleeding disorders. LYMPHATIC: The patient denies any lumps and bumps around the neck. GENITOURINARY: Denies any blood in urine or increased urinary frequency. MUSCULOSKELETAL: Denies myalgias. Denies joint swelling. Denies decreased range of motion beyond patients baseline. SKIN: Denies pruitis. Denies rash. PHYSICAL EXAM: VITAL SIGNS: Reviewed GENERAL: Well-developed in no acute distress. HEENT: No sclera icterus. Extraocular movements grossly intact. Moist buccal mucosa. Head is atraumatic, normocephalic. Hears conversational speech. No nasal drainage. NECK: Supple without lymphadenopathy. CHEST: Non-labored respirations and equal bilateral excursions. CARDIOVASCULAR: Palpable 2+ radial pulses. ABDOMEN: Soft. Nondistended. Tenderness with palpation of the lower left abdomen MUSCULOSKELETAL: No clubbing or cyanosis. NEUROLOGIC: No focal or lateralizing signs. Cranial nerves II through XII grossly intact. PSYCH: Appropriate affect. Alert and oriented to person, place and time. SKIN: Well perfused. Good skin turgor. Extremities: Left medial thigh tender with palpation evidence of erythema and indurated. LABORATORY DATA: WBC elevated from 24.1-26.7 hemoglobin 11.2 platelets 327 Sodium 130 potassium 3.7 creatinine 0.55 Stool for C. diff negative IMAGING: Computed tomography scan of the left lower leg had shown a large complex mass in the proximal thigh extending into the left side of the pelvis consistent with a large abscess and multiple loculations. There is also air fluid levels and complex fluid seen in the peritoneal cavity in the pelvis anterior to the urina ry bladder and posterior to the sigmoid colon consistent with multiple abscesses. No focal bone destruction. No fracture seen. Subcutaneous edema around the left thigh Computed tomography scan of lumbar spine multilevel spondylitic changes. Large lateral right sided L3 to L4 lumbar disc herniation. Extruded disc fragment seen along the posterior right lateral aspect of the L3 vertebral body. No evidence of osteomyelitis. No fracture. Complex fluid in the pelvis consistent with multiloculated abscess. Large left pleural effusion and small right pleural effusion noted. CT right lower extremity there is mild subcutaneous edema. No evidence of abscess. No fracture. No osteomyelitis. ASSESSMENT: 1. Multiloculated abscesses in the pelvis 2. Left large complex mass in the proximal thigh 3. History of ischemic cardiomyopathy with EF of 20-25% status post AICD 4. Atrial fibrillation anticoagulated with Eliquis 5. history of CABG 6. UTI with sepsis PLAN: -Follow up on computed tomography scan of the abdomen and pelvis results -Further recommendations forthcoming per surgeon regarding CAT scan results -Continue IV antibiotics -Continue supportive care -Keep Eliquis on hold Thank you for this consultation Physician Wrecking Supervisor note has been reviewed by physician. Signing provider agrees with the documented findings, assessment, and plan of care. Past Medical History Past Medical History: Atrial Fibrillation, Coronary Artery Disease (CAD), Cancer, COPD, Hyperlipidemia, Hypertension, Myocardial Infarction (CO), Osteoarthritis (OA), Pneumonia, Prostate Disorder, Sleep Apnea/CPAP/BIPAP, Thyroid Disorder Additional Past Medical History / Comment(s): cardiomyopathy. 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 pacemaker/aicd pt stated has had x4 last changed Past Anesthesia/Blood Transfusion Reactions: No Reported Reaction Additional Past Anesthesia/Blood Transfusion Reaction / Comm: has had blood transfusion in past-no reaction. Type of Cardiac Device: Permanent Pacemaker, AICD Device Placement Date:: changed last Past Psychological History: No Psychological Hx Reported Smoking Status: Former smoker Past Alcohol Use History: Daily Past Drug Use History: None Reported - Past Family History Mother Family Medical History: Chest Pain / Angina, Coronary Artery Disease (CAD) Additional Family Medical History / Comment(s): at age 92 from lung infection Father History Unknown: Yes Medications and Allergies Home Medications Medication Instructions Recorded Confirmed Type Apixaban [Eliquis] 5 mg PO BID 04/09/18 10/20/21 History Aspirin EC [Ecotrin Low Dose] 81 mg PO DAILY 04/09/18 10/20/21 History Furosemide [Lasix] 80 mg PO DAILY 04/09/18 10/20/21 History Levothyroxine Sodium [Synthroid] 75 mcg PO DAILY 04/09/18 10/20/21 History Potassium Chloride ER [K-Dur 20] 20 meq PO DAILY 04/09/18 10/20/21 History Tamsulosin [Flomax] 0.4 mg PO DAILY 04/09/18 10/20/21 History Turmeric Root Extract [Turmeric] 500 mg PO DAILY 04/09/18 10/20/21 History Metoprolol Succinate (ER) [Toprol 50 mg PO DAILY #30 tab.er.24h 05/26/19 10/20/21 Rx XL] Atorvastatin Calcium [Lipitor] 80 mg PO DAILY 10/20/21 10/20/21 History Ramipril [Altace] 5 mg PO DAILY 10/20/21 10/20/21 History Spironolactone [Aldactone] 25 mg PO DAILY 10/20/21 10/20/21 History Tiotropium [place] [Spiriva] 1 cap INHALATION RT-DAILY 10/20/21 10/20/21 History Albuterol Nebulized [Ventolin 2.5 mg INHALATION Q6H PRN 10/21/21 10/21/21 History Nebulized] Allergies Allergy/AdvReac Type Severity Reaction Status Date / Time Penicillins Allergy Rash/Hives Verified 10/20/21 21:09 Sulfa (Sulfonamide Allergy Rash/Hives Verified 10/20/21 21:09 Antibiotics) Surgical - Exam Vital Signs Temp Pulse Resp BP Pulse Ox 96.9 F L 69 20 81/50 97 10/20/21 17:45 10/20/21 17:45 10/20/21 17:45 10/20/21 17:45 10/20/21 17:45 Results - Labs 10/27/21 08:28 10/27/21 08:28 Abnormal Lab Results - Last 24 Hours (Table) 10/26/21 10/26/21 10/27/21 Range/Units 10:42 10:42 06:08 WBC 24.1 H (3.8-10.6) k/uL RBC 3.30 L (4.30-5.90) m/uL Hgb 10.9 L (13.0-17.5) gm/dL Hct 33.5 L (39.0-53.0) % MCV 101.4 H (80.0-100.0) fL Neutrophils # 21.7 H (1.3-7.7) k/uL Lymphocytes # 0.9 L (1.0-4.8) k/uL Monocytes # (0-1.0) k/uL Sodium 130 L (137-145) mmol/L Chloride 95 L (98-107) mmol/L Creatinine 0.59 L (0.66-1.25) mg/dL Glucose 122 H (74-99) mg/dL POC Glucose (mg/dL) 105 H (75-99) mg/dL Calcium 7.8 L (8.4-10.2) mg/dL 10/27/21 10/27/21 Range/Units 08:28 08:28 WBC 26.7 H (3.8-10.6) k/uL RBC 3.51 L (4.30-5.90) m/uL Hgb 11.2 L (13.0-17.5) gm/dL Hct 35.6 L (39.0-53.0) % MCV 101.4 H (80.0-100.0) fL Neutrophils # 23.4 H (1.3-7.7) k/uL Lymphocytes # 0.9 L (1.0-4.8) k/uL Monocytes # 1.8 H (0-1.0) k/uL Sodium 130 L (137-145) mmol/L Chloride (98-107) mmol/L Creatinine 0.55 L (0.66-1.25) mg/dL Glucose (74-99) mg/dL POC Glucose (mg/dL) (75-99) mg/dL Calcium 7.2 L (8.4-10.2) mg/dL Microbiology - Last 24 Hours (Table) 10/20/21 18:51 Blood Culture - Final Blood No Growth after 144 hours 10/20/21 18:28 Blood Culture - Final Blood No Growth after 144 hours Diabetes panel 10/26/21 10/27/21 Range/Units 10:42 08:28 Sodium 130 L 130 L (137-145) mmol/L Potassium 4.1 3.7 (3.5-5.1) mmol/L Chloride 95 L 98 (98-107) mmol/L Carbon Dioxide 23 25 (22-30) mmol/L BUN 11 11 (9-20) mg/dL Creatinine 0.59 L 0.55 L (0.66-1.25) mg/dL Glucose 122 H 86 (74-99) mg/dL Calcium 7.8 L 7.2 L (8.4-10.2) mg/dL Calcium panel 10/26/21 10/27/21 Range/Units 10:42 08:28 Calcium 7.8 L 7.2 L (8.4-10.2) mg/dL Pituitary panel 10/26/21 10/27/21 Range/Units 10:42 08:28 Sodium 130 L 130 L (137-145) mmol/L Potassium 4.1 3.7 (3.5-5.1) mmol/L Chloride 95 L 98 (98-107) mmol/L Carbon Dioxide 23 25 (22-30) mmol/L BUN 11 11 (9-20) mg/dL Creatinine 0.59 L 0.55 L (0.66-1.25) mg/dL Glucose 122 H 86 (74-99) mg/dL Calcium 7.8 L 7.2 L (8.4-10.2) mg/dL Adrenal panel 10/26/21 10/27/21 Range/Units 10:42 08:28 Sodium 130 L 130 L (137-145) mmol/L Potassium 4.1 3.7 (3.5-5.1) mmol/L Chloride 95 L 98 (98-107) mmol/L Carbon Dioxide 23 25 (22-30) mmol/L BUN 11 11 (9-20) mg/dL Creatinine 0.59 L 0.55 L (0.66-1.25) mg/dL Glucose 122 H 86 (74-99) mg/dL Calcium 7.8 L 7.2 L (8.4-10.2) mg/dL
[2021-10-27] MEDS: metroNIDAZOLE-NS PMX 500 MG in SALINE 1 100ML.BAG IVPB SCH ×3 (15:13→22:44)
[2021-10-27] MEDS: IOPAMIDOL CONTRAST (ORAL USE) VIAL PO PRN ×2 (15:15→16:22)
--- NOTE | 2021-10-27 18:30 | CT ---
EXAMINATION TYPE: CT abdomen pelvis wo/w con CT DLP: 1943.5 mGycm, Automated exposure control for dose reduction was used. DATE OF EXAM: 10/27/2021 5:09 PM COMPARISON: CT abdomen pelvis most recent from . CLINICAL INDICATION:Male, 76 years old with history of Multiple leg and abdominal abscesses; Multiple leg and abdominal abscesses. TECHNIQUE: Standard CT of the abdomen and pelvis following the administration of 100 cc of Isovue 3 00 IV contrast material. Coronal and sagittal reformats were performed. FINDINGS: LOWER CHEST: The heart is enlarged for size. There is coronary artery density which could represent s tents versus atelectasis. Cardiac conduction leads are present. There is small left pleural effusion with associated atelectasis. Mild gynecomastia changes are present. ABDOMEN LIVER: Unremarkable GALLBLADDER AND BILE DUCTS: Layering increased densities within the lumen consistent with gallstones are present. PANCREAS: Unremarkable. SPLEEN: Unremarkable. ADRENAL GLANDS: Unremarkable. KIDNEYS AND URETERS: No evidence of hydronephrosis or renal calculus. The ureters are unremarkable. PELVIS BLADDER: Unremarkable REPRODUCTIVE: Unremarkable. ABDOMEN & PELVIS STOMACH AND BOWEL: There is a short segment of sigmoid colon wall thickening with multiple colonic di verticulosis area. Wall measuring up to at least 14 mm however evaluation is slightly limited given o f the fat stranding changes. Upstream to this section is moderate to large stool burden. Multiple int ra-abdominal fluid collections consistent with abscess identified. Examples include, 55 x 46 x 58 mm with multiple foci of gas just superior to the segment of wall thickening of the sigmoid colon. Addit ional fluid collection within the left pelvis measuring at least 100 x 50 x 30 mm and containing mult iple foci of gas. Lastly foci of gas and fluid tracking to into the medial left thigh measures at hoa st at least 80 x 50 x 33 mm that extends from the superior pubic ramus and nearly out of the field-of -view. PERITONEUM: Fluid collections as described above. VASCULATURE: No evidence of aortic aneurysm. Moderate to severe atherosclerosis. MUSCULOSKELETAL: No acute osseous abnormalities. Multilevel disc degeneration changes throughout the spine. LYMPH NODES: No gross evidence for lymphadenopathy. SOFT TISSUE/ABDOMINAL WALL: Ventral wall hernia containing fat measuring 25 mm at the neck. Surgical clips are seen within the left inguinal canal. The inguinal hernia on the left. There is anasarca of the soft tissues most pronounced in the left. IMPRESSION: 1. Findings of complicated sigmoid colitis/diverticulitis resulting in perforation with multiple abs cesses within the abdomen and tracking into the left medial thigh. 2. Moderate to large stool burden throughout the colon secondary to #1. 3. Cholelithiasis. 4. Postsurgical changes of the heart with cardiomegaly. 5. Small left pleural effusion.
--- NOTE | 2021-10-27 23:48 | P.CONS ---
History of Present Illness - Reason for Consult Consult date: 10/27/21 Intra-abdominal abscess Requesting physician: Sandor Hernandez - Chief Complaint Weakness x few days - History of Present Illness Patient is a 76-year male presenting to the ER about a week ago for evaluation of dysuria and this patient apparently has been treated in outpatient setting with antibiotic the patient was not sure about the name patient also complaining of increasing fatigue and generalized weakness but no clear history of any fever no nausea no vomiting no abdominal pain or any diarrhea patient on presentation to the hospital was afebrile and no fever have been recorded during this hospital stay patient did have white count of 30,000 on admission with a left shift creatinine has been normal patient did have positive UA urine did grow E. coli and the patient has been evaluated and treated by medical team in addition to the pulmonary cardiology and nephrology services patient did have renal ultrasound no obstructive uropathy incidental cholelithiasis patient did have a CT of the lumbar sacral spine which did shows evidence of L3-4 lumbar disc herniation and there was concern for complex pelvic area multifocal abscesses patient biotic adjusted to cefepime and vancomycin infectious disease was consulted for further management of antibiotic therapy patient currently denies having abdominal pain but denies any nausea no vomiting and no diarrhea or constipation Review of Systems Positive point has been mentioned in the HPI rest of the systems are negative Past Medical History Past Medical History: Atrial Fibrillation, Coronary Artery Disease (CAD), Cancer, COPD, Hyperlipidemia, Hypertension, Myocardial Infarction (LA), Osteoarthritis (OA), Pneumonia, Prostate Disorder, Sleep Apnea/CPAP/BIPAP, Thyroid Disorder Additional Past Medical History / Comment(s): cardiomyopathy. dx in 2015 w/non small cell lung cancer rt upper lobe-received radiation tx Last Myocardial Infarction Date:: 1996 History of Any Multi-Drug Resistant Organisms: None Reported Past Surgical History: AICD, Coronary Bypass/CABG, Heart Catheterization, Hernia Repair, Orthopedic Surgery, Pacemaker, Tonsillectomy Additional Past Surgical History / Comment(s): partial thyroidectomy, x2 cabg sx first one 5 vessels done and 2nd one 2 vessles done, rt inguinal hernia repair, rt knee arthroscopy and 2nd sx on the ligaments, colonoscopy-neg. pacemaker/aicd pt stated has had x4 last changed -2017 Past Anesthesia/Blood Transfusion Reactions: No Reported Reaction Additional Past Anesthesia/Blood Transfusion Reaction / Comm: has had blood transfusion in past-no reaction. Type of Cardiac Device: Permanent Pacemaker, AICD Device Placement Date:: changed last Past Psychological History: No Psychological Hx Reported Smoking Status: Former smoker Past Alcohol Use History: Daily Past Drug Use History: None Reported - Past Family History Mother Family Medical History: Chest Pain / Angina, Coronary Artery Disease (CAD) Additional Family Medical History / Comment(s): at age 92 from lung infection Father History Unknown: Yes Medications and Allergies Home Medications Medication Instructions Recorded Confirmed Type Apixaban [Eliquis] 5 mg PO BID 04/09/18 10/20/21 History Aspirin EC [Ecotrin Low Dose] 81 mg PO DAILY 04/09/18 10/20/21 History Furosemide [Lasix] 80 mg PO DAILY 04/09/18 10/20/21 History Levothyroxine Sodium [Synthroid] 75 mcg PO DAILY 04/09/18 10/20/21 History Potassium Chloride ER [K-Dur 20] 20 meq PO DAILY 04/09/18 10/20/21 History Tamsulosin [Flomax] 0.4 mg PO DAILY 04/09/18 10/20/21 History Turmeric Root Extract [Turmeric] 500 mg PO DAILY 04/09/18 10/20/21 History Metoprolol Succinate (ER) [Toprol 50 mg PO DAILY #30 tab.er.24h 05/26/19 10/20/21 Rx XL] Atorvastatin Calcium [Lipitor] 80 mg PO DAILY 10/20/21 10/20/21 History Ramipril [Altace] 5 mg PO DAILY 10/20/21 10/20/21 History Spironolactone [Aldactone] 25 mg PO DAILY 10/20/21 10/20/21 History Tiotropium [place] [Spiriva] 1 cap INHALATION RT-DAILY 10/20/21 10/20/21 History Albuterol Nebulized [Ventolin 2.5 mg INHALATION Q6H PRN 10/21/21 10/21/21 History Nebulized] Allergies Allergy/AdvReac Type Severity Reaction Status Date / Time Penicillins Allergy Rash/Hives Verified 10/20/21 21:09 Sulfa (Sulfonamide Allergy Rash/Hives Verified 10/20/21 21:09 Antibiotics) Physical Exam Vitals: Vital Signs Temp Pulse Resp BP BP Pulse Ox 10/27/21 08:00 97.3 F L 103 H 20 105/60 96 10/27/21 06:15 113/69 10/27/21 04:00 98.2 F 100 18 101/61 95 10/27/21 01:44 18 10/26/21 23:47 98.3 F 83 18 111/65 96 10/26/21 20:00 98.2 F 111 H 18 105/63 96 10/26/21 19:27 114/83 10/26/21 15:43 98.7 F 90 18 106/58 96 10/26/21 14:00 86 18 10/26/21 11:42 84/50 10/26/21 11:40 86 18 103/63 95 Intake and Output 10/26/21 10/27/21 10/27/21 22:59 06:59 14:59 Intake Total 118 Output Total 1605 650 550 Balance -8123 -650 550 Intake: Oral 118 Output: Urine 1605 650 550 Other: Voiding Method Urinal Urinal Weight 82.5 kg GENERAL DESCRIPTION: Elderly male lying in bed, no distress. No tachypnea or accessory muscle of respiration use. HEENT: Shows Pallor , no scleral icterus. Oral mucous membrane is dry. No pharyngeal erythema or thrush NECK: Trachea central, no thyromegaly. LUNGS: Unlabored breathing. Clear to auscultation anteriorly. No wheeze or crackle. HEART: S1, S2, regular rate and rhythm. No loud murmur ABDOMEN: Soft, mild distention but no significant tenderness guarding or rigidity EXTREMITIES: No edema of feet. SKIN: No rash, no masses palpable. NEUROLOGICAL: The patient is awake, alert, oriented x3, mood and affect normal. Results CBC & Chem 7: 10/27/21 08:28 10/27/21 08:28 Labs: Abnormal Lab Results - Last 24 Hours (Table) 10/26/21 10/26/21 10/27/21 Range/Units 10:42 10:42 06:08 WBC 24.1 H (3.8-10.6) k/uL RBC 3.30 L (4.30-5.90) m/uL Hgb 10.9 L (13.0-17.5) gm/dL Hct 33.5 L (39.0-53.0) % MCV 101.4 H (80.0-100.0) fL Neutrophils # 21.7 H (1.3-7.7) k/uL Lymphocytes # 0.9 L (1.0-4.8) k/uL Monocytes # (0-1.0) k/uL Sodium 130 L (137-145) mmol/L Chloride 95 L (98-107) mmol/L Creatinine 0.59 L (0.66-1.25) mg/dL Glucose 122 H (74-99) mg/dL POC Glucose (mg/dL) 105 H (75-99) mg/dL Calcium 7.8 L (8.4-10.2) mg/dL 10/27/21 10/27/21 Range/Units 08:28 08:28 WBC 26.7 H (3.8-10.6) k/uL RBC 3.51 L (4.30-5.90) m/uL Hgb 11.2 L (13.0-17.5) gm/dL Hct 35.6 L (39.0-53.0) % MCV 101.4 H (80.0-100.0) fL Neutrophils # 23.4 H (1.3-7.7) k/uL Lymphocytes # 0.9 L (1.0-4.8) k/uL Monocytes # 1.8 H (0-1.0) k/uL Sodium 130 L (137-145) mmol/L Chloride (98-107) mmol/L Creatinine 0.55 L (0.66-1.25) mg/dL Glucose (74-99) mg/dL POC Glucose (mg/dL) (75-99) mg/dL Calcium 7.2 L (8.4-10.2) mg/dL Microbiology - Last 24 Hours (Table) 10/20/21 18:51 Blood Culture - Final Blood No Growth after 144 hours 10/20/21 18:28 Blood Culture - Final Blood No Growth after 144 hours Assessment and Plan (1) Abscess Current Visit: Yes Status: Acute Code(s): L02.91 - CUTANEOUS ABSCESS, UNSPECIFIED SNOMED Code(s): 131071193 Plan: 1patient with evidence of multifocal pelvic abscess in this patient has been in the hospital for about a week with initial presentation hospital with generalized weakness and possible UTI did have some constipation and high clinical suspicious for possible diverticulitis with a peridiverticular abscess and need to cover for the enteric gram-negative both aerobes and anaerobes less likely gram-positive pathogen. 2patient with multiple antibiotic allergies that would limit the number of antibiotics safe to use. 3continue with cefepime will add Flagyl and discontinue vancomycin. 4we will wait for the general surgery evaluation for possible surgical versus IR drainage of these abscesses at which time deep cultures should be obtained. We will follow on clinical condition and cultures to further adjust medication if needed Thank you for this consultation will follow this patient along with you Time with Patient: Greater than 30
[2021-10-27] MEDS: CEFEPIME 2 GM in SODIUM CHLORIDE 0.9% 100 ML IVPB SCH (23:57)
[2021-10-28] MEDS ORDERED: CEFEPIME 2 GM in SODIUM CHLORIDE 0.9% 50 ML IVPB SCH ×2
[2021-10-28] MEDS: PANTOPRAZOLE 40 MG TABLET PO SCH (06:20)
[2021-10-28] MEDS: LEVOTHYROXINE 75 MCG TAB PO SCH (06:20)
[2021-10-28] MEDS: metroNIDAZOLE-NS PMX 500 MG in SALINE 1 100ML.BAG IVPB SCH ×2 (06:21→11:23)
[2021-10-28] MEDS: MIDODRINE 5 MG TAB PO SCH ×3 (06:21→16:50)
[2021-10-28] MEDS: FUROSEMIDE 10 MG/ML 4 ML VIAL IV SCH (08:43)
[2021-10-28] MEDS: IPRATROPIUM 0.5 MG/2.5 ML NEBU INHALATION SCH ×3 (09:28→14:22)
--- NOTE | 2021-10-28 10:20 | P.PN ---
Subjective Progress Note Date: 10/28/21 CHIEF COMPLAINT: Left leg pain and left lower abdominal pain HISTORY OF PRESENT ILLNESS: Surgical service following regards to patient's abdominal abscess. Patient had computed tomography scan of abdomen and pelvis completed showing findings of complicated sigmoid colitis/diverticulitis resulting in perforation with multiple abscesses within the abdomen and tracking into the left medial thigh. Moderate to large stool present throughout the colon secondary to #1. Cholelithiasis. Postsurgical changes of the heart with cardiomegaly. Small left pleural effusion. Patient does complain of left lower quadrant abdominal tenderness as well as pain in the left medial thigh. Patient denies any nausea vomiting. He is afebrile. WBC is 26.7 from yesterday. labs for today are pending PHYSICAL EXAM: VITAL SIGNS: Reviewed GENERAL: Well-developed in no acute distress. HEENT: No sclera icterus. Extraocular movements grossly intact. Moist buccal mucosa. Head is atraumatic, normocephalic. Hears conversational speech. No nasal drainage. NECK: Supple without lymphadenopathy. CHEST: Non-labored respirations and equal bilateral excursions. CARDIOVASCULAR: Palpable 2+ radial pulses. ABDOMEN: Soft. Nondistended. Tenderness to palpation left lower quadrant MUSCULOSKELETAL: No clubbing or cyanosis. NEUROLOGIC: No focal or lateralizing signs. Cranial nerves II through XII grossly intact. PSYCH: Appropriate affect. Alert and oriented to person, place and time. SKIN: Well perfused. Good skin turgor. Extremities: Left medial thigh tender with palpation evidence of erythema and indurated. ASSESSMENT: 1. Complicated sigmoid colitis/diverticulitis with resulting perforation and multiple abscesses within the abdomen and tracking into the left medial thigh 2. Left large complex mass in the proximal thigh 3. History of ischemic cardiomyopathy with EF of 20-25% status post AICD 4. Atrial fibrillation anticoagulated with Eliquis 5. history of CABG 6. UTI with sepsis PLAN: -Recommend patient to be transferred to a tertiary care center such as [facility] due to the multiple abscesses with involvement into the left thigh -Continue supportive care -Recommend to continue to hold Eliquis for possible surgical intervention at tertiary care center Physician Canopy Stringer note has been reviewed by physician. Signing provider agrees with the documented findings, assessment, and plan of care. Objective - Vital Signs Vital signs: Vital Signs Temp 97.7 F 10/28/21 08:10 Pulse 89 10/28/21 08:10 Resp 20 10/28/21 08:10 BP 106/59 10/28/21 08:10 Pulse Ox 93 L 10/28/21 08:10 Intake & Output 10/27/21 10/28/21 10/28/21 18:59 06:59 18:59 Intake Total 580 780 Output Total 750 1550 Balance -170 -770 Weight 81 kg Intake: Intake, IV Titration 400 Amount Cefepime 1 gm In Sodium 50 Chloride 0.9% 50 ml @ 12. 5 mls/hr IVPB Q12HR [facility] Rx#:[id number] Vancomycin 1,500 mg In 250 Sodium Chloride 0.9% 250 ml @ 125 mls/hr IVPB Q12H [facility] Rx#:[id number] metroNIDAZOLE-NS PMX 500 100 mg In Saline 1 100ml.bag @ 100 mls/hr IVPB Q6HR [facility] Rx#:[id number] Oral 180 780 Output: Urine 750 1550 Other: Voiding Method Urinal Urinal # Voids 1 # Bowel Movements 2 - Labs CBC & Chem 7: 10/27/21 08:28 10/27/21 08:28 Labs: Microbiology - Last 24 Hours (Table) 10/26/21 18:51 Blood Culture - Preliminary Blood No Growth after 24 hours
[2021-10-28 10:36] LABS: African American GFR (CKD) >90 (>60 ml/min/1.73 sqM); Anion Gap 8 mmol/L; Blood Urea Nitrogen 13 mg/dL (9-20); Calcium 7.1 mg/dL (8.4-10.2); Carbon Dioxide 24 mmol/L (22-30); Chloride 100 mmol/L (98-107); Glucose 92 mg/dL (74-99); Non-African American GFR(CKD) >90 (>60 ml/min/1.73 sqM); Potassium 3.1 mmol/L (3.5-5.1); Sodium 132 mmol/L (137-145)
[2021-10-28] MEDS ORDERED: POTASSIUM CHLORIDE ER 20 MEQ TAB.ER PO STA (10:47)
[2021-10-28] MEDS: ATORVASTATIN 80 MG TAB PO SCH (11:20)
[2021-10-28] MEDS: ASPIRIN 81 MG PO SCH (11:20)
[2021-10-28] MEDS: HYDROcodone/APAP 5-325MG 1 EACH TAB PO PRN ×2 (11:29→15:10)
[2021-10-28 11:30] VITALS: TEMP 97.4
[2021-10-28] MEDS ORDERED: CEFEPIME 2 GM in SODIUM CHLORIDE 0.9% 100 ML IVPB SCH (12:00)
[2021-10-28 13:20] LABS: Basophils # (A) 0.1 k/uL (0-0.2); Basophils % (A) 0 %; Eosinophils % (A) 0 %; HCT 33.6 % (39.0-53.0); HGB 11.1 gm/dL (13.0-17.5); Lymphocytes # (A) 0.9 k/uL (1.0-4.8); Lymphocytes % (A) 4 %; MCH 33.4 pg (25.0-35.0); MCHC 33.1 g/dL (31.0-37.0); Macrocytosis Slight; Mean Platelet Volume 8.1; Monocytes # (A) 1.3 k/uL (0-1.0); Monocytes % (A) 6 %; Neutrophils # (A) 19.7 k/uL (1.3-7.7); Neutrophils % (A) 88 %; Platelet Count 323 k/uL (150-450); RBC 3.32 m/uL (4.30-5.90); RDW 14.5 % (11.5-15.5); WBC 22.5 k/uL (3.8-10.6)
--- NOTE | 2021-10-28 15:00 | P.PN ---
Subjective Progress Note Date: 10/28/21 Principal diagnosis: Perforated diverticulitis and abscess Patient is a 76 year male who has been in the hospital for about a week with initial presentation for possible UTI subsequently did have a CT of the lumbar spine dishes evidence of intra-abdominal abscess, patient did have a seat abdominal pelvis completed yesterday with evidence of possible perforated diverticulitis with an abscess. On today's evaluation that is 10/28/2021, the patient denies having any fever or any chills, the patient is breathing comfortably, patient abdominal pain is currently controlled. Denies having any nausea no vomiting no blood in the urine and denies having any diarrhea Objective - Vital Signs Vital signs: Vital Signs Temp 97.4 F L 10/28/21 11:30 Pulse 77 10/28/21 11:30 Resp 18 10/28/21 11:30 BP 101/63 10/28/21 11:30 Pulse Ox 94 L 10/28/21 11:30 Intake & Output 10/27/21 10/28/21 10/28/21 18:59 06:59 18:59 Intake Total 580 780 Output Total 750 1550 550 Balance -170 -770 -550 Weight 81 kg Intake: Intake, IV Titration 400 Amount Cefepime 1 gm In Sodium 50 Chloride 0.9% 50 ml @ 12. 5 mls/hr IVPB Q12HR [facility] Rx#:[id number] Vancomycin 1,500 mg In 250 Sodium Chloride 0.9% 250 ml @ 125 mls/hr IVPB Q12H [facility] Rx#:[id number] metroNIDAZOLE-NS PMX 500 100 mg In Saline 1 100ml.bag @ 100 mls/hr IVPB Q6HR [facility] Rx#:[id number] Oral 180 780 Output: Urine 750 1550 550 Other: Voiding Method Urinal Urinal # Voids 1 # Bowel Movements 2 - Exam GENERAL DESCRIPTION: An elderly male lying in bed in no distress RESPIRATORY SYSTEM: Unlabored breathing , decreased breath sounds at bases HEART: S1 S2 regular rate and rhythm , ABDOMEN: Soft , mild distention but no significant tenderness EXTREMITIES: No edema feet - Labs CBC & Chem 7: 10/28/21 12:20 10/28/21 09:34 Labs: Abnormal Lab Results - Last 24 Hours (Table) 10/28/21 Range/Units 09:34 Sodium 132 L (137-145) mmol/L Potassium 3.1 L (3.5-5.1) mmol/L Creatinine 0.54 L (0.66-1.25) mg/dL Calcium 7.1 L (8.4-10.2) mg/dL Microbiology - Last 24 Hours (Table) 10/26/21 18:51 Blood Culture - Preliminary Blood No Growth after 24 hours Assessment and Plan (1) Abscess Current Visit: Yes Status: Acute Code(s): L02.91 - CUTANEOUS ABSCESS, UNSPECIFIED SNOMED Code(s): 108400496 Plan: 1patient with evidence of multifocal pelvic abscess in this patient has been in the hospital for about a week with initial presentation hospital with generalized weakness and possible UTI did have some constipation and high clinical suspicious for possible diverticulitis with a peridiverticular abscess and need to cover for the enteric gram-negative both aerobes and anaerobes less likely gram-positive pathogen. 2patient with multiple antibiotic allergies that would limit the number of antibiotics safe to use. 3patient has been evaluated by general surgery and consider him to be high risk for any surgical procedure at this facility and is recommending transfer to tertiary care which is currently being in process for now continue with cefepime and Flagyl till the patient is evaluated by infectious disease service at the tertiary care Time with Patient: Less than 30
--- NOTE | 2021-10-28 15:12 | P.DS ---
Providers Date of admission: 10/20/21 19:26 Expected date of discharge: 10/28/21 Attending physician: Elvis Rios MD Consults: 10/20/21 19:26 Consult Physician Routine Consulting Provider: Duglas Logan Consult Reason/Comments: UTI sepsis, hyponatremia Do you want consulting provider notified?: Already Contacted 10/21/21 09:22 Consult Physician Routine Consulting Provider: Susie Gomez Consult Reason/Comments: Hyponatremia Do you want consulting provider notified?: Yes 10/21/21 09:28 Consult Physician Routine Consulting Provider: Smooth Cortes Consult Reason/Comments: cardiomyopathy Do you want consulting provider notified?: Yes 10/26/21 18:03 Consult Physician Routine Consulting Provider: Vignesh Reynoso Consult Reason/Comments: multiple abdominal abscesses Do you want consulting provider notified?: Yes Consult Physician Stat Consulting Provider: Adela Pagan Consult Reason/Comments: Abdominal Abscesses, leg abscesses Do you want consulting provider notified?: Yes Primary care physician: Raúl Frank [facility] Course: 76-year-old male with history of congestive heart failure LVEF 20%, status post AICD, COPD not on home oxygen presented with 1 week of what he describes bilateral flank pain. ED workup and evaluation showed that the patient is in severe sepsis from urinary tract infection, has lactic acidosis and severe hyponatremia. Patient was given normal saline in the ED as he was hypotensive upon repeating his sodium dropped even further. ED doc inserted right femoral central venous catheter patient blood pressure remains borderline he might be started on some pressors. Patient was initiated on hypertonic saline and admitted to the ICU. Renal ultrasound was performed in the ED showed no obstructive uropathy, incidental finding of cholelithiasis. Patient was subsequently monitored in the ICU, with 3% saline running through femoral central line. Nephrology consulted on the patient and helped facilitate care. Pulmonary medicine and cardiology also provided care for the patient. Patient's urine culture ultimately grew E. coli, which was sensitive to ceftriaxone. Once sodium is improved to 120, patient was taken off of 3% saline, given tolvaptan, placed on a fluid restriction, transferred to the floor. After 2 days on the floor, patient developed hypotension down to the 70s over 40s. He really appeared to be grossly hypervolemic, and nephrology recommended IV diuresis. Therefore, patient was transferred to the cardiac stepdown unit where he under went diuresis with the use of dobutamine and Midrin to keep his blood pressure up. He had very good urine output with these interventions, and his sodiums gradually improved to 130. However, patient started to report left leg pain and back pain, subsequent underwent imaging of the L-spine and bilateral lower extremities, which demonstrated left thigh abscess as well as multiple pelvic abscesses. A follow-up CT of the abdomen/pelvis showed multiple abdominal abscesses as well with diverticulitis/sigmoid colitis with perforation and air in the abscesses. This case was subsequently discussed with infectious disease as well as surgery. Infectious disease brought in the patient to vancomycin, cefepime, Flagyl. Gen. surgery recommended a warm wash out, but did not feel they have the expertise to handle this procedure in [place]. Therefore, Jose Alfredo Torres was consulted, and patient was transferred to their care for expiratory laparotomy with abscess drainage and washout. Severe septic shock Complicated urinary tract infection, improving Multiple pelvic and lower extremity abscesses Diverticulitis and sigmoid colitis Mild anemia denies GI bleeding. On fluid restriction, nephrology is following Follow-up cultures; E coli on UCx, mostly sensitive, resistant to cipro Follow-up blood cultures Vancomycin, cefepime Infectious disease consult Surgery consult Severe Acute Hypervolemic hyponatremia Cardiogenic Shock requiring pressors, improving Acute on Chronic Systolic Heart Failure, EF 20% with AICD Transfer to on 10/24 for midodrine, dobutamine (this were discontinued on 10/26) Continue lasix 40mg IV BID Nephrology/cardiology following Continued holding amlodipine, lisinopril Holding metoprolol Monitor sodium twice a day, BMP daily Rec'd multiple doses of tolvaptan, last 10/26 Renal ultrasounds showed no evidence of obstructive uropathy, incidental finding of cholelithiasis asymptomatic Diarrhea Antibiotic induced, likely C diff EIA negative Add loperamide I spent 50 minutes coordinating this complex discharge. Gen: awake, alert HEENT: normocephalic, atraumatic, good hearing acuity, moist mucous membranes Resp: good air exchange, breathing comfortably with no accessory muscle use CVS: good distal perfusion x 4, GI: soft, NTTP, ND : Positive SPT, no CVAT, [place] catheter is present MSK: no pitting edema, no clubbing Neuro: non-focal, moving all extremities Psych: cooperative, euthymic mood Patient Condition at Discharge: Good Plan - Discharge Summary Discharge Rx Participant: No New Discharge Prescriptions: No Action Apixaban [Eliquis] 5 mg PO BID Tamsulosin [Flomax] 0.4 mg PO DAILY Levothyroxine Sodium [Synthroid] 75 mcg PO DAILY Potassium Chloride ER [K-Dur 20] 20 meq PO DAILY Furosemide [Lasix] 80 mg PO DAILY Aspirin EC [Ecotrin Low Dose] 81 mg PO DAILY Turmeric Root Extract [Turmeric] 500 mg PO DAILY Metoprolol Succinate (ER) [Toprol XL] 50 mg PO DAILY #30 tab.er.24h Atorvastatin Calcium [Lipitor] 80 mg PO DAILY Spironolactone [Aldactone] 25 mg PO DAILY Albuterol Nebulized [Ventolin Nebulized] 2.5 mg INHALATION Q6H PRN PRN Reason: Shortness Of Breath Or Wheezing Tiotropium [place] [Spiriva] 1 cap INHALATION RT-DAILY Ramipril [Altace] 5 mg PO DAILY Discharge Medication List Apixaban [Eliquis] 5 mg PO BID 04/09/18 [History] Aspirin EC [Ecotrin Low Dose] 81 mg PO DAILY 04/09/18 [History] Furosemide [Lasix] 80 mg PO DAILY 04/09/18 [History] Levothyroxine Sodium [Synthroid] 75 mcg PO DAILY 04/09/18 [History] Potassium Chloride ER [K-Dur 20] 20 meq PO DAILY 04/09/18 [History] Tamsulosin [Flomax] 0.4 mg PO DAILY 04/09/18 [History] Turmeric Root Extract [Turmeric] 500 mg PO DAILY 04/09/18 [History] Metoprolol Succinate (ER) [Toprol XL] 50 mg PO DAILY #30 tab.er.24h 05/26/19 [Rx] Atorvastatin Calcium [Lipitor] 80 mg PO DAILY 10/20/21 [History] Ramipril [Altace] 5 mg PO DAILY 10/20/21 [History] Spironolactone [Aldactone] 25 mg PO DAILY 10/20/21 [History] Tiotropium [place] [Spiriva] 1 cap INHALATION RT-DAILY 10/20/21 [History] Albuterol Nebulized [Ventolin Nebulized] 2.5 mg INHALATION Q6H PRN 10/21/21 [History] Follow up Appointment(s)/Referral(s): Smooth Cortes MD [STAFF PHYSICIAN] - 1 Week Raúl Martinez MD [Primary Care Provider] - 1-2 days Galo Mancia [NON-STAFF] - As Needed
[2021-10-28] MEDS: CEFEPIME 2 GM in SODIUM CHLORIDE 0.9% 100 ML IVPB SCH (16:17)
--- NOTE | 2021-10-28 16:31 | P.PN ---
Subjective Patient is seen for follow-up for hypervolemic hyponatremia. Patient has underlying systolic CHF. Currently maintained on dobutamine and receiving IV Lasix. Patient has also been getting Samsca. Sodium is staying around 130 Overall patient states he is feeling better, although still short of breath 24 hour urine output documented at 2.[address] of the abdomen shows complicated sigmoid colitis/diverticulitis with multiple abscesses within the abdomen. Patient is being transferred to a tertiary care center. Objective - Vital Signs Vital signs: Vital Signs Temp 97.4 F L 10/28/21 11:30 Pulse 61 10/28/21 14:33 Resp 18 10/28/21 11:30 BP 101/63 10/28/21 11:30 Pulse Ox 94 L 10/28/21 11:30 Intake & Output 10/27/21 10/28/21 10/28/21 18:59 06:59 18:59 Intake Total 580 780 Output Total 750 1550 550 Balance -170 -770 -550 Weight 81 kg Intake: Intake, IV Titration 400 Amount Cefepime 1 gm In Sodium 50 Chloride 0.9% 50 ml @ 12. 5 mls/hr IVPB Q12HR [facility] Rx#:[id number] Vancomycin 1,500 mg In 250 Sodium Chloride 0.9% 250 ml @ 125 mls/hr IVPB Q12H [facility] Rx#:[id number] metroNIDAZOLE-NS PMX 500 100 mg In Saline 1 100ml.bag @ 100 mls/hr IVPB Q6HR [facility] Rx#:[id number] Oral 180 780 Output: Urine 750 1550 550 Other: Voiding Method Urinal Urinal # Voids 1 # Bowel Movements 2 1 - Exam Awake, comfortable Mildly short of breath Examination of the heart S1 and S2 Examination lungs decreased breath sounds at the bases with basilar crackles Abdomen is soft, non tender Examination lower extremity shows edema 1+ bilaterally, decreased [employer]ER exam grossly intact - Labs CBC & Chem 7: 10/28/21 12:20 10/28/21 09:34 Labs: Abnormal Lab Results - Last 24 Hours (Table) 10/28/21 10/28/21 Range/Units 09:34 12:20 WBC 22.5 H (3.8-10.6) k/uL RBC 3.32 L (4.30-5.90) m/uL Hgb 11.1 L (13.0-17.5) gm/dL Hct 33.6 L (39.0-53.0) % MCV 101.0 H (80.0-100.0) fL Neutrophils # 19.7 H (1.3-7.7) k/uL Lymphocytes # 0.9 L (1.0-4.8) k/uL Monocytes # 1.3 H (0-1.0) k/uL Sodium 132 L (137-145) mmol/L Potassium 3.1 L (3.5-5.1) mmol/L Creatinine 0.54 L (0.66-1.25) mg/dL Calcium 7.1 L (8.4-10.2) mg/dL Microbiology - Last 24 Hours (Table) 10/26/21 18:51 Blood Culture - Preliminary Blood No Growth after 24 hours Assessment and Plan Assessment: 1. Hypervolemic hyponatremia maintained on IV Lasix and receiving Samsca almost on a daily basis 2. UTI with sepsis urine culture grew E. coli, maintained on ceftriaxone 3. Hypothyroidism 4. History of non-small cell lung cancer in 2016 status post radiation therapy, CT of the chest in July 2021 unchanged from December 2020. 5. Chronic A. fib maintained on eliquis 6. Coronary artery disease status post coronary artery bypass surgery 7. Severe ischemic cardiomyopathy with ejection fraction 20-25% 8. Acute on chronic systolic CHF 9. Abdominal abscess Plan: Continue with lasix. Can switch to PO in am Repeat labs in am.
[2021-10-28 16:49] VITALS: BP 104/59; PULSE 82; RESP 16
== END 2021-10-28 17:46 | disposition short-term general hospital (02) | DRG 871 ==
LOC: EC 15:41 → 2SICU 19:26 → 5NMEDONC 10-23 11:23 → 3SCARD 10-24 16:19
PROVIDERS: ADMIT Internal Medicine; ATTEND Internal Medicine
PROC: 3E043XZ Introduction of Vasopressor into Central Vein, Percutaneous Approach (ICD-10-PCS; principal; 2021-10-24)
DX: A41.51 Sepsis due to Escherichia coli [E. coli] (principal); R65.21 Severe sepsis with septic shock; I50.23 Acute on chronic systolic (congestive) heart failure; K65.1 Peritoneal abscess; R57.0 Cardiogenic shock; N39.0 Urinary tract infection, site not specified; C34.90 Malignant neoplasm of unspecified part of unspecified bronchus or lung; E22.2 Syndrome of inappropriate secretion of antidiuretic hormone; E87.2 Acidosis; I42.7 Cardiomyopathy due to drug and external agent; I48.19 Other persistent atrial fibrillation; K52.1 Toxic gastroenteritis and colitis; K57.20 Diverticulitis of large intestine with perforation and abscess without bleeding; L02.416 Cutaneous abscess of left lower limb; E78.5 Hyperlipidemia, unspecified; E86.1 Hypovolemia; G47.30 Sleep apnea, unspecified; I07.1 Rheumatic tricuspid insufficiency; I11.0 Hypertensive heart disease with heart failure; Z20.822 Contact with and (suspected) exposure to COVID-19; J44.9 Chronic obstructive pulmonary disease, unspecified; Z66 Do not resuscitate; I25.5 Ischemic cardiomyopathy; K76.1 Chronic passive congestion of liver; E89.0 Postprocedural hypothyroidism; I49.3 Ventricular premature depolarization; T36.95XA Adverse effect of unspecified systemic antibiotic, initial encounter; K80.20 Calculus of gallbladder without cholecystitis without obstruction; T50.2X5A Adverse effect of carbonic-anhydrase inhibitors, benzothiadiazides and other diuretics, initial encounter; I25.2 Old myocardial infarction; I25.10 Atherosclerotic heart disease of native coronary artery without angina pectoris; Z79.01 Long term (current) use of anticoagulants; Z79.82 Long term (current) use of aspirin; Z79.890 Hormone replacement therapy; Z79.899 Other long term (current) drug therapy; Z82.49 Family history of ischemic heart disease and other diseases of the circulatory system; Z85.118 Personal history of other malignant neoplasm of bronchus and lung; Z87.891 Personal history of nicotine dependence; Z92.3 Personal history of irradiation; Z95.1 Presence of aortocoronary bypass graft; Z95.810 Presence of automatic (implantable) cardiac defibrillator; Z98.890 Other specified postprocedural states; Z90.89 Acquired absence of other organs; Z88.0 Allergy status to penicillin; Z88.2 Allergy status to sulfonamides; Z79.3 Long term (current) use of hormonal contraceptives
CPT/HCPCS: 36415; 36556; 71046; 72132; 74178; 76770; 80048; 80053; 82533; 83605; 83735; 83880; 83935; 84295; 84443; 84550; 85025; 85610; 85730; 87040; 87077; 87086; 87186; 87324; 87635; 93005; 94640; 96361; 96365; 96366; 96367; 96375; 99291

== ENCOUNTER → 2021-12-08 | Outpatient (CLI) | payer MEDICARE ==
[2021-12-08 13:23] LABS: ALT 24 U/L (4-49); AST 36 U/L (17-59); African American GFR (CKD) >90 (>60 ml/min/1.73 sqM); Albumin 3.5 g/dL (3.5-5.0); Albumin/Globulin Ratio 0.9; Alkaline Phosphatase 89 U/L (38-126); Anion Gap 11 mmol/L; Blood Urea Nitrogen 8 mg/dL (9-20); Calcium 8.4 mg/dL (8.4-10.2); Carbon Dioxide 23 mmol/L (22-30); Chloride 99 mmol/L (98-107); Globulin 3.8 g/dL; Glucose 115 mg/dL (74-99); Non-African American GFR(CKD) >90 (>60 ml/min/1.73 sqM); Potassium 3.6 mmol/L (3.5-5.1); Sodium 133 mmol/L (137-145); Total Bilirubin 1.6 mg/dL (0.2-1.3); Total Protein 7.3 g/dL (6.3-8.2)
[2021-12-08 13:24] LABS: Basophils # (A) 0.1 k/uL (0-0.2); Basophils % (A) 1 %; Eosinophils # (A) 0.1 k/uL (0-0.7); Eosinophils % (A) 2 %; HCT 39.4 % (39.0-53.0); HGB 12.2 gm/dL (13.0-17.5); Lymphocytes # (A) 2.8 k/uL (1.0-4.8); Lymphocytes % (A) 37 %; MCV 100.3 fL (80.0-100.0); Mean Platelet Volume 7.5; Monocytes # (A) 0.7 k/uL (0-1.0); Monocytes % (A) 9 %; Neutrophils # (A) 3.6 k/uL (1.3-7.7); Neutrophils % (A) 49 %; Platelet Count 234 k/uL (150-450); RBC 3.93 m/uL (4.30-5.90); WBC 7.4 k/uL (3.8-10.6)
[2021-12-08 15:29] LABS: Erythrocyte Sedimentation Rate 18 mm/hr (0-15)
[2021-12-08 19:00] LABS: % Iron Saturation 12.88 (15.00-50.00); Iron 41 ug/dL (65-175); Total Iron Binding Capacity 321 ug/dL (228-460)
== END | disposition home or self-care (01) ==
LOC: LABWHC1 11:58
PROVIDERS: ATTEND Family Medicine
DX: K62.5 Hemorrhage of anus and rectum (principal); K57.30 Diverticulosis of large intestine without perforation or abscess without bleeding; I50.9 Heart failure, unspecified
CPT/HCPCS: 36415; 80053; 82728; 83540; 83550; 83880; 85025; 85652

== ENCOUNTER → 2022-04-07 | Outpatient (CLI) | payer MEDICARE | END | disposition home or self-care (01) | LOC: LABWHC1 13:23 | PROVIDERS: ATTEND Nurse Practitioner Adult Health | DX: Z53.9 Procedure and treatment not carried out, unspecified reason (principal) ==

== ENCOUNTER 2022-04-11 13:32 | Inpatient (IN) | payer MEDICARE ==
--- NOTE | 2022-04-11 18:21 | ED ---
Abdominal Pain HPI - General Chief Complaint: Abdominal Pain Stated Complaint: perforated bowel Time Seen by Provider: 04/11/22 17:32 Source: patient Mode of arrival: ambulatory Limitations: no limitations - History of Present Illness Initial Comments: Patient is a 76 year old male who presents to the emergency room at the direction of radiology after having a computed tomography scan earlier today which recommended a surgical evaluation to evaluate for possible obstruction. Patient had presented to his primary care provider's office earlier today with complaints of occasional abdominal pain with diarrhea ongoing for 4 days. The symptoms are similar to his symptoms that he had when he had diverticulitis back in September of this year and which he had to be hospitalized for approximately 4 weeks for IV antibiotics as he declined surgery at that time. He is complaining of abdominal pain that is intermittent and crampy, diarrhea with occasional blood in his diarrhea along with some mild nausea but has not had any emesis in 4 days. He denies any chest pain, shortness breath, fevers or chills. In addition to his diverticulitis history hypertension, CAD, COPD, lung cancer, hyperlipidemia, VT, osteoarthritis, hypothyroidism some and prostate cancer. - Related Data Home Medications Medication Instructions Recorded Confirmed Aspirin EC [Ecotrin Low Dose] 81 mg PO DAILY 04/09/18 10/20/21 Furosemide [Lasix] 80 mg PO DAILY 04/09/18 10/20/21 Levothyroxine Sodium [Synthroid] 75 mcg PO DAILY 04/09/18 10/20/21 Potassium Chloride ER [K-Dur 20] 20 meq PO DAILY 04/09/18 10/20/21 Turmeric Root Extract [Turmeric] 500 mg PO DAILY 04/09/18 10/20/21 Atorvastatin Calcium [Lipitor] 80 mg PO DAILY 10/20/21 10/20/21 Tiotropium [place] [Spiriva] 1 cap INHALATION RT-DAILY 10/20/21 10/20/21 Albuterol Nebulized [Ventolin 2.5 mg INHALATION Q6H PRN 10/21/21 10/21/21 Nebulized] Previous Rx's Medication Instructions Recorded Metoprolol Succinate (ER) [Toprol 50 mg PO DAILY #30 tab.er.24h 05/26/19 XL] Calcium Carbonate [Tums] 500 mg PO QID PRN 10/28/21 Cefepime [Maxipime] 2 gm IVPB Q8H each 10/28/21 Loperamide [Imodium] 2 mg PO QID PRN cap 10/28/21 Midodrine [ProAmatine] 5 mg PO AC-TID tab 10/28/21 Pantoprazole [Protonix] 40 mg PO AC-BRKFST tab 10/28/21 Simethicone Chew [Mylicon Chew] 80 mg PO QID PRN tab 10/28/21 Allergies Allergy/AdvReac Type Severity Reaction Status Date / Time Penicillins Allergy Rash/Hives Verified 04/11/22 13:58 Sulfa (Sulfonamide Allergy Rash/Hives Verified 04/11/22 13:58 Antibiotics) Review of Systems ROS Statement: Those systems with pertinent positive or pertinent negative responses have been documented in the HPI. ROS Other: All systems not noted in ROS Statement are negative. Past Medical History Past Medical History: Atrial Fibrillation, Coronary Artery Disease (CAD), Cancer, COPD, Hyperlipidemia, Hypertension, Myocardial Infarction (VT), Os teoarthritis (OA), Pneumonia, Prostate Disorder, Sleep Apnea/CPAP/BIPAP, Thyroid Disorder Additional Past Medical History / Comment(s): cardiomyopathy. dx in 2015 w/non small cell lung cancer rt upper lobe-received radiation tx Last Myocardial Infarction Date:: 1996 History of Any Multi-Drug Resistant Organisms: None Reported Past Surgical History: AICD, Coronary Bypass/CABG, Heart Catheterization, Hernia Repair, Orthopedic Surgery, Pacemaker, Tonsillectomy Additional Past Surgical History / Comment(s): partial thyroidectomy, x2 cabg sx first one 5 vessels done and 2nd one 2 vessles done, rt inguinal hernia repair, rt knee arthroscopy and 2nd sx on the ligaments, colonoscopy-neg. pacemaker/aicd pt stated has had x4 last changed Past Anesthesia/Blood Transfusion Reactions: No Reported Reaction Additional Past Anesthesia/Blood Transfusion Reaction / Comment(s): has had blood transfusion in past-no reaction. Type of Cardiac Device: Permanent Pacemaker, AICD Device Placement Date:: changed last Past Psychological History: No Psychological Hx Reported Smoking Status: Former smoker Past Alcohol Use History: Daily Past Drug Use History: None Reported - Past Family History Mother Family Medical History: Chest Pain / Angina, Coronary Artery Disease (CAD) Additional Family Medical History / Comment(s): at age 92 from lung infection Father History Unknown: Yes General Exam Limitations: no limitations General appearance: alert, in no apparent distress Head exam: Present: atraumatic, normocephalic, normal inspection Eye exam: Present: normal appearance, PERRL, EOMI. Absent: scleral icterus, conjunctival injection, periorbital swelling ENT exam: Present: normal exam, mucous membranes moist Neck exam: Present: normal inspection Respiratory exam: Present: normal lung sounds bilaterally. Absent: respiratory distress, wheezes, rales, rhonchi, stridor Cardiovascular Exam: Present: regular rate, irregular rhythm. Absent: systolic murmur, diastolic murmur, rubs, gallop GI/Abdominal exam: Present: soft, normal bowel sounds, hernia (multiple). Absent: distended, tenderness, guarding, rigid Extremities exam: Present: normal inspection, full ROM, normal capillary refill. Absent: tenderness, pedal edema, joint swelling, calf tenderness Back exam: Present: normal inspection Neurological exam: Present: alert, oriented X3, CN II-XII intact Psychiatric exam: Present: normal affect, normal mood Skin exam: Present: warm, dry, intact, normal color. Absent: rash Course Vital Signs 04/11/22 13:55 Temperature 97.7 F Pulse Rate 58 L Respiratory 20 Rate Blood Pressure 119/64 O2 Sat by Pulse 98 Oximetry Medical Decision Making - Medical Decision Making 76-year-old male presents to the emergency room as directed by CAT scan for surgical evaluation however patient declines surgical evaluation. Patient with diarrhea abdominal pain and bloody stools consistent with previous diverticulitis and infections ongoing for 4 days. In the setting of lack of surgical intervention and tolerated oral intake will check labs including CBC, CMP and lactic acid along with urinalysis to evaluate need for inpatient antibiotic therapy versus outpatient antibiotic therapy. CBC shows mild leukocytosis at 11 elevated lactic acid level slight electrolyte derangement. Findings discussed with patient patient agreeable for admission for IV antibiotics and IV hydration. Case discussed with Dr. Bule who is to contact sound physician regarding admission. - Lab Data Result diagrams: 04/11/22 17:34 Lab Results 04/11/22 04/11/22 04/11/22 Range/Units 17:34 17:34 18:14 PT 10.9 (9.0-12.0) sec INR 1.0 (<1.2) Sodium 132 L (137-145) mmol/L Potassium 3.8 (3.5-5.1) mmol/L Chloride 95 L (98-107) mmol/L Carbon Dioxide 24 (22-30) mmol/L Anion Gap 13 mmol/L BUN 11 (9-20) mg/dL Creatinine 0.52 L (0.66-1.25) mg/dL Est GFR (CKD-EPI)AfAm >90 (>60 ml/min/1.73 sqM) Est GFR (CKD-EPI)NonAf >90 (>60 ml/min/1.73 sqM) Glucose 118 H (74-99) mg/dL Plasma Lactic Acid [place] 2.3 H* (0.7-2.0) mmol/L Calcium 9.1 (8.4-10.2) mg/dL Total Bilirubin 1.9 H (0.2-1.3) mg/dL AST 34 (17-59) U/L ALT 20 (4-49) U/L Alkaline Phosphatase 114 (38-126) U/L Total Protein 7.4 (6.3-8.2) g/dL Albumin 3.9 (3.5-5.0) g/dL Disposition Clinical Impression: Diverticulitis Disposition: ADMITTED IP TO THIS HOSP Condition: Stable Is patient prescribed a controlled substance at d/c from ED?: No Referrals: Raúl Martinez MD [Primary Care Provider] - 1-2 days Time of Disposition: 19:07
[2022-04-11 18:33] LABS: ALT 20 U/L (4-49); AST 34 U/L (17-59); African American GFR (CKD) >90 (>60 ml/min/1.73 sqM); Albumin 3.9 g/dL (3.5-5.0); Alkaline Phosphatase 114 U/L (38-126); Anion Gap 13 mmol/L; Blood Urea Nitrogen 11 mg/dL (9-20); Calcium 9.1 mg/dL (8.4-10.2); Carbon Dioxide 24 mmol/L (22-30); Chloride 95 mmol/L (98-107); Glucose 118 mg/dL (74-99); Non-African American GFR(CKD) >90 (>60 ml/min/1.73 sqM); Potassium 3.8 mmol/L (3.5-5.1); Sodium 132 mmol/L (137-145); Total Bilirubin 1.9 mg/dL (0.2-1.3); Total Protein 7.4 g/dL (6.3-8.2)
[2022-04-11 18:55] LABS: Prothrombin Time 10.9 sec (9.0-12.0)
[2022-04-11] MEDS ORDERED: NALOXONE 0.4 MG/ML 1 ML VIAL IV PRN (19:02)
[2022-04-11] MEDS ORDERED: metroNIDAZOLE-NS PMX 500 MG in SALINE 1 100ML.BAG IVPB STA (19:04)
[2022-04-11] MEDS ORDERED: LEVOFLOXACIN 500MG-D5W PMX 500 MG in DEXTROSE/WATER 1 100ML.BAG IVPB STA (19:06)
[2022-04-11] MEDS: SODIUM CHLORIDE 0.9% 1,000 ML IV SCH (22:55)
[2022-04-11 23:19] LABS: Appearance,Urine Cloudy (Clear); Bacteria,Urine Many /hpf; Bilirubin,Urine Negative (Negative); Blood,Urine Negative (Negative); Calcium Oxalate Crystals,Urine Few /hpf; Color,Urine Yellow; Glucose,Urine (UA) Negative (Negative); Hyaline Casts,Urine 1 /lpf (0-2); Ketones,Urine Trace (Negative); Leukocyte Esterase,Urine Moderate (Negative); Mucus,Urine Moderate /hpf; Nitrite,Urine Negative (Negative); Protein,Urine Trace (Negative); RBC,Urine 4 /hpf (0-5); Specific Gravity,Urine 1.021 (1.001-1.035); Squamous Epithelial Cell,Urine <1 /hpf (0-4); WBC,Urine 23 /hpf (0-5)
[2022-04-12] MEDS ORDERED: CALCIUM CARBONATE 500 MG CHEWABLE PO PRN (03:30)
--- NOTE | 2022-04-12 03:33 | P.HPIM ---
History of Present Illness H&P Date: 04/12/22 Patient is a 76-year-old male with a PMH of systolic CHF EF 20% status post AICD placement, COPD, A. fib on Eliquis, hypertension, and hyperlipidemia who presents to the emergency room with complaints of blood in his stools. The patient reports he initially noticed bright red blood in his stools this past Sunday and Sunday, with 4-5 total bloody bowel movements. He was ultimately seen at his PCPs office on Sunday morning who ordered a CT abdomen and pelvis. The patient was contacted shortly after undergoing the CT abdomen and pelvis this morning and advised to go to the emergency room. The patient reports that he continues to have bloody bowel movements but that in the emergency room he also had a large black tarry stool. He does report mild left-sided abdominal pain just prior to passing a bowel movement. Denied any additional complaints. Denied nausea, vomiting. Denies chest discomfort, shortness of breath, or dizziness. Computed tomography scan performed as an outpatient revealed severe sigmoid diverticulosis with acute diverticulitis and possible perirectal abscess. I'll patient blood work revealed a hemoglobin of 12.9, up from a baseline of 11. Patient's lactic acid in the emergency room was 2.3, sodium 132, chloride 95. Review of systems: Pertinent positives and negatives as discussed in HPI, a complete review of systems was performed and all other systems are negative. Physical examination: General: non toxic, no distress, appears at stated age, normal weight Derm: no unusual rashes/lesions, warm Head: atraumatic, normocephalic, symmetric Eyes: EOMI, no lid lag, anicteric sclera, pupils equal round reactive to light ENT: Nose and ears atraumatic Neck: No cervical lymphadenopathy, trachea midline, supple Mouth: no lip lesion, mucus membranes moist Cardiovascular: S1S2 reg, no murmur, positive dorsalis pedis pulse bilateral, no edema Lungs: CTA bilateral, no rhonchi, no rales, no accessory muscle use Abdominal: soft, minimal left lower quadrant tenderness, no guarding Ext: muscle strength 5 out of 5 in all 4 extremities grossly, no gross muscle atrophy, no contractures, Neuro: CN II-XI grossly intact, no gross focal neuro deficits Psych: Alert, oriented, appropriate affect Assessment/plan GI bleeding, likely secondary to diverticulosis -Hemoglobin at baseline -Consult Surgery -Monitor CBC -Hold home Eliquis Diverticulitis with possible adjacent abscess -Continue with IV antibiotics -IV fluids -Nothing by mouth for now Chronic conditions: A. fib, hypertension, hyperlipidemia, CHF -Hold home Eliquis and Aspirin for now -Resume remaining medications DVT prophylaxis -Eliquis The patient is admitted with an anticipated less than 2 midnight stay for evaluation of GI bleeding CODE STATUS: Full Code Discussed with: Patient Anticipated discharge date: in am Anticipated discharge place: Home Past Medical History Past Medical History: Atrial Fibrillation, Coronary Artery Disease (CAD), Cancer, COPD, Hyperlipidemia, Hypertension, Myocardial Infarction ([place]), Osteoarthritis (OA), Pneumonia, Prostate Disorder, Sleep Apnea/CPAP/BIPAP, Thyroid Disorder Additional Past Medical History / Comment(s): cardiomyopathy. dx in 2015 w/non small cell lung cancer rt upper lobe-received radiation tx Last Myocardial Infarction Date:: 1996 History of Any Multi-Drug Resistant Organisms: None Reported Past Surgical History: AICD, Coronary Bypass/CABG, Heart Catheterization, Hernia Repair, Orthopedic Surgery, Pacemaker, Tonsillectomy Additional Past Surgical History / Comment(s): partial thyroidectomy, x2 cabg sx first one 5 vessels done and 2nd one 2 vessles done, rt inguinal hernia repair, rt knee arthroscopy and 2nd sx on the ligaments, colonoscopy-neg. pacemaker/aicd pt stated has had x4 last changed Past Anesthesia/Blood Transfusion Reactions: No Reported Reaction Additional Past Anesthesia/Blood Transfusion Reaction / Comment(s): has had blood transfusion in past-no reaction. Type of Cardiac Device: Permanent Pacemaker, AICD Device Placement Date:: changed last Past Psychological History: No Psychological Hx Reported Additional Psychological History / Comment(s): lives w/. is independant. drives. has a nebulizer Smoking Status: Former smoker Past Alcohol Use History: Daily Additional Past Alcohol Use History / Comment(s): started smoking at age 18(1963) and quit age 62(2006). smoked 1.5 ppd. has 2 drinks per day(bourbon). Past Drug Use History: None Reported - Past Family History Mother Family Medical History: Chest Pain / Angina, Coronary Artery Disease (CAD) Additional Family Medical History / Comment(s): at age 92 from lung infection Father History Unknown: Yes Family Medical History: Cancer Medications and Allergies Home Medications Medication Instructions Recorded Confirmed Type Aspirin EC [Ecotrin Low Dose] 81 mg PO DAILY 04/09/18 04/11/22 History Furosemide [Lasix] 80 mg PO DAILY 04/09/18 04/11/22 History Levothyroxine Sodium [Synthroid] 75 mcg PO DAILY 04/09/18 04/11/22 History Potassium Chloride ER [K-Dur 20] 20 meq PO DAILY 04/09/18 04/11/22 History Turmeric Root Extract [Turmeric] 500 mg PO HS 04/09/18 04/11/22 History Metoprolol Succinate (ER) [Toprol 50 mg PO DAILY #30 tab.er.24h 05/26/19 04/11/22 Rx XL] Atorvastatin Calcium [Lipitor] 80 mg PO HS 10/20/21 04/11/22 History Calcium Carbonate [Tums] 500 mg PO QID PRN 10/28/21 04/11/22 Rx Loperamide [Imodium] 2 mg PO QID PRN cap 10/28/21 04/11/22 Rx Apixaban [Eliquis] 5 mg PO BID 04/11/22 04/11/22 History Multivitamins, Thera [Multivitamin 1 tab PO HS 04/11/22 04/11/22 History (formulary)] Spironolactone [Aldactone] 12.5 mg PO DAILY 04/11/22 04/11/22 History Tamsulosin HCl [Flomax] 0.4 mg PO HS 04/11/22 04/11/22 History ramipriL [Altace] 5 mg PO HS 04/11/22 04/11/22 History Allergies Allergy/AdvReac Type Severity Reaction Status Date / Time Penicillins Allergy Rash/Hives Verified 04/11/22 19:17 Sulfa (Sulfonamide Allergy Rash/Hives Verified 04/11/22 19:17 Antibiotics) Physical Exam Vitals: Vital Signs Temp Pulse Pulse Resp BP BP Pulse Ox 04/12/22 02:22 98.3 F 68 16 104/55 98 04/11/22 22:03 98.1 F 81 17 124/60 100 04/11/22 21:10 72 16 126/84 95 04/11/22 13:55 97.7 F 58 L 20 119/64 98 Intake and Output 04/11/22 04/11/22 04/12/22 14:59 22:59 06:59 Other: Voiding Method Toilet Urinal # Voids 1 Weight 72.575 kg 72.575 kg Results CBC & Chem 7: 04/11/22 17:34 Labs: Abnormal Lab Results - Last 24 Hours (Table) 04/11/22 04/11/22 04/11/22 Range/Units 17:34 18:14 18:14 Sodium 132 L (137-145) mmol/L Chloride 95 L (98-107) mmol/L Creatinine 0.52 L (0.66-1.25) mg/dL Glucose 118 H (74-99) mg/dL Plasma Lactic Acid Oscar 2.3 H* (0.7-2.0) mmol/L Total Bilirubin 1.9 H (0.2-1.3) mg/dL Urine Protein Trace H (Negative) Urine Ketones Trace H (Negative) Ur Leukocyte Esterase Moderate H (Negative) Urine WBC 23 H (0-5) /hpf Urine WBC Clumps Rare H (None) /hpf Calcium Oxalate Crystal Few H (None) /hpf Urine Bacteria Many H (None) /hpf Urine Mucus Moderate H (None) /hpf
[2022-04-12] MEDS: metroNIDAZOLE-NS PMX 500 MG in SALINE 1 100ML.BAG IVPB SCH ×3 (04:30→16:41)
[2022-04-12] MEDS: LEVOTHYROXINE 75 MCG TAB PO SCH (05:58)
[2022-04-12] MEDS: METOPROLOL SUCCINATE (ER) 50 MG TAB.ER.24H PO SCH (08:22)
[2022-04-12] MEDS ORDERED: FUROSEMIDE 40 MG TAB PO SCH (09:00)
[2022-04-12 10:38] LABS: HCT 35.8 % (39.6-50.0); HGB 11.6 g/dL (13.0-17.0); MCH 30.3 pg (27.0-32.0); MCHC 32.4 g/dL (32.0-37.0); MCV 93.5 fL (80.0-97.0); Mean Platelet Volume 10.3 fL (9.5-12.2); NRBC Per 100 WBC 0 /100 WBCS (0.0-0.0); Platelet Count 217 X 10*3/uL (140-440); RBC 3.83 X 10*6/uL (4.40-5.60); RDW 19.3 % (11.5-14.5); WBC 8.51 X 10*3/uL (4.50-10.00)
--- NOTE | 2022-04-12 12:40 | P.PN ---
Subjective Progress Note Date: 04/12/22 Principal diagnosis: abdominal pain Hospital Course: 76-year-old male with past medical history of systolic CHF with EF of 20% status post ICD, COPD, A. fib on eliquis, recent episode of septic shock secondary to multiple pelvic and lower extremity abscesses, diverticulitis, sigmoid colitis requiring prolonged ICU stay at [facility]. Patient presented with rectal bleeding to his PCP. He had an outpatient CT abdomen and pelvis which showed severe sigmoid colonic diverticulosis, recurrent acute diverticulitis, possible thin walled fluid collection and chronic sinus tract, possible abscess. Patient was referred to Hospital for further workup and surgical evaluation. Subjective: No acute events overnight. Patient seen and examined at bedside. Patient remains nothing by mouth. He continues to have mild tenderness to palpation in the left lower quadrant abdomen. Pertinent positives and negatives as discussed above, a complete review of systems was performed and all other systems are negative. Vitals Signs Reviewed. General: nontoxic, no distress, appears at stated age Derm: warm, dry Head: atraumatic, normocephalic, symmetric Eyes: EOMI, no lid lag, anicteric sclera Mouth: no lip lesion, mucus membranes moist Cardiovascular: S1S2 reg, no murmur Lungs: CTA bilateral, no rhonchi, no rales , no accessory muscle use Abdominal: soft, mild tenderness to palpation in the left lower quadrant, no guarding, no appreciable organomegaly Ext: no gross muscle atrophy, no edema, no contractures Neuro: CN II-XI grossly intact, no focal neuro deficits Psych: Alert, oriented, appropriate affect Assessment and Plan: Acute GI bleeding, likely secondary to diverticulosis Diverticulitis with possible abscess -Pending surgery evaluation -IV antibiotics Atrial fibrillation -Hold anticoagulation Hypertension Dyslipidemia Systolic CHF Plan unchanged from H&P. Please see the full note from 04/12/22 at 00:20. Objective - Vital Signs Vital signs: Vital Signs Temp 97.8 F 04/12/22 12:02 Pulse 69 04/12/22 12:02 Resp 14 04/12/22 12:02 BP 119/64 04/12/22 12:02 Pulse Ox 98 04/12/22 12:02 FiO2 Intake & Output 04/11/22 04/12/22 04/12/22 18:59 06:59 18:59 Output Total 550 Balance -550 Weight 72.575 kg 72.575 kg Output: Urine 550 Other: Voiding Method Toilet Urinal # Voids 1 - Labs CBC & Chem 7: 04/12/22 06:40 04/11/22 17:34 Labs: Abnormal Lab Results - Last 24 Hours (Table) 04/11/22 04/11/22 04/11/22 Range/Units 17:34 18:14 18:14 RBC (4.40-5.60) X 10*6/uL Hgb (13.0-17.0) g/dL Hct (39.6-50.0) % RDW (11.5-14.5) % Sodium 132 L (137-145) mmol/L Chloride 95 L (98-107) mmol/L Creatinine 0.52 L (0.66-1.25) mg/dL Glucose 118 H (74-99) mg/dL Plasma Lactic Acid Oscar 2.3 H* (0.7-2.0) mmol/L Total Bilirubin 1.9 H (0.2-1.3) mg/dL Urine Protein Trace H (Negative) Urine Ketones Trace H (Negative) Ur Leukocyte Esterase Moderate H (Negative) Urine WBC 23 H (0-5) /hpf Urine WBC Clumps Rare H (None) /hpf Calcium Oxalate Crystal Few H (None) /hpf Urine Bacteria Many H (None) /hpf Urine Mucus Moderate H (None) /hpf 04/12/22 Range/Units 06:40 RBC 3.83 L (4.40-5.60) X 10*6/uL Hgb 11.6 L (13.0-17.0) g/dL Hct 35.8 L (39.6-50.0) % RDW 19.3 H (11.5-14.5) % Sodium (137-145) mmol/L Chloride (98-107) mmol/L Creatinine (0.66-1.25) mg/dL Glucose (74-99) mg/dL Plasma Lactic Acid Oscar (0.7-2.0) mmol/L Total Bilirubin (0.2-1.3) mg/dL Urine Protein (Negative) Urine Ketones (Negative) Ur Leukocyte Esterase (Negative) Urine WBC (0-5) /hpf Urine WBC Clumps (None) /hpf Calcium Oxalate Crystal (None) /hpf Urine Bacteria (None) /hpf Urine Mucus (None) /hpf Microbiology - Last 24 Hours (Table) 04/11/22 18:14 Urine Culture - Preliminary Urine,Voided
--- NOTE | 2022-04-12 14:55 | P.GSCN ---
History of Present Illness Consult date: 04/12/22 History of present illness: CHIEF COMPLAINT: Abdominal pain HISTORY OF PRESENT ILLNESS: This 76-year-old male who presented to the emergency room after being informed that he had an abnormal computed tomography scan of the abdomen and pelvis outpatient. CT scans findings are suboptimal without contrast. They show persistent severe sigmoid colonic diverticulosis. Mild adjacent fluids just recurrent acute diverticulitis. There is thin walled fluid collection and sinus tract we demonstrated superior to the sigmoid colon. This is less prominent in size versus prior CT. Findings could reflect chronic sinus tract or outpouching, residual and/or new abscesses and differential. Persistent severe wall thickening in the sigmoid colon. Neoplasm at this level cannot be excluded and should be correlated clinically with most recent colonoscopy of the abdomen performed in the last 3 years. There is mild to moderate diffuse proximal colonic dilatation and/or obstruction secondary to sigmoid colonic findings noted. Surgical evaluation was advised. Patient was seen and examined with Dr. sands. Patient was hospitalized in September for diverticulitis with perforation and multiple intra-abdominal abscesses with the abdomen and tracking into the left medial thigh.. At that time he was transferred to [facility] with ICU management. Per patient he had CT- guided drainage of the abscesses and required 6 weeks of antibiotics. Patient reports he started to have left lower quadrant abdominal pain again last night and and also was having blood in his stools on Sunday and Sunday with diarrhea. He did have one bloody bowel movement yesterday and a another bowel movement that was brown in color. His last colonoscopy was 5 years ago. Patient does have a significant surgical history which includes ischemic cardiopathy with EF 20-25% with AICD, CABG, A. fib, [place]. Also prior history of lung cancer and COPD. Prior surgical history includes inguinal hernia repair. Patient reports being afebrile. He did have elevated white count on admission that has normalized. Patient seen and examined with Dr. sands PAST MEDICAL HISTORY: See list. PAST SURGICAL HISTORY: See list. MEDICATIONS: See list. ALLERGIES: See list. SOCIAL HISTORY: No illicit drug use. REVIEW OF SYSTEMS: CONSTITUTIONAL: Denies fever or chills. HEENT: Denies blurred vision, vision changes, or eye pain. Denies hemoptysis CARDIOVASCULAR: Denies chest pain or pressure. RESPIRATORY: No shortness of breath. GASTROINTESTINAL: See HPI for pertinent findings HEMATOLOGIC: Denies bleeding disorders. GENITOURINARY: Denies any blood in urine or increased urinary frequency. SKIN: Denies pruitis. Denies rash. PHYSICAL EXAM: VITAL SIGNS: Reviewed GENERAL: Well-developed in no acute distress. HEENT: No sclera icterus. Extraocular movements grossly intact. Moist buccal mucosa. Head is atraumatic, normocephalic. No nasal drainage. ABDOMEN: Soft. Mildly distended. Tenderness to palpation left lower quadrant NEUROLOGIC: Alert and oriented. Cranial nerves II through XII grossly intact. LABORATORY DATA: WBC 11.4 down to 8.51 hgb 11.6 platelets 217 INR 1.0 Sodium 132 potassium 3.8 creatinine 0.52 Lactic acid 2.3 down to 0.8 IMAGING: Computed tomography scan abdomen and pelvis as stated above ASSESSMENT: 1. Left lower quadrant abdominal pain 2. Persistent severe sigmoid colonic diverticulosis with recurrent acute diverticulitis. Computed tomography scan findings showed acute diverticulitis in thin walled fluid collection and sinus tract redemonstrated superior to the sigmoid colon. Findings could reflect chronic sinus tract or outpouching. Persistent severe wall thickening in the sigmoid colon. Neoplasm at this level cannot be excluded. There is mild to moderate diffuse proximal colonic dilatation and/or obstruction secondary to sigmoid colonic findings. PLAN: -Computed tomography scan abdomen and pelvis with oral contrast ordered for further evaluation of patient's diverticulitis, fluid collection and sinus tract -Further recommendations forthcoming per surgeon regarding surgical intervention -Consult cardiology for cardiac clearance -Consult infectious disease regarding antibiotic management -Continue antibiotics -Keep patient nothing by mouth -Fluid management per medicine service -Continue to Hold Eliquis for surgical intervention Physician [employer] note has been reviewed by physician. Signing provider agrees with the documented findings, assessment, and plan of care. Past Medical History Past Medical History: Atrial Fibrillation, Coronary Artery Disease (CAD), Can cer, COPD, Hyperlipidemia, Hypertension, Myocardial Infarction ([place]), Osteoarthritis (OA), Pneumonia, Prostate Disorder, Sleep Apnea/CPAP/BIPAP, Thyroid Disorder Additional Past Medical History / Comment(s): cardiomyopathy. 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 pacemaker/aicd pt stated has had x4 last changed Past Anesthesia/Blood Transfusion Reactions: No Reported Reaction Additional Past Anesthesia/Blood Transfusion Reaction / Comm: has had blood transfusion in past-no reaction. Type of Cardiac Device: Permanent Pacemaker, AICD Device Placement Date:: changed last Past Psychological History: No Psychological Hx Reported Additional Psychological History / Comment(s): lives w/. is independant. drives. has a nebulizer Smoking Status: Former smoker Past Alcohol Use History: Daily Additional Past Alcohol Use History / Comment(s): started smoking at age 18(1962) and quit age 62(2006). smoked 1.5 ppd. has 2 drinks per day(freddy). Past Drug Use History: None Reported - Past Family History Mother Family Medical History: Chest Pain / Angina, Coronary Artery Disease (CAD) Additional Family Medical History / Comment(s): at age 92 from lung infection Father History Unknown: Yes Family Medical History: Cancer Medications and Allergies Home Medications Medication Instructions Recorded Confirmed Type Aspirin EC [Ecotrin Low Dose] 81 mg PO DAILY 04/09/18 04/11/22 History Furosemide [Lasix] 80 mg PO DAILY 04/09/18 04/11/22 History Levothyroxine Sodium [Synthroid] 75 mcg PO DAILY 04/09/18 04/11/22 History Potassium Chloride ER [K-Dur 20] 20 meq PO DAILY 04/09/18 04/11/22 History Turmeric Root Extract [Turmeric] 500 mg PO HS 04/09/18 04/11/22 History Metoprolol Succinate (ER) [Toprol 50 mg PO DAILY #30 tab.er.24h 05/26/19 04/11/22 Rx XL] Atorvastatin Calcium [Lipitor] 80 mg PO HS 10/20/21 04/11/22 History Calcium Carbonate [Tums] 500 mg PO QID PRN 10/28/21 04/11/22 Rx Loperamide [Imodium] 2 mg PO QID PRN cap 10/28/21 04/11/22 Rx Apixaban [Eliquis] 5 mg PO BID 04/11/22 04/11/22 History Multivitamins, Thera [Multivitamin 1 tab PO HS 04/11/22 04/11/22 History (formulary)] Spironolactone [Aldactone] 12.5 mg PO DAILY 04/11/22 04/11/22 History Tamsulosin HCl [Flomax] 0.4 mg PO HS 04/11/22 04/11/22 History ramipriL [Altace] 5 mg PO HS 04/11/22 04/11/22 History Allergies Allergy/AdvReac Type Severity Reaction Status Date / Time Penicillins Allergy Rash/Hives Verified 04/11/22 19:17 Sulfa (Sulfonamide Allergy Rash/Hives Verified 04/11/22 19:17 Antibiotics) Surgical - Exam Vital Signs Temp Pulse Resp BP Pulse Ox 97.7 F 58 L 20 119/64 98 04/11/22 13:55 04/11/22 13:55 04/11/22 13:55 04/11/22 13:55 04/11/22 13:55 Results - Labs 04/12/22 06:40 04/11/22 17:34 Abnormal Lab Results - Last 24 Hours (Table) 04/11/22 04/11/22 04/11/22 Range/Units 17:34 18:14 18:14 Sodium 132 L (137-145) mmol/L Chloride 95 L (98-107) mmol/L Creatinine 0.52 L (0.66-1.25) mg/dL Glucose 118 H (74-99) mg/dL Plasma Lactic Acid Oscar 2.3 H* (0.7-2.0) mmol/L Total Bilirubin 1.9 H (0.2-1.3) mg/dL Urine Protein Trace H (Negative) Urine Ketones Trace H (Negative) Ur Leukocyte Esterase Moderate H (Negative) Urine WBC 23 H (0-5) /hpf Urine WBC Clumps Rare H (None) /hpf Calcium Oxalate Crystal Few H (None) /hpf Urine Bacteria Many H (None) /hpf Urine Mucus Moderate H (None) /hpf Diabetes panel 04/11/22 Range/Units 17:34 Sodium 132 L (137-145) mmol/L Potassium 3.8 (3.5-5.1) mmol/L Chloride 95 L (98-107) mmol/L Carbon Dioxide 24 (22-30) mmol/L BUN 11 (9-20) mg/dL Creatinine 0.52 L (0.66-1.25) mg/dL Glucose 118 H (74-99) mg/dL Calcium 9.1 (8.4-10.2) mg/dL AST 34 (17-59) U/L ALT 20 (4-49) U/L Alkaline Phosphatase 114 (38-126) U/L Total Protein 7.4 (6.3-8.2) g/dL Albumin 3.9 (3.5-5.0) g/dL Calcium panel 04/11/22 Range/Units 17:34 Calcium 9.1 (8.4-10.2) mg/dL Albumin 3.9 (3.5-5.0) g/dL Pituitary panel 04/11/22 Range/Units 17:34 Sodium 132 L (137-145) mmol/L Potassium 3.8 (3.5-5.1) mmol/L Chloride 95 L (98-107) mmol/L Carbon Dioxide 24 (22-30) mmol/L BUN 11 (9-20) mg/dL Creatinine 0.52 L (0.66-1.25) mg/dL Glucose 118 H (74-99) mg/dL Calcium 9.1 (8.4-10.2) mg/dL Adrenal panel 04/11/22 Range/Units 17:34 Sodium 132 L (137-145) mmol/L Potassium 3.8 (3.5-5.1) mmol/L Chloride 95 L (98-107) mmol/L Carbon Dioxide 24 (22-30) mmol/L BUN 11 (9-20) mg/dL Creatinine 0.52 L (0.66-1.25) mg/dL Glucose 118 H (74-99) mg/dL Calcium 9.1 (8.4-10.2) mg/dL Total Bilirubin 1.9 H (0.2-1.3) mg/dL AST 34 (17-59) U/L ALT 20 (4-49) U/L Alkaline Phosphatase 114 (38-126) U/L Total Protein 7.4 (6.3-8.2) g/dL Albumin 3.9 (3.5-5.0) g/dL
[2022-04-12] MEDS ORDERED: SODIUM CHLORIDE 0.9% 1,000 ML IV SCH (15:00)
[2022-04-12] MEDS: IOPAMIDOL CONTRAST (ORAL USE) VIAL PO PRN ×2 (15:58→17:00)
[2022-04-12] MEDS ORDERED: CEFEPIME 2 GM in SODIUM CHLORIDE 0.9% 100 ML IVPB SCH (16:15)
[2022-04-12] MEDS: SODIUM CHLORIDE 0.9% 1,000 ML IV SCH (16:32)
--- NOTE | 2022-04-12 18:03 | CT ---
EXAMINATION TYPE: CT abdomen pelvis wo con DATE OF EXAM: 04/12/2022 COMPARISON: Yesterday HISTORY: Diverticulitis, abdominal pain CT DLP: 698 mGycm Automated exposure control for dose reduction was used. Images obtained from the diaphragm to the floor the pelvis with oral contrast only. There is some infiltrate or atelectasis and pleural thickening left lung base. There is left pleural effusion. Heart is enlarged. There is previous cardiac surgery. Right lung base is clear. Liver and spleen are intact. The stomach is intact. There are calcified gallstones. The bile ducts ar e not dilated. There is no pancreatic mass. There is epigastric fat-containing ventral hernia that me asures 5 x 2.5 cm. There is no adrenal mass. Kidneys have normal size. No hydronephrosis. Ureters are not dilated. There is wall thickening of the mid sigmoid colon with numerous diverticula. There is mild adjacent f at stranding. No sign of a bowel obstruction. There is CONTRAST MATERIAL EXTENDING TO THE HEPATIC FLE XURE OF THE COLON. ABDOMINAL AORTA IS ATHEROMATOUS. THERE IS NO RETROPERITONEAL ADENOPATHY. URINARY B LADDER DISTENDS SMOOTHLY. NO INGUINAL HERNIA. THE BONY PELVIS IS INTACT. LUMBAR VERTEBRA. INTACT. THE RE IS MODERATE NARROWING OF DISC SPACES AT L2-3 AND L4-5. HIP JOINTS ARE INTACT. SACROILIAC JOINTS AR E INTACT. There appears to be a thickened appendix is posterior and medial and measures up to 12 mm. Impression: There is sigmoid diverticulosis with wall thickening and mild adjacent fat stranding consistent with diverticulitis that is not changed compared to yesterday. No drainable fluid collection. No bowel obs truction. Cholelithiasis. There is a thickened appendix not changed compared to yesterday and suspicious for appendicitis as we ll. There is left pleural effusion and left lower lobe infiltrate and atelectasis without change.
[2022-04-12] MEDS: ATORVASTATIN 80 MG TAB PO SCH (20:22)
[2022-04-12] MEDS: TAMSULOSIN 0.4 MG CAP.ER.24H PO SCH (20:22)
[2022-04-12] MEDS ORDERED: LEVOFLOXACIN 750MG-D5W PMX 750 MG in DEXTROSE/WATER 1 150ML.BAG IVPB SCH (21:00)
[2022-04-12] MEDS ORDERED: lisinopriL 20 MG TAB PO SCH (21:00)
--- NOTE | 2022-04-12 22:47 | P.CONS ---
History of Present Illness - Reason for Consult Consult date: 04/12/22 diverticulitis and antibiotic recommendation Requesting physician: Nadja Dickson - Chief Complaint Abdominal pain x few days - History of Present Illness Patient is a 76-year-old male with a past medical he significant for perforated diverticulitis intra-abdominal abscess. Patient was admitted assessability in September 2021, patient now presenting to the hospital for evaluation of bleeding per rectum with the patient noticed on Sunday and Sunday that is 3 days before presentation to the hospital patient did have evaluation by his primary care physician 2 days ago on Sunday and the patient did have a CT of abdominal pelvis completed CT abdominal pelvis done on 04/11/2022 that shows thin-walled fluid collection severe wall thickening sigmoid colon for the patient was admitted to hospital patient on presentation to the hospital afebrile and no fever have been recorded subsequently patient did have a normal white count creatinine was normal lactic acid was elevated patient was started on Levaquin and Flagyl because of his penicillin allergy infectious disease was consulted for further management of antibiotic therapy Review of Systems Positive point has been mentioned in the HPI rest of the systems are negative Past Medical History Past Medical History: Atrial Fibrillation, Coronary Artery Disease (CAD), Cancer, COPD, Hyperlipidemia, Hypertension, Myocardial Infarction (MT), Osteoarthritis (OA), Pneumonia, Prostate Disorder, Sleep Apnea/CPAP/BIPAP, Thyroid Disorder Additional Past Medical History / Comment(s): cardiomyopathy. dx in 2015 w/non small cell lung cancer rt upper lobe-received radiation tx Last Myocardial Infarction Date:: 1996 History of Any Multi-Drug Resistant Organisms: None Reported Past Surgical History: AICD, Coronary Bypass/CABG, Heart Catheterization, Hernia Repair, Orthopedic Surgery, Pacemaker, Tonsillectomy Additional Past Surgical History / Comment(s): partial thyroidectomy, x2 cabg sx first one 5 vessels done and 2nd one 2 vessles done, rt inguinal hernia repair, rt knee arthroscopy and 2nd sx on the ligaments, colonoscopy-neg. pacemaker/aicd pt stated has had x4 last changed Past Anesthesia/Blood Transfusion Reactions: No Reported Reaction Additional Past Anesthesia/Blood Transfusion Reaction / Comm: has had blood transfusion in past-no reaction. Type of Cardiac Device: Permanent Pacemaker, AICD Device Placement Date:: changed last Past Psychological History: No Psychological Hx Reported Additional Psychological History / Comment(s): lives w/. is independant. drives. has a nebulizer Smoking Status: Former smoker Past Alcohol Use History: Daily Additional Past Alcohol Use History / Comment(s): started smoking at age 18(1962) and quit age 62(2006). smoked 1.5 ppd. has 2 drinks per day(freddy). Past Drug Use History: None Reported - Past Family History Mother Family Medical History: Chest Pain / Angina, Coronary Artery Disease (CAD) Additional Family Medical History / Comment(s): at age 92 from lung infection Father History Unknown: Yes Family Medical History: Cancer Medications and Allergies Home Medications Medication Instructions Recorded Confirmed Type Aspirin EC [Ecotrin Low Dose] 81 mg PO DAILY 04/09/18 04/11/22 History Furosemide [Lasix] 80 mg PO DAILY 04/09/18 04/11/22 History Levothyroxine Sodium [Synthroid] 75 mcg PO DAILY 04/09/18 04/11/22 History Potassium Chloride ER [K-Dur 20] 20 meq PO DAILY 04/09/18 04/11/22 History Turmeric Root Extract [Turmeric] 500 mg PO HS 04/09/18 04/11/22 History Metoprolol Succinate (ER) [Toprol 50 mg PO DAILY #30 tab.er.24h 05/26/19 04/11/22 Rx XL] Atorvastatin Calcium [Lipitor] 80 mg PO HS 10/20/21 04/11/22 History Calcium Carbonate [Tums] 500 mg PO QID PRN 10/28/21 04/11/22 Rx Loperamide [Imodium] 2 mg PO QID PRN cap 10/28/21 04/11/22 Rx Apixaban [Eliquis] 5 mg PO BID 04/11/22 04/11/22 History Multivitamins, Thera [Multivitamin 1 tab PO HS 04/11/22 04/11/22 History (formulary)] Spironolactone [Aldactone] 12.5 mg PO DAILY 04/11/22 04/11/22 History Tamsulosin HCl [Flomax] 0.4 mg PO HS 04/11/22 04/11/22 History ramipriL [Altace] 5 mg PO HS 04/11/22 04/11/22 History Allergies Allergy/AdvReac Type Severity Reaction Status Date / Time Penicillins Allergy Rash/Hives Verified 04/11/22 19:17 Sulfa (Sulfonamide Allergy Rash/Hives Verified 04/11/22 19:17 Antibiotics) Physical Exam Vitals: Vital Signs Temp Pulse Pulse Resp BP BP Pulse Ox 04/12/22 12:39 97.9 F 60 18 116/66 98 04/12/22 12:02 97.8 F 69 14 119/64 98 04/12/22 06:28 98.4 F 87 14 110/54 97 04/12/22 02:22 98.3 F 68 16 104/55 98 04/11/22 22:03 98.1 F 81 17 124/60 100 04/11/22 21:10 72 16 126/84 95 Intake and Output 04/12/22 04/12/22 04/12/22 06:59 14:59 22:59 Output Total 550 Balance -550 Output: Urine 550 Other: # Voids 1 3 GENERAL DESCRIPTION: elderly male lying in bed, no distress. No tachypnea or accessory muscle of respiration use. HEENT: Shows Pallor , no scleral icterus. Oral mucous membrane is dry. No pharyngeal erythema or thrush NECK: Trachea central, no thyromegaly. LUNGS: Unlabored breathing. Clear to auscultation anteriorly. No wheeze or crackle. HEART: S1, S2, regular rate and rhythm. No loud murmur ABDOMEN: Soft, left lower quadrant tenderness , no guarding or rigidity, no organomegaly EXTREMITIES: No edema of feet. SKIN: No rash, no masses palpable. NEUROLOGICAL: The patient is awake, alert, oriented x3, mood and affect normal. Results CBC & Chem 7: 04/14/22 05:02 04/13/22 05:12 Labs: Abnormal Lab Results - Last 24 Hours (Table) 04/11/22 04/11/22 04/11/22 Range/Units 17:34 18:14 18:14 RBC (4.40-5.60) X 10*6/uL Hgb (13.0-17.0) g/dL Hct (39.6-50.0) % RDW (11.5-14.5) % Sodium 132 L (137-145) mmol/L Chloride 95 L (98-107) mmol/L Creatinine 0.52 L (0.66-1.25) mg/dL Glucose 118 H (74-99) mg/dL Plasma Lactic Acid Oscar 2.3 H* (0.7-2.0) mmol/L Total Bilirubin 1.9 H (0.2-1.3) mg/dL Urine Protein Trace H (Negative) Urine Ketones Trace H (Negative) Ur Leukocyte Esterase Moderate H (Negative) Urine WBC 23 H (0-5) /hpf Urine WBC Clumps Rare H (None) /hpf Calcium Oxalate Crystal Few H (None) /hpf Urine Bacteria Many H (None) /hpf Urine Mucus Moderate H (None) /hpf 04/12/22 Range/Units 06:40 RBC 3.83 L (4.40-5.60) X 10*6/uL Hgb 11.6 L (13.0-17.0) g/dL Hct 35.8 L (39.6-50.0) % RDW 19.3 H (11.5-14.5) % Sodium (137-145) mmol/L Chloride (98-107) mmol/L Creatinine (0.66-1.25) mg/dL Glucose (74-99) mg/dL Plasma Lactic Acid Oscar (0.7-2.0) mmol/L Total Bilirubin (0.2-1.3) mg/dL Urine Protein (Negative) Urine Ketones (Negative) Ur Leukocyte Esterase (Negative) Urine WBC (0-5) /hpf Urine WBC Clumps (None) /hpf Calcium Oxalate Crystal (None) /hpf Urine Bacteria (None) /hpf Urine Mucus (None) /hpf Microbiology - Last 24 Hours (Table) 04/11/22 18:14 Urine Culture - Preliminary Urine,Voided Assessment and Plan (1) Diverticulitis Current Visit: Yes Status: Acute Code(s): K57.92 - DVTRCLI OF INTEST, PART UNSP, W/O PERF OR ABSCESS W/O BLEED SNOMED Code(s): 146636970 (2) Abscess Current Visit: No Status: Acute Code(s): L02.91 - CUTANEOUS ABSCESS, UNSPECIFIED SNOMED Code(s): 056316636 Plan: 1patient to the hospital with abnormal CT done in the outpatient setting for a lower GI bleed with concern for thin oral fluid collection concerning for possible diverticulitis and abscess and need to cover for the enteric gram- negative both aerobes and anaerobes. 2 Patient with history of penicillin regimen history of anaphylaxis. 3discontinue Levaquin. 4we will add cefepime and continue with the Flagyl. We will follow on clinical condition and cultures to further adjust medication if needed Thank you for this consultation will follow this patient along with you Time with Patient: Greater than 30
[2022-04-13] MEDS: metroNIDAZOLE-NS PMX 500 MG in SALINE 1 100ML.BAG IVPB SCH ×4 (00:14→23:27)
[2022-04-13] MEDS: CEFEPIME 2 GM in SODIUM CHLORIDE 0.9% 100 ML IVPB SCH ×3 (03:09→19:45)
[2022-04-13] MEDS: LEVOTHYROXINE 75 MCG TAB PO SCH (05:32)
[2022-04-13] MEDS: METOPROLOL SUCCINATE (ER) 50 MG TAB.ER.24H PO SCH (08:46)
[2022-04-13 09:17] LABS: Basophils # (A) 0.08 X 10*3/uL (0.00-0.10); Basophils % (A) 0.9 %; Eosinophils # (A) 0.17 X 10*3/uL (0.04-0.35); HCT 34.3 % (39.6-50.0); HGB 11.4 g/dL (13.0-17.0); Immature Grans, Automated 0.2 %; Lymphocytes # (A) 2.42 X 10*3/uL (0.90-5.00); Lymphocytes % (A) 28.4 %; MCH 30.4 pg (27.0-32.0); MCHC 33.2 g/dL (32.0-37.0); MCV 91.5 fL (80.0-97.0); Mean Platelet Volume 10.1 fL (9.5-12.2); Monocytes # (A) 1.03 X 10*3/uL (0.20-1.00); Monocytes % (A) 12.1 %; NRBC Per 100 WBC 0 /100 WBCS (0.0-0.0); Neutrophils # (A) 4.79 X 10*3/uL (1.80-7.70); Neutrophils % (A) 56.4 %; Platelet Count 192 X 10*3/uL (140-440); RBC 3.75 X 10*6/uL (4.40-5.60); RDW 19.1 % (11.5-14.5); WBC 8.51 X 10*3/uL (4.50-10.00)
[2022-04-13 09:24] LABS: African American GFR (CKD) 123.7 (60.0-200.0); Anion Gap 13.4 mmol/L (10.00-18.00); Blood Urea Nitrogen 6.5 mg/dL (9.0-27.0); Calcium 7.9 mg/dL (8.7-10.3); Carbon Dioxide 17.6 mmol/L (20.0-27.5); Non-African American GFR(CKD) 106.8 (60.0-200.0); Potassium 3.6 mmol/L (3.5-5.5)
--- NOTE | 2022-04-13 09:52 | P.CRDCN ---
History of Present Illness Consult date: 04/13/22 History of present illness: HISTORY OF PRESENT ILLNESS: This is a 76-year-old male with a past medical history significant for persistent atrial fibrillation, coronary artery disease with previous CABG, ischemic cardiomyopathy with an ejection fraction of 25%, AICD implantation, and mitral valve repair. Patient follows in the office with Dr. Cortes. We have been asked to see the patient in consultation for cardiac clearance. Patient examined at the bedside. Patient is admitted to the hospital secondary to abdominal pain and diverticulitis. He is receiving IV antibiotics. The patient denies any chest pain or pressure. He denies any shortness of breath at rest. He is able to lay flat comfortably in bed. He does report shortness of breath at home when he is walking to his mailbox. Patient's blood pressures are on the lower side this morning with a systolic in the 80s and 90s. He is receiving IV fluids at 50 mL an hour. * EKG: Not available at the time of this dictation * Laboratory data: WBC 8.51. Hemoglobin 11.4. Platelet count 192. Sodium 133. Potassium 3.6. BUN 6.5. Creatinine 0.5. * Current home cardiac medications include aspirin 81 mg daily, Ramipril 5 mg at night, Aldactone 12.5 mg daily, metoprolol succinate 50 mg daily, Lasix 80 mg daily, Lipitor 80 mg at night, and Eliquis 5 mg twice a day * Most recent echocardiogram obtained in January 2022 at the office revealed ejection fraction 20%, severe TR, severe MR, and repair of mitral valve REVIEW OF SYSTEMS: At the time of my exam: CONSTITUTIONAL: Denies fever or chills. HEENT: Denies blurred vision, vision changes, or eye pain. Denies hemoptysis CARDIOVASCULAR: Denies chest pain. Denies orthopnea. Denies PND. Denies palp itations RESPIRATORY: Denies shortness of breath. GASTROINTESTINAL: Denies abdominal pain. Denies nausea or vomiting. HEMATOLOGIC: Denies bleeding disorders. GENITOURINARY: Denies any blood in urine. SKIN: Denies pruitis. Denies rash. PHYSICAL EXAM: VITAL SIGNS: Reviewed. GENERAL: Well-developed in no acute distress. HEENT: Head is normocephalic. Pupils are equal, round. Sclerae anicteric. Mucous membranes of the mouth are moist. Neck supple. No JVD or thyromegaly LUNGS: Respirations even and unlabored. Lungs essentially clear to auscultation bilaterally. HEART: Irregular rate and rhythm. S1 and S2 heard. Systolic murmur noted. ABDOMEN: Soft. Nondistended. Positive tenderness EXTREMITIES: Normal range of motion. No clubbing or cyanosis. Peripheral pulses intact. No lower extremity edema NEUROLOGIC: Awake and alert. Oriented x 3. ASSESSMENT: Abdominal pain Hypotension Persistent severe sigmoid colonic diverticulosis with recurrent acute diverticulitis Persistent atrial fibrillation Coronary artery disease with previous CABG Ischemic cardio myopathy History of AICD implantation History of mitral valve repair PLAN: No need to repeat echo as this was performed in January 2022 in the office Obtain EKG Hold Lasix and Lisinopril due to hypotension Hold aspirin and Eliquis for possible surgery. Resume amado after surgical intervention There are no absolute contraindications to undergo surgery from a cardiac s tandpoint Further recommendations pending patient course Nurse practitioner note has been reviewed by physician. Signing provider agrees with the documented findings, assessment, and plan of care. Past Medical History Past Medical History: Atrial Fibrillation, Coronary Artery Disease (CAD), Cancer, COPD, Hyperlipidemia, Hypertension, Myocardial Infarction (DC), Osteoarthritis (OA), Pneumonia, Prostate Disorder, Sleep Apnea/CPAP/BIPAP, Thyroid Disorder Additional Past Medical History / Comment(s): cardiomyopathy. dx in 2015 w/non small cell lung cancer rt upper lobe-received radiation tx Last Myocardial Infarction Date:: 1996 History of Any Multi-Drug Resistant Organisms: None Reported Past Surgical History: AICD, Coronary Bypass/CABG, Heart Catheterization, Hernia Repair, Orthopedic Surgery, Pacemaker, Tonsillectomy Additional Past Surgical History / Comment(s): partial thyroidectomy, x2 cabg s x first one 5 vessels done and 2nd one 2 vessles done, rt inguinal hernia repair, rt knee arthroscopy and 2nd sx on the ligaments, colonoscopy-neg. pacemaker/aicd pt stated has had x4 last changed Past Anesthesia/Blood Transfusion Reactions: No Reported Reaction Additional Past Anesthesia/Blood Transfusion Reaction / Comment(s): has had blo od transfusion in past-no reaction. Type of Cardiac Device: Permanent Pacemaker, AICD Device Placement Date:: changed last Past Psychological History: No Psychological Hx Reported Additional Psychological History / Comment(s): lives w/. is independant. drives. has a nebulizer Smoking Status: Former smoker Past Alcohol Use History: Daily Additional Past Alcohol Use History / Comment(s): started smoking at age 18 (1963) and quit age 62(2006). smoked 1.5 ppd. has 2 drinks per day(freddy). Past Drug Use History: None Reported - Past Family History Mother Family Medical History: Chest Pain / Angina, Coronary Artery Disease (CAD) Additional Family Medical History / Comment(s): at age 92 from lung inf ection Father History Unknown: Yes Family Medical History: Cancer Medications and Allergies Home Medications Medication Instructions Recorded Confirmed Type Aspirin EC [Ecotrin Low Dose] 81 mg PO DAILY 04/09/18 04/11/22 History Furosemide [Lasix] 80 mg PO DAILY 04/09/18 04/11/22 History Levothyroxine Sodium [Synthroid] 75 mcg PO DAILY 04/09/18 04/11/22 History Potassium Chloride ER [K-Dur 20] 20 meq PO DAILY 04/09/18 04/11/22 History Turmeric Root Extract [Turmeric] 500 mg PO HS 04/09/18 04/11/22 History Metoprolol Succinate (ER) [Toprol 50 mg PO DAILY #30 tab.er.24h 05/26/19 04/11/22 Rx XL] Atorvastatin Calcium [Lipitor] 80 mg PO HS 10/20/21 04/11/22 History Calcium Carbonate [Tums] 500 mg PO QID PRN 10/28/21 04/11/22 Rx Loperamide [Imodium] 2 mg PO QID PRN cap 10/28/21 04/11/22 Rx Apixaban [Eliquis] 5 mg PO BID 04/11/22 04/11/22 History Multivitamins, Thera [Multivitamin 1 tab PO HS 04/11/22 04/11/22 History (formulary)] Spironolactone [Aldactone] 12.5 mg PO DAILY 04/11/22 04/11/22 History Tamsulosin HCl [Flomax] 0.4 mg PO HS 04/11/22 04/11/22 History ramipriL [Altace] 5 mg PO HS 04/11/22 04/11/22 History Allergies Allergy/AdvReac Type Severity Reaction Status Date / Time Penicillins Allergy Rash/Hives Verified 04/11/22 19:17 Sulfa (Sulfonamide Allergy Rash/Hives Verified 04/11/22 19:17 Antibiotics) Physical Exam Vitals: Vital Signs Temp Pulse Resp BP BP Pulse Ox 04/13/22 07:40 98.1 F 69 18 99/53 83/49 95 04/13/22 02:18 99.2 F 59 L 17 101/62 94 L 04/12/22 19:10 98.1 F 95 17 111/68 99 04/12/22 12:39 97.9 F 60 18 116/66 98 04/12/22 12:02 97.8 F 69 14 119/64 98 Intake and Output 04/12/22 04/13/22 04/13/22 22:59 06:59 14:59 Output Total 350 Balance -350 Output: Urine 350 Other: Voiding Method Toilet # Voids 1 Results 04/13/22 05:12 04/13/22 05:12 CBC 04/12/22 04/13/22 Range/Units 06:40 05:12 WBC 8.51 8.51 (4.50-10.00) X 10*3/uL RBC 3.83 L 3.75 L (4.40-5.60) X 10*6/uL Hgb 11.6 L 11.4 L (13.0-17.0) g/dL Hct 35.8 L 34.3 L (39.6-50.0) % Plt Count 217 192 (140-440) X 10*3/uL Comprehensive Metabolic Panel 04/13/22 Range/Units 05:12 Sodium 133 L (135-145) mmol/L Potassium 3.6 (3.5-5.5) mmol/L Chloride 102 (96-109) mmol/L Carbon Dioxide 17.6 L (20.0-27.5) mmol/L BUN 6.5 L (9.0-27.0) mg/dL Creatinine 0.5 L (0.6-1.5) mg/dL Glucose 63 L (70-110) mg/dL Calcium 7.9 L (8.7-10.3) mg/dL Current Medications Generic Name Dose Route Start Last Admin Trade Name Freq PRN Reason Stop Dose Admin Atorvastatin Calcium 80 mg 04/12/22 21:00 04/12/22 20:22 Atorvastatin 80 Mg Tab PO 80 mg HS BONY Administration Calcium Carbonate/Glycine 500 mg 04/12/22 03:30 Calcium Carbonate 500 Mg Chewable PO QID PRN Heartburn Metronidazole 500 mg/ IV 100 mls @ 100 mls/hr 04/12/22 05:00 04/13/22 09:19 Solution IVPB 100 mls/hr Q8HR BONY Administration Protocol Sodium Chloride 1,000 mls @ 50 mls/hr 04/12/22 15:00 04/12/22 16:40 Saline 0.9% IV 50 mls/hr .Q20H BONY Administration Cefepime HCl 2 gm/ Sodium 100 mls @ 25 mls/hr 04/13/22 04:00 04/13/22 03:09 Chloride IVPB 25 mls/hr Q8H BONY Administration Protocol Levothyroxine Sodium 75 mcg 04/12/22 06:30 04/13/22 05:32 Levothyroxine 75 Mcg Tab PO 75 mcg DAILY@0630 BONY Administration Metoprolol Succinate 50 mg 04/12/22 09:00 04/13/22 08:46 Metoprolol Succinate (Er) 50 Mg Tab.Er.24h PO 50 mg DAILY BONY Administration Naloxone HCl 0.2 mg 04/11/22 19:02 Naloxone 0.4 Mg/Ml 1 Ml Vial IV Q2M PRN Opioid Reversal Tamsulosin HCl 0.4 mg 04/12/22 21:00 04/12/22 20:22 Tamsulosin 0.4 Mg Cap.Er.24h PO 0.4 mg HS BONY Administration Intake and Output 04/12/22 04/13/22 04/13/22 22:59 06:59 14:59 Output Total 350 Balance -350 Output: Urine 350 Other: Voiding Method Toilet # Voids 1 04/13/22 05:12 04/13/22 05:12
--- NOTE | 2022-04-13 11:13 | XR ---
EXAMINATION TYPE: XR knee complete RT DATE OF EXAM: 04/13/2022 CLINICAL HISTORY: Swelling and edema. TECHNIQUE: Three views of the right knee are obtained. COMPARISON: None. FINDINGS: Moderate to severe tricompartment joint space loss and mild to moderate spurring. Meniscal calcification is present raising concern for underlying chondrocalcinosis. No acute displaced fractur e. Surgical clips medially from venous harvesting procedure. Large staple at the level of the tibial tuberosity lateral aspect. Mild to moderate posterior vascular calcification. Small to moderate sized suprapatellar joint effusion likely present. IMPRESSION: As above.
--- NOTE | 2022-04-13 12:05 | P.PN ---
Subjective Progress Note Date: 04/13/22 CHIEF COMPLAINT: Diverticulitis HISTORY OF PRESENT ILLNESS: Patient reports improvement in his pain. He has some very minimal discomfort in the left lower quadrant. Denies any nausea vomiting. He did have a small dark brown bowel movement today. Computed tomography scan abdomen and pelvis with oral contrast showing sigmoid diverticulosis with wall thickening and mild adjacent fat stranding consistent with diverticulitis. No drainable fluid collection. No bowel junction. Cholelithiasis. There is a thickened appendix not change compared to yesterday and suspicious for appendicitis as well. Left pleural effusion and left lower lobe infiltrate and atelectasis without change. Afebrile. WBC 8.5 one a she P 11.4 platelets 192 sodium 133 potassium 3.6 creatinine 0.5 patient seen evaluated by cardiology and cleared for surgery from cardiac standpoint. Patient did report shortness of breath with ambulating from the bathroom. Patient seen by ID service. Antibiotics adjusted. PHYSICAL EXAM: VITAL SIGNS: Reviewed. GENERAL: Well-developed in no acute distress. HEENT: No sclera icterus. Extraocular movements grossly intact. Moist buccal mucosa. Head is atraumatic, normocephalic. ABDOMEN: Soft. Nondistended. Discomfort noted left lower quadrant with palpation otherwise no pain NEUROLOGIC: Alert and oriented. Cranial nerves II through XII grossly intact. ASSESSMENT: 1. Acute diverticulitis PLAN: -Further recommendations forthcoming per surgeon -Start clear liquid diet -Hep-Lock IV fluids -Continue antibiotics -Continue to hold Eliquis Physician Assistant Manager [employer] note has been reviewed by physician. Signing provider agrees with the documented findings, assessment, and plan of care. Objective - Vital Signs Vital signs: Vital Signs Temp 98.1 F 04/13/22 07:40 Pulse 69 04/13/22 07:40 Resp 18 04/13/22 07:40 BP 83/49 04/13/22 07:40 Pulse Ox 95 04/13/22 07:40 FiO2 Intake & Output 04/12/22 04/13/22 04/13/22 18:59 06:59 18:59 Output Total 550 350 Balance -550 -350 Output: Urine 550 350 Other: Voiding Method Toilet # Voids 3 1 - Labs CBC & Chem 7: 04/13/22 05:12 04/13/22 05:12 Labs: Abnormal Lab Results - Last 24 Hours (Table) 04/13/22 04/13/22 Range/Units 05:12 05:12 RBC 3.75 L (4.40-5.60) X 10*6/uL Hgb 11.4 L (13.0-17.0) g/dL Hct 34.3 L (39.6-50.0) % RDW 19.1 H (11.5-14.5) % Monocytes # 1.03 H (0.20-1.00) X 10*3/uL Sodium 133 L (135-145) mmol/L Carbon Dioxide 17.6 L (20.0-27.5) mmol/L BUN 6.5 L (9.0-27.0) mg/dL Creatinine 0.5 L (0.6-1.5) mg/dL Glucose 63 L (70-110) mg/dL Calcium 7.9 L (8.7-10.3) mg/dL Microbiology - Last 24 Hours (Table) 04/11/22 18:14 Urine Culture - Preliminary Urine,Voided
[2022-04-13] MEDS ORDERED: ACETAMINOPHEN TAB 325 MG TAB PO PRN (14:14)
[2022-04-13] MEDS ORDERED: lisinopriL 5 MG TAB PO SCH (14:15)
--- NOTE | 2022-04-13 14:15 | P.PN ---
Subjective Progress Note Date: 04/13/22 Principal diagnosis: abdominal pain Hospital Course: 76-year-old male with past medical history of systolic CHF with EF of 20% status post ICD, COPD, A. fib on eliquis, recent episode of septic shock secondary to multiple pelvic and lower extremity abscesses, diverticulitis, sigmoid colitis requiring prolonged ICU stay at [facility]. Patient presented with rectal bleeding to his PCP. He had an outpatient CT abdomen and pelvis which showed severe sigmoid colonic diverticulosis, recurrent acute diverticulitis, possible thin walled fluid collection and chronic sinus tract, possible abscess. Patient was referred to Hospital for further workup and surgical evaluation. Surgery following. ID following. Subjective: No acute events overnight. Patient seen and examined at bedside. He continues to have mild tenderness to palpation in the left lower quadrant abdomen. He denies any further blood BMs. He does complain about new right knee swelling that started overnight. Pertinent positives and negatives as discussed above, a complete review of systems was performed and all other systems are negative. Vitals Signs Reviewed. General: nontoxic, no distress, appears at stated age Derm: warm, dry Head: atraumatic, normocephalic, symmetric Eyes: EOMI, no lid lag, anicteric sclera Mouth: no lip lesion, mucus membranes moist Cardiovascular: S1S2 reg, no murmur Lungs: CTA bilateral, no rhonchi, no rales , no accessory muscle use Abdominal: soft, mild tenderness to palpation in the left lower quadrant, no guarding, no appreciable organomegaly Ext: no gross muscle atrophy, right knee effusion, has slightly limited ROM, no contractures Neuro: CN II-XI grossly intact, no focal neuro deficits Psych: Alert, oriented, appropriate affect Assessment and Plan: Acute GI bleeding, likely secondary to diverticulosis - resolved Diverticulitis with possible abscess -holding eliquis -hemoglobin stable -Surgery following, started on clear liquids -ID following, patient on cefepime and flagyl Right knee effusion - appears suprapatellar based on xray - pain control with tylenol Atrial fibrillation -Hold anticoagulation Hypertension- holding meds, BP normal Dyslipidemia- continue statin Systolic CHF - holding diuretics in the setting of acute infection, and poor oral intake F: Oral E: Replete as needed N: Clear liquids A: As tolerated DVT ppx: SCD Code status: Full code Anticipated discharge place: Home Anticipated discharge time: 2-3 days Objective - Vital Signs Vital signs: Vital Signs Temp 97.6 F 04/13/22 13:29 Pulse 57 L 04/13/22 13:29 Resp 16 04/13/22 13:29 BP 100/53 04/13/22 13:29 Pulse Ox 99 04/13/22 13:29 FiO2 Intake & Output 04/12/22 04/13/22 04/13/22 18:59 06:59 18:59 Output Total 550 350 Balance -550 -350 Output: Urine 550 350 Other: Voiding Method Toilet # Voids 3 1 - Labs CBC & Chem 7: 04/13/22 05:12 04/13/22 05:12 Labs: Abnormal Lab Results - Last 24 Hours (Table) 04/13/22 04/13/22 Range/Units 05:12 05:12 RBC 3.75 L (4.40-5.60) X 10*6/uL Hgb 11.4 L (13.0-17.0) g/dL Hct 34.3 L (39.6-50.0) % RDW 19.1 H (11.5-14.5) % Monocytes # 1.03 H (0.20-1.00) X 10*3/uL Sodium 133 L (135-145) mmol/L Carbon Dioxide 17.6 L (20.0-27.5) mmol/L BUN 6.5 L (9.0-27.0) mg/dL Creatinine 0.5 L (0.6-1.5) mg/dL Glucose 63 L (70-110) mg/dL Calcium 7.9 L (8.7-10.3) mg/dL
[2022-04-13] MEDS: TAMSULOSIN 0.4 MG CAP.ER.24H PO SCH (19:45)
[2022-04-13] MEDS: ATORVASTATIN 80 MG TAB PO SCH (19:45)
[2022-04-14] MEDS: LEVOTHYROXINE 75 MCG TAB PO SCH (05:08)
[2022-04-14] MEDS: CEFEPIME 2 GM in SODIUM CHLORIDE 0.9% 100 ML IVPB SCH ×2 (05:08→12:25)
[2022-04-14 08:54] VITALS: PULSE 55; TEMP 97.9
[2022-04-14 09:06] LABS: Basophils # (A) 0.06 X 10*3/uL (0.00-0.10); Basophils % (A) 0.7 %; Eosinophils # (A) 0.34 X 10*3/uL (0.04-0.35); HCT 37.3 % (39.6-50.0); HGB 12.2 g/dL (13.0-17.0); Immature Grans, Automated 0.4 %; Lymphocytes # (A) 2.16 X 10*3/uL (0.90-5.00); Lymphocytes % (A) 25.6 %; MCH 30.2 pg (27.0-32.0); MCHC 32.7 g/dL (32.0-37.0); MCV 92.3 fL (80.0-97.0); Mean Platelet Volume 9.8 fL (9.5-12.2); Monocytes # (A) 1.39 X 10*3/uL (0.20-1.00); Monocytes % (A) 16.5 %; NRBC Per 100 WBC 0 /100 WBCS (0.0-0.0); Neutrophils # (A) 4.45 X 10*3/uL (1.80-7.70); Neutrophils % (A) 52.8 %; Platelet Count 191 X 10*3/uL (140-440); RBC 4.04 X 10*6/uL (4.40-5.60); WBC 8.43 X 10*3/uL (4.50-10.00)
[2022-04-14] MEDS: metroNIDAZOLE-NS PMX 500 MG in SALINE 1 100ML.BAG IVPB SCH (09:11)
[2022-04-14] MEDS: METOPROLOL SUCCINATE (ER) 50 MG TAB.ER.24H PO SCH (09:12)
[2022-04-14] MEDS ORDERED: LIDOCAINE 1% INJ 10MG/ML (30 ML VIAL-PF) SQ ONE (09:29)
--- NOTE | 2022-04-14 09:52 | IR ---
PICC LINE PLACEMENT: HISTORY: Infection requiring long-term antibiotic therapy PROCEDURE: Ultrasound and fluoroscopic guidance of PICC line placement. COMPLICATIONS: None ANESTHESIA: 1. 1% Lidocaine locally. FINDINGS/TECHNIQUE: The procedure was explained to the patient. The risks, complications, benefits and alternatives were discussed and any questions were answered. Informed consent was obtained. The patient was placed supine on the fluoroscopic table and prepped and draped in the usual sterile fash ion. Utilizing a 21 gauge needle and sonographic and fluoroscopic guidance, access in the left basi lic vein was achieved and there is placement of a 0.018 guidewire. The vein is patent. A 4-F sheath was placed over the guidewire. The guidewire and dilator were removed and a 4-F. PICC line was plac ed through the sheath with the tip at the level of the SVC. The sheath was removed, the catheter was flushed and sutured into position. The patient was stable throughout the procedure and remained sta ble upon discharge from the Department of Radiology. The vein puncture was patent under ultrasound. A black scale image was obtained to document patency of the vein punctured. All elements of the maximal barrier technique were utilized. FLUOROSCOPY TIME: 0.1 minutes and 1 images submitted IMPRESSION: Successful PICC line placement under ultrasound and fluoroscopic guidance.
--- NOTE | 2022-04-14 09:56 | P.PN ---
Subjective Progress Note Date: 04/14/22 HISTORY OF PRESENT ILLNESS: This is a 76-year-old male with a past medical history significant for persistent atrial fibrillation, coronary artery disease with previous CABG, ischemic cardiomyopathy with an ejection fraction of 25%, AICD implantation, and mitral valve repair. Patient follows in the office with Dr. Cortes. We have been asked to see the patient in consultation for cardiac clearance. Patient examined at the bedside. Patient is admitted to the hospital secondary to abdominal pain and diverticulitis. He is receiving IV antibiotics. The patient denies any chest pain or pressure. He denies any shortness of breath at rest. He is able to lay flat comfortably in bed. He does report shortness of breath at home when he is walking to his mailbox. Patient's blood pressures are on the lower side this morning with a systolic in the 80s and 90s. He is receiving IV fluids at 50 mL an hour. * EKG: Not available at the time of this dictation * Laboratory data: WBC 8.51. Hemoglobin 11.4. Platelet count 192. Sodium 133. Potassium 3.6. BUN 6.5. Creatinine 0.5. * Current home cardiac medications include aspirin 81 mg daily, Ramipril 5 mg at night, Aldactone 12.5 mg daily, metoprolol succinate 50 mg daily, Lasix 80 mg daily, Lipitor 80 mg at night, and Eliquis 5 mg twice a day * Most recent echocardiogram obtained in January 2022 at the office revealed ejecti on fraction 20%, severe TR, severe MR, and repair of mitral valve 04/14/2022 Patient examined this morning at the bedside. Patient denies chest pain or pressure. He denies shortness of breath. He continues to receive IV antibiotics. There is no surgical intervention planned at this time. Vital signs are stable. PHYSICAL EXAM: VITAL SIGNS: Reviewed. GENERAL: Well-developed in no acute distress. HEENT: Head is normocephalic. Pupils are equal, round. Sclerae anicteric. Mucous membranes of the mouth are moist. Neck supple. No JVD or thyromegaly LUNGS: Respirations even and unlabored. Lungs essentially clear to auscultation bilaterally. HEART: Irregular rate and rhythm. S1 and S2 heard. Systolic murmur noted. ABDOMEN: Soft. Nondistended. Positive tenderness EXTREMITIES: Normal range of motion. No clubbing or cyanosis. Peripheral pulses intact. No lower extremity edema NEUROLOGIC: Awake and alert. Oriented x 3. ASSESSMENT: Abdominal pain Hypotension Persistent severe sigmoid colonic diverticulosis with recurrent acute diverticulitis Persistent atrial fibrillation Coronary artery disease with previous CABG Ischemic cardio myopathy History of AICD implantation History of mitral valve repair PLAN: Resume anticoagulation if there are no plans for surgical intervention There are no absolute contraindications to undergo surgery from a cardiac standpoint, however per patient there are no plans for surgery at this time We will sign off. Please reconsult if needed. Nurse practitioner note has been reviewed by physician. Signing provider agrees with the documented findings, assessment, and plan of care. Objective - Vital Signs Vital signs: Vital Signs Temp 97.9 F 04/14/22 08:00 Pulse 55 L 04/14/22 08:00 Resp 15 04/14/22 08:00 BP 98/54 04/14/22 08:00 Pulse Ox 96 04/14/22 08:00 FiO2 Intake & Output 04/13/22 04/14/22 04/14/22 18:59 06:59 18:59 Intake Total 240 Balance 240 Intake: Oral 240 Other: Voiding Method Toilet # Voids 1 1 - Labs CBC & Chem 7: 04/14/22 05:02 04/13/22 05:12 Labs: Abnormal Lab Results - Last 24 Hours (Table) 04/14/22 Range/Units 05:02 RBC 4.04 L (4.40-5.60) X 10*6/uL Hgb 12.2 L (13.0-17.0) g/dL Hct 37.3 L (39.6-50.0) % RDW 19.0 H (11.5-14.5) % Monocytes # 1.39 H (0.20-1.00) X 10*3/uL Microbiology - Last 24 Hours (Table) 04/11/22 18:14 Urine Culture - Preliminary Urine,Voided Gram Neg Bacilli
--- NOTE | 2022-04-14 11:42 | P.PN ---
Subjective Progress Note Date: 04/14/22 CHIEF COMPLAINT: Diverticulitis HISTORY OF PRESENT ILLNESS: Patient denies any abdominal pain. He received his PICC line this morning. Awaiting infectious disease recommendations for discharge IV antibiotics. Patient will require a diverting colostomy. Patient requesting that surgery be done later and he'll follow-up with Dr. sands next week to schedule surgery. He'll be discharged with IV antibiotics. Patient denies any abdominal pain. Denies any nausea or vomiting. He is tolerating diet. He did have bowel movements that were normal without any blood or black stools. Afebrile. BP 98/54. WBC 8.43 Hgb 12.2 platelets 191 Patient seen and examined with Dr. sands PHYSICAL EXAM: VITAL SIGNS: Reviewed. GENERAL: Well-developed in no acute distress. HEENT: No sclera icterus. Extraocular movements grossly intact. Moist buccal mucosa. Head is atraumatic, normocephalic. ABDOMEN: Soft. Nondistended. Nontender NEUROLOGIC: Alert and oriented. Cranial nerves II through XII grossly intact. ASSESSMENT: 1. Recurrent Acute sigmoid diverticulitis PLAN: -Patient is okay for discharge from surgical standpoint -Patient will require a diverting colostomy. Patient is requesting surgery to be completed in the outpatient setting at a later date. Patient will follow-up with Dr. sands next Sunday to discuss scheduling surgery -Patient to be discharged with IV antibiotics per ID recommendations -Continue bland, low fiber diet -Okay to resume Eliquis from surgical standpoint. Eliquis will need to be discontinued in the outpatient setting 48 hours prior to surgery Physician Reconciling Clerk note has been reviewed by physician. Signing provider agrees with the documented findings, assessment, and plan of care. Objective - Vital Signs Vital signs: Vital Signs Temp 97.9 F 04/14/22 08:00 Pulse 55 L 04/14/22 08:00 Resp 15 04/14/22 08:00 BP 98/54 04/14/22 08:00 Pulse Ox 96 04/14/22 08:00 FiO2 Intake & Output 04/13/22 04/14/22 04/14/22 18:59 06:59 18:59 Intake Total 240 120 Balance 240 120 Intake: Oral 240 120 Other: Voiding Method Toilet # Voids 1 1 1 - Labs CBC & Chem 7: 04/14/22 05:02 04/13/22 05:12 Labs: Abnormal Lab Results - Last 24 Hours (Table) 04/14/22 Range/Units 05:02 RBC 4.04 L (4.40-5.60) X 10*6/uL Hgb 12.2 L (13.0-17.0) g/dL Hct 37.3 L (39.6-50.0) % RDW 19.0 H (11.5-14.5) % Monocytes # 1.39 H (0.20-1.00) X 10*3/uL Microbiology - Last 24 Hours (Table) 04/11/22 18:14 Urine Culture - Preliminary Urine,Voided Gram Neg Bacilli
[2022-04-14] MEDS ORDERED: ERTAPENEM 1 GM in SODIUM CHLORIDE 0.9% 50 ML IVPB SCH (12:15)
--- NOTE | 2022-04-14 15:00 | P.DS ---
Providers Date of admission: 04/12/22 09:54 Expected date of discharge: 04/14/22 Attending physician: Clinton Thorpe MD Consults: 04/12/22 09:26 Consult Physician Routine Consulting Provider: Keith Hou Consult Reason/Comments: diverticulitis Do you want consulting provider notified?: Already Contacted 04/12/22 13:00 Consult Physician Routine Consulting Provider: Vignesh Reynoso Consult Reason/Comments: diverticulitis Do you want consulting provider notified?: Yes Primary care physician: [facility] Course: Discharge Diagnosis: Acute GI bleeding, likely secondary to diverticulosis Recurrent acute sigmoid Diverticulitis Right knee effusion Persistent Atrial fibrillation Hypertension Dyslipidemia Systolic CHF, chronic History of AICD implantation History of mitral valve repair Hospital Course: 76-year-old male with history of atrial fibrillation, systolic CHF, recent episode of septic shock secondary to diverticulitis presented with rectal bleeding. He was admitted for acute GI bleed likely in the setting of persistent sigmoid diverticulosis and acute recurrent sigmoid diverticulitis with possible abscess. He had a CT abdomen and pelvis that demonstrated findings consistent with sigmoid diverticulosis, recurrent acute diverticulitis. He was evaluated by surgery. He will likely be getting a diverting ostomy as an outpatient, and has a follow-up with surgery next Sunday. He was also evaluated by cardiology for preoperative evaluation. Okay to resume his anticoagulation, and will be held 48 hours prior to his surgery. He will also resume his aspirin. Infectious disease was consulted. Recommending continuing IV antibiotics for 2 weeks. He will be discharged with a PICC line, and IV cefepime every 8 hours for 2 weeks. He will also continue a bland low fiber diet in the meanwhile. He does not have any rectal bleeding at the time of discharge. Patient seen and examined at bedside. Vital signs reviewed and stable. General: nontoxic, no distress, appears at stated age Derm: warm, dry Head: atraumatic, normocephalic, symmetric Eyes: EOMI, no lid lag, anicteric sclera Mouth: no lip lesion, mucus membranes moist Cardiovascular: S1S2 reg, no murmur Lungs: CTA bilateral, no rhonchi, no rales , no accessory muscle use Abdominal: soft, nontender to palpation, no guarding, no appreciable organomegaly Ext: no gross muscle atrophy, no edema, no contractures Neuro: CN II-XI grossly intact, no focal neuro deficits Psych: Alert, oriented, appropriate affect A total of 38 minutes of time were spent preparing this complex discharge summary. Patient was discharged on 04/14/22 at 15:30. Patient Condition at Discharge: Stable Plan - Discharge Summary New Discharge Prescriptions: Continue Levothyroxine Sodium [Synthroid] 75 mcg PO DAILY Potassium Chloride ER [K-Dur 20] 20 meq PO DAILY Furosemide [Lasix] 80 mg PO DAILY Aspirin EC [Ecotrin Low Dose] 81 mg PO DAILY Turmeric Root Extract [Turmeric] 500 mg PO HS Metoprolol Succinate (ER) [Toprol XL] 50 mg PO DAILY #30 tab.er.24h Atorvastatin Calcium [Lipitor] 80 mg PO HS Loperamide [Imodium] 2 mg PO QID PRN cap PRN Reason: Diarrhea Calcium Carbonate [Tums] 500 mg PO QID PRN PRN Reason: Heartburn Multivitamins, Thera [Multivitamin (formulary)] 1 tab PO HS Tamsulosin HCl [Flomax] 0.4 mg PO HS Apixaban [Eliquis] 5 mg PO BID ramipriL [Altace] 5 mg PO HS Spironolactone [Aldactone] 12.5 mg PO DAILY Discharge Medication List Aspirin EC [Ecotrin Low Dose] 81 mg PO DAILY 04/09/18 [History] Furosemide [Lasix] 80 mg PO DAILY 04/09/18 [History] Levothyroxine Sodium [Synthroid] 75 mcg PO DAILY 04/09/18 [History] Potassium Chloride ER [K-Dur 20] 20 meq PO DAILY 04/09/18 [History] Turmeric Root Extract [Turmeric] 500 mg PO HS 04/09/18 [History] Metoprolol Succinate (ER) [Toprol XL] 50 mg PO DAILY #30 tab.er.24h 05/26/19 [Rx] Atorvastatin Calcium [Lipitor] 80 mg PO HS 10/20/21 [History] Calcium Carbonate [Tums] 500 mg PO QID PRN 10/28/21 [Rx] Loperamide [Imodium] 2 mg PO QID PRN cap 10/28/21 [Rx] Apixaban [Eliquis] 5 mg PO BID 04/11/22 [History] Multivitamins, Thera [Multivitamin (formulary)] 1 tab PO HS 04/11/22 [History] Spironolactone [Aldactone] 12.5 mg PO DAILY 04/11/22 [History] Tamsulosin HCl [Flomax] 0.4 mg PO HS 04/11/22 [History] ramipriL [Altace] 5 mg PO HS 04/11/22 [History] Follow up Appointment(s)/Referral(s): Nursing,[place] [NON-STAFF] - 1 Week Raúl Martinez MD [Primary Care Provider] - 1-2 days [facility],Infusion [NON-STAFF] - As Needed ([facility] (P: [phone]) ) Keith Hou MD [STAFF PHYSICIAN] - 04/18/22 1:45 pm Activity/Diet/Wound Care/Special Instructions: Please see surgery in their clinic as soon as possible. You will continue IV antibiotics for 2 weeks. Discharge Disposition: HOME WITH HOME HEALTH SERVICES
--- NOTE | 2022-04-14 15:55 | P.PN ---
Subjective Progress Note Date: 04/13/22 Principal diagnosis: diverticulitis and possible abscess Patient is a 76-year-old male with a past medical history significant for recurrent diverticulitis presented to hospital with abnormal CT abdominal pelvis completed in outpatient setting concerning for thinwall fluid collection and sigmoid diverticulitis. On today's evaluation and that is 04/13/2022, the patient denies having any fever or any chills, the patient is feeling better patient abdominal pain has decreased in intensity. Denies any nausea no vomiting no diarrhea no urinary symptoms Objective - Vital Signs Vital signs: Vital Signs Temp 97.6 F 04/13/22 13:29 Pulse 57 L 04/13/22 13:29 Resp 16 04/13/22 13:29 BP 100/53 04/13/22 13:29 Pulse Ox 99 04/13/22 13:29 FiO2 Intake & Output 04/12/22 04/13/22 04/13/22 18:59 06:59 18:59 Output Total 550 350 Balance -550 -350 Output: Urine 550 350 Other: Voiding Method Toilet # Voids 3 1 - Exam GENERAL DESCRIPTION: An elderly male lying in bed in no distress RESPIRATORY SYSTEM: Unlabored breathing , decreased breath sounds at bases HEART: S1 S2 regular rate and rhythm , ABDOMEN: Soft , no tenderness EXTREMITIES: No edema feet - Labs CBC & Chem 7: 04/14/22 05:02 04/13/22 05:12 Labs: Abnormal Lab Results - Last 24 Hours (Table) 04/13/22 04/13/22 Range/Units 05:12 05:12 RBC 3.75 L (4.40-5.60) X 10*6/uL Hgb 11.4 L (13.0-17.0) g/dL Hct 34.3 L (39.6-50.0) % RDW 19.1 H (11.5-14.5) % Monocytes # 1.03 H (0.20-1.00) X 10*3/uL Sodium 133 L (135-145) mmol/L Carbon Dioxide 17.6 L (20.0-27.5) mmol/L BUN 6.5 L (9.0-27.0) mg/dL Creatinine 0.5 L (0.6-1.5) mg/dL Glucose 63 L (70-110) mg/dL Calcium 7.9 L (8.7-10.3) mg/dL Microbiology - Last 24 Hours (Table) 04/11/22 18:14 Urine Culture - Preliminary Urine,Voided Gram Neg Bacilli Assessment and Plan (1) Diverticulitis Current Visit: Yes Status: Acute Code(s): K57.92 - DVTRCLI OF INTEST, PART UNSP, W/O PERF OR ABSCESS W/O BLEED SNOMED Code(s): 531439633 (2) Abscess Current Visit: No Status: Acute Code(s): L02.91 - CUTANEOUS ABSCESS, UNSPECIFIED SNOMED Code(s): 013055202 Plan: 1patient to the hospital with abnormal CT done in the outpatient setting for a lower GI bleed with concern for thin walled fluid collection concerning for possible diverticulitis and abscess and need to cover for the enteric gram- negative both aerobes and anaerobes. 2 Patient with history of penicillin regimen history of anaphylaxis. 3patient to continue with cefepime and continue with the Flagyl.patient may benefit from a surgery in view of recurrent diverticulitis and abscess however the patient is currently refusing Time with Patient: Less than 30
--- NOTE | 2022-04-14 15:57 | P.PN ---
Subjective Progress Note Date: 04/14/22 Principal diagnosis: diverticulitis and possible abscess Patient is a 76-year-old male with a past medical history significant for recurrent diverticulitis presented to hospital with abnormal CT abdominal pelvis completed in outpatient setting concerning for thinwall fluid collection and sigmoid diverticulitis. On today's evaluation and that is 04/14/2022, the patient remains to be afebrile, the patient isbreathing comfortably on room air, the patient abdominal pain has decreased in intensity. Denies any nausea no vomiting no diarrhea no urinary symptoms Objective - Vital Signs Vital signs: Vital Signs Temp 97.9 F 04/14/22 08:00 Pulse 55 L 04/14/22 08:00 Resp 15 04/14/22 08:00 BP 98/54 04/14/22 08:00 Pulse Ox 96 04/14/22 08:00 FiO2 Intake & Output 04/13/22 04/14/22 04/14/22 18:59 06:59 18:59 Intake Total 240 120 Balance 240 120 Intake: Oral 240 120 Other: Voiding Method Toilet # Voids 1 1 1 - Exam GENERAL DESCRIPTION: An elderly male lying in bed in no distress RESPIRATORY SYSTEM: Unlabored breathing , decreased breath sounds at bases HEART: S1 S2 regular rate and rhythm , ABDOMEN: Soft , no tenderness EXTREMITIES: No edema feet - Labs CBC & Chem 7: 04/14/22 05:02 04/13/22 05:12 Labs: Abnormal Lab Results - Last 24 Hours (Table) 04/14/22 Range/Units 05:02 RBC 4.04 L (4.40-5.60) X 10*6/uL Hgb 12.2 L (13.0-17.0) g/dL Hct 37.3 L (39.6-50.0) % RDW 19.0 H (11.5-14.5) % Monocytes # 1.39 H (0.20-1.00) X 10*3/uL Microbiology - Last 24 Hours (Table) 04/11/22 18:14 Urine Culture - Preliminary Urine,Voided Gram Neg Bacilli Assessment and Plan (1) Diverticulitis Current Visit: Yes Status: Acute Code(s): K57.92 - DVTRCLI OF INTEST, PART UNSP, W/O PERF OR ABSCESS W/O BLEED SNOMED Code(s): 234930269 Plan: 1patient to the hospital with abnormal CT done in the outpatient setting for a lower GI bleed with concern for thin walled fluid collection concerning for possible diverticulitis and abscess and need to cover for the enteric gram- negative both aerobes and anaerobes.patient repeat CAT scan done this admission did not show any evidence of drainable abscess and the patient is refuses surgery 2 Patient with history of penicillin regimen history of anaphylaxis. 3patient seemed to have Shown clinical improvement and will continue with cefepime and Flagyl 2 week on discharge and close outpatient follow-up Time with Patient: Less than 30
[2022-04-14 16:24] VITALS: BP 101/72; RESP 18
[2022-04-14] MEDS ORDERED: APIXABAN 5 MG TAB PO SCH (21:00)
[2022-04-15] MEDS ORDERED: ASPIRIN 81 MG PO SCH (09:00)
== END 2022-04-14 16:00 | disposition home health service (06) | DRG 378 ==
LOC: EC 13:32 → 6NMEDSUR 19:00 → OBSVTOIN 04-12 09:54
PROVIDERS: ADMIT Internal Medicine; ATTEND Internal Medicine
PROC: 02HV33Z Insertion of Infusion Device into Superior Vena Cava, Percutaneous Approach (ICD-10-PCS; principal; 2022-04-14 07:30)
DX: K57.21 Diverticulitis of large intestine with perforation and abscess with bleeding (principal); I48.19 Other persistent atrial fibrillation; I50.22 Chronic systolic (congestive) heart failure; J98.11 Atelectasis; I11.0 Hypertensive heart disease with heart failure; I95.9 Hypotension, unspecified; J44.9 Chronic obstructive pulmonary disease, unspecified; I25.5 Ischemic cardiomyopathy; I25.10 Atherosclerotic heart disease of native coronary artery without angina pectoris; E89.0 Postprocedural hypothyroidism; E78.5 Hyperlipidemia, unspecified; M25.461 Effusion, right knee; K80.20 Calculus of gallbladder without cholecystitis without obstruction; I25.2 Old myocardial infarction; G47.30 Sleep apnea, unspecified; M19.90 Unspecified osteoarthritis, unspecified site; Z79.82 Long term (current) use of aspirin; Z79.01 Long term (current) use of anticoagulants; Z79.890 Hormone replacement therapy; Z79.899 Other long term (current) drug therapy; Z87.891 Personal history of nicotine dependence; Z95.1 Presence of aortocoronary bypass graft; Z95.810 Presence of automatic (implantable) cardiac defibrillator; Z85.118 Personal history of other malignant neoplasm of bronchus and lung; Z85.46 Personal history of malignant neoplasm of prostate; Z92.3 Personal history of irradiation; Z88.0 Allergy status to penicillin; Z88.2 Allergy status to sulfonamides
CPT/HCPCS: 36415; 36573; 74176; 80048; 80053; 81001; 82150; 82607; 82728; 83540; 83550; 83605; 83690; 85025; 85027; 85610; 87077; 87086; 87186; 96374; 99284

== ENCOUNTER → 2022-04-11 | Outpatient (CLI) | payer MEDICARE ==
--- NOTE | 2022-04-11 13:16 | CT ---
EXAMINATION TYPE: CT abdomen pelvis wo con DATE OF EXAM: 04/11/2022 HISTORY: Lt lower quadrant pain CT DLP: 333.9 mGycm. Automated Exposure Control for Dose Reduction was Utilized. TECHNIQUE: CT scan of the abdomen and pelvis is performed without oral or IV contrast. COMPARISON: Prior CT October 27, 2021 FINDINGS: Within the limitations of a non-contrast study, the following observations are made. LUNG BASES: Trace left-sided pleural effusion redemonstrated. Cardiomegaly with multi lead pacemaker and defibrillator wires redemonstrated. Left ventricle apical calcification redemonstrated. LIVER/GB: Multiple Small calcified gallstones redemonstrated. PANCREAS: No significant abnormality is seen. SPLEEN: No significant abnormality is seen. ADRENALS: No significant abnormality is seen. KIDNEYS: No renal stones or hydronephrosis seen bilaterally. BOWEL: Suboptimal evaluation without enteric contrast. No suspicious small bowel dilatation. Prominen t diverticula of the distal left colon extending into the sigmoid colon redemonstrated. Severe wall t hickening there are axial image 66 redemonstrated. Mild adjacent fluid and fat stranding again seen. There is thin walled fluid collection superior to this less prominent in size from prior study with n ondependent air. This measures roughly 1.8 x 1.6 cm on the current study axial image 61. Mild to mode rate prominence of colon up to level of sigmoid colon. GENITAL ORGANS: Prostate gland upper limits of normal in size. LYMPH NODES: No greater than 1cm abdominal or pelvic lymph nodes are appreciated. OSSEOUS STRUCTURES: Moderate to severe narrowing with sclerosis and moderate spurring L2-L3 and L4-L5 levels. OTHER: Moderate calcified plaque of the aorta extends into branch vessels. IMPRESSION: Suboptimal study without enteric contrast. Persistent severe sigmoid colonic diverticulos is. Mild adjacent fluid suggests recurrent acute diverticulitis. There is thin walled fluid collectio n and sinus tract redemonstrated superior to the sigmoid colon, this is less prominent in size versus prior CT. Finding could reflect chronic sinus tract or outpouching, residual and/or new abscess is i n differential. Persistent severe wall thickening in the sigmoid colon. Neoplasm at this level cannot be excluded and should be correlated clinically and with most recent colonoscopy of the abdomen perf ormed in the last 3 years. There is mild to moderate diffuse proximal colonic dilatation and/or obstr uction secondary to sigmoid colonic findings noted. Advise surgical evaluation to further evaluate.
[2022-04-11 13:40] LABS: Anisocytosis Slight; Basophils # (A) 0.1 k/uL (0-0.2); Basophils % (A) 1 %; Eosinophils # (A) 0.2 k/uL (0-0.7); Eosinophils % (A) 2 %; HCT 41.2 % (39.0-53.0); HGB 12.9 gm/dL (13.0-17.5); Hypochromasia Slight; Lymphocytes # (A) 3.4 k/uL (1.0-4.8); Lymphocytes % (A) 30 %; MCH 30.2 pg (25.0-35.0); MCHC 31.2 g/dL (31.0-37.0); MCV 96.8 fL (80.0-100.0); Macrocytosis Slight; Mean Platelet Volume 7.8; Monocytes # (A) 0.8 k/uL (0-1.0); Monocytes % (A) 7 %; Neutrophils # (A) 6.5 k/uL (1.3-7.7); Neutrophils % (A) 57 %; Platelet Count 216 k/uL (150-450); RBC 4.26 m/uL (4.30-5.90); RDW 17.3 % (11.5-15.5); WBC 11.4 k/uL (3.8-10.6)
[2022-04-11 19:43] LABS: % Iron Saturation 12.64 (15.00-50.00); African American GFR (CKD) 107.7 (60.0-200.0); Albumin 3.7 g/dL (3.8-4.9); Albumin/Globulin Ratio 1.12 (1.60-3.17); Anion Gap 14.1 mmol/L (10.00-18.00); BUN/Creat Ratio 13.43 Ratio (12.00-20.00); Blood Urea Nitrogen 9.4 mg/dL (9.0-27.0); Calcium 9.1 mg/dL (8.7-10.3); Carbon Dioxide 22.9 mmol/L (20.0-27.5); Ferritin 90.3 ng/mL (22.0-322.0); Globulin 3.3 g/dL (1.6-3.3); Potassium 4.2 mmol/L (3.5-5.5)
== END | disposition home or self-care (01) ==
LOC: RADCTMAIN 11:38
PROVIDERS: ATTEND Nurse Practitioner Adult Health
DX: K57.30 Diverticulosis of large intestine without perforation or abscess without bleeding (principal); D64.9 Anemia, unspecified; R11.2 Nausea with vomiting, unspecified
CPT/HCPCS: 74176; 80053; 82150; 82607; 82728; 83540; 83550; 83690; 85025

== ENCOUNTER → 2022-04-24 | Outpatient (CLI) | payer MEDICARE ==
[2022-04-25 00:49] LABS: Basophils # (A) 0.16 X 10*3/uL (0.00-0.10); Basophils % (A) 1.5 %; Eosinophils # (A) 0.52 X 10*3/uL (0.04-0.35); HCT 37.6 % (39.6-50.0); Immature Grans, Automated 0.3 %; Lymphocytes # (A) 3.77 X 10*3/uL (0.90-5.00); Lymphocytes % (A) 36.1 %; MCH 30.7 pg (27.0-32.0); MCHC 31.9 g/dL (32.0-37.0); MCV 96.2 fL (80.0-97.0); Monocytes % (A) 10.5 %; NRBC Per 100 WBC 0 /100 WBCS (0.0-0.0); Neutrophils # (A) 4.87 X 10*3/uL (1.80-7.70); Neutrophils % (A) 46.6 %; Platelet Count 221 X 10*3/uL (140-440); RBC 3.91 X 10*6/uL (4.40-5.60); RDW 19.7 % (11.5-14.5); WBC 10.45 X 10*3/uL (4.50-10.00)
== END | disposition home or self-care (01) ==
LOC: LABPAT 14:27
PROVIDERS: ATTEND Surgery
DX: Z01.812 Encounter for preprocedural laboratory examination (principal); K57.33 Diverticulitis of large intestine without perforation or abscess with bleeding
CPT/HCPCS: 36415; 85025

== ENCOUNTER → 2022-04-24 | Outpatient (CLI) | payer MEDICARE ==
[2022-04-25 00:05] LABS: African American GFR (CKD) 115.7 (60.0-200.0); Albumin 3.4 g/dL (3.8-4.9); Albumin/Globulin Ratio 1.08 (1.60-3.17); Anion Gap 10.9 mmol/L (10.00-18.00); BUN/Creat Ratio 17.83 Ratio (12.00-20.00); Blood Urea Nitrogen 10.5 mg/dL (9.0-27.0); C Reactive Protein 0.7 mg/dL (0.00-0.80); Calcium 8.8 mg/dL (8.7-10.3); Carbon Dioxide 25.8 mmol/L (20.0-27.5); Globulin 3.1 g/dL (1.6-3.3); Non-African American GFR(CKD) 99.8 (60.0-200.0); Total Bilirubin 1.1 mg/dL (0.30-1.20); Total Protein 6.5 g/dL (6.2-8.2)
== END | disposition home or self-care (01) ==
LOC: LABWHC1 15:07
PROVIDERS: ATTEND Internal Medicine Infectious Disease
DX: K57.80 Diverticulitis of intestine, part unspecified, with perforation and abscess without bleeding (principal)
CPT/HCPCS: 36415; 80053; 85652; 86140

== ENCOUNTER 2022-04-26 07:48 | Inpatient (IN) | payer MEDICARE ==
[~2022-04-26 07:48] MED LIST: ACETAMINOPHEN TAB 500 MG TAB PO PRN; HEPARIN SODIUM,PORCINE/PF 5,000 UNIT/0.5 ML SYRINGE SQ PRN; metroNIDAZOLE-NS PMX 500 MG in SALINE 1 100ML.BAG IVPB PRN
[2022-04-26] MEDS ORDERED: LACTATED RINGERS 1,000 ML IV ONE (08:08)
[2022-04-26] MEDS ORDERED: ONDANSETRON 4 MG/2 ML VIAL ONE (08:15)
[2022-04-26] MEDS ORDERED: DEXAMETHASONE SOD PHOSPHATE 4 MG/ML 1 ML VIAL IVP ONE (08:17)
--- NOTE | 2022-04-26 08:51 | P.GSHP ---
History of Present Illness H&P Date: 04/26/22 Chief Complaint: Chronic diverticulitis This 86-year-old male with extensive history of severe diverticulitis. Patient was treated nonoperatively. Patient has developed colonic fistulas. Patient presents today for sigmoid colectomy with end colostomy. Patient history high risk for surgery due to his underlying cardiac medical history. Past Medical History Past Medical History: Atrial Fibrillation, Coronary Artery Disease (CAD), Cancer, COPD, Hyperlipidemia, Hypertension, Myocardial Infarction (NC), Osteoarthritis (OA), Pneumonia, Prostate Disorder, Sleep Apnea/CPAP/BIPAP, Thyroid Disorder Additional Past Medical History / Comment(s): cardiomyopathy. 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 pacemaker/aicd pt stated has had x4 last changed Past Anesthesia/Blood Transfusion Reactions: No Reported Reaction Additional Past Anesthesia/Blood Transfusion Reaction / Comment(s): has had blood transfusion in past-no reaction. Type of Cardiac Device: Permanent Pacemaker, AICD Device Placement Date:: changed last Past Psychological History: No Psychological Hx Reported Smoking Status: Former smoker Past Alcohol Use History: Daily Additional Past Alcohol Use History / Comment(s): started smoking at age 18(1963) and quit age 62(2006). smoked 1.5 ppd. has 2 drinks per day(bourbon). Past Drug Use History: None Reported - Past Family History Mother Family Medical History: Chest Pain / Angina, Coronary Artery Disease (CAD) Additional Family Medical History / Comment(s): at age 92 from lung infection Father History Unknown: Yes Family Medical History: Cancer Medications and Allergies Home Medications Medication Instructions Recorded Confirmed Type Aspirin EC [Ecotrin Low Dose] 81 mg PO DAILY 04/09/18 04/24/22 History Furosemide [Lasix] 80 mg PO QAM 04/09/18 04/26/22 History Levothyroxine Sodium [Synthroid] 75 mcg PO QAM 04/09/18 04/26/22 History Potassium Chloride ER [K-Dur 20] 20 meq PO DAILY 04/09/18 04/26/22 History Turmeric Root Extract [Turmeric] 500 mg PO HS 04/09/18 04/26/22 History Atorvastatin Calcium [Lipitor] 80 mg PO HS 10/20/21 04/26/22 History Calcium Carbonate [Tums] 500 mg PO QID PRN 10/28/21 04/26/22 Rx Apixaban [Eliquis] 5 mg PO BID 04/11/22 04/24/22 History Multivitamins, Thera [Multivitamin 1 tab PO HS 04/11/22 04/24/22 History (formulary)] Spironolactone [Aldactone] 12.5 mg PO QAM 04/11/22 04/26/22 History Tamsulosin HCl [Flomax] 0.4 mg PO HS 04/11/22 04/26/22 History ramipriL [Altace] 5 mg PO 04/11/22 04/26/22 History Albuterol Nebulized (Conc) 1 applic INHALATION DAILY PRN 04/24/22 04/26/22 Histo ry [Ventolin Nebulized (Conc)] Cefepime [Maxipime] 2 mg PO Q8H 04/24/22 04/26/22 History Erythromycin Base [Erythromycin] 500 mg PO TID 04/24/22 04/26/22 History Metoprolol Succinate (ER) [Toprol 50 mg PO QAM 04/24/22 04/26/22 History XL] Neomycin 500 mg PO TID 04/24/22 04/26/22 History Allergies Allergy/AdvReac Type Severity Reaction Status Date / Time Penicillins Allergy Rash/Hives Verified 04/26/22 08:08 Sulfa (Sulfonamide Allergy Rash/Hives Verified 04/26/22 08:08 Antibiotics) Surgical - Exam Vital Signs Temp Pulse Resp BP Pulse Ox 96.7 F L 79 18 125/61 95 04/26/22 08:20 04/26/22 08:20 04/26/22 08:20 04/26/22 08:20 04/26/22 08:20 - General well developed, well nourished, no distress - Eyes PERRL - ENT normal pinna - Neck no masses - Respiratory normal expansion - Cardiovascular Rhythm: regular - Abdomen Tenderness left lower quadrant Abdomen: soft Assessment and Plan Assessment: Chronic diverticulitis with colonic fistula. Patient will undergo sigmoid colectomy with end colostomy.
[2022-04-26] MEDS ORDERED: fentaNYL (PF) 50 MCG/ML 2 ML AMP ONE (09:00)
[2022-04-26] MEDS ORDERED: HYDROmorphone (PF) 1 MG/ML ONE (09:00)
[2022-04-26] MEDS ORDERED: NEOSTIGMINE 1 MG/ML 10 ML VIAL ONE (09:00)
[2022-04-26] MEDS ORDERED: GLYCOPYRROLATE 0.2 MG/ML 2 ML VIAL ONE (09:00)
[2022-04-26] MEDS ORDERED: SUCCINYLCHOLINE CHLORIDE 200 MG/10 ML VIAL IV ONE (09:00)
[2022-04-26] MEDS ORDERED: PHENYLEPHRINE-0.9% NACL SYG 1,000 MCG/10 ML SYRINGE ONE (09:00)
[2022-04-26] MEDS ORDERED: MIDAZOLAM 2 MG/2 ML VIAL ONE (09:00)
[2022-04-26] MEDS ORDERED: ETOMIDATE 2 MG/ML 10 ML VIAL ONE (09:00)
[2022-04-26] MEDS ORDERED: LIDOCAINE 2% INJ 20 MG/ML (2 ML VIAL) ONE (09:00)
[2022-04-26] MEDS ORDERED: ROCURONIUM 10 MG/ML (5 ML VIAL) IV ONE (09:00)
[2022-04-26] MEDS ORDERED: NALOXONE 0.4 MG/ML 1 ML VIAL IV PRN ×2 (09:40→09:43)
[2022-04-26] MEDS ORDERED: ONDANSETRON 4 MG/2 ML VIAL IVP PRN (10:09)
--- NOTE | 2022-04-26 10:09 | P.OP ---
Date of Procedure: 04/26/22 Preoperative Diagnosis: Chronic diverticulitis Postoperative Diagnosis: Chronic diverticulitis Procedure(s) Performed: Sigmoid colectomy and colostomy appendectomy Anesthesia: BRANDAN Surgeon: Keith Hou Estimated Blood Loss (ml): 10 Pathology: other (Sigmoid colon, appendix) Condition: stable Disposition: PACU Description of Procedure: The patient's placed on the operative table in the supine position. He received general endotracheal anesthesia. His abdomen was prepped and draped usual fashion. The abdomen was entered through a low midline incision. The abdominal wall was divided with electrocautery. And then the Bookwalter tract with wound. The sigmoid colon was obviously inflamed and enlarged. The appendix appeared to be stuck on the sigmoid colon at the area of diverticulitis. The mesial appendix was divided. With the Enseal device. And then the appendix was divided with the VERONIQUE stapler. The specimen sent to pathology. At this point the white line of Toldt's was divided and the left and sigmoid colon was mobilized. The colon was transected with a GI stapler at the junction between the left colon and;. The sigmoid colon was then bluntly dissected off the lateral pelvic wall. And then the mesentery of the colon was divided with the Enseal device. The rectosigmoid junction was then divided with the VERONIQUE stapler. The colon was grossly inflamed. The abdomen was irrigated. There is no bleeding seen. The colostomy was then brought up in the left abdominal wall. The fascia was closed with looped #1 PDS suture. Skin was closed jeannette. The colostomy then matured with 3-0 Vicryl suture. Patient was sent to recovery room stable condition.
[2022-04-26] MEDS: ROPIVACAINE 250 MG, HYDROMORPHONE (PF) 5 MG in SODIUM CHLORIDE 0.9% 200 ML EPIDURAL PRN (10:39)
--- NOTE | 2022-04-26 12:29 | P.ANPRN ---
Procedure Note - Anesthesia - Epidural/Spinal Epidural Time Out Performed: Yes Date of Procedure: 04/26/22 Procedure Start Time: 08:47 Procedure Stop Time: 08:54 Location of Patient: PreOp Indication: Acute Post-Operative Pain Sedation Type: Sedate with meaningful contact maintained Preparation: Sterile Dressing Position: Sitting Catheter: Indwelling Needle Guage: 18 Injectate: Test Dose Lidocaine1.5% w/1:200,000 epi (test dose 3cc given with no adverse effect) Blood Aspirated: No Pain Paresthesia on Injection Noted: No
[2022-04-26] MEDS ORDERED: BENZOCAINE/MENTHOL LOZENG 1 EACH LOZENGE MUCOUS MEM PRN (13:42)
[2022-04-26] MEDS: D5-0.45% NACL WITH KCL 20MEQ/L 1,000 ML IV SCH ×2 (14:22→22:46)
[2022-04-26] MEDS ORDERED: CALCIUM CARBONATE 500 MG CHEWABLE PO PRN (14:40)
--- NOTE | 2022-04-26 14:48 | P.CONS ---
History of Present Illness - Reason for Consult Consult date: 04/26/22 medical management - Chief Complaint diverticulitis s/p surgery - History of Present Illness Patient is a 76-year-old male with past medical history of systolic CHF with EF of 20% status post ICD, COPD, A. fib on eliquis, recent episode of septic shock secondary to multiple pelvic and lower extremity abscesses, diverticulitis, sigmoid colitis presenting for sigmoid colectomy with end colostomy for severe diverticulitis. Sound physicians were consulted for medical management. Patient claims that the abdominal pain is improving. He has already started to take clear liquids. He denies any fevers, chills, chest pain, shortness of breath, abdominal pain other than the incision site. He claims that he is passing gas, and has a urinary catheter. Pertinent positives and negatives as discussed in HPI, a complete review of systems was performed and all other systems are negative. Vital signs reviewed General: nontoxic, no distress, appears at stated age Derm: warm, dry Head: atraumatic, normocephalic, symmetric Eyes: EOMI, no lid lag, anicteric sclera, pupils equal round reactive to light ENT: Nose and ears atraumatic, no thrush, no pharyngeal erythema Neck: No thyromegaly, trachea midline, supple Mouth: no lip lesion, mucus membranes moist Cardiovascular: S1S2 reg, no murmur, no edema, capillary refill less than 2 seconds Lungs: clear to auscultation bilateral, no rhonchi, no rales, no wheeze, no accessory muscle use Abdominal: soft, slight tender to palpation around incision, ostomy site appears clean, no guarding, no appreciable organomegaly, normal bowel sounds Ext: no gross muscle atrophy, muscle strength muscle strength 5 out of 5 in all 4 extremities, no contractures Neuro: CN II-XII grossly intact, light touch intact all 4 extremities, finger to nose within normal limits, Psych: Alert, oriented, appropriate affect Assessment/Plan: Severe diverticulitis status post sigmoid colectomy with end colostomy -POD #0 -Patient control -On clear liquids, advance as tolerated Atrial fibrillation -will restart eliquis tomorrow, as patient is still on epidural and POD #0 Hypertension - restart home meds Dyslipidemia - restart home meds Systolic CHF - hold lasix given IV fluids DVT ppx: heparin sq Thank you for allowing us to participate in the care of this pleasant patient. Do not hesitate to contact us with questions. Someone can be reached from the [facility] hospitalist group all hours of the day at [phone] or via [place]. Past Medical History Past Medical History: Atrial Fibrillation, Coronary Artery Disease (CAD), Cancer, COPD, Hyperlipidemia, Hypertension, Myocardial Infarction ([place]), Osteoart hritis (OA), Pneumonia, Prostate Disorder, Sleep Apnea/CPAP/BIPAP, Thyroid Disorder Additional Past Medical History / Comment(s): cardiomyopathy. 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 pacemaker/aicd pt stated has had x4 last changed Past Anesthesia/Blood Transfusion Reactions: No Reported Reaction Additional Past Anesthesia/Blood Transfusion Reaction / Comm: has had blood transfusion in past-no reaction. Type of Cardiac Device: Permanent Pacemaker, AICD Device Placement Date:: changed last Smoking Status: Former smoker - Past Family History Mother Family Medical History: Chest Pain / Angina, Coronary Artery Disease (CAD) Additional Family Medical History / Comment(s): at age 92 from lung infection Father History Unknown: Yes Family Medical History: Cancer Medications and Allergies Home Medications Medication Instructions Recorded Confirmed Type Aspirin EC [Ecotrin Low Dose] 81 mg PO DAILY 04/09/18 04/24/22 History Furosemide [Lasix] 80 mg PO QAM 04/09/18 04/26/22 History Levothyroxine Sodium [Synthroid] 75 mcg PO QAM 04/09/18 04/26/22 History Potassium Chloride ER [K-Dur 20] 20 meq PO DAILY 04/09/18 04/26/22 History Turmeric Root Extract [Turmeric] 500 mg PO HS 04/09/18 04/26/22 History Atorvastatin Calcium [Lipitor] 80 mg PO HS 10/20/21 04/26/22 History Calcium Carbonate [Tums] 500 mg PO QID PRN 10/28/21 04/26/22 Rx Apixaban [Eliquis] 5 mg PO BID 04/11/22 04/24/22 History Multivitamins, Thera [Multivitamin 1 tab PO HS 04/11/22 04/24/22 History (formulary)] Spironolactone [Aldactone] 12.5 mg PO QAM 04/11/22 04/26/22 History Tamsulosin HCl [Flomax] 0.4 mg PO HS 04/11/22 04/26/22 History ramipriL [Altace] 5 mg PO HS 04/11/22 04/26/22 History Albuterol Nebulized (Conc) 1 applic INHALATION DAILY PRN 04/24/22 04/26/22 History [Ventolin Nebulized (Conc)] Cefepime [Maxipime] 2 mg PO Q8H 04/24/22 04/26/22 History Erythromycin Base [Erythromycin] 500 mg PO TID 04/24/22 04/26/22 History Metoprolol Succinate (ER) [Toprol 50 mg PO QAM 04/24/22 04/26/22 History XL] Neomycin 500 mg PO TID 04/24/22 04/26/22 History Allergies Allergy/AdvReac Type Severity Reaction Status Date / Time Penicillins Allergy Rash/Hives Verified 04/26/22 08:08 Sulfa (Sulfonamide Allergy Rash/Hives Verified 04/26/22 08:08 Antibiotics) Physical Exam Vitals: Vital Signs Temp Pulse Pulse Resp BP Pulse Ox 04/26/22 11:56 97.5 F L 90 16 126/72 99 04/26/22 11:33 74 16 122/90 04/26/22 11:17 79 16 118/63 96 04/26/22 11:00 71 16 119/59 97 04/26/22 10:45 85 16 129/63 99 04/26/22 10:30 71 18 127/59 99 04/26/22 10:17 97.2 F L 62 12 115/57 96 04/26/22 08:20 96.7 F L 79 18 125/61 95 Intake and Output 04/25/22 04/26/22 04/26/22 22:59 06:59 14:59 Intake Total 550 Output Total 60 Balance 490 Intake: IV 550 Output: Urine 50 Estimated Blood Loss 10 Other: Voiding Method Indwelling Catheter Weight 73.9 kg
[2022-04-26] MEDS: HEPARIN SODIUM,PORCINE/PF 5,000 UNIT/0.5 ML SYRINGE SQ SCH ×2 (15:52→22:44)
[2022-04-26 16:16] LABS: Anisocytosis Slight; Basophils % (A) 0 %; Eosinophils % (A) 0 %; HCT 36.7 % (39.0-53.0); HGB 11.4 gm/dL (13.0-17.5); Hypochromasia Slight; Lymphocytes # (A) 0.5 k/uL (1.0-4.8); Lymphocytes % (A) 6 %; MCH 30.9 pg (25.0-35.0); MCHC 31.2 g/dL (31.0-37.0); MCV 99.2 fL (80.0-100.0); Macrocytosis Slight; Mean Platelet Volume 8.3; Monocytes # (A) 0.2 k/uL (0-1.0); Monocytes % (A) 2 %; Neutrophils # (A) 8.1 k/uL (1.3-7.7); Neutrophils % (A) 91 %; Platelet Count 187 k/uL (150-450); RDW 17.6 % (11.5-15.5); WBC 8.9 k/uL (3.8-10.6)
[2022-04-26 17:08] LABS: African American GFR (CKD) >90 (>60 ml/min/1.73 sqM); Anion Gap 13 mmol/L; Blood Urea Nitrogen 9 mg/dL (9-20); Calcium 8.1 mg/dL (8.4-10.2); Carbon Dioxide 22 mmol/L (22-30); Chloride 101 mmol/L (98-107); Glucose 117 mg/dL (74-99); Non-African American GFR(CKD) >90 (>60 ml/min/1.73 sqM); Potassium 3.9 mmol/L (3.5-5.1); Sodium 136 mmol/L (137-145)
[2022-04-26] MEDS ORDERED: diphenhydrAMINE 50 MG/ML 1 ML VIAL IVP STA (18:01)
[2022-04-26] MEDS ORDERED: NON FORMULARY DRUG (Turmeric Root Extract [Turmeric] 500 MG Capsule) PO SCH (21:00)
[2022-04-26] MEDS: ALBUTEROL NEBULIZED 2.5 MG/3 ML INHALATION PRN (21:17)
[2022-04-26] MEDS: lisinopriL 20 MG TAB PO SCH (21:34)
[2022-04-26] MEDS: ATORVASTATIN 80 MG TAB PO SCH (21:34)
[2022-04-26] MEDS: MULTIVITAMINS, THERA 1 EACH TAB PO SCH (21:34)
[2022-04-26] MEDS: TAMSULOSIN 0.4 MG CAP.ER.24H PO SCH (21:34)
[2022-04-27] MEDS ORDERED: diphenhydrAMINE 25 MG CAP PO STA (04:25)
[2022-04-27] MEDS: D5-0.45% NACL WITH KCL 20MEQ/L 1,000 ML IV SCH ×3 (04:31→21:17)
[2022-04-27] MEDS: LEVOTHYROXINE 75 MCG TAB PO SCH (07:14)
[2022-04-27] MEDS: SPIRONOLACTONE 25 MG TAB PO SCH (07:14)
[2022-04-27] MEDS: ALVIMOPAN 12 MG CAPSULE PO SCH ×2 (07:14→21:11)
[2022-04-27] MEDS: ASPIRIN 81 MG PO SCH (07:14)
[2022-04-27] MEDS: HEPARIN SODIUM,PORCINE/PF 5,000 UNIT/0.5 ML SYRINGE SQ SCH ×2 (07:15→15:39)
[2022-04-27] MEDS: METOPROLOL SUCCINATE (ER) 50 MG TAB.ER.24H PO SCH (07:15)
--- NOTE | 2022-04-27 07:17 | P.PN ---
Progress Note - Text Progress Note Date: 04/27/22 Patient doing well. Pain well controlled. Denies headache or weakness. Severe pruritis not controlled by benadryl. Epidural @ 4 ml/hr. Epidural site clean and dry. A/P POD#1 s/p colectomy - add nalbuphine - if pruritis not controlled, may switch infusion to lower or no opioid concentration
[2022-04-27] MEDS: NALBUPHINE 10 MG/ML (1 ML AMP) IV PRN ×3 (07:47→21:10)
[2022-04-27] MEDS ORDERED: POTASSIUM CHLORIDE ER 20 MEQ TAB.ER PO SCH (09:00)
[2022-04-27] MEDS: ALBUTEROL NEBULIZED 2.5 MG/3 ML INHALATION PRN (09:07)
--- NOTE | 2022-04-27 12:36 | P.PN ---
Subjective Progress Note Date: 04/27/22 Principal diagnosis: s/p surgery Hospital Course: Patient is a 76-year-old male with past medical history of systolic CHF with EF of 20% status post ICD, COPD, A. fib on eliquis, recent episode of septic shock secondary to multiple pelvic and lower extremity abscesses, diverticulitis, sigmoid colitis presenting for sigmoid colectomy with end colostomy for severe diverticulitis. Sound physicians were consulted for medical management. Patient claims that the abdominal pain is improving. He has already started to take clear liquids but only few sips. He denies any fevers, chills, chest pain, shortness of breath, abdominal pain other than the incision site. He is not passing gas at the moment. He continues to have epidural in place. Subjective: Patient seen and examined at bedside. No acute events overnight. He claims that his abdomen is slightly more distended today. He is having a lot of herbs. Not passing much gas. He continues to have epidural in place for pain. He denies any significant abdominal pain. He denies any chest pain, shortness of breath, orthopnea, swelling in legs. Pertinent positives and negatives as discussed above, a complete review of systems was performed and all other systems are negative. Vitals Signs Reviewed. General: nontoxic, no distress, appears at stated age Derm: warm, dry Head: atraumatic, normocephalic, symmetric Eyes: EOMI, no lid lag, anicteric sclera, pupils equal round reactive to light ENT: Nose and ears atraumatic Neck: supple Mouth: no lip lesion, mucus membranes moist Cardiovascular: S1S2 reg, no murmur, trace edema, capillary refill less than 2 seconds Lungs: clear to auscultation bilateral, no rhonchi, no rales, no wheeze, no accessory muscle use Abdominal: soft, slight tender to palpation around incision, ostomy site appears clean, no guarding, no appreciable organomegaly, normal bowel sounds Ext: no gross muscle atrophy, muscle strength muscle strength 5 out of 5 in all 4 extremities, no contractures Neuro: CN II-XII grossly intact, light touch intact all 4 extremities Psych: Alert, oriented, appropriate affect Assessment and Plan: Severe diverticulitis status post sigmoid colectomy with end colostomy -POD #1 -Patient control -On clear liquids, advance as tolerated Systolic CHF -Euvolemic -hold lasix given patient is receiving IV fluids -Once oral intake improves, will discontinue IV fluids and start patient on Lasix Pruritus -Likely secondary to epidural -On nalbuphine Atrial fibrillation -will restart eliquis once epidural his disconnected Hypertension - restart home meds Dyslipidemia - restart home meds DVT ppx: heparin sq Thank you for allowing us to participate in the care of this pleasant patient. Do not hesitate to contact us with questions. Someone can be reached from the [facility] hospitalist group all hours of the day at [phone] or via [place]. Objective - Vital Signs Vital signs: Vital Signs Temp 98.3 F 04/27/22 08:00 Pulse 72 04/27/22 09:08 Resp 17 04/27/22 08:00 BP 106/67 04/27/22 08:00 Pulse Ox 96 04/27/22 09:07 FiO2 Intake & Output 04/26/22 04/27/22 04/27/22 18:59 06:59 18:59 Intake Total 7694.054 2912.4 Output Total 60 300 Balance 1789.290 1997.4 Weight 73.9 kg Intake: IV 550 Intake, IV Titration 0035.056 5727.4 Amount D5-0.45% NaCl with KCl 1000 1500 20Meq/l 1,000 ml @ 125 mls/hr IV .Q8H [facility] Rx#: [id number] Ropivacaine 250 mg 14.117 20.4 Hydromorphone (Pf) 5 mg In Sodium Chloride 0.9% 200 ml @ Per Protocol EPIDURAL .Q0M PRN Rx#: [id number] Oral 1500 Output: Urine 50 300 Estimated Blood Loss 10 Other: Voiding Method Indwelling Catheter Indwelling Catheter Indwelling Catheter - Labs CBC & Chem 7: 04/26/22 15:45 04/26/22 15:45 Labs: Abnormal Lab Results - Last 24 Hours (Table) 04/26/22 04/26/22 Range/Units 15:45 15:45 RBC 3.70 L (4.30-5.90) m/uL Hgb 11.4 L (13.0-17.5) gm/dL Hct 36.7 L (39.0-53.0) % RDW 17.6 H (11.5-15.5) % Neutrophils # 8.1 H (1.3-7.7) k/uL Lymphocytes # 0.5 L (1.0-4.8) k/uL Sodium 136 L (137-145) mmol/L Creatinine 0.47 L (0.66-1.25) mg/dL Glucose 117 H (74-99) mg/dL Calcium 8.1 L (8.4-10.2) mg/dL
[2022-04-27 13:04] LABS: African American GFR (CKD) >90 (>60 ml/min/1.73 sqM); Anion Gap 10 mmol/L; Blood Urea Nitrogen 9 mg/dL (9-20); Calcium 7.9 mg/dL (8.4-10.2); Carbon Dioxide 21 mmol/L (22-30); Chloride 97 mmol/L (98-107); Glucose 133 mg/dL (74-99); Non-African American GFR(CKD) >90 (>60 ml/min/1.73 sqM); Sodium 128 mmol/L (137-145)
--- NOTE | 2022-04-27 13:28 | P.PN ---
Subjective Progress Note Date: 04/27/22 CHIEF COMPLAINT: Chronic diverticulitis HISTORY OF PRESENT ILLNESS: Patient is postop day #1 status post sigmoid colectomy and colostomy with appendectomy. Patient has epidural in place for pain control. Patient was having significant itching from the epidural. Anesthesiologist his added Nubain for itching. Patient reports improvement in his itching. He did report some bloating about 30 minutes after the medication was given. He denies any nausea. No increase in abdominal pain. no function from ostomy. Afebrile. Urine output adequate. WBC is 8.9 hemoglobin is 11.4 platelet 187 sodium is 136 potassium 3.9 creatinine 0.47 Patient seen and examined with Dr. sands PHYSICAL EXAM: VITAL SIGNS: Reviewed. GENERAL: Well-developed in no acute distress. HEENT: No sclera icterus. Extraocular movements grossly intact. Moist buccal mucosa. Head is atraumatic, normocephalic. ABDOMEN: Soft. Distended. Incision site clean dry and intact. Ostomy stoma is pink. There is sanguinous drainage noted an ostomy bag NEUROLOGIC: Alert and oriented. Cranial nerves II through XII grossly intact. ASSESSMENT: 1. chronic diverticulitis status post sigmoid colectomy and colostomy with lloyd endectomy PLAN: -Continue clear liquid diet for now -Plan to advance to full liquids tomorrow morning -Change incisional dressing to Optifoam silver -Consult infectious disease for history of diverticulitis and on IV antibiotics outpatient prior to surgery -Continue epidural for pain control -Continue Garcia catheter -Continue IV fluids -Encouraged patient to increase activity level -Encouraged patient to use incentive spirometer -GI prophylaxis Protonix and DVT prophylaxis subcu heparin Physician Tile Professional note has been reviewed by physician. Signing provider agrees with the documented findings, assessment, and plan of care. Objective - Vital Signs Vital signs: Vital Signs Temp 98.3 F 04/27/22 08:00 Pulse 72 04/27/22 09:08 Resp 17 04/27/22 08:00 BP 106/67 04/27/22 08:00 Pulse Ox 96 04/27/22 09:07 FiO2 Intake & Output 04/26/22 04/27/22 04/27/22 18:59 06:59 18:59 Intake Total 4242.302 7041.4 Output Total 60 300 Balance 6839.798 8774.4 Weight 73.9 kg Intake: IV 550 Intake, IV Titration 3520.728 0949.4 Amount D5-0.45% NaCl with KCl 1000 1500 20Meq/l 1,000 ml @ 125 mls/hr IV .Q8H [facility] Rx#: [id number] Ropivacaine 250 mg 14.117 20.4 Hydromorphone (Pf) 5 mg In Sodium Chloride 0.9% 200 ml @ Per Protocol EPIDURAL .Q0M PRN Rx#: [id number] Oral 1500 Output: Urine 50 300 Estimated Blood Loss 10 Other: Voiding Method Indwelling Catheter Indwelling Catheter Indwelling Catheter - Labs CBC & Chem 7: 04/26/22 15:45 04/26/22 15:45 Labs: Abnormal Lab Results - Last 24 Hours (Table) 04/26/22 04/26/22 Range/Units 15:45 15:45 RBC 3.70 L (4.30-5.90) m/uL Hgb 11.4 L (13.0-17.5) gm/dL Hct 36.7 L (39.0-53.0) % RDW 17.6 H (11.5-15.5) % Neutrophils # 8.1 H (1.3-7.7) k/uL Lymphocytes # 0.5 L (1.0-4.8) k/uL Sodium 136 L (137-145) mmol/L Creatinine 0.47 L (0.66-1.25) mg/dL Glucose 117 H (74-99) mg/dL Calcium 8.1 L (8.4-10.2) mg/dL
[2022-04-27 13:53] LABS: Potassium 4.6 mmol/L (3.5-5.1)
[2022-04-27] MEDS: PANTOPRAZOLE 40 MG/10 ML VIAL IVP SCH (13:59)
[2022-04-27] MEDS: metroNIDAZOLE-NS PMX 500 MG in SALINE 1 100ML.BAG IVPB SCH (15:39)
[2022-04-27] MEDS: CEFEPIME 2 GM in SODIUM CHLORIDE 0.9% 100 ML IVPB SCH (16:40)
[2022-04-27] MEDS: ATORVASTATIN 80 MG TAB PO SCH (21:11)
[2022-04-27] MEDS: TAMSULOSIN 0.4 MG CAP.ER.24H PO SCH (21:11)
[2022-04-27] MEDS: MULTIVITAMINS, THERA 1 EACH TAB PO SCH (21:11)
[2022-04-27] MEDS: lisinopriL 20 MG TAB PO SCH (21:11)
--- NOTE | 2022-04-28 00:03 | P.CONS ---
History of Present Illness - Reason for Consult Consult date: 04/27/22 Diverting colitis Requesting physician: Nadja Dickson - Chief Complaint Abdominal pain x few days - History of Present Illness Patient is a 76-year-old male who was recently admitted at this facility and has been diagnosed with the diverticulitis and there was concern for possible peridiverticular abscess patient was discharged home on IV cefepime and Flagyl patient has not been brought back to the hospital yesterday morning for elective sigmoid colectomy and loop colostomy and the patient also have appendectomy done during that procedure yesterday, operative report did not mention any evidence of intra-abdominal abscess and no cultures has been done however there was mention of colon was grossly inflamed patient is currently afebrile did have a normal white count kidney function has been normal infectious disease was consulted today for further management of antibiotic therapy, patient is currently breathing comfortably has been complaining of some abdominal discomfort and nausea but no vomiting chest pain shortness of breath or cough and no urinary symptoms Review of Systems Positive point has been mentioned in the HPI rest of the systems are negative Past Medical History Past Medical History: Atrial Fibrillation, Coronary Artery Disease (CAD), Cancer, COPD, Hyperlipidemia, Hypertension, Myocardial Infarction ([place]), Osteoarthritis (OA), Pneumonia, Prostate Disorder, Sleep Apnea/CPAP/BIPAP, Thyroid Disorder Additional Past Medical History / Comment(s): cardiomyopathy. 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 pacemaker/aicd pt stated has had x4 last changed Past Anesthesia/Blood Transfusion Reactions: No Reported Reaction Additional Past Anesthesia/Blood Transfusion Reaction / Comm: has had blood transfusion in past-no reaction. Type of Cardiac Device: Permanent Pacemaker, AICD Device Placement Date:: changed last Smoking Status: Former smoker - Past Family History Mother Family Medical History: Chest Pain / Angina, Coronary Artery Disease (CAD) Additional Family Medical History / Comment(s): at age 92 from lung infection Father History Unknown: Yes Family Medical History: Cancer Medications and Allergies Home Medications Medication Instructions Recorded Confirmed Type Aspirin EC [Ecotrin Low Dose] 81 mg PO DAILY 04/09/18 04/24/22 History Furosemide [Lasix] 80 mg PO QAM 04/09/18 04/26/22 History Levothyroxine Sodium [Synthroid] 75 mcg PO QAM 04/09/18 04/26/22 History Potassium Chloride ER [K-Dur 20] 20 meq PO DAILY 04/09/18 04/26/22 History Turmeric Root Extract [Turmeric] 500 mg PO HS 04/09/18 04/26/22 History Atorvastatin Calcium [Lipitor] 80 mg PO HS 10/20/21 04/26/22 History Calcium Carbonate [Tums] 500 mg PO QID PRN 10/28/21 04/26/22 Rx Apixaban [Eliquis] 5 mg PO BID 04/11/22 04/24/22 History Multivitamins, Thera [Multivitamin 1 tab PO HS 04/11/22 04/24/22 History (formulary)] Spironolactone [Aldactone] 12.5 mg PO QAM 04/11/22 04/26/22 History Tamsulosin HCl [Flomax] 0.4 mg PO HS 04/11/22 04/26/22 History ramipriL [Altace] 5 mg PO HS 04/11/22 04/26/22 History Albuterol Nebulized (Conc) 1 applic INHALATION DAILY PRN 04/24/22 04/26/22 History [Ventolin Nebulized (Conc)] Cefepime [Maxipime] 2 mg PO Q8H 04/24/22 04/26/22 History Erythromycin Base [Erythromycin] 500 mg PO TID 04/24/22 04/26/22 History Metoprolol Succinate (ER) [Toprol 50 mg PO QAM 04/24/22 04/26/22 History XL] Neomycin 500 mg PO TID 04/24/22 04/26/22 History Allergies Allergy/AdvReac Type Severity Reaction Status Date / Time Penicillins Allergy Rash/Hives Verified 04/26/22 08:08 Sulfa (Sulfonamide Allergy Rash/Hives Verified 04/26/22 08:08 Antibiotics) Physical Exam Vitals: Vital Signs Temp Pulse Pulse Resp BP Pulse Ox 04/27/22 13:55 97.6 F 55 L 16 95/56 97 04/27/22 09:08 72 04/27/22 09:07 96 04/27/22 08:00 98.3 F 57 L 17 106/67 97 04/27/22 02:00 98.5 F 63 16 107/67 99 04/26/22 21:48 67 104/62 97 04/26/22 21:28 70 04/26/22 21:18 68 04/26/22 19:47 97.6 F 61 18 110/68 97 04/26/22 15:11 97 Intake and Output 04/26/22 04/27/22 04/27/22 22:59 06:59 14:59 Intake Total 5503.146 1191 65.867 Output Total 300 Balance 5791.657 4158 65.867 Intake: Intake, IV Titration 0254.106 9441 65.867 Amount D5-0.45% NaCl with KCl 1000 1500 20Meq/l 1,000 ml @ 125 mls/hr IV .Q8H [facility] Rx#: [id number] Ropivacaine 250 mg 34.517 65.867 Hydromorphone (Pf) 5 mg In Sodium Chloride 0.9% 200 ml @ Per Protocol EPIDURAL .Q0M PRN Rx#: [id number] Oral 1500 Output: Urine 300 Other: Voiding Method Indwelling Catheter Indwelling Catheter GENERAL DESCRIPTION: Elderly male lying in bed, no distress. No tachypnea or accessory muscle of respiration use. HEENT: Shows Pallor , no scleral icterus. Oral mucous membrane is dry. No pharyngeal erythema or thrush NECK: Trachea central, no thyromegaly. LUNGS: Unlabored breathing. Clear to auscultation anteriorly. No wheeze or crackle. HEART: S1, S2, regular rate and rhythm. No loud murmur ABDOMEN: Soft, no tenderness , midline incision is intact no output in the colostomy bag EXTREMITIES: No edema of feet. SKIN: No rash, no masses palpable. NEUROLOGICAL: The patient is awake, alert, oriented x3, mood and affect normal. Results CBC & Chem 7: 04/26/22 15:45 04/28/22 08:40 Labs: Abnormal Lab Results - Last 24 Hours (Table) 04/26/22 04/26/22 04/27/22 Range/Units 15:45 15:45 12:37 RBC 3.70 L (4.30-5.90) m/uL Hgb 11.4 L (13.0-17.5) gm/dL Hct 36.7 L (39.0-53.0) % RDW 17.6 H (11.5-15.5) % Neutrophils # 8.1 H (1.3-7.7) k/uL Lymphocytes # 0.5 L (1.0-4.8) k/uL Sodium 136 L 128 L (137-145) mmol/L Chloride 97 L (98-107) mmol/L Carbon Dioxide 21 L (22-30) mmol/L Creatinine 0.47 L 0.50 L (0.66-1.25) mg/dL Glucose 117 H 133 H (74-99) mg/dL Calcium 8.1 L 7.9 L (8.4-10.2) mg/dL Assessment and Plan (1) Abscess Current Visit: Yes Status: Acute Code(s): L02.91 - CUTANEOUS ABSCESS, UNSPECIFIED SNOMED Code(s): 705834492 (2) Diverticulitis Current Visit: No Status: Acute Code(s): K57.92 - DVTRCLI OF INTEST, PART UNSP, W/O PERF OR ABSCESS W/O BLEED SNOMED Code(s): 456598012 Plan: 1patient with a history of recurrent diverticulitis and peridiverticular abscess in this patient who is status post laparotomy and diverting colostomy along with appendectomy there was mention of diffuse inflammation of the colon but no mention of any intra-abdominal abscess and no cultures were done. 2we will start the patient on cefepime and Flagyl while inpatient and hopefully transition to short course of oral antibiotic on discharge and this was ex plained to the patient and the family Minitran We will follow on clinical condition and cultures to further adjust medication if needed Thank you for this consultation will follow this patient along with you Time with Patient: Greater than 30
[2022-04-28] MEDS: CEFEPIME 2 GM in SODIUM CHLORIDE 0.9% 100 ML IVPB SCH ×3 (00:09→16:57)
[2022-04-28] MEDS: HEPARIN SODIUM,PORCINE/PF 5,000 UNIT/0.5 ML SYRINGE SQ SCH ×3 (00:14→15:59)
[2022-04-28] MEDS: metroNIDAZOLE-NS PMX 500 MG in SALINE 1 100ML.BAG IVPB SCH ×3 (00:14→15:56)
[2022-04-28] MEDS: D5-0.45% NACL WITH KCL 20MEQ/L 1,000 ML IV SCH (03:19)
[2022-04-28] MEDS: NALBUPHINE 10 MG/ML (1 ML AMP) IV PRN ×4 (03:19→22:34)
--- NOTE | 2022-04-28 07:01 | P.PN ---
Progress Note - Text 04/28/22 640am 46-year-old male status post sigmoid colectomy by Dr. Hou. Patient has an epidural catheter for postop pain control with the solution running at 3 mL an hour with a VAS of 3. Patient has no sensory motor deficits plan to continue epidural infusion
[2022-04-28] MEDS: ALBUTEROL NEBULIZED 2.5 MG/3 ML INHALATION PRN ×2 (08:23→11:50)
--- NOTE | 2022-04-28 08:56 | XR ---
EXAMINATION TYPE: XR chest 1V portable DATE OF EXAM: 04/28/2022 COMPARISON: Chest x-ray 10/20/2021 HISTORY: Redness of breath TECHNIQUE: Single frontal view of the chest is obtained. FINDINGS: There is a generator in the left pectoral region, there are leads in right atrium, right v entricle, coronary sinus in similar position to prior exam. The heart is enlarged. Right-sided PICC l ine is present, distal tip is overlying the superior vena cava or right innominate vein near the conf luence. No evident pneumothorax. Basilar density persists on the left, this blunting the cost phrenic angle which appears chronic. There is associated pleural thickening. Oval parenchymal density supero lateral right chest is somewhat less conspicuous than on prior exam. There are areas of linear strand ing within the lungs, likely scarring. IMPRESSION: Cardiomegaly. Postop changes. Difficult to exclude left lower lobe atelectasis versus pn eumonia and associated effusion.
[2022-04-28 09:16] LABS: African American GFR (CKD) >90 (>60 ml/min/1.73 sqM); Anion Gap 4 mmol/L; Blood Urea Nitrogen 11 mg/dL (9-20); Calcium 7.8 mg/dL (8.4-10.2); Carbon Dioxide 25 mmol/L (22-30); Chloride 99 mmol/L (98-107); Glucose 89 mg/dL (74-99); Magnesium 1.6 mg/dL (1.6-2.3); Non-African American GFR(CKD) >90 (>60 ml/min/1.73 sqM); Potassium 4.4 mmol/L (3.5-5.1); Sodium 128 mmol/L (137-145)
[2022-04-28] MEDS: ALVIMOPAN 12 MG CAPSULE PO SCH ×2 (09:37→21:13)
[2022-04-28] MEDS: SPIRONOLACTONE 25 MG TAB PO SCH (09:37)
[2022-04-28] MEDS: METOPROLOL SUCCINATE (ER) 50 MG TAB.ER.24H PO SCH (09:38)
[2022-04-28] MEDS: LEVOTHYROXINE 75 MCG TAB PO SCH (09:38)
[2022-04-28] MEDS: ASPIRIN 81 MG PO SCH (09:38)
[2022-04-28] MEDS: FUROSEMIDE 80 MG TAB PO SCH (09:40)
[2022-04-28] MEDS: PANTOPRAZOLE 40 MG/10 ML VIAL IVP SCH (09:40)
--- NOTE | 2022-04-28 12:15 | P.PN ---
Subjective Progress Note Date: 04/28/22 CHIEF COMPLAINT: Chronic diverticulitis HISTORY OF PRESENT ILLNESS: Patient is postop day #2 status post sigmoid colectomy and colostomy with appendectomy. Patient has epidural in place for pain control. Patient reports his pain is controlled. He did have some flatus from ostomy. Denies any nausea or vomiting. Still has some abdominal bloating. He is only eating a small amount. Medicine service has discontinue the IV fluids and given a dose of Lasix. Infectious disease has added Flagyl and ce fepime for antibiotics. Patient has not been out of bed yet. Afebrile. Sodium 128 potassium 4.4 creatinine 0.48 magnesium 1.6 Patient seen and examined with Dr. sands PHYSICAL EXAM: VITAL SIGNS: Reviewed. GENERAL: Well-developed in no acute distress. HEENT: No sclera icterus. Extraocular movements grossly intact. Moist buccal mucosa. Head is atraumatic, normocephalic. ABDOMEN: Soft. Distended. incisional dressing clean dry and intact Ostomy stoma is pink. There is sanguinous drainage noted an ostomy bag NEUROLOGIC: Alert and oriented. Cranial nerves II through XII grossly intact. ASSESSMENT: 1. Chronic diverticulitis status post sigmoid colectomy and colostomy with appe ndectomy 2. Hyponatremia. Management per medicine service 3. Hypomagnesemia patient receiving supplement PLAN: -Continue full liquids -Consult PT OT -Encouraged patient ambulates -Antibiotics per infectious disease -Continue epidural for pain control -Continue Garcia catheter -Encouraged patient to use incentive spirometer -GI prophylaxis Protonix and DVT prophylaxis subcu heparin Physician Infection Prevention Practitioner note has been reviewed by physician. Signing provider agrees with the documented findings, assessment, and plan of care. Objective - Vital Signs Vital signs: Vital Signs Temp 98.4 F 04/28/22 08:00 Pulse 76 04/28/22 12:03 Resp 17 04/28/22 08:00 BP 103/61 04/28/22 08:00 Pulse Ox 95 04/28/22 08:00 FiO2 Intake & Output 04/27/22 04/28/22 04/28/22 18:59 06:59 18:59 Intake Total 65.867 Output Total 850 800 Balance -784.133 -800 Intake: Intake, IV Titration 65.867 Amount Ropivacaine 250 mg 65.867 Hydromorphone (Pf) 5 mg In Sodium Chloride 0.9% 200 ml @ Per Protocol EPIDURAL .Q0M PRN Rx#: [id number] Output: Urine 850 800 Other: Voiding Method Indwelling Catheter Indwelling Catheter Indwelling Catheter - Labs CBC & Chem 7: 04/26/22 15:45 04/28/22 08:40 Labs: Abnormal Lab Results - Last 24 Hours (Table) 04/27/22 04/28/22 Range/Units 12:37 08:40 Sodium 128 L 128 L (137-145) mmol/L Chloride 97 L (98-107) mmol/L Carbon Dioxide 21 L (22-30) mmol/L Creatinine 0.50 L 0.48 L (0.66-1.25) mg/dL Glucose 133 H (74-99) mg/dL Calcium 7.9 L 7.8 L (8.4-10.2) mg/dL
--- NOTE | 2022-04-28 12:18 | P.PN ---
Subjective Progress Note Date: 04/28/22 Principal diagnosis: s/p surgery Hospital Course: Patient is a 76-year-old male with past medical history of systolic CHF with EF of 20% status post ICD, COPD, A. fib on eliquis, recent episode of septic shock secondary to multiple pelvic and lower extremity abscesses, diverticulitis, sigmoid colitis presenting for sigmoid colectomy with end colostomy for severe diverticulitis. Sound physicians were consulted for medical management. Subjective: Patient seen and examined at bedside. No acute events overnight. He is having trouble taking deep breaths due to belly distention. He is having a lot of burps. He continues to have epidural in place for pain. He denies any significant abdominal pain. He denies any chest pain, shortness of breath, orthopnea, swelling in legs. Pertinent positives and negatives as discussed above, a complete review of systems was performed and all other systems are negative. Vitals Signs Reviewed. General: nontoxic, no distress, appears at stated age Derm: warm, dry Head: atraumatic, normocephalic, symmetric Eyes: EOMI, no lid lag, anicteric sclera, pupils equal round reactive to light ENT: Nose and ears atraumatic Neck: supple Mouth: no lip lesion, mucus membranes moist Cardiovascular: S1S2 reg, no murmur, trace edema, capillary refill less than 2 seconds Lungs: clear to auscultation bilateral, no rhonchi, no rales, no wheeze, no accessory muscle use Abdominal: soft, slight tender to palpation around incision, ostomy site appears clean, no guarding, no appreciable organomegaly, normal bowel sounds Ext: no gross muscle atrophy, muscle strength muscle strength 5 out of 5 in all 4 extremities, no contractures Neuro: CN II-XII grossly intact, light touch intact all 4 extremities Psych: Alert, oriented, appropriate affect Assessment and Plan: Severe diverticulitis status post sigmoid colectomy with end colostomy -POD #2 -Pain control -On clear liquids, advance as tolerated Systolic CHF -will dc iv fluids and restart home oral lasix Mild hyponatremia - likely 2/2 hypervolemia - dc fluids, and oral lasix Pruritus -Likely secondary to epidural -On nalbuphine Atrial fibrillation -will restart eliquis once epidural his disconnected Hypertension - restart home meds Dyslipidemia - restart home meds DVT ppx: heparin sq Thank you for allowing us to participate in the care of this pleasant patient. Do not hesitate to contact us with questions. Someone can be reached from the [facility] hospitalist group all hours of the day at [phone] or via perfect serve. Objective - Vital Signs Vital signs: Vital Signs Temp 98.4 F 04/28/22 08:00 Pulse 76 04/28/22 12:03 Resp 17 04/28/22 08:00 BP 103/61 04/28/22 08:00 Pulse Ox 95 04/28/22 08:00 FiO2 Intake & Output 04/27/22 04/28/22 04/28/22 18:59 06:59 18:59 Intake Total 65.867 Output Total 850 800 Balance -784.133 -800 Intake: Intake, IV Titration 65.867 Amount Ropivacaine 250 mg 65.867 Hydromorphone (Pf) 5 mg In Sodium Chloride 0.9% 200 ml @ Per Protocol EPIDURAL .Q0M PRN Rx#: [id number] Output: Urine 850 800 Other: Voiding Method Indwelling Catheter Indwelling Catheter Indwelling Catheter - Labs CBC & Chem 7: 04/26/22 15:45 04/28/22 08:40 Labs: Abnormal Lab Results - Last 24 Hours (Table) 04/27/22 04/28/22 Range/Units 12:37 08:40 Sodium 128 L 128 L (137-145) mmol/L Chloride 97 L (98-107) mmol/L Carbon Dioxide 21 L (22-30) mmol/L Creatinine 0.50 L 0.48 L (0.66-1.25) mg/dL Glucose 133 H (74-99) mg/dL Calcium 7.9 L 7.8 L (8.4-10.2) mg/dL
[2022-04-28] MEDS: MAGNESIUM SULFATE-D5W PMX 1 GM in DEXTROSE/WATER 1 100ML.BAG IVPB SCH ×4 (12:33→22:14)
[2022-04-28] MEDS: ROPIVACAINE 250 MG, HYDROMORPHONE (PF) 5 MG in SODIUM CHLORIDE 0.9% 200 ML EPIDURAL PRN (13:59)
--- NOTE | 2022-04-28 15:42 | P.PN ---
Subjective Progress Note Date: 04/28/22 Principal diagnosis: Diverticulitis with a recent abscess Patient is a 76 year old male with a possible medical history significant for recurrent diverticulitis with adjacent better diverticular abscess likely admitted to the hospital in this patient who is status post laparotomy and diverting colostomy no mention of any intra-abdominal abscess on the operative report did mention inflamed colon. On today's evaluation and that is 04/28/2022, the patient denies having any fever or any chills, the patient abdominal pain is currently controlled patient mentions having a sense of gas through his colostomy, denies any nausea no vomiting no chest pain shortness of breath or cough Objective - Vital Signs Vital signs: Vital Signs Temp 98.4 F 04/28/22 14:00 Pulse 58 L 04/28/22 14:00 Resp 16 04/28/22 14:00 BP 99/62 04/28/22 14:00 Pulse Ox 97 04/28/22 14:00 FiO2 Intake & Output 04/27/22 04/28/22 04/28/22 18:59 06:59 18:59 Intake Total 65.867 36.116 Output Total 797 887 2453 Balance -784.133 -763.884 -1100 Intake: Intake, IV Titration 65.867 36.116 Amount Ropivacaine 250 mg 65.867 36.116 Hydromorphone (Pf) 5 mg In Sodium Chloride 0.9% 200 ml @ Per Protocol EPIDURAL .Q0M PRN Rx#: [id number] Output: Urine 367 159 7123 Other: Voiding Method Indwelling Catheter Indwelling Catheter Indwelling Catheter - Exam GENERAL DESCRIPTION: An elderly male lying in bed in no distress RESPIRATORY SYSTEM: Unlabored breathing , decreased breath sounds at bases HEART: S1 S2 regular rate and rhythm , ABDOMEN: Soft , no tenderness EXTREMITIES: No edema feet - Labs CBC & Chem 7: 04/26/22 15:45 04/28/22 08:40 Labs: Abnormal Lab Results - Last 24 Hours (Table) 04/28/22 Range/Units 08:40 Sodium 128 L (137-145) mmol/L Creatinine 0.48 L (0.66-1.25) mg/dL Calcium 7.8 L (8.4-10.2) mg/dL Assessment and Plan (1) Diverticulitis Current Visit: No Status: Acute Code(s): K57.92 - DVTRCLI OF INTEST, PART UNSP, W/O PERF OR ABSCESS W/O BLEED SNOMED Code(s): 299092394 Plan: 1patient with a history of recurrent diverticulitis and peridiverticular abscess in this patient who is status post laparotomy and diverting colostomy along with appendectomy there was mention of diffuse inflammation of the colon but no mention of any intra-abdominal abscess and no cultures were done. 2patient to continue with cefepime and Flagyl while inpatient and monitor clinical course closely Time with Patient: Less than 30
[2022-04-28] MEDS: ATORVASTATIN 80 MG TAB PO SCH (21:13)
[2022-04-28] MEDS: lisinopriL 20 MG TAB PO SCH (21:13)
[2022-04-28] MEDS: MULTIVITAMINS, THERA 1 EACH TAB PO SCH (21:13)
[2022-04-28] MEDS: TAMSULOSIN 0.4 MG CAP.ER.24H PO SCH (21:13)
[2022-04-29] MEDS: HEPARIN SODIUM,PORCINE/PF 5,000 UNIT/0.5 ML SYRINGE SQ SCH ×4 (00:48→23:56)
[2022-04-29] MEDS: metroNIDAZOLE-NS PMX 500 MG in SALINE 1 100ML.BAG IVPB SCH ×4 (00:48→21:54)
[2022-04-29] MEDS: CEFEPIME 2 GM in SODIUM CHLORIDE 0.9% 100 ML IVPB SCH ×3 (01:49→16:53)
[2022-04-29] MEDS: LEVOTHYROXINE 75 MCG TAB PO SCH (07:29)
[2022-04-29] MEDS: METOPROLOL SUCCINATE (ER) 50 MG TAB.ER.24H PO SCH (07:29)
[2022-04-29] MEDS: SPIRONOLACTONE 25 MG TAB PO SCH (07:29)
[2022-04-29] MEDS: ALVIMOPAN 12 MG CAPSULE PO SCH ×2 (07:29→21:53)
[2022-04-29] MEDS: ASPIRIN 81 MG PO SCH (07:29)
[2022-04-29] MEDS: FUROSEMIDE 80 MG TAB PO SCH ×2 (07:31→07:34)
[2022-04-29] MEDS: PANTOPRAZOLE 40 MG/10 ML VIAL IVP SCH (07:48)
[2022-04-29] MEDS ORDERED: HYDROmorphone 1 MG/ML 1 ML SYRINGE IVP PRN (08:00)
[2022-04-29] MEDS ORDERED: HYDROcodone/APAP 5-325MG 1 EACH TAB PO PRN (08:00)
[2022-04-29 10:41] LABS: African American GFR (CKD) 117.3 (60.0-200.0); Anion Gap 12.6 mmol/L (10.00-18.00); BUN/Creat Ratio 11.18 Ratio (12.00-20.00); Blood Urea Nitrogen 6.4 mg/dL (9.0-27.0); Calcium 8.3 mg/dL (8.7-10.3); Carbon Dioxide 23.6 mmol/L (20.0-27.5); Magnesium 1.8 mg/dL (1.5-2.4); Non-African American GFR(CKD) 101.2 (60.0-200.0); Potassium 3.5 mmol/L (3.5-5.5)
[2022-04-29] MEDS: NALBUPHINE 10 MG/ML (1 ML AMP) IV PRN ×3 (10:53→23:55)
[2022-04-29 10:57] VITALS: BMI 24.0
--- NOTE | 2022-04-29 11:08 | P.PN ---
Subjective Progress Note Date: 04/29/22 Principal diagnosis: s/p surgery Hospital Course: Patient is a 76-year-old male with past medical history of systolic CHF with EF of 20% status post ICD, COPD, A. fib on eliquis, recent episode of septic shock secondary to multiple pelvic and lower extremity abscesses, diverticulitis, sigmoid colitis presenting for sigmoid colectomy with end colostomy for severe diverticulitis. Sound physicians were consulted for medical management. Subjective: Patient seen and examined at bedside. No acute events overnight. He is breathing a lot better after diuresis. He continues to have epidural in place for pain. He denies any significant abdominal pain. He denies any chest pain, shortness of breath, orthopnea, swelling in legs. Pertinent positives and negatives as discussed above, a complete review of systems was performed and all other systems are negative. Vitals Signs Reviewed. General: nontoxic, no distress, appears at stated age Derm: warm, dry Head: atraumatic, normocephalic, symmetric Eyes: EOMI, no lid lag, anicteric sclera, pupils equal round reactive to light ENT: Nose and ears atraumatic Neck: supple Mouth: no lip lesion, mucus membranes moist Cardiovascular: S1S2 reg, no murmur, trace edema, capillary refill less than 2 seconds Lungs: clear to auscultation bilateral, no rhonchi, no rales, no wheeze, no accessory muscle use Abdominal: soft, slight tender to palpation around incision, ostomy site appears clean, no guarding, no appreciable organomegaly, normal bowel sounds Ext: no gross muscle atrophy, muscle strength muscle strength 5 out of 5 in all 4 extremities, no contractures Neuro: CN II-XII grossly intact, Psych: Alert, oriented, appropriate affect Assessment and Plan: Severe diverticulitis status post sigmoid colectomy with end colostomy -POD #3 -Pain control -Cefepime and Flagyl per ID -On clear liquids, advance as tolerated Systolic CHF -Chest x-ray reviewed -Oral Lasix Mild hyponatremia - improving - likely 2/2 hypervolemia -Oral Lasix Pruritus -Likely secondary to epidural -On nalbuphine Atrial fibrillation -will restart eliquis once epidural his disconnected Hypertension - restart home meds Dyslipidemia - restart home meds DVT ppx: heparin sq Thank you for allowing us to participate in the care of this pleasant patient. Do not hesitate to contact us with questions. Someone can be reached from the [facility] hospitalist group all hours of the day at [phone] or via perfect serve. Objective - Vital Signs Vital signs: Vital Signs Temp 99.3 F 04/29/22 00:56 Pulse 100 04/29/22 08:00 Resp 18 04/29/22 08:00 BP 98/56 04/29/22 08:00 Pulse Ox 96 04/29/22 08:00 FiO2 Intake & Output 04/28/22 04/29/22 04/29/22 18:59 06:59 18:59 Output Total 3450 3900 Balance -3450 -3900 Weight 73.9 kg Output: Urine 3450 3900 Other: Voiding Method Indwelling Catheter Indwelling Catheter Indwelling Catheter - Labs CBC & Chem 7: 04/26/22 15:45 04/29/22 05:16 Labs: Abnormal Lab Results - Last 24 Hours (Table) 04/29/22 Range/Units 05:16 Sodium 130 L (135-145) mmol/L Chloride 94 L (96-109) mmol/L BUN 6.4 L (9.0-27.0) mg/dL BUN/Creatinine Ratio 11.18 L (12.00-20.00) Ratio Calcium 8.3 L (8.7-10.3) mg/dL
--- NOTE | 2022-04-29 16:01 | P.PN ---
Subjective Progress Note Date: 04/29/22 CHIEF COMPLAINT: Diverticulitis HISTORY OF PRESENT ILLNESS: The patient is a 76-year-old male status post appendectomy, sigmoid colectomy and Simón's procedure for diverticulitis. He is tolerating full liquid diet. He asked his son to get applesauce and requesting more diet. No abdominal pain. He is passing flatus. ROS: No reports of nausea and vomiting. No fevers or chills. No new chest p ain. No productive sputum PHYSICAL EXAM: VITAL SIGNS: Reviewed CONSTITUTIONAL: Well developed and in no acute distress. EYES: Conjuctivae without sclera icterus. Extraocular movements grossly intact. HEAD, EARS, NOSE, THROAT: Moist buccal mucosa. Head is atraumatic, normocephalic. Hears conversational speech. No nasal drainage. RESPIRATORY: Non-labored respirations and equal bilateral excursions. CARDIOVASCULAR: Palpable 2+ radial pulses. ABDOMEN: Incision and intact. MUSCULOSKELETAL: No gross deformity of the lower extremities noted. No clubbing. No cyanosis. SKIN: Good skin turgor. Well perfused. NEUROLOGIC: Cranial nerves II through XII grossly intact. No focal or laterali zing signs. PSYCH: Appropriate affect. Alert and oriented to person, place and time. CLINICAL LABS: Reviewed. Sodium low with hyponatremia. ASSESSMENT: 1. Diverticulitis PLAN: 1. He is tolerating full liquid diet. Trial of low fiber diet described. 2. Repeat BMP for hyponatremia and CBC for leukocytosis Objective - Vital Signs Vital signs: Vital Signs Temp 97.7 F 04/29/22 14:00 Pulse 61 04/29/22 14:00 Resp 18 04/29/22 14:00 BP 95/57 04/29/22 14:00 Pulse Ox 94 L 04/29/22 14:00 FiO2 Intake & Output 04/28/22 04/29/22 04/29/22 18:59 06:59 18:59 Output Total 3450 3900 2100 Balance -3450 -3900 -2100 Weight 73.9 kg Output: Urine 3450 3900 2100 Other: Voiding Method Indwelling Catheter Indwelling Catheter Indwelling Catheter - Labs CBC & Chem 7: 04/26/22 15:45 04/29/22 05:16 Labs: Abnormal Lab Results - Last 24 Hours (Table) 04/29/22 Range/Units 05:16 Sodium 130 L (135-145) mmol/L Chloride 94 L (96-109) mmol/L BUN 6.4 L (9.0-27.0) mg/dL BUN/Creatinine Ratio 11.18 L (12.00-20.00) Ratio Calcium 8.3 L (8.7-10.3) mg/dL
--- NOTE | 2022-04-29 17:10 | P.PN ---
Progress Note - Text Progress Note Date: 04/29/22 Postoperative day # 3 status post sigmoid colectomy epidural catheter placed for postoperative analgesia, patient doing well epidural site okay, patient currently on combination of epidural infusion solution of Ropivacaine 0.0625% and Dilaudid 20 g per mL the infusion rate 3 ml per hour , patient had no motor deficit epidural site okay , vital signs stable ,VAS 3 /10 , Assessment and plan= post operative day #3 patient doing well ,pain well controlled , there is no anesthesia related complications
[2022-04-29] MEDS: ALBUTEROL NEBULIZED 2.5 MG/3 ML INHALATION PRN (20:39)
[2022-04-29] MEDS: ATORVASTATIN 80 MG TAB PO SCH (21:53)
[2022-04-29] MEDS: TAMSULOSIN 0.4 MG CAP.ER.24H PO SCH (21:53)
[2022-04-29] MEDS: MULTIVITAMINS, THERA 1 EACH TAB PO SCH (21:53)
[2022-04-29] MEDS: lisinopriL 20 MG TAB PO SCH (21:53)
[2022-04-30] MEDS: NALBUPHINE 10 MG/ML (1 ML AMP) IV PRN ×2 (05:33→11:38)
[2022-04-30] MEDS: METOPROLOL SUCCINATE (ER) 50 MG TAB.ER.24H PO SCH (07:25)
[2022-04-30] MEDS: ASPIRIN 81 MG PO SCH (07:25)
[2022-04-30] MEDS: metroNIDAZOLE-NS PMX 500 MG in SALINE 1 100ML.BAG IVPB SCH ×3 (07:25→22:16)
[2022-04-30] MEDS: PANTOPRAZOLE 40 MG/10 ML VIAL IVP SCH (07:25)
[2022-04-30] MEDS: HEPARIN SODIUM,PORCINE/PF 5,000 UNIT/0.5 ML SYRINGE SQ SCH ×2 (07:25→15:33)
[2022-04-30] MEDS: FUROSEMIDE 80 MG TAB PO SCH (07:26)
[2022-04-30] MEDS: SPIRONOLACTONE 25 MG TAB PO SCH (07:26)
[2022-04-30] MEDS: ALVIMOPAN 12 MG CAPSULE PO SCH ×2 (07:26→22:10)
[2022-04-30] MEDS: LEVOTHYROXINE 75 MCG TAB PO SCH (07:26)
[2022-04-30] MEDS: ALBUTEROL NEBULIZED 2.5 MG/3 ML INHALATION PRN ×3 (08:14→15:40)
[2022-04-30] MEDS: CEFEPIME 2 GM in SODIUM CHLORIDE 0.9% 100 ML IVPB SCH ×4 (08:33→17:45)
[2022-04-30 09:29] LABS: Basophils # (A) 0.06 X 10*3/uL (0.00-0.10); Basophils % (A) 0.7 %; Eosinophils # (A) 0.35 X 10*3/uL (0.04-0.35); Eosinophils % (A) 3.8 %; HGB 10.4 g/dL (13.0-17.0); Immature Grans, Automated 0.4 %; Lymphocytes # (A) 2.08 X 10*3/uL (0.90-5.00); Lymphocytes % (A) 22.7 %; MCH 31.3 pg (27.0-32.0); MCHC 32.5 g/dL (32.0-37.0); MCV 96.4 fL (80.0-97.0); Mean Platelet Volume 10.7 fL (9.5-12.2); Monocytes # (A) 1.28 X 10*3/uL (0.20-1.00); Monocytes % (A) 13.9 %; NRBC Per 100 WBC 0 /100 WBCS (0.0-0.0); Neutrophils # (A) 5.37 X 10*3/uL (1.80-7.70); Neutrophils % (A) 58.5 %; Platelet Count 211 X 10*3/uL (140-440); RBC 3.32 X 10*6/uL (4.40-5.60); RDW 18.7 % (11.5-14.5); WBC 9.18 X 10*3/uL (4.50-10.00)
[2022-04-30 09:43] LABS: African American GFR (CKD) 114.6 (60.0-200.0); Anion Gap 9.9 mmol/L (10.00-18.00); BUN/Creat Ratio 9.6 Ratio (12.00-20.00); Blood Urea Nitrogen 5.8 mg/dL (9.0-27.0); Calcium 7.8 mg/dL (8.7-10.3); Carbon Dioxide 27.7 mmol/L (20.0-27.5); Magnesium 1.5 mg/dL (1.5-2.4); Non-African American GFR(CKD) 98.8 (60.0-200.0); Potassium 3.2 mmol/L (3.5-5.5)
[2022-04-30] MEDS ORDERED: FUROSEMIDE 10 MG/ML 4 ML VIAL IV STA (11:22)
[2022-04-30] MEDS ORDERED: POTASSIUM CHLORIDE ER 20 MEQ TAB.ER PO STA (11:22)
--- NOTE | 2022-04-30 11:24 | P.PN ---
Subjective Progress Note Date: 04/30/22 Principal diagnosis: s/p surgery Hospital Course: Patient is a 76-year-old male with past medical history of systolic CHF with EF of 20% status post ICD, COPD, A. fib on eliquis, recent episode of septic shock secondary to multiple pelvic and lower extremity abscesses, diverticulitis, sigmoid colitis presenting for sigmoid colectomy with end colostomy for severe diverticulitis. Sound physicians were consulted for medical management. Subjective: Patient seen and examined at bedside. No acute events overnight. He is breathing a lot better after diuresis. He continues to have epidural in place for pain. He denies any significant abdominal pain. He denies any chest pain, shortness of breath, orthopnea, swelling in legs. Pertinent positives and negatives as discussed above, a complete review of systems was performed and all other systems are negative. Vitals Signs Reviewed. General: nontoxic, no distress, appears at stated age Derm: warm, dry Head: atraumatic, normocephalic, symmetric Eyes: EOMI, no lid lag, anicteric sclera, pupils equal round reactive to light ENT: Nose and ears atraumatic Neck: supple Mouth: no lip lesion, mucus membranes moist Cardiovascular: S1S2 reg, no murmur, trace edema, capillary refill less than 2 seconds Lungs: clear to auscultation bilateral, no rhonchi, no rales, no wheeze, no accessory muscle use Abdominal: soft, slight tender to palpation around incision, ostomy site appears clean, no guarding, no appreciable organomegaly, normal bowel sounds Ext: no gross muscle atrophy, muscle strength muscle strength 5 out of 5 in all 4 extremities, no contractures Neuro: CN II-XII grossly intact, Psych: Alert, oriented, appropriate affect Assessment and Plan: Severe diverticulitis status post sigmoid colectomy with end colostomy -POD #4 -Pain control, epidural -Cefepime and Flagyl per ID -On low fiber diet, advance as tolerated Systolic CHF -Chest x-ray reviewed -Oral Lasix -will give 40 IV lasix once Hypomagnesemia Hypokalemia -Replete Mild hyponatremia - improving - likely 2/2 hypervolemia -Oral Lasix Pruritus -Likely secondary to epidural -On nalbuphine Atrial fibrillation -will restart eliquis once epidural his disconnected Hypertension - restart home meds Dyslipidemia - restart home meds DVT ppx: heparin sq Thank you for allowing us to participate in the care of this pleasant patient. Do not hesitate to contact us with questions. Someone can be reached from the [facility] hospitalist group all hours of the day at [phone] or via perfect serve. Objective - Vital Signs Vital signs: Vital Signs Temp 98.3 F 04/30/22 07:50 Pulse 68 04/30/22 08:26 Resp 16 04/30/22 08:00 BP 103/59 04/30/22 07:50 Pulse Ox 98 04/30/22 07:50 FiO2 Intake & Output 04/29/22 04/30/22 04/30/22 18:59 06:59 18:59 Intake Total 400 Output Total 2100 1600 Balance -1700 -1600 Weight 73.9 kg Intake: Intake, IV Titration 400 Amount Cefepime 2 gm In Sodium 200 Chloride 0.9% 100 ml @ 25 mls/hr IVPB Q8HR BONY Rx# :[id number] metroNIDAZOLE-NS PMX 500 200 mg In Saline 1 100ml.bag @ 100 mls/hr IVPB Q8HR BONY Rx#:[id number] Output: Urine 2100 1600 Other: Voiding Method Indwelling Catheter Indwelling Catheter Indwelling Catheter - Labs CBC & Chem 7: 04/30/22 03:27 04/30/22 03:27 Labs: Abnormal Lab Results - Last 24 Hours (Table) 04/30/22 04/30/22 Range/Units 03:27 03:27 RBC 3.32 L (4.40-5.60) X 10*6/uL Hgb 10.4 L (13.0-17.0) g/dL Hct 32.0 L (39.6-50.0) % RDW 18.7 H (11.5-14.5) % Monocytes # 1.28 H (0.20-1.00) X 10*3/uL Sodium 131 L (135-145) mmol/L Potassium 3.2 L (3.5-5.5) mmol/L Chloride 93 L (96-109) mmol/L Carbon Dioxide 27.7 H (20.0-27.5) mmol/L Anion Gap 9.90 L (10.00-18.00) mmol/L BUN 5.8 L (9.0-27.0) mg/dL BUN/Creatinine Ratio 9.60 L (12.00-20.00) Ratio Calcium 7.8 L (8.7-10.3) mg/dL
[2022-04-30] MEDS: MAGNESIUM SULFATE-D5W PMX 1 GM in DEXTROSE/WATER 1 100ML.BAG IVPB SCH ×3 (12:54→15:06)
--- NOTE | 2022-04-30 13:48 | P.PN ---
Subjective Progress Note Date: 04/30/22 CHIEF COMPLAINT: Diverticulitis HISTORY OF PRESENT ILLNESS: The patient is a 76-year-old male status post appendectomy, sigmoid colectomy and Simón's procedure for diverticulitis. He is tolerating low fiber diet. No reports of abdominal pain. He has flatus in his ostomy bag with liquid stool. He still has epidural. ROS: No reports of nausea and vomiting. No fevers or chills. No new chest p ain. No productive sputum PHYSICAL EXAM: VITAL SIGNS: Reviewed CONSTITUTIONAL: Well developed and in no acute distress. EYES: Conjuctivae without sclera icterus. Extraocular movements grossly intact. HEAD, EARS, NOSE, THROAT: Moist buccal mucosa. Head is atraumatic, normocephalic. Hears conversational speech. No nasal drainage. RESPIRATORY: Non-labored respirations and equal bilateral excursions. CARDIOVASCULAR: Palpable 2+ radial pulses. ABDOMEN: Dressing intact and clean. Ostomy with flatus and stool. MUSCULOSKELETAL: No gross deformity of the lower extremities noted. No clubbi ng. No cyanosis. SKIN: Good skin turgor. Well perfused. NEUROLOGIC: Cranial nerves II through XII grossly intact. No focal or lateralizing signs. PSYCH: Appropriate affect. Alert and oriented to person, place and time. : Garcia with urine clear. CLINICAL LABS: Reviewed. WBC normal. Hemoglobin down 11.1-10.1. Potassium low at 3.2 ASSESSMENT: 1. Diverticulitis 2. Hypokalemia 3. Anemia PLAN: 1. He is tolerating low fiber diet. Continue diet. 2. Discontinue epidural, postoperative day 4 today. 3. Patient is on oral pain meds [place] as needed and Tylenol scheduled Objective - Vital Signs Vital signs: Vital Signs Temp 98.3 F 04/30/22 07:50 Pulse 70 04/30/22 12:02 Resp 16 04/30/22 08:00 BP 103/59 04/30/22 07:50 Pulse Ox 98 04/30/22 07:50 FiO2 Intake & Output 04/29/22 04/30/22 04/30/22 18:59 06:59 18:59 Intake Total 400 Output Total 2100 1599 2100 Balance -16991600 Weight 73.9 kg Intake: Intake, IV Titration 400 Amount Cefepime 2 gm In Sodium 200 Chloride 0.9% 100 ml @ 25 mls/hr IVPB Q8HR BONY Rx# :[id number] metroNIDAZOLE-NS PMX 500 200 mg In Saline 1 100ml.bag @ 100 mls/hr IVPB Q8HR BONY Rx#:[id number] Output: Urine 2100 1600 2100 Other: Voiding Method Indwelling Catheter Indwelling Catheter Indwelling Catheter - Labs CBC & Chem 7: 04/30/22 03:27 04/30/22 03:27 Labs: Abnormal Lab Results - Last 24 Hours (Table) 04/30/22 04/30/22 Range/Units 03:27 03:27 RBC 3.32 L (4.40-5.60) X 10*6/uL Hgb 10.4 L (13.0-17.0) g/dL Hct 32.0 L (39.6-50.0) % RDW 18.7 H (11.5-14.5) % Monocytes # 1.28 H (0.20-1.00) X 10*3/uL Sodium 131 L (135-145) mmol/L Potassium 3.2 L (3.5-5.5) mmol/L Chloride 93 L (96-109) mmol/L Carbon Dioxide 27.7 H (20.0-27.5) mmol/L Anion Gap 9.90 L (10.00-18.00) mmol/L BUN 5.8 L (9.0-27.0) mg/dL BUN/Creatinine Ratio 9.60 L (12.00-20.00) Ratio Calcium 7.8 L (8.7-10.3) mg/dL
[2022-04-30] MEDS: ACETAMINOPHEN TAB 500 MG TAB PO SCH ×3 (14:07→22:10)
[2022-04-30] MEDS ORDERED: KETOROLAC 15 MG/ML 1 ML VIAL IVP SCH (18:00)
[2022-04-30] MEDS: ALBUTEROL NEBULIZED 2.5 MG/3 ML INHALATION SCH (20:40)
[2022-04-30] MEDS: lisinopriL 20 MG TAB PO SCH (22:10)
[2022-04-30] MEDS: ATORVASTATIN 80 MG TAB PO SCH (22:10)
[2022-04-30] MEDS: TAMSULOSIN 0.4 MG CAP.ER.24H PO SCH (22:10)
[2022-04-30] MEDS: MULTIVITAMINS, THERA 1 EACH TAB PO SCH (22:10)
[2022-05-01] MEDS ORDERED: SODIUM CHLORIDE 0.9% 500 ML 500 ML IV ONE ×2 (01:32→01:34)
[2022-05-01] MEDS: HEPARIN SODIUM,PORCINE/PF 5,000 UNIT/0.5 ML SYRINGE SQ SCH ×2 (01:45→08:20)
[2022-05-01] MEDS: ACETAMINOPHEN TAB 500 MG TAB PO SCH ×5 (01:46→18:22)
[2022-05-01] MEDS: CEFEPIME 2 GM in SODIUM CHLORIDE 0.9% 100 ML IVPB SCH ×3 (02:45→16:17)
[2022-05-01] MEDS: MAGNESIUM SULFATE-D5W PMX 1 GM in DEXTROSE/WATER 1 100ML.BAG IVPB SCH (06:30)
[2022-05-01] MEDS: ALVIMOPAN 12 MG CAPSULE PO SCH ×3 (08:19→20:33)
[2022-05-01] MEDS: LEVOTHYROXINE 75 MCG TAB PO SCH (08:19)
[2022-05-01] MEDS: SPIRONOLACTONE 25 MG TAB PO SCH (08:19)
[2022-05-01] MEDS: METOPROLOL SUCCINATE (ER) 50 MG TAB.ER.24H PO SCH (08:19)
[2022-05-01] MEDS: ASPIRIN 81 MG PO SCH (08:19)
[2022-05-01] MEDS: metroNIDAZOLE-NS PMX 500 MG in SALINE 1 100ML.BAG IVPB SCH (08:21)
[2022-05-01] MEDS: ALBUTEROL NEBULIZED 2.5 MG/3 ML INHALATION SCH ×4 (08:32→19:32)
[2022-05-01 09:00] LABS: Anisocytosis Slight; Basophils # (A) 0.1 k/uL (0-0.2); Basophils % (A) 1 %; Eosinophils # (A) 0.3 k/uL (0-0.7); Eosinophils % (A) 4 %; HCT 32.6 % (39.0-53.0); HGB 10.7 gm/dL (13.0-17.5); Hypochromasia Slight; Lymphocytes % (A) 22 %; MCH 31.5 pg (25.0-35.0); MCHC 32.8 g/dL (31.0-37.0); MCV 96.3 fL (80.0-100.0); Monocytes # (A) 0.8 k/uL (0-1.0); Monocytes % (A) 8 %; Neutrophils # (A) 5.6 k/uL (1.3-7.7); Neutrophils % (A) 62 %; Platelet Count 221 k/uL (150-450); RBC 3.39 m/uL (4.30-5.90); RDW 16.8 % (11.5-15.5)
[2022-05-01] MEDS: PANTOPRAZOLE 40 MG/10 ML VIAL IVP SCH (09:09)
[2022-05-01 09:54] LABS: African American GFR (CKD) >90 (>60 ml/min/1.73 sqM); Anion Gap 10 mmol/L; Blood Urea Nitrogen 7 mg/dL (9-20); Calcium 7.9 mg/dL (8.4-10.2); Carbon Dioxide 25 mmol/L (22-30); Chloride 96 mmol/L (98-107); Glucose 100 mg/dL (74-99); Non-African American GFR(CKD) >90 (>60 ml/min/1.73 sqM); Potassium 3.1 mmol/L (3.5-5.1); Sodium 131 mmol/L (137-145)
--- NOTE | 2022-05-01 10:00 | P.PN ---
Subjective Progress Note Date: 05/01/22 Principal diagnosis: s/p surgery Hospital Course: Patient is a 76-year-old male with past medical history of systolic CHF with EF of 20% status post ICD, COPD, A. fib on eliquis, recent episode of septic shock secondary to multiple pelvic and lower extremity abscesses, diverticulitis, sigmoid colitis presenting for sigmoid colectomy with end colostomy for severe diverticulitis. Sound physicians were consulted for medical management. Subjective: Patient seen and examined at bedside. No acute events overnight. He is breathing a lot better after diuresis. Epidural was discontinued yesterday. He denies any significant abdominal pain. He denies any chest pain, shortness of breath, orthopnea, swelling in legs. Pertinent positives and negatives as discussed above, a complete review of systems was performed and all other systems are negative. Vitals Signs Reviewed. General: nontoxic, no distress, appears at stated age Derm: warm, dry Head: atraumatic, normocephalic, symmetric Eyes: EOMI, no lid lag, anicteric sclera, pupils equal round reactive to light ENT: Nose and ears atraumatic Neck: supple Mouth: no lip lesion, mucus membranes moist Cardiovascular: S1S2 reg, no murmur, trace edema and improving Lungs: clear to auscultation bilateral, no rhonchi, no rales, no wheeze, no accessory muscle use Abdominal: soft, slight tender to palpation around incision, ostomy site appears clean, no guarding, no appreciable organomegaly, normal bowel sounds Ext: no gross muscle atrophy, muscle strength muscle strength 5 out of 5 in all 4 extremities, no contractures Neuro: CN II-XII grossly intact, Psych: Alert, oriented, appropriate affect Assessment and Plan: Severe diverticulitis status post sigmoid colectomy with end colostomy -POD #5 -epidural discontinued -pain control per surgery -Cefepime and Flagyl per ID -On low fiber diet, advance as tolerated Systolic CHF -Chest x-ray reviewed -Oral Lasix -will give 40 IV lasix once Hypomagnesemia - resolved Hypokalemia -Replete Mild hyponatremia - improving - likely 2/2 hypervolemia -Oral Lasix Pruritus -Likely secondary to epidural, now discontinued -On nalbuphine PRN Atrial fibrillation -eliquis restarted Hypertension - home meds Dyslipidemia - home meds DVT ppx: heparin sq Thank you for allowing us to participate in the care of this pleasant patient. Do not hesitate to contact us with questions. Someone can be reached from the [facility] hospitalist group all hours of the day at [phone] or via perfect serve. Objective - Vital Signs Vital signs: Vital Signs Temp 98.7 F 05/01/22 07:35 Pulse 68 05/01/22 08:44 Resp 17 05/01/22 07:35 BP 100/62 05/01/22 07:35 Pulse Ox 95 05/01/22 08:32 FiO2 Intake & Output 04/30/22 05/01/22 05/01/22 18:59 06:59 18:59 Intake Total 600 Output Total 3900 1250 1000 Balance -3300 -1250 -1000 Intake: Intake, IV Titration 600 Amount Cefepime 2 gm In Sodium 100 Chloride 0.9% 100 ml @ 25 mls/hr IVPB Q8HR [facility] Rx# :[id number] Magnesium Sulfate-D5w Pmx 300 1 gm In Dextrose/Water 1 100ml.bag @ 100 mls/hr IVPB Q1H [facility] Rx#: [id number] metroNIDAZOLE-NS PMX 500 200 mg In Saline 1 100ml.bag @ 100 mls/hr IVPB Q8HR [facility] Rx#:[id number] Output: Urine 3900 1250 1000 Other: Voiding Method Indwelling Catheter Indwelling Catheter # Bowel Movements 1 - Labs CBC & Chem 7: 05/01/22 08:47 05/01/22 08:47 Labs: Abnormal Lab Results - Last 24 Hours (Table) 05/01/22 05/01/22 Range/Units 08:47 08:47 RBC 3.39 L (4.30-5.90) m/uL Hgb 10.7 L (13.0-17.5) gm/dL Hct 32.6 L (39.0-53.0) % RDW 16.8 H (11.5-15.5) % Sodium 131 L (137-145) mmol/L Potassium 3.1 L (3.5-5.1) mmol/L Chloride 96 L (98-107) mmol/L BUN 7 L (9-20) mg/dL Creatinine 0.53 L (0.66-1.25) mg/dL Glucose 100 H (74-99) mg/dL Calcium 7.9 L (8.4-10.2) mg/dL
[2022-05-01] MEDS: POTASSIUM CHLORIDE ER 20 MEQ TAB.ER PO SCH ×2 (12:01→13:56)
--- NOTE | 2022-05-01 13:36 | P.DS ---
Providers Date of admission: 04/26/22 07:48 Expected date of discharge: 05/01/22 Attending physician: Keith Hou Consults: 04/26/22 10:11 Consult Physician Routine Consulting Provider: Rain Willingham Consult Reason/Comments: Medical management Do you want consulting provider notified?: Yes 04/27/22 12:52 Consult Physician Routine Consulting Provider: Vignesh Reynoso Consult Reason/Comments: diverticulitis, recent outpatient antibiotics Do you want consulting provider notified?: Yes Primary care physician: Raúl Marie [place] Hospital Course: Discharge diagnosis 1. Chronic diverticulitis status post sigmoid colectomy and colostomy with appendectomy 2. Hyponatremia. Improving 3. Hypomagnesemia improved 4. Hypokalemia patient receiving supplement Hospital course This is a 76-year-old male with a known history of chronic diverticulitis. He is status post sigmoid colectomy and end colostomy with appendectomy. Patient's pain is controlled. He is tolerating diet. His ostomy is functioning. He is afebrile. He has been up and ambulating. Patient will be discharged with antibiotics per ID recommendations. He is stable for discharge. Please refer to chart for any further details. Physician Tennis Ball Coverer Hand note has been reviewed by physician. Signing provider agrees with the documented findings, assessment, and plan of care. Patient Condition at Discharge: Stable Plan - Discharge Summary Discharge Rx Participant: No New Discharge Prescriptions: New Acetaminophen Tab [Tylenol Tab] 650 mg PO Q4H PRN #30 tablet PRN Reason: Pain cefUROXime axetiL [Ceftin] 500 mg PO BID 7 Days #14 tab metroNIDAZOLE [Flagyl] 500 mg PO TID 7 Days #21 tab No Action Levothyroxine Sodium [Synthroid] 75 mcg PO QAM Potassium Chloride ER [K-Dur 20] 20 meq PO DAILY Furosemide [Lasix] 80 mg PO QAM Aspirin EC [Ecotrin Low Dose] 81 mg PO DAILY Turmeric Root Extract [Turmeric] 500 mg PO HS Atorvastatin Calcium [Lipitor] 80 mg PO HS Calcium Carbonate [Tums] 500 mg PO QID PRN PRN Reason: Heartburn Multivitamins, Thera [Multivitamin (formulary)] 1 tab PO HS Tamsulosin HCl [Flomax] 0.4 mg PO HS Apixaban [Eliquis] 5 mg PO BID Metoprolol Succinate (ER) [Toprol XL] 50 mg PO QAM Cefepime [Maxipime] 2 mg PO Q8H Neomycin 500 mg PO TID ramipriL [Altace] 5 mg PO HS Spironolactone [Aldactone] 12.5 mg PO QAM Albuterol Nebulized (Conc) [Ventolin Nebulized (Conc)] 1 applic INHALATION DAILY PRN PRN Reason: Shortness Of Breath Or Wheezing Erythromycin Base [Erythromycin] 500 mg PO TID Discharge Medication List Aspirin EC [Ecotrin Low Dose] 81 mg PO DAILY 04/09/18 [History] Furosemide [Lasix] 80 mg PO QAM 04/09/18 [History] Levothyroxine Sodium [Synthroid] 75 mcg PO QAM 04/09/18 [History] Potassium Chloride ER [K-Dur 20] 20 meq PO DAILY 04/09/18 [History] Turmeric Root Extract [Turmeric] 500 mg PO HS 04/09/18 [History] Atorvastatin Calcium [Lipitor] 80 mg PO HS 10/20/21 [History] Calcium Carbonate [Tums] 500 mg PO QID PRN 10/28/21 [Rx] Apixaban [Eliquis] 5 mg PO BID 04/11/22 [History] Multivitamins, Thera [Multivitamin (formulary)] 1 tab PO HS 04/11/22 [History] Spironolactone [Aldactone] 12.5 mg PO QAM 04/11/22 [History] Tamsulosin HCl [Flomax] 0.4 mg PO HS 04/11/22 [History] ramipriL [Altace] 5 mg PO HS 04/11/22 [History] Albuterol Nebulized (Conc) [Ventolin Nebulized (Conc)] 1 applic INHALATION DAILY PRN 04/24/22 [History] Cefepime [Maxipime] 2 mg PO Q8H 04/24/22 [History] Erythromycin Base [Erythromycin] 500 mg PO TID 04/24/22 [History] Metoprolol Succinate (ER) [Toprol XL] 50 mg PO QAM 04/24/22 [History] Neomycin 500 mg PO TID 04/24/22 [History] Acetaminophen Tab [Tylenol Tab] 650 mg PO Q4H PRN #30 tablet 05/01/22 [Rx] cefUROXime axetiL [Ceftin] 500 mg PO BID 7 Days #14 tab 05/01/22 [Rx] metroNIDAZOLE [Flagyl] 500 mg PO TID 7 Days #21 tab 05/01/22 [Rx] Follow up Appointment(s)/Referral(s): Nursing,Noe [NON-STAFF] - 1-2 Days Keith Hou MD [STAFF PHYSICIAN] - 1 Week Patient Instructions/Handouts: Colostomy Care (GEN), Diverticulosis (GEN) Activity/Diet/Wound Care/Special Instructions: Medicine service to complete discharge med rec Colostomy Care Recommendations for discharge home Last Pouching system change: 05.01.2022 Mr Rosas will receive the following ostomy items from the hospital for home: Convatec one piece cut to fit with filter #[id number] (three) Skin prep pads (12) Ostomy powder (use only as directed by Home care or the surgeon) Mr Rosas is to empty the pouching system while sitting on the toilet when the pouch is 1/3 to 1/2 full Mr Rosas is to change the entire pouching system every 3 -5 days unless otherwise directed by the Home Health Nurse or the surgeon Home Care please assist Mr Rosas in 3 - 4 weeks to establish his ostomy products to be shipped to his home and possible a disposable pouching system if possible No lifting over 10 pounds Shower daily. No soaking or tub baths for 2 weeks Very light activity until you are reevaluated at your follow up appointment with your surgeon Discharge Disposition: HOME WITH HOME HEALTH SERVICES
[2022-05-01] MEDS: metroNIDAZOLE 500 MG TAB PO SCH ×3 (16:16→20:50)
[2022-05-01] MEDS: APIXABAN 5 MG TAB PO SCH (20:23)
[2022-05-01] MEDS: ATORVASTATIN 80 MG TAB PO SCH (20:23)
[2022-05-01] MEDS: MULTIVITAMINS, THERA 1 EACH TAB PO SCH (20:24)
[2022-05-01] MEDS: lisinopriL 20 MG TAB PO SCH (20:24)
[2022-05-01] MEDS: TAMSULOSIN 0.4 MG CAP.ER.24H PO SCH (20:24)
[2022-05-01] MEDS ORDERED: ALPRAZolam 0.5 MG TAB PO STA (20:45)
--- NOTE | 2022-05-01 21:41 | XR ---
EXAMINATION TYPE: XR chest 1V portable DATE OF EXAM: 05/01/2022 9:21 PM COMPARISON: Chest radiographs from 04/28/2022 TECHNIQUE: XR chest 1V portable Portable AP radiograph of the chest. CLINICAL INDICATION:Male, 76 years old with history of SOB; FINDINGS: Lungs/Pleura: There is no evidence of focal consolidation, or pneumothorax. Small left pleural effusi on. Pulmonary vascularity: Unremarkable. Heart/mediastinum: Cardiomediastinal silhouette is enlarged and stable. Three lead cardiac conduction device overlying the left hemithorax with lead tips projecting over the right ventricle, right atriu m and coronary sinus. Musculoskeletal: No acute osseous pathology. Midline sternotomy wires are noted. Other findings: None Lines/Tubes:Right-sided PICC line with distal tip at at the superior vena cava. IMPRESSION: 1. Stable exam with cardiomegaly and small left pleural effusion. 2. Right PICC in appropriate position.
[2022-05-02] MEDS: ACETAMINOPHEN TAB 500 MG TAB PO SCH ×2 (00:39→05:39)
[2022-05-02] MEDS: CEFEPIME 2 GM in SODIUM CHLORIDE 0.9% 100 ML IVPB SCH ×2 (00:40→08:56)
[2022-05-02] MEDS: ALBUTEROL NEBULIZED 2.5 MG/3 ML INHALATION SCH ×2 (07:52→11:30)
[2022-05-02 07:55] VITALS: RESP 16
[2022-05-02 08:18] VITALS: BP 95/61; PULSE 73; TEMP 97.8
--- NOTE | 2022-05-02 08:30 | P.PN ---
Subjective Progress Note Date: 04/29/22 Principal diagnosis: Diverticulitis with a recent abscess Patient is a 76 year old male with a possible medical history significant for recurrent diverticulitis with adjacent better diverticular abscess likely admitted to the hospital in this patient who is status post laparotomy and diverting colostomy no mention of any intra-abdominal abscess on the operative report did mention inflamed colon. On today's evaluation and that is 04/29/2022, the patient remains to be afebrile, the patient abdominal pain is currently controlled patient has been positive gas through his colostomy, denies any nausea no vomiting no chest pain shortness of breath or cough Objective - Vital Signs Vital signs: Vital Signs Temp 99.3 F 04/29/22 00:56 Pulse 100 04/29/22 08:00 Resp 18 04/29/22 08:00 BP 98/56 04/29/22 08:00 Pulse Ox 96 04/29/22 08:00 FiO2 Intake & Output 04/28/22 04/29/22 04/29/22 18:59 06:59 18:59 Output Total 3450 3900 Balance -3450 -3900 Output: Urine 3450 3900 Other: Voiding Method Indwelling Catheter Indwelling Catheter Indwelling Catheter - Exam GENERAL DESCRIPTION: An elderly male lying in bed in no distress RESPIRATORY SYSTEM: Unlabored breathing , decreased breath sounds at bases HEART: S1 S2 regular rate and rhythm , ABDOMEN: Soft , no tenderness EXTREMITIES: No edema feet - Labs CBC & Chem 7: 05/01/22 08:47 05/01/22 08:47 Labs: Abnormal Lab Results - Last 24 Hours (Table) 04/28/22 Range/Units 08:40 Sodium 128 L (137-145) mmol/L Creatinine 0.48 L (0.66-1.25) mg/dL Calcium 7.8 L (8.4-10.2) mg/dL Assessment and Plan (1) Diverticulitis Current Visit: No Status: Acute Code(s): K57.92 - DVTRCLI OF INTEST, PART UNSP, W/O PERF OR ABSCESS W/O BLEED SNOMED Code(s): 729501104 Plan: 1patient with a history of recurrent diverticulitis and peridiverticular abscess in this patient who is status post laparotomy and diverting colostomy along with appendectomy there was mention of diffuse inflammation of the colon but no mention of any intra-abdominal abscess and no cultures were done. 2patient slowly clinical improvement and will continue with cefepime and Flagyl while inpatient and monitor clinical course closely Time with Patient: Less than 30
--- NOTE | 2022-05-02 08:31 | P.PN ---
Subjective Progress Note Date: 04/30/22 Principal diagnosis: Diverticulitis with a recent abscess Patient is a 76 year old male with a possible medical history significant for recurrent diverticulitis with adjacent better diverticular abscess likely admitted to the hospital in this patient who is status post laparotomy and diverting colostomy no mention of any intra-abdominal abscess on the operative report did mention inflamed colon. On today's evaluation and that is 04/30/2022, the patient continues to be afebrile, the patient abdominal pain is currently controlled patient has been positive gas through his colostomy but didn't have any output, the patient denies any nausea no vomiting no chest pain shortness of breath or cough Objective - Vital Signs Vital signs: Vital Signs Temp 98.3 F 04/30/22 07:50 Pulse 70 04/30/22 12:02 Resp 16 04/30/22 08:00 BP 103/59 04/30/22 07:50 Pulse Ox 98 04/30/22 07:50 FiO2 Intake & Output 04/29/22 04/30/22 04/30/22 18:59 06:59 18:59 Intake Total 400 Output Total 2100 1600 2100 Balance -1700 -1600 -2100 Weight 73.9 kg Intake: Intake, IV Titration 400 Amount Cefepime 2 gm In Sodium 200 Chloride 0.9% 100 ml @ 25 mls/hr IVPB Q8HR [facility] Rx# :[id number] metroNIDAZOLE-NS PMX 500 200 mg In Saline 1 100ml.bag @ 100 mls/hr IVPB Q8HR [facility] Rx#:[id number] Output: Urine 2100 1600 2100 Other: Voiding Method Indwelling Catheter Indwelling Catheter Indwelling Catheter - Exam GENERAL DESCRIPTION: An elderly male lying in bed in no distress RESPIRATORY SYSTEM: Unlabored breathing , decreased breath sounds at bases HEART: S1 S2 regular rate and rhythm , ABDOMEN: Soft , no tenderness EXTREMITIES: No edema feet - Labs CBC & Chem 7: 05/01/22 08:47 05/01/22 08:47 Labs: Abnormal Lab Results - Last 24 Hours (Table) 04/30/22 04/30/22 Range/Units 03:27 03:27 RBC 3.32 L (4.40-5.60) X 10*6/uL Hgb 10.4 L (13.0-17.0) g/dL Hct 32.0 L (39.6-50.0) % RDW 18.7 H (11.5-14.5) % Monocytes # 1.28 H (0.20-1.00) X 10*3/uL Sodium 131 L (135-145) mmol/L Potassium 3.2 L (3.5-5.5) mmol/L Chloride 93 L (96-109) mmol/L Carbon Dioxide 27.7 H (20.0-27.5) mmol/L Anion Gap 9.90 L (10.00-18.00) mmol/L BUN 5.8 L (9.0-27.0) mg/dL BUN/Creatinine Ratio 9.60 L (12.00-20.00) Ratio Calcium 7.8 L (8.7-10.3) mg/dL Assessment and Plan (1) Diverticulitis Current Visit: No Status: Acute Code(s): K57.92 - DVTRCLI OF INTEST, PART UNSP, W/O PERF OR ABSCESS W/O BLEED SNOMED Code(s): 672885192 Plan: 1patient with a history of recurrent diverticulitis and peridiverticular abscess in this patient who is status post laparotomy and diverting colostomy along with appendectomy there was mention of diffuse inflammation of the colon but no mention of any intra-abdominal abscess and no cultures were done. 2patient has shown clinical improvement, patient is afebrile with normal and will continue with cefepime and Flagyl while inpatient and monitor clinical course closely Time with Patient: Less than 30
--- NOTE | 2022-05-02 08:32 | P.PN ---
Subjective Progress Note Date: 05/01/22 Principal diagnosis: Diverticulitis with a recent abscess Patient is a 76 year old male with a possible medical history significant for recurrent diverticulitis with adjacent better diverticular abscess likely admitted to the hospital in this patient who is status post laparotomy and diverting colostomy no mention of any intra-abdominal abscess on the operative report did mention inflamed colon. On today's evaluation and that is 05/01/2022, the patient denies any fever and chills, the patient denies abdominal pain, patient did have some marked work through his colostomy , the patient denies any nausea no vomiting no chest pain shortness of breath or cough Objective - Vital Signs Vital signs: Vital Signs Temp 98.7 F 05/01/22 07:35 Pulse 65 05/01/22 11:47 Resp 17 05/01/22 07:35 BP 100/62 05/01/22 07:35 Pulse Ox 95 05/01/22 08:32 FiO2 Intake & Output 04/30/22 05/01/22 05/01/22 18:59 06:59 18:59 Intake Total 600 Output Total 3900 1250 1200 Balance -3300 -1250 -1200 Intake: Intake, IV Titration 600 Amount Cefepime 2 gm In Sodium 100 Chloride 0.9% 100 ml @ 25 mls/hr IVPB Q8HR [facility] Rx# :[id number] Magnesium Sulfate-D5w Pmx 300 1 gm In Dextrose/Water 1 100ml.bag @ 100 mls/hr IVPB Q1H [facility] Rx#: [id number] metroNIDAZOLE-NS PMX 500 200 mg In Saline 1 100ml.bag @ 100 mls/hr IVPB Q8HR [facility] Rx#:[id number] Output: Urine 3900 1250 1000 Stool 200 Other: Voiding Method Indwelling Catheter Indwelling Catheter # Bowel Movements 1 - Exam GENERAL DESCRIPTION: An elderly male lying in bed in no distress RESPIRATORY SYSTEM: Unlabored breathing , decreased breath sounds at bases HEART: S1 S2 regular rate and rhythm , ABDOMEN: Soft , no tenderness EXTREMITIES: No edema feet - Labs CBC & Chem 7: 05/01/22 08:47 05/01/22 08:47 Labs: Abnormal Lab Results - Last 24 Hours (Table) 05/01/22 05/01/22 Range/Units 08:47 08:47 RBC 3.39 L (4.30-5.90) m/uL Hgb 10.7 L (13.0-17.5) gm/dL Hct 32.6 L (39.0-53.0) % RDW 16.8 H (11.5-15.5) % Sodium 131 L (137-145) mmol/L Potassium 3.1 L (3.5-5.1) mmol/L Chloride 96 L (98-107) mmol/L BUN 7 L (9-20) mg/dL Creatinine 0.53 L (0.66-1.25) mg/dL Glucose 100 H (74-99) mg/dL Calcium 7.9 L (8.4-10.2) mg/dL Assessment and Plan (1) Diverticulitis Current Visit: No Status: Acute Code(s): K57.92 - DVTRCLI OF INTEST, PART UNSP, W/O PERF OR ABSCESS W/O BLEED SNOMED Code(s): 035321234 Plan: 1patient with a history of recurrent diverticulitis and peridiverticular abscess in this patient who is status post laparotomy and diverting colostomy along with appendectomy there was mention of diffuse inflammation of the colon but no mention of any intra-abdominal abscess and no cultures were done. 2patient has shown clinical improvement, patient is afebrile with normal white count, patient to finish therapy with the shortness of oral Ceftin and Flagyl on discharge discuss with the [employer] for surgical team PICC line to be discontinued before discharge Time with Patient: Less than 30
[2022-05-02] MEDS: PANTOPRAZOLE 40 MG/10 ML VIAL IVP SCH (08:54)
[2022-05-02] MEDS: APIXABAN 5 MG TAB PO SCH (08:54)
[2022-05-02] MEDS: LEVOTHYROXINE 75 MCG TAB PO SCH (08:54)
[2022-05-02] MEDS: metroNIDAZOLE 500 MG TAB PO SCH (08:54)
[2022-05-02] MEDS: ASPIRIN 81 MG PO SCH (08:54)
[2022-05-02] MEDS: METOPROLOL SUCCINATE (ER) 50 MG TAB.ER.24H PO SCH (08:54)
[2022-05-02] MEDS: SPIRONOLACTONE 25 MG TAB PO SCH (08:55)
[2022-05-02] MEDS: ALVIMOPAN 12 MG CAPSULE PO SCH (08:56)
[2022-05-02] MEDS: FUROSEMIDE 80 MG TAB PO SCH (09:04)
[2022-05-02 09:33] LABS: African American GFR (CKD) >90 (>60 ml/min/1.73 sqM); Anion Gap 9 mmol/L; Blood Urea Nitrogen 7 mg/dL (9-20); Carbon Dioxide 27 mmol/L (22-30); Chloride 98 mmol/L (98-107); Glucose 124 mg/dL (74-99); Non-African American GFR(CKD) >90 (>60 ml/min/1.73 sqM); Potassium 3.5 mmol/L (3.5-5.1); Sodium 134 mmol/L (137-145)
--- NOTE | 2022-05-02 15:57 | P.PN ---
Subjective Progress Note Date: 05/02/22 Patient seen and examined at bedside. Patient is eager to go home. Patient denies chest pain shortness of breath nausea vomiting fevers or chills. No acute changes overnight. Objective - Vital Signs Vital signs: Vital Signs Temp 97.8 F 05/02/22 08:00 Pulse 60 05/02/22 08:04 Resp 16 05/02/22 08:04 BP 95/61 05/02/22 08:00 Pulse Ox 97 05/02/22 08:00 FiO2 Intake & Output 05/01/22 05/02/22 05/02/22 18:59 06:59 18:59 Intake Total 480 540 Output Total 2247 715 5048 Balance - Intake: Oral 480 540 Output: Urine 4643 466 5845 Straight 225 Stool 200 200 Other: # Voids 1 - Exam General: [non toxic], [no distress], [appears at stated age] Derm: [warm], [dry] Head: [atraumatic], [normocephalic], [symmetric] Eyes: [EOMI], [no lid lag], [anicteric sclera] Mouth: [no lip lesion], [mucus membranes moist] Cardiovascular: [S1S2 reg], [no murmur], [positive posterior tibial pulse bilateral], Lungs: [CTA bilateral], [no rhonchi, no rales] , [no accessory muscle use] Abdominal: [soft], [ nontender to palpation], [no guarding], [no appreciable organomegaly] Ext: [no gross muscle atrophy], [no edema], [no contractures] Neuro: [ CN II-XI grossly intact], [no focal neuro deficits] Psych: [Alert], [oriented], [appropriate affect] - Labs CBC & Chem 7: 05/01/22 08:47 05/02/22 08:44 Labs: Abnormal Lab Results - Last 24 Hours (Table) 05/02/22 Range/Units 08:44 Sodium 134 L (137-145) mmol/L BUN 7 L (9-20) mg/dL Creatinine 0.59 L (0.66-1.25) mg/dL Glucose 124 H (74-99) mg/dL Calcium 8.0 L (8.4-10.2) mg/dL Assessment and Plan Assessment: Severe diverticulitis status post sigmoid colectomy with end colostomy -POD #6 -epidural discontinued -pain control per surgery -Cefepime and Flagyl per ID -advance as tolerated Systolic CHF -Chest x-ray reviewed -Oral Lasix -will give 40 IV lasix once Hypomagnesemia - resolved Hypokalemia -Replete Mild hyponatremia - improving - likely 2/2 hypervolemia -Oral Lasix Pruritus -Likely secondary to epidural, now discontinued -On nalbuphine PRN Atrial fibrillation -eliquis restarted Hypertension - home meds Dyslipidemia - home meds DVT ppx: heparin sq Thank you for allowing us to participate in the care of this pleasant patient. Do not hesitate to contact us with questions. Someone can be reached from the [facility] hospitalist group all hours of the day at [phone] or via perfect serve.
== END 2022-05-02 15:05 | disposition home health service (06) | DRG 330 ==
LOC: 2ORMAIN 07:48 → 4SSUR 10:55
PROVIDERS: ADMIT Surgery; ATTEND Surgery
PROC: 0D1M0Z4 Bypass Descending Colon to Cutaneous, Open Approach (ICD-10-PCS; 2022-04-26)
PROC: 0DTJ0ZZ Resection of Appendix, Open Approach (ICD-10-PCS; 2022-04-26)
PROC: 0DTN0ZZ Resection of Sigmoid Colon, Open Approach (ICD-10-PCS; principal; 2022-04-26 09:30)
PROC: 02HV33Z Insertion of Infusion Device into Superior Vena Cava, Percutaneous Approach (ICD-10-PCS; 2022-04-28)
PROC: B5181ZA Fluoroscopy of Superior Vena Cava using Low Osmolar Contrast, Guidance (ICD-10-PCS; 2022-04-28)
PROC: B548ZZA Ultrasonography of Superior Vena Cava, Guidance (ICD-10-PCS; 2022-04-28)
DX: K57.33 Diverticulitis of large intestine without perforation or abscess with bleeding (principal); E87.1 Hypo-osmolality and hyponatremia; I42.9 Cardiomyopathy, unspecified; I50.22 Chronic systolic (congestive) heart failure; K63.2 Fistula of intestine; T41.45XA Adverse effect of unspecified anesthetic, initial encounter; K52.9 Noninfective gastroenteritis and colitis, unspecified; D64.9 Anemia, unspecified; I25.10 Atherosclerotic heart disease of native coronary artery without angina pectoris; E78.5 Hyperlipidemia, unspecified; E83.42 Hypomagnesemia; E87.6 Hypokalemia; I11.0 Hypertensive heart disease with heart failure; I25.2 Old myocardial infarction; I48.91 Unspecified atrial fibrillation; J44.9 Chronic obstructive pulmonary disease, unspecified; L29.9 Pruritus, unspecified; Z79.01 Long term (current) use of anticoagulants; Z79.82 Long term (current) use of aspirin; Z79.890 Hormone replacement therapy; Z79.899 Other long term (current) drug therapy; Z85.118 Personal history of other malignant neoplasm of bronchus and lung; Z87.891 Personal history of nicotine dependence; Z95.1 Presence of aortocoronary bypass graft; Z95.810 Presence of automatic (implantable) cardiac defibrillator; Z87.19 Personal history of other diseases of the digestive system; Z92.3 Personal history of irradiation; Z88.0 Allergy status to penicillin; Z88.2 Allergy status to sulfonamides
CPT/HCPCS: 71045; 80048; 83735; 85025; 86850; 86900; 86901; 88307; 94640; 94760

== ENCOUNTER → 2022-08-08 | Outpatient (CLI) | payer MEDICARE ==
[2022-08-08 18:32] LABS: HCT 38.2 % (39.6-50.0); HGB 12.2 g/dL (13.0-17.0); MCH 31.3 pg (27.0-32.0); MCHC 31.9 g/dL (32.0-37.0); MCV 97.9 fL (80.0-97.0); Mean Platelet Volume 9.7 fL (9.5-12.2); NRBC Per 100 WBC 0 /100 WBCS (0.0-0.0); Platelet Count 260 X 10*3/uL (140-440); RDW 14.8 % (11.5-14.5); WBC 11.16 X 10*3/uL (4.50-10.00)
[2022-08-08 19:09] LABS: ALT 17 U/L (10-49); AST 20 U/L (14-35); African American GFR (CKD) 102.7 (60.0-200.0); Albumin 3.9 g/dL (3.8-4.9); Albumin/Globulin Ratio 1.21 (1.60-3.17); Alkaline Phosphatase 104 U/L (41-126); BUN/Creat Ratio 17.05 Ratio (12.00-20.00); Blood Urea Nitrogen 13.2 mg/dL (9.0-27.0); Calcium 9.6 mg/dL (8.7-10.3); Carbon Dioxide 28.2 mmol/L (20.0-27.5); Chloride 98 mmol/L (96-109); Globulin 3.2 g/dL (1.6-3.3); Glucose 114 mg/dL (70-110); LDL Cholesterol,Calculated 52.8 mg/dL (0.0-131.0); Non-African American GFR(CKD) 88.6 (60.0-200.0); Potassium 5.1 mmol/L (3.5-5.5); Sodium 137 mmol/L (135-145)
== END | disposition home or self-care (01) ==
LOC: LABWHC1 12:04
PROVIDERS: ATTEND Internal Medicine Interventional Cardiology
DX: E78.2 Mixed hyperlipidemia (principal); S25.50 Unspecified injury of intercostal blood vessels; Y99.9 Unspecified external cause status
CPT/HCPCS: 36415; 80053; 80061; 85027

== ENCOUNTER → 2022-08-17 | Outpatient (CLI) | payer MEDICARE ==
[2022-08-17 17:55] LABS: African American GFR (CKD) >90 (>60 ml/min/1.73 sqM); Blood Urea Nitrogen 8 mg/dL (9-20); Non-African American GFR(CKD) >90 (>60 ml/min/1.73 sqM)
--- NOTE | 2022-08-18 07:54 | CT ---
EXAMINATION TYPE: CT chest wo/w con CT DLP: 624.8 mGycm, Automated exposure control for dose reduction was used. DATE OF EXAM: 08/17/2022 6:43 PM COMPARISON: CT chest most recent 08/11/2021 CLINICAL INDICATION:Male, 77 years old with history of C34.11, Hx of RUQ lung CA. TECHNIQUE: Multiple axial images were obtained through the chest. Sagittal and coronal reformats were created for review. Contrast used:70cc mL of Isovue 300 with IV Contrast Oral contrast used: None. FINDINGS: LUNGS/ PLEURA: Right upper lung demonstrates similar streaky scarring/atelectasis extending away from the mid upper lobe to the lateral lung. The right lower lobe demonstrates new opacities/nodules: * Measuring up to 8 mm series 10 image 21. * Posteriorly with cavitation measuring up to 11 mm. Series 10 image 29. * Along the pleura measuring up to 10 mm. Series 10 image 35. * More anteriorly in the lower lobe along the fissure measuring up to 6 mm. Series 10 image 27. Left lower lobe demonstrates similar to mildly increased in size pleural effusion with associated ate lectasis. There is masslike opacity along the posterior lower lobe abutting the pleural fusion which have incre ased in size now measuring 3.5 x 2.2 cm, previously 1.9 x 1.4 cm. AIRWAY: Increased soft tissue around the left main bronchus and into and around the left central larg e airways with some luminal narrowing. HEART: The heart is enlarged for size there is severe coronary artery atherosclerosis and. There is e vidence of prior stent grafts. Aortic valve calcifications are present. There is enlarged left atrium and left ventricle. There is reflux of contrast into the IVC. MEDIASTINUM: New abnormal soft tissue in the subcarinal region measuring 3.9 x 1.2 cm that extends al nicole the left main bronchus and left lower lobe large airways. VASCULATURE: No aortic aneurysm. MUSCULOSKELETAL: Sternotomy wires are present. There is multilevel disc degeneration changes througho ut the spine. Evidence of remote left rib 9 fracture. SOFT TISSUES/LYMPH NODES: Left chest wall cardiac conduction device with leads terminating in the rig ht ventricle right atrium and coronary sinus. LOWER NECK: No significant findings. UPPER ABDOMEN: No significant findings. IMPRESSION: 1. Multiple findings concerning for progression of cancer. A PET/CT may be of benefit. Findings incl ude New Nodules in the right lower lung compared 08/11/2021 somewhat cavitation. While this could repr esent infectious/inflammatory process malignancy is not entirely excluded. Additionally there is a ma sslike left lower lobe consolidation which has increased in size from prior. Lastly, increased soft t issue in the subcarinal region of the mediastinum and along the left main central perihilar airways w ith some narrowing of the airways. 2. Posttreatment changes the right upper lung which is not significantly changed in morphology. 3. Post intervention changes of the heart with stents. Conduction device and sternotomy changes. 4. Evidence of heart failure with cardiomegaly reflux of contrast into the inferior vena cava.
== END | disposition home or self-care (01) ==
LOC: RADCTMAIN 16:40
PROVIDERS: ATTEND Radiology Radiation Oncology
DX: Z08 Encounter for follow-up examination after completed treatment for malignant neoplasm (principal); I50.9 Heart failure, unspecified; J44.9 Chronic obstructive pulmonary disease, unspecified; E89.0 Postprocedural hypothyroidism; R91.8 Other nonspecific abnormal finding of lung field; Z95.5 Presence of coronary angioplasty implant and graft; Z85.118 Personal history of other malignant neoplasm of bronchus and lung; Z98.890 Other specified postprocedural states
CPT/HCPCS: 82565; 84520; 71270; 36415; Q9967